=== PATIENT | male | born 1930 | race Caucasian/White ===

== ENCOUNTER 2016-12-02 12:00 | Inpatient (IN) | payer MEDICARE, OTHER ==
[~2016-12-02] VITALS: Ht 180.3 cm; Wt 79.5 kg
[~2016-12-02 12:00] MED LIST: /METO25TAB PO; /WARF4TA PO; ACET-654 PO; ASCO500T PO; ASPI81CH PO; BISA10SU30 PO; CARA1TAB2 PO; CHLO25TA3 PO; COLA50CA3 PO; FERR140T PO; LISI5TAB PO; MULTLIQ PO; NITR0.4D6 SL; OMEP40CA2 PO; SENO8.6T9 PO; SIMV40TA2 PO; VITA100066 PO
[2016-12-02 14:27] LABS: BASO % 0.2 % (0.0-1.0); EOS % 0.2 % (0.0-3.0); INR 1.12; LARGE UNSTAINED CELL # 0.3 K/mm3 (0.0-0.4); LARGE UNSTAINED CELL % 2.8 % (0.0-4.0); LYMPH % 10.1 % (24.0-44.0); MEAN CORPUSCULAR HEMOGLOBIN 29.5 pg (27.0-33.0); MEAN CORPUSCULAR HGB CONC 31.6 g/dl (32.0-36.5); MEAN CORPUSCULAR VOLUME 93.3 fl (80.0-96.0); MONO # 0.5 K/mm3 (0.0-0.8); NEUTROPHILS # 8.3 K/mm3 (1.8-7.7); NEUTROPHILS % 81.6 % (36.0-66.0); PLATELET COUNT, AUTOMATED 306 k/mm3 (150-450); RED CELL DISTRIBUTION WIDTH 13.3 % (11.5-14.5); WHITE BLOOD COUNT 10.1 K/mm3 (4.0-10.0)
[2016-12-02 14:38] LABS: ANION GAP 9 MEQ/L (8-16); BLOOD UREA NITROGEN 20 MG/DL (7-18); CALCIUM LEVEL 8.6 MG/DL (8.8-10.2); CARBON DIOXIDE LEVEL 27 MEQ/L (21-32); CHLORIDE LEVEL 105 MEQ/L (98-107); CREATININE FOR GFR 0.89 MG/DL (0.70-1.30); GLOMERULAR FILTRATION RATE > 60.0 (>35); GLUCOSE, FASTING 101 MG/DL (83-110); POTASSIUM SERUM 4.4 MEQ/L (3.5-5.1); SODIUM LEVEL 141 MEQ/L (136-145)
[2016-12-02] MEDS ORDERED: MEMA1TAB2 PO (15:01)
[2016-12-02] MEDS ORDERED: FERR325T PO (15:01)
[2016-12-02] MEDS ORDERED: VITMTA PO (15:01)
[2016-12-02] MEDS ORDERED: DONETAB6 PO (15:01)
[2016-12-02] MEDS ORDERED: ASPI1TAB PO (15:01)
[2016-12-02] MEDS ORDERED: VITA200038 PO (15:01)
[2016-12-02] MEDS ORDERED: STOO100C PO (15:01)
[2016-12-02] MEDS ORDERED: LISI10TA4 PO (15:01)
[2016-12-02] MEDS ORDERED: OMEP40CA2 PO (15:01)
[2016-12-02] MEDS ORDERED: NITR4TASL SL (15:01)
[2016-12-02] MEDS ORDERED: SIMV10TA2 PO (15:01)
[2016-12-02] MEDS ORDERED: VITA1TAB23 PO (15:01)
--- NOTE | 2016-12-02 15:03 | REP ---
CHEST X-RAY: Two views. HISTORY: Syncope. Comparison chest x-ray October 12, 2014. FINDINGS: The patient is status post aortic valve replacement via median sternotomy. Mild cardiomegaly is observed unchanged. Interstitial fibrosis is seen in both lung bases also unchanged. No acute infiltrate is seen. Right hemidiaphragm remains slightly elevated. IMPRESSION: Cardiomegaly. Status post aortic valve replacement. Mild bibasilar interstitial fibrosis. No acute abnormality seen. Signed by Rohan Hilton MD 12/02/2016 05:13 P
--- NOTE | 2016-12-02 15:04 | REP ---
PELVIS LEFT HIP: Three views. HISTORY: Hip pain after fall. FINDINGS: AP view of the pelvis shows an intact bony pelvic ring. No right hip pelvic or sacral fracture is seen. There are clips in the left inguinal soft tissues and there is vascular calcification on the right. AP view of the pelvis and AP and frog-leg views of the left hip demonstrate an intertrochanteric fracture of the left hip in very slight varus. No other abnormality. IMPRESSION: Intertrochanteric fracture left hip in slight varus. Signed by Rohan Hilton MD 12/02/2016 05:13 P
[2016-12-02] MEDS ORDERED: MORPHINE 2 MG/ML 1ML SYRINGE As Ordered ONE ×2 (15:32→16:59)
[2016-12-02] MEDS ORDERED: ONDANSETRON 4MG/2ML VIAL (J2405) As Ordered ONE ×2 (15:32→16:59)
--- NOTE | 2016-12-02 15:33 | REP ---
CT HEAD WITHOUT CONTRAST: HISTORY: Trauma. COMPARISON: 02/11/2014. Areas of decreased attentuation are present in the periventricular and subcortical white matter. This represents small vessel ischemic disease. The ventricular system and cortical sulci are dilated consistent with mild volume loss. There is no extracerebral collection. There is no fracture. The visualized sinuses are clear. IMPRESSION: 1. Small vessel ischemic disease. 2. Mild volume loss. Signed by Felix Tovar MD 12/02/2016 03:35 P
--- NOTE | 2016-12-02 16:35 | REP ---
Left femur series: Two views: History: Injury in a fall. Hip fracture. Findings: AP and lateral views of the left femur demonstrate diffuse osteopenia. There is vascular calcification. Scattered surgical clips are noted in the soft-tissues. No fracture or subluxation is seen in the mid or distal femur. Impression: No mid or distal femur fracture seen. Signed by Rohan Hilton MD 12/02/2016 05:15 P
--- NOTE | 2016-12-02 17:50 | ECGEPIP ---
Stationary ECG Study 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
--- NOTE | 2016-12-02 18:36 | CR ---
DATE OF CONSULTATION: 12/02/2016 REASON FOR CONSULTATION: Left femur intertrochanteric fracture. REQUESTING PHYSICIAN: Dr. Page Monique, admitting hospitalist. HISTORY: The patient is an 85-year-old male presenting to the emergency room (ER ) status post fall in his driveway. The patient reports disorientation and when he awoke, he was unable to get up due to left hip pain. The patient was transported to the emergency room via ambulance. Denies numbness or other injury. PAST MEDICAL HISTORY: Hypertension. Coronary artery disease. Tuberculosis. PAST SURGICAL HISTORY: Coronary artery bypass graft (CABG). Hernia repair. Artificial heart valve. SOCIAL HISTORY: The patient is a former smoker. MEDICATIONS: - lisinopril 10 mg daily - simvastatin 10 mg daily - omeprazole 40 mg daily - furosemide 40 mg daily - ferrous sulfate 324 mg daily - Nitrostat sublingual as needed - donepezil 10 mg daily - memantine 10 mg daily - daily multivitamin - vitamin C - vitamin D3 daily - aspirin 81 mg daily - stool softener 100 mg once daily PHYSICAL EXAMINATION: The patient is a pleasant 85-year-old male who appears comfortable in the emergency room. Heart: Regular rhythm with murmur noted. Lungs: Clear to auscultation bilaterally. Abdomen: Soft, nontender to palpation. Musculoskeletal: Inspection of the left hip reveals no gross abnormalities. The skin to his left leg is normal color, warm and dry. Hip motion is limited due to pain. The patient's calf is soft, nontender to palpation. The patient's distal pulses are palpable. His capillary refill is brisk and his sensation is intact. LABORATORY: Complete blood count: WBC 10.1, slightly elevated. RBC 2.77, slight decreased. Hemoglobin 8.2, decreased. Hematocrit 25.8, decreased. Platelets 306. PT 14.5, INR 1.12, APTT 26.9. Chemistry: Sodium 121, potassium 4.4, chloride 105, carbon dioxide 27, anion gap 9, BUN 20, creatinine 0.89, GFR greater than 60, fasting glucose 101, calcium 8.6, slightly decreased. CK-MB 4.2 , elevated. CK-MB 8.23, slightly elevated. Troponin less than 0.02. IMAGING: AP and lateral of the left hip revealed an intertrochanteric fracture of left hip in slight varus. Left femur: No mid or distal femur fracture seen. IMPRESSION: Left intertrochanteric femur fracture. PLAN: The patient will require clearance for surgery from medical. This case was discussed with Dr. Panchal, and he agrees to visit the patient later to discuss the procedure and obtain consent. Coordinated with OR and hospitalist. In the meantime, the patient will be admitted by the hospitalist. 30 minutes invested with this patient, more than 50% face to face time. MARIA ISABEL
[2016-12-02] MEDS ORDERED: ACETAMINOPHEN TAB 650MG DOSE (2X325MG) As Ordered ONE (20:26)
[2016-12-02] MEDS ORDERED: HEPARIN SOD (PORCINE) 5000 UNITS/ML VIAL As Ordered ONE (20:28)
[2016-12-02] MEDS: ACETAMINOPHEN TAB 650MG DOSE (2X325MG) PO PRN (20:30)
[2016-12-02] MEDS: HEPARIN SOD (PORCINE) 5000 UNITS/ML VIAL SC SCH (20:30)
[2016-12-02] MEDS ORDERED: NITROGLYCERIN 0.4 MG SUBL TABLET SL PRN (21:30)
[2016-12-02 22:30] VITALS: BP 131/60
--- NOTE | 2016-12-02 22:38 | HPE ---
DATE OF ADMISSION: 12/02/2016 PRIMARY CARE PROVIDER: Dr. Cortez REASON FOR ADMISSION: Dizziness. HISTORY OF PRESENT ILLNESS: Patient is an 85-year-old male, past medical history significant for his hypertension, tuberculosis, history of dementia, presented to the emergency room after he had a ground level fall. The patient stated he felt disoriented while he was going down his driveway to get the mail and fell. He denies any loss of consciousness or syncope. Denies any chest pain or shortness of breath. He was unable to stand up, started to complain of leg pain. The patient was brought into the emergency room. He was found to have a hip fracture. Currently the patient states his pain is 6 or 7 out of 10. He has past medical history significant for coronary artery disease and hypertension, history of dementia. Hospitalist was called for the admission. The patient denies any chest pain at this time. Denied any shortness of breath. Denied any nausea or vomiting. Denied any dizziness or headaches. Denied any change in vision. The patient normally ambulates independently, can go up a flight of stairs without getting short of breath or having any chest pain. Hospitalist was called for the admission. REVIEW OF SYSTEMS: 12-point review of systems was obtained, all of which was negative except for those mentioned above. PAST MEDICAL HISTORY: Significant for: Hypertension. Coronary artery disease. Tuberculosis. Dementia. PAST SURGICAL HISTORY: Significant for: Coronary artery bypass graft (CABG). Hernia repair. Artificial heart valve. SOCIAL HISTORY: No tobacco or alcohol use. Lives at home with his . ALLERGIES: LATEX. HOME MEDICATIONS: Include: - ascorbic acid 250 mg by mouth at noon - aspirin 81 mg by mouth daily - vitamin D3 2000 units by mouth daily - stool softener 200 mg by mouth at bedtime - donepezil 10 mg at bedtime - iron 325 mg by mouth at noon - lisinopril 10 mg at bedtime - Namenda 10 mg twice a day - nitro 0.4 mg sublingual as needed for chest pain - omeprazole 40 mg by mouth daily - simvastatin 10 mg by mouth at bedtime FAMILY HISTORY: Noncontributory. PHYSICAL FINDINGS: Blood pressure 166/73, pulse 68, respiratory rate 18, temperature 98.2, pulse oximetry 99% on room air. HEENT: Pupils equal, round, reactive. Neck: Supple. Cardiac: +3 out of 6 systolic murmur. Regular rhythm, regular rate. Lungs: Clear to auscultation (CTA) bilaterally. Abdomen: Soft, nontender. Extremities: Left leg tender to palpation. LABORATORY FINDINGS: WBC 10.1, hemoglobin 8.2, hematocrit 25.8, platelet count 306. Sodium 141, potassium 4.4, chloride 105, BUN 20, creatinine 0.89, troponin less than 0.02, INR 1.12, APTT 26.9, PT 14.5. Femur x-ray showed no mid or distal femur fracture. Hip and pelvis x-ray showed intertrochanteric fracture of the left hip. Chest x-ray showed cardiomegaly, status post aortic valve replacement. CT of the chest showed small vessel ischemic disease. No volume loss. ASSESSMENT AND PLAN: 1. Left intertrochanteric fracture. Dr. Panchal from orthopedics was consulted. The patient will likely need cardiac clearance given his history of coronary artery disease and heart valve prior to proceeding to the operating room (OR). Will defer to morning team. 2. History of hypertension. Blood pressure is stable at this time. 3. The patient has a history of anemia. It appears that the patient was hospitalized in February of 2014, and his hemoglobin ran in the 8's. If it was to drop any further, we would transfuse. 4. History of coronary artery disease. The patient does not complain of any heart disease at this time. 5. Deep vein thrombosis (DVT) prophylaxis. We will start the patient on heparin at this time.
[2016-12-02] MEDS: SIMVASTATIN 10 MG TAB PO SCH (22:55)
[2016-12-02] MEDS: DOCUSATE SODIUM 100 MG CAP PO SCH (22:55)
[2016-12-02] MEDS: LISINOPRIL 10 MG TAB PO SCH (22:56)
--- NOTE | 2016-12-02 23:00 | EDDOCDS ---
Nurse's Notes [facility] Name: Ciro Shook Age: 85 yrs Sex: Male : 1930 Arrival Date: 12/02/2016 Time: 12:00 Bed 18 Private MD: Diagnosis: Intertrochanteric fracture of femur Presentation: 12/02 12:14 Presenting complaint: EMS states: that the pt got disoriented in the drive way and ms18 fell. Pt was found by the mail lady and was setting in the driveway unable to get up. Pt c/o L hip pain at this time. Adult Sepsis Screening: The patient does not have new or worsening altered mentation. Patient's respiratory rate is less than 22. Systolic blood pressure is greater than 100. Patient has a qSOFA score of 0- Negative Sepsis Screen. Suicide/Homicide risk assessment- the patient denies having any suicidal and/or homicidal ideations and does not present with any other emotional, behavioral or mental health complaints. Status: Patient is not a financial service rep or dependent. Transition of care: patient was not received from another setting of care. 12:14 Acuity: KEYUR Level 3 ms18 12:14 Method Of Arrival: Ambulance ms18 Triage Assessment: 12:19 General: Appears in no apparent distress, comfortable, Behavior is appropriate for age, ms18 cooperative, pleasant. Pain: Location: left hip Pain currently is 9 out of 10 on a pain scale. Neurological: Level of Consciousness is awake, alert, obeys commands, Oriented to person, place, time. Respiratory: Airway is patent Respiratory effort is even, unlabored. Derm: Skin is pink, warm & dry. Musculoskeletal: Range of motion limited in left hip. Historical: - Allergies: Latex; - Home Meds: 1. simvastatin 10 mg Oral tab 1 tab once daily 2. lisinopril 10 mg Oral tab 1 tab once daily 3. furosemide 40 mg Oral tab 1 tab once daily 4. omeprazole 40 mg Oral cpDR 1 cap 2 times per day 5. Nitrostat 0.4 mg SL subl 1 tab every 5 minutes 6. ferrous sulfate 324 mg (65 mg iron) Oral TbEC daily 7. donepezil 10 mg oral tab 1 tab once daily 8. memantine 10 mg oral tab 1 tab 2 times per day 9. multivitamin Oral tab 1 tablet daily 10. Vitamin C 500 mg Oral cpER 250 mg daily 11. Vitamin D3 1,000 unit oral tab 2000 unit daily 12. aspirin 81 mg Oral TbEC 1 tab once daily 13. Stool Softener 100 mg oral cap 1 cap 2 times per day - PMHx: Hypertension; CAD; Tuberculosis; - PSHx: CABG; Hernia repair; artifical heart valve; - Social history: Smoking status: Patient states former smoker of tobacco. No barriers to communication noted, The patient speaks fluent Hungarian. - Family history: Not pertinent. - : The pt / caregiver states he / she is not on anticoagulants. Home medication list is obtained from family members. - Exposure Risk Screening:: None identified. Screenin:53 Screening information is obtained from the patient, family members. Fall risk: At risk ms18 due to age, prior history of falls. Assistance ADL's: requires no assistance with activities of daily living. Abuse/DV Screen: The patient / caregiver reports he/she is: not in a situation that causes fear, pain or injury. Nutritional screening: No deficits noted. home support is adequate. 20:15 Advance Directives: Unable to assess Advance Directive status due to pt condition. af2 Assessment: 13:51 General: Appears in no apparent distress, comfortable, Behavior is appropriate for age, ms18 cooperative, pleasant. Pain: Location: left hip. Neurological: Level of Consciousness is awake, alert, obeys commands, Oriented to person, place, time. Cardiovascular: Rhythm is regular. Respiratory: Airway is patent Respiratory effort is even, unlabored. Derm: Skin is pink, warm & dry. Musculoskeletal: Range of motion limited in left hip. 14:56 General: Appears in no apparent distress, comfortable, Behavior is appropriate for age, ms18 cooperative. Neurological: Level of Consciousness is awake, alert, obeys commands, Oriented to person, place, time. Respiratory: Airway is patent Respiratory effort is even, unlabored. Derm: Skin is pink, warm & dry. 16:51 General: Hospitalist at bedside at this time. Will continue to monitor pt. ms18 17:15 General: Appears in no apparent distress, comfortable, Behavior is appropriate for age, ms18 cooperative, pleasant. General: Pt starting to take off 02 finger probe, pt needs constant redirection from his son. Son states that the pt may have onset of dementia, but pt's doesn't like to accept that. . Pain: Location: left hip Pain currently is 8 out of 10 on a pain scale. Neurological: Level of Consciousness is awake, alert, obeys commands, Oriented to person, place, time. Respiratory: Airway is patent Respiratory effort is even, unlabored. Derm: Skin is pink, warm & dry. normal. 18:51 General: Appears in no apparent distress, comfortable, Behavior is appropriate for age, ms18 cooperative. Neurological: Level of Consciousness is awake, alert, obeys commands. Respiratory: Airway is patent Respiratory effort is even, unlabored. Derm: Skin is pink, warm & dry. normal. Vital Signs: 12:19 BP 166 / 73; Pulse 68; Resp 18; Pulse Ox 99% ; Weight 76.2 kg; Height 5 ft. 11 in. ms18 (180.34 cm); Pain 9/10; 12:32 Temp 98.2(TE); ms18 12:53 Pulse 62 MON; Pulse Ox 98% ; ms18 12:54 BP 186 / 78 (auto/); ms18 13:08 Pulse 62 MON; Pulse Ox 96% ; ms18 13:09 BP 180 / 79 (auto/); ms18 13:23 Pulse 62 MON; Pulse Ox 97% ; ms18 13:24 BP 175 / 77 (auto/); ms18 13:38 Pulse 58 MON; Pulse Ox 98% ; ms18 13:39 BP 175 / 74 (auto/); ms18 13:54 BP 188 / 89 (auto/); ms18 13:54 Pulse 64 MON; Pulse Ox 98% ; ms18 14:24 BP 163 / 72 (auto/); ms18 14:24 Pulse 74 MON; Pulse Ox 95% ; ms18 14:39 BP 163 / 73 (auto/); ms18 14:39 Pulse 72 MON; Pulse Ox 97% ; ms18 14:54 BP 170 / 75 (auto/); ms18 14:54 Pulse 68 MON; Pulse Ox 96% ; ms18 15:09 BP 189 / 86 (auto/); ms18 15:09 Pulse 80 MON; Pulse Ox 96% ; ms18 15:24 BP 183 / 80 (auto/); ms18 15:24 Pulse 80 MON; Pulse Ox 98% ; ms18 15:39 BP 181 / 86 (auto/); ms18 15:39 Pulse 86 MON; Pulse Ox 96% ; ms18 15:53 Pulse 76 MON; Pulse Ox 94% ; ms18 15:54 BP 188 / 79 (auto/); ms18 16:09 BP 167 / 74 (auto/); ms18 16:09 Pulse 82 MON; Pulse Ox 95% ; ms18 16:24 BP 190 / 74 (auto/); ms18 16:25 Pulse 76 MON; Pulse Ox 95% ; ms18 16:37 Pulse 78 MON; Pulse Ox 94% ; ms18 16:39 BP 176 / 75 (auto/); ms18 16:53 Pulse 88 MON; Pulse Ox 93% ; ms18 16:54 BP 192 / 77 (auto/); ms18 17:08 Pulse 86 MON; Pulse Ox 94% ; ms18 17:09 BP 182 / 78 (auto/); ms18 17:19 Pulse 84 MON; Pulse Ox 94% ; ms18 17:24 BP 139 / 63 (auto/); ms18 17:39 BP 142 / 64 (auto/); ms18 17:39 Pulse 86 MON; Pulse Ox 95% ; ms18 17:54 BP 137 / 63 (auto/); ms18 17:54 Pulse 86 MON; Pulse Ox 94% ; ms18 18:09 BP 184 / 77 (auto/); ms18 18:09 Pulse 88 MON; Pulse Ox 95% ; ms18 18:22 Pulse 100 MON; Pulse Ox 94% ; ms18 18:24 BP 162 / 70 (auto/); ms18 18:39 BP 165 / 72 (auto/); ms18 18:39 Pulse 92 MON; Pulse Ox 95% ; ms18 20:13 BP 153 / 69 (auto/); af2 20:14 Pulse 86 MON; Pulse Ox 92% ; af2 12:19 Body Mass Index 23.43 (76.20 kg, 180.34 cm) ms18 Vitals: 12:19 Glucose Measurement D-stick done by EMS. Log In Time N/A - ambulance arrival. ms18 ED Course: 12:01 Patient visited by Jojo Chandra Batch Mixer Operator. deg 12:01 Patient moved to Waiting deg 12:02 Patient moved to 14 deg 12:17 Triage Initiated ms18 12:32 Patient visited by Falguni Sewell RN. ms18 12:45 Elida Swartz DO is PHCP. jo4 12:45 Tyler Cisneros MD is Attending Physician. jo4 12:53 The patient / caregiver is instructed regarding the plan of care and ED course. ms18 Accompanied by Significant Other, Patient has correct armband on for positive identification. Placed in gown. Bed in low position. Call light in reach. Side rails up X2. physician gynecologist on. Pulse ox on. NIBP on. Property :Personal belongings accompany Pt. 12:53 Maintain field IV. Dressing intact. Good blood return noted. Site clean & dry. Gauge & ms18 site: 20g L AC. 12:59 Patient visited by Falguni Sewell RN. ms18 12:59 Falguni Sewell RN is Primary Nurse. ms18 13:31 Patient visited by Betzaida Daly PCA. ct3 13:41 Patient visited by Elida Swartz DO. jo4 13:41 Patient visited by Elida Swartz DO. jo4 13:51 Patient visited by Falguni Sewell RN. ms18 14:13 Partial Thromboplastin Time Sent. ms18 14:13 Prothrombin Time Profile\E\INR Sent. ms18 14:13 Type & Screen Sent. ms18 14:13 BMP Sent. ms18 14:14 CBC with Diff Sent. ms18 14:14 Troponin Sent. ms18 14:14 CIP Sent. ms18 14:20 Patient visited by Falguni Sewell RN. ms18 14:36 PENDING SALE TO [facility] Payment Agreement was scanned into [employer] and attached to record. lg 14:51 Patient visited by Sylvain Carmen PCA. jlf 14:51 EKG done. (by ED staff). Reviewed by Tyler Cisneros MD. jlf 14:52 Patient visited by Sylvain Carmen PCA. jlf 15:20 Chest, 2 View (pa\E\lat) Returned. EDMS 15:20 Hip,AP,LAT to include Pelvis Returned. EDMS 15:26 Patient visited by Falguni Sewell RN. ms18 15:43 Patient visited by Falguni Sewell RN. ms18 15:57 CT Head Without Contrast Returned. EDMS 16:51 Patient visited by Falguni Sewell RN. ms18 16:51 Patient visited by Sylvain Carmen PCA. jlf 17:01 Page Monique is Hospitalizing Provider. jo4 17:14 Femur Returned. EDMS 17:51 EKG-ADULT Returned. EDMS 17:54 Chest, 2 View (pa\E\lat) Returned. EDMS 17:54 Hip,AP,LAT to include Pelvis Returned. EDMS 18:03 Patient moved to Admit Hold js13 18:49 Patient visited by Falguni Sewell RN. ms18 18:56 Renate HollandRN is Primary Nurse. af2 20:04 Sophie Sewell RN is Primary Nurse. sls1 20:04 Patient moved to 18 sls1 20:15 No procedures done that require assistance. af2 Administered Medications: 15:43 Drug: morphine 2 mg [morphine 2 mg/mL intravenous cartridge (1 mL)] Route: IVP; Site: ms18 left antecubital; 17:14 Follow up: Response: No Adverse Reaction; Pain is decreased ms18 15:43 Drug: Ondansetron 4 mg Route: IVP; Site: left antecubital; ms18 17:15 Follow up: Response: No Adverse Reaction ms18 17:14 Drug: morphine 2 mg [morphine 2 mg/mL intravenous cartridge (1 mL)] Route: IVP; Site: ms18 left antecubital; 17:14 Drug: Ondansetron 4 mg [ondansetron HCl 2 mg/mL intravenous solution (2 mL)] Route: ms18 IVP; Site: left antecubital; Order Results: Lab Order: CIP; SPEC'M 12/02/16 12:49 Test: CPK CREATINE PHOSPHOKINASE; Value: 51; Range: 39-308; Units: U/L; Status: F Test: CK-MB VALUE MASS; Value: 4.2; Range: 0.0-3.6; Abnormal: Above high normal; Units: NG/ML; Status: F Test: MB/CK RELATIVE INDEX; Value: 8.23; Range: < OR =4; Abnormal: Above high normal; Status: F Test Note: ; DIAGNOSIS CRITERIA MMB ng/ml Relative Index (RI) NON-AMI < or = 5 N/A CLAIRE ZONE > 5 < or = 4 AMI > 5 > 4 Lab Order: Troponin; SPEC'M 12/02/16 12:49 Test: TROPONIN I; Value: < 0.02; Range: < 0.10; Units: NG/ML; Status: F Test Note: ; Troponin I Reference Interval for Siemens Lindsay LOCI: 99th Percentile= 0.00-0.045 ng/ml Risk Stratification: <= 0.10 ng/ml Decreased Risk for Adverse Clinical Events. 0.10-1.50 ng/ml Increased Risk for Adverse Clinical Events. Evaluation of additional criterion and/or repeat testing in 2-6 hours is suggested to rule out myocardial damage. >= 1.50 ng/ml Indicative of Myocardial Injury. Lab Order: CBC with Diff; SPEC'M 12/02/16 12:49 Test: WHITE BLOOD COUNT; Value: 10.1; Range: 4.0-10.0; Abnormal: Above high normal; Units: K/mm3; Status: F Test: RED BLOOD COUNT; Value: 2.77; Range: 4.30-6.10; Abnormal: Below low normal; Units: M/mm3; Status: F Test: HEMOGLOBIN; Value: 8.2; Range: 14.0-18.0; Abnormal: Below low normal; Units: g/dl; Status: F Test: HEMATOCRIT; Value: 25.8; Range: 42.0-52.0; Abnormal: Below low normal; Units: %; Status: F Test: MEAN CORPUSCULAR VOLUME; Value: 93.3; Range: 80.0-96.0; Units: fl; Status: F Test: MEAN CORPUSCULAR HEMOGLOBIN; Value: 29.5; Range: 27.0-33.0; Units: pg; Status: F Test: MEAN CORPUSCULAR HGB CONC; Value: 31.6; Range: 32.0-36.5; Abnormal: Below low normal; Units: g/dl; Status: F Test: RED CELL DISTRIBUTION WIDTH; Value: 13.3; Range: 11.5-14.5; Units: %; Status: F Test: PLATELET COUNT, AUTOMATED; Value: 306; Range: 150-450; Units: k/mm3; Status: F Test: NEUTROPHILS %; Value: 81.6; Range: 36.0-66.0; Abnormal: Above high normal; Units: %; Status: F Test: LYMPH %; Value: 10.1; Range: 24.0-44.0; Abnormal: Below low normal; Units: %; Status: F Test: MONO %; Value: 5.0; Range: 0.0-5.0; Units: %; Status: F Test: EOS %; Value: 0.2; Range: 0.0-3.0; Units: %; Status: F Test: BASO %; Value: 0.2; Range: 0.0-1.0; Units: %; Status: F Test: LARGE UNSTAINED CELL %; Value: 2.8; Range: 0.0-4.0; Units: %; Status: F Test: NEUTROPHILS #; Value: 8.3; Range: 1.8-7.7; Abnormal: Above high normal; Units: K/mm3; Status: F Test: LYMPH #; Value: 1.0; Range: 1.5-4.5; Abnormal: Below low normal; Units: K/mm3; Status: F Test: MONO #; Value: 0.5; Range: 0.0-0.8; Units: K/mm3; Status: F Test: EOS #; Value: 0.0; Range: 0.0-0.50; Units: K/mm3; Status: F Test: BASO #; Value: 0.0; Range: 0.0-0.2; Units: K/mm3; Status: F Test: LARGE UNSTAINED CELL #; Value: 0.3; Range: 0.0-0.4; Units: K/mm3; Status: F Lab Order: [facility]; SPEC'M 12/02/16 12:49 Test: GLUCOSE, FASTING; Value: 101; Range: 83-110; Units: MG/DL; Status: F Test: BLOOD UREA NITROGEN; Value: 20; Range: 7-18; Abnormal: Above high normal; Units: MG/DL; Status: F Test: CREATININE FOR GFR; Value: 0.89; Range: 0.70-1.30; Units: MG/DL; Status: F Test: GLOMERULAR FILTRATION RATE; Value: > 60.0; Range: >35; Status: F Test: SODIUM LEVEL; Value: 141; Range: 136-145; Units: MEQ/L; Status: F Test: POTASSIUM SERUM; Value: 4.4; Range: 3.5-5.1; Units: MEQ/L; Status: F Test: CHLORIDE LEVEL; Value: 105; Range: 98-107; Units: MEQ/L; Status: F Test: CARBON DIOXIDE LEVEL; Value: 27; Range: 21-32; Units: MEQ/L; Status: F Test: ANION GAP; Value: 9; Range: 8-16; Units: MEQ/L; Status: F Test: CALCIUM LEVEL; Value: 8.6; Range: 8.8-10.2; Abnormal: Below low normal; Units: MG/DL; Status: F Test Note: ; Units are mL/min/1.73 m2 Chronic Kidney Disease Staging per NKF: Stage I & II GFR >=60 Normal to Mildly Decreased Stage III GFR 30-59 Moderately Decreased Stage IV GFR 15-29 Severely Decreased Stage V GFR <15 Very Little GFR Left ESRD GFR <15 on COLD ROLLING SUPERVISOR Lab Order: Partial Thromboplastin Time; SPEC' 12/02/16 12:49 Test: PARTIAL THROMBOPLASTIN TIME; Value: 26.9; Range: 26.6-37.1; Units: SECONDS; Status: F Lab Order: Prothrombin Time Profile\E\INR; SPEC' 12/02/16 12:49 Test: PROTHROMBIN TIME; Value: 14.5; Range: 12.3-14.5; Units: SECONDS; Status: F Test: INR; Value: 1.12; Status: F Test Note: ; THERAPUTIC HUMAN INR VALUES INDICATIONS NORMAL RANGES PROPHYLAXIS/TREATMENT OF: VENOUS THROMBOSIS 2.0-3.0 PULMONARY EMBOLISM 2.0-3.0 PREVENTION OF SYSTEMIC EMBOLISM FROM: TISSUE HEART VALVES 2.0-3.0 ACUTE MYOCARDIAL INFARCTION 2.0-3.0 VALVULAR HEART DISEASE 2.0-3.0 ATRIAL FIBRILLATION 2.0-3.0 MECHANICAL VALVES(HIGH RISK) 2.5-3.5 RECURRENT MYOCARDIAL INFARCTION 2.5-3.5 Lab Order: Type & Screen; SPEC12/02/16 17:08 Test: BLOOD TYPE; Value: B NEG; Status: F Test: AB SCREEN (INDIRECT MARY)GEL; Value: NEGATIVE; Status: F Radiology Order: CT Head Without Contrast Test: CT Head Without Contrast REASON FOR EXAMINATION: Syncope; CT HEAD WITHOUT CONTRAST:; ; HISTORY: Trauma.; ; COMPARISON: 02/11/2014.; ; Areas of decreased attentuation are present in the periventricular and; subcortical white matter. This represents small vessel ischemic disease. The; ventricular system and cortical sulci are dilated consistent with mild volume; loss. There is no extracerebral collection. There is no fracture. The; visualized sinuses are clear.; ; IMPRESSION:; ; 1. Small vessel ischemic disease.; ; 2. Mild volume loss.; ; ; Signed by; Felix Tovar MD 12/02/2016 03:35 P; Radiology Order: Hip,AP,LAT to include Pelvis Test: Hip,AP,LAT to include Pelvis REASON FOR EXAMINATION: Hip pain after fall; PELVIS LEFT HIP: Three views.; ; HISTORY: Hip pain after fall.; ; FINDINGS: AP view of the pelvis shows an intact bony pelvic ring. No right hip; pelvic or sacral fracture is seen. There are clips in the left inguinal soft; tissues and there is vascular calcification on the right.; ; AP view of the pelvis and AP and frog-leg views of the left hip demonstrate an; intertrochanteric fracture of the left hip in very slight varus. No other; abnormality.; ; IMPRESSION: Intertrochanteric fracture left hip in slight varus.; ; ; Signed by; Rohan Hilton MD 12/02/2016 05:13 P; Radiology Order: Chest, 2 View (pa\E\lat) Test: Chest, 2 View (pa\E\lat) REASON FOR EXAMINATION: Syncope; CHEST X-RAY: Two views.; ; HISTORY: Syncope.; ; Comparison chest x-ray October 12, 2014.; ; FINDINGS: The patient is status post aortic valve replacement via median; sternotomy. Mild cardiomegaly is observed unchanged. Interstitial fibrosis is; seen in both lung bases also unchanged. No acute infiltrate is seen. Right; hemidiaphragm remains slightly elevated.; ; IMPRESSION: Cardiomegaly. Status post aortic valve replacement. Mild bibasilar; interstitial fibrosis. No acute abnormality seen.; ; ; Signed by; Rohan Hilton MD 12/02/2016 05:13 P; Radiology Order: Femur Test: Femur REASON FOR EXAMINATION: fall, hip fx; Left femur series: Two views:; ; History: Injury in a fall. Hip fracture.; ; Findings: AP and lateral views of the left femur demonstrate diffuse osteopenia.; There is vascular calcification. Scattered surgical clips are noted in the; soft-tissues. No fracture or subluxation is seen in the mid or distal femur.; ; Impression:; ; No mid or distal femur fracture seen.; ; ; Signed by; Rohan Hilton MD 12/02/2016 05:15 P; Outcome: 17:02 Decision to Hospitalize by Provider. jo4 20:15 Discharge Assessment: Patient awake, alert and oriented x 3. No cognitive and/or af2 functional deficits noted. Patient verbalized understanding of disposition instructions. patient administered narcotics - no. The following High Risk Discharge criteria are identified: None. Admitted to PCU accompanied by nurse, accompanied by tech, via stretcher, on monitor, with chart. Condition: stable. CT Study completed. 22:59 Patient left the ED. sls1 Signatures: Dispatcher [employer] EDMS Jojo Chandra, Batch Mixer Operator Unit deg Nasrin Stone, Teddy Reg lg Betzaida Daly, FLOOR STEWARD/STEWARDESS FLOOR STEWARD/STEWARDESS ct3 Hodan Argueta, RN RN sls1 Clementina Hernádnez,RN RN js13 Sylvain Carmen, FLOOR STEWARD/STEWARDESS FLOOR STEWARD/STEWARDESS jlf Falguni Sewell,SHIREEN RN ms18 Renate HollandRN RN af2 Elida Swartz DO DO jo4 MTDD
--- NOTE | 2016-12-02 23:00 | EDDOCDS ---
Physician Documentation [facility] Name: Ciro Shook Age: 85 yrs Sex: Male : 1930 Arrival Date: 12/02/2016 Time: 12:00 Bed 18 Private MD: Disposition: 12/02/16 17:02 Hospitalization ordered by Page Monique for Inpatient Admission. Preliminary diagnosis is Intertrochanteric fracture of femur. - Bed requested for PCU. - Status is Inpatient Admission. sls1 - Condition is Stable. - Problem is new. - Symptoms are unchanged. Historical: - Allergies: Latex; - Home Meds: 1. simvastatin 10 mg Oral tab 1 tab once daily 2. lisinopril 10 mg Oral tab 1 tab once daily 3. furosemide 40 mg Oral tab 1 tab once daily 4. omeprazole 40 mg Oral cpDR 1 cap 2 times per day 5. Nitrostat 0.4 mg SL subl 1 tab every 5 minutes 6. ferrous sulfate 324 mg (65 mg iron) Oral TbEC daily 7. donepezil 10 mg oral tab 1 tab once daily 8. memantine 10 mg oral tab 1 tab 2 times per day 9. multivitamin Oral tab 1 tablet daily 10. Vitamin C 500 mg Oral cpER 250 mg daily 11. Vitamin D3 1,000 unit oral tab 2000 unit daily 12. aspirin 81 mg Oral TbEC 1 tab once daily 13. Stool Softener 100 mg oral cap 1 cap 2 times per day - PMHx: Hypertension; CAD; Tuberculosis; - PSHx: CABG; Hernia repair; artifical heart valve; - Social history: Smoking status: Patient states former smoker of tobacco. No barriers to communication noted, The patient speaks fluent [place]. - Family history: Not pertinent. - : The pt / caregiver states he / she is not on anticoagulants. Home medication list is obtained from family members. - Exposure Risk Screening:: None identified. Vital Signs: 12/02 12:19 BP 166 / 73; Pulse 68; Resp 18; Pulse Ox 99% ; Weight 76.2 kg / 167.99 lbs; Height 5 ms18 ft. 11 in. (180.34 cm); Pain 9/10; 12:32 Temp 98.2(TE); ms18 12:53 Pulse 62 MON; Pulse Ox 98% ; ms18 12:54 BP 186 / 78 (auto/); ms18 13:08 Pulse 62 MON; Pulse Ox 96% ; ms18 13:09 BP 180 / 79 (auto/); ms18 13:23 Pulse 62 MON; Pulse Ox 97% ; ms18 13:24 BP 175 / 77 (auto/); ms18 13:38 Pulse 58 MON; Pulse Ox 98% ; ms18 13:39 BP 175 / 74 (auto/); ms18 13:54 BP 188 / 89 (auto/); ms18 13:54 Pulse 64 MON; Pulse Ox 98% ; ms18 14:24 BP 163 / 72 (auto/); ms18 14:24 Pulse 74 MON; Pulse Ox 95% ; ms18 14:39 BP 163 / 73 (auto/); ms18 14:39 Pulse 72 MON; Pulse Ox 97% ; ms18 14:54 BP 170 / 75 (auto/); ms18 14:54 Pulse 68 MON; Pulse Ox 96% ; ms18 15:09 BP 189 / 86 (auto/); ms18 15:09 Pulse 80 MON; Pulse Ox 96% ; ms18 15:24 BP 183 / 80 (auto/); ms18 15:24 Pulse 80 MON; Pulse Ox 98% ; ms18 15:39 BP 181 / 86 (auto/); ms18 15:39 Pulse 86 MON; Pulse Ox 96% ; ms18 15:53 Pulse 76 MON; Pulse Ox 94% ; ms18 15:54 BP 188 / 79 (auto/); ms18 16:09 BP 167 / 74 (auto/); ms18 16:09 Pulse 82 MON; Pulse Ox 95% ; ms18 16:24 BP 190 / 74 (auto/); ms18 16:25 Pulse 76 MON; Pulse Ox 95% ; ms18 16:37 Pulse 78 MON; Pulse Ox 94% ; ms18 16:39 BP 176 / 75 (auto/); ms18 16:53 Pulse 88 MON; Pulse Ox 93% ; ms18 16:54 BP 192 / 77 (auto/); ms18 17:08 Pulse 86 MON; Pulse Ox 94% ; ms18 17:09 BP 182 / 78 (auto/); ms18 17:19 Pulse 84 MON; Pulse Ox 94% ; ms18 17:24 BP 139 / 63 (auto/); ms18 17:39 BP 142 / 64 (auto/); ms18 17:39 Pulse 86 MON; Pulse Ox 95% ; ms18 17:54 BP 137 / 63 (auto/); ms18 17:54 Pulse 86 MON; Pulse Ox 94% ; ms18 18:09 BP 184 / 77 (auto/); ms18 18:09 Pulse 88 MON; Pulse Ox 95% ; ms18 18:22 Pulse 100 MON; Pulse Ox 94% ; ms18 18:24 BP 162 / 70 (auto/); ms18 18:39 BP 165 / 72 (auto/); ms18 18:39 Pulse 92 MON; Pulse Ox 95% ; ms18 20:13 BP 153 / 69 (auto/); af2 20:14 Pulse 86 MON; Pulse Ox 92% ; af2 12:19 Body Mass Index 23.43 (76.20 kg, 180.34 cm) ms18 MDM: 14:08 Piano Professor/Pulse Ox/q 15 min VS ordered. jo4 14:08 Accucheck ordered. jo4 14:08 IV Saline Lock ordered. jo4 14:08 Rhythm Strip to chart ordered. jo4 14:09 CT Head Without Contrast Ordered. EDMS 14:09 CIP Ordered. EDMS 14:09 Troponin Ordered. EDMS 14:09 CBC with Diff Ordered. EDMS 14:09 BMP Ordered. EDMS 14:09 Partial Thromboplastin Time Ordered. EDMS 14:09 Prothrombin Time Profile\E\INR Ordered. EDMS 14:09 Type & Screen Ordered. EDMS 14:10 ECG WITH READING ER PHYS+CARDIAG ordered. EDMS 14:12 Hip,AP,LAT to include Pelvis Ordered. EDMS 14:12 Chest, 2 View (pa\E\lat) Ordered. EDMS 14:13 Financial registration complete. lg 14:36 [facility] Payment Agreement was scanned into [employer] and attached to record. lg 15:17 Partial Thromboplastin Time Reviewed. jo4 15:19 CIP Reviewed. jo4 15:20 CBC with Diff Reviewed. jo4 15:20 BMP Reviewed. jo4 15:20 Troponin Reviewed. jo4 15:21 Prothrombin Time Profile\E\INR Reviewed. jo4 15:26 Femur Ordered. EDMS 15:26 morphine 2 mg IVP once ordered. ml 15:27 Ondansetron 4 mg IVP once ordered. ml 15:28 BED REQUEST+ADM ordered. EDMS 15:34 Chest, 2 View (pa\E\lat) Reviewed. jo4 15:34 Hip,AP,LAT to include Pelvis Reviewed. jo4 16:52 morphine 2 mg IVP once ordered. jo4 16:52 Ondansetron 4 mg IVP once ordered. jo4 18:10 Admission / Observation Status ordered. EDMS 18:10 NO ADDED SALT DIET ordered. EDMS 18:10 NPO DIET ordered. EDMS 18:46 Type & Screen Reviewed. jo4 21:28 CBC WITH DIFFERENTIAL Ordered. EDMS 21:28 COMPLETE COMPHRENSIVE METABOLI Ordered. EDMS 22:18 ECHOCARD,DOPPLER/COLOR FLOW ordered. EDMS Administered Medications: 15:43 Drug: morphine 2 mg [morphine 2 mg/mL intravenous cartridge (1 mL)] Route: IVP; Site: ms18 left antecubital; 17:14 Follow up: Response: No Adverse Reaction; Pain is decreased ms18 15:43 Drug: Ondansetron 4 mg Route: IVP; Site: left antecubital; ms18 17:15 Follow up: Response: No Adverse Reaction ms18 17:14 Drug: morphine 2 mg [morphine 2 mg/mL intravenous cartridge (1 mL)] Route: IVP; Site: ms18 left antecubital; 17:14 Drug: Ondansetron 4 mg [ondansetron HCl 2 mg/mL intravenous solution (2 mL)] Route: ms18 IVP; Site: left antecubital; Signatures: Dispatcher [employer] EDMS Tyler Cisneros MD MD Nasrin Stone, Reg Reg lg Hodan Argueta RN RN sls1 Falguni Sewell RN RN ms18 Elida Swartz DO DO jo4 Tenzin Solis RN RN The chart was reviewed and I authenticate all verbal orders and agree with the evaluation and treatment provided.Corrections: (The following items were deleted from the chart) 15:28 14:08 Orthostatic VS ordered. jo4 ms18 Attachments: 14:36 [facility] Payment Agreement lg [facility]
[2016-12-03 04:00] VITALS: BP 164/70
[2016-12-03] MEDS: HEPARIN SOD (PORCINE) 5000 UNITS/ML VIAL SC SCH ×3 (04:09→21:37)
[2016-12-03] MEDS: ACETAMINOPHEN TAB 650MG DOSE (2X325MG) PO PRN ×4 (04:31→23:18)
[2016-12-03] MEDS ORDERED: traMADol 50 MG TAB PO ONE (06:00)
[2016-12-03 06:10] LABS: BASO # 0.1 K/mm3 (0.0-0.2); BASO % 0.4 % (0.0-1.0); EOS % 0.1 % (0.0-3.0); LARGE UNSTAINED CELL # 0.3 K/mm3 (0.0-0.4); LARGE UNSTAINED CELL % 1.9 % (0.0-4.0); LYMPH # 1.9 K/mm3 (1.5-4.5); LYMPH % 11.4 % (24.0-44.0); MEAN CORPUSCULAR HEMOGLOBIN 28.8 pg (27.0-33.0); MEAN CORPUSCULAR HGB CONC 31.1 g/dl (32.0-36.5); MEAN CORPUSCULAR VOLUME 92.6 fl (80.0-96.0); MONO % 6.7 % (0.0-5.0); NEUTROPHILS # 11.4 K/mm3 (1.8-7.7); NEUTROPHILS % 79.4 % (36.0-66.0); PLATELET COUNT, AUTOMATED 286 k/mm3 (150-450); RED CELL DISTRIBUTION WIDTH 14.6 % (11.5-14.5); WHITE BLOOD COUNT 14.3 K/mm3 (4.0-10.0)
[2016-12-03 06:32] LABS: ALBUMIN 2.6 GM/DL (3.2-5.2); ALBUMIN/GLOBULIN RATIO 0.76 (1.00-1.93); ALKALINE PHOSPHATASE 55 U/L (45-117); ALT/SGPT 16 U/L (12-78); ANION GAP 8 MEQ/L (8-16); AST/SGOT 19 U/L (15-37); BILIRUBIN,TOTAL 0.4 MG/DL (0.2-1.0); BLOOD UREA NITROGEN 23 MG/DL (7-18); CALCIUM LEVEL 8.3 MG/DL (8.8-10.2); CARBON DIOXIDE LEVEL 27 MEQ/L (21-32); CHLORIDE LEVEL 104 MEQ/L (98-107); CREATININE FOR GFR 0.96 MG/DL (0.70-1.30); GLOMERULAR FILTRATION RATE > 60.0 (>35); GLUCOSE, FASTING 119 MG/DL (83-110); POTASSIUM SERUM 4.3 MEQ/L (3.5-5.1); SODIUM LEVEL 139 MEQ/L (136-145)
[2016-12-03] MEDS: FERROUS SULFATE 325MG TAB PO SCH (07:28)
[2016-12-03] MEDS: ASPIRIN 81 MG ENTERIC TAB PO SCH (07:28)
[2016-12-03] MEDS: VITAMIN D 1,000 INTERNATIONAL UNITS TABLET PO SCH (07:29)
[2016-12-03] MEDS: OMEPRAZOLE 20 MG CAP PO SCH (07:29)
[2016-12-03] MEDS: MULTIVITAMINS/MINERALS THERAP 1 TAB PO SCH (07:29)
[2016-12-03 08:00] VITALS: BP 123/56
--- NOTE | 2016-12-03 10:17 | IPN ---
DATE: 12/03/2016 85-year-old gentleman seen at bedside. Apparently, he had a mechanical fall last evening. He is a little vague on the episode, but he denies any loss of consciousness or head trauma. His is present at bedside and she states that she has noticed that he was a little unsteady on his feet yesterday when he went to check the mail. OBJECTIVE: Temperature is 97.2, pulse 67, respiratory rate is 20, blood pressure (BP) 123/56, SpO2 is 96% on room air. General: The patient appears to be in no acute distress. He is alert, oriented, pleasant talk to. HEENT: Unremarkable. Lungs: Clear. Heart: Regular rate and rhythm. Abdomen is soft. Extremities: No edema. No calf tenderness. Left leg is externally rotated. White count 14.3, hemoglobin 7.8, platelets are 286,000. Sodium is 139, potassium 4.3, chloride 104, bicarbonate 27, anion gap 8, BUN is 23, creatinine 0.96, glucose 119, AST 19, ALT 16, alkaline phosphatase 55. Troponin is less than 0.02, but I would like to repeat another one today. Albumin is 2.6. Telemetry shows no significant abnormality and 12-lead EKG on admission, sinus rhythm with occasional ST-T, no acute changes. ASSESSMENT AND PLAN: 1. Left hip fracture. Appreciate orthopedics input. However, the patient will need be medically optimized. I did request cardiac consult of Dr. Wolfe to see the patient since he does have an aortic valve replacement and history of coronary artery disease. We will go ahead and repeat his cardiac markers as well. 2. History of hypertension, stable. 3. History of anemia. His hemoglobin and hematocrit does appear to be slightly lower today. We did consent him for blood, and we will go ahead and transfuse 1 unit of packed red blood cells with the hopes that this will further optimize him. 4. History of coronary artery disease. As outlined above. He does not have any chest pain complaints. We will repeat troponin and request Dr. Wolfe to see him for cardiac clearance. 5. Deep venous thrombosis (DVT) prophylaxis. Currently on heparin. DISPOSITION: If it does look like the patient will not be cleared for surgery tomorrow, we may want to go ahead and feed him today.
[2016-12-03 12:00] VITALS: BP 115/53
[2016-12-03] MEDS: ASCORBIC ACID 250 MG TAB PO SCH (12:07)
[2016-12-03 15:45] VITALS: BP 143/70
[2016-12-03 20:00] VITALS: BP 131/60
--- NOTE | 2016-12-03 20:47 | CR.PDOC ---
[facility] Cardiology Consultation Date of Consultation 12/03/16 Cadiology Consultation REFERRING PHYSICIAN: Ezequiel Alvarez M.D. REASON FOR REFERRAL: Preoperative cardiovascular clearance, CAD, status post aortic valve replacement HISTORY OF PRESENT ILLNESS: 85-year-old man with dementia, systemic hypertension, hypercholesterolemia, and extensive past cardiac history who was hospitalized after sustaining a left hip intertrochanteric fracture following a fall. Cardiac History Coronary artery disease CABG 3 (10/1999) (Dr. Bill Mccarty) Prior degenerative, calcific aortic valve disease with aortic stenosis TAVR 01/26/2014 (26 mm EDWIN TAVR, via upper mini sternotomy approach, Dr. Tony Cortez & Dr. Tay Vasquez) Diastolic Heart Failure (chronic) Abnormal ECG (LVH with left axis, ST-T abnormalities) First-degree AV block Systemic Hypertension Hypercholesterolemia Osteopenia Echocardiogram Doppler 03/10/2015 Mild concentric LVH. Normal LV systolic function. LVEF 60-65%. Pseudo-normal LV filling pattern (grade 2 LV diastolic dysfunction) Moderate left atrial dilatation Well-seated and normally functioning aortic valve bioprosthesis. Mild AR. Moderate pulmonary hypertension Cardiac catheterization 12/09/2013 [facility], Dr. Tony Cortez Moderately severe aortic stenosis. Aortic valve area 1.17 m, mean aortic gradient 35 mmHg. Wedge pressure 5 mmHg. Cardiac output 6.23, pulmonary pressure 38/7/17 LV (GRANT): Normal wall motion. LVEF 55% (visual estimate). Left main: 95% stenosis mid portion. LAD: 8 and. LCx: Patent with mild plaque at origin of OM1. RCA: Occluded proximal segment. JAMES to LAD: Widely patent with excellent runoff. SVG to distal RCA: Widely patent with excellent runoff. SVG to OM: Widely patent with excellent runoff. Cardiovascular Symptoms No chest, neck, upper extremity, or epigastric pain, pressure, tightness, heaviness, squeezing, or burning with or without exertion. No exertional dyspnea, orthopnea, or paroxysmal nocturnal dyspnea. No leg or ankle edema. No presyncope or syncope. No palpitations. No embolic events. No claudication. PAST MEDICAL: Systemic hypertension Hypercholesterolemia Dementia Brain small vessel ischemic disease (CT head 12/02/2016) CAD Diastolic heart failure First-degree AV block Abnormal ECG Peptic ulcer disease Anemia, received 4 units packed RBCs 02/2014. Degenerative joint disease, knee arthralgia. SURGICAL HISTORY: CABG 3 (10/1999) Hernia repair early Cataract extractions both eyes 2005 Lens implant 10/2012 Cancer excision from head 2011 FAMILY HISTORY: Family history negative for premature CAD. Father: Valve replacement. Mother: Type 2 diabetes. Brother 1: Stroke. Brother 2: Cancer. SOCIAL HISTORY: . Father of 2.children. Retired. Prior smoking history 25 years 2 packs per day, quit 1972. Alcohol: One per week. REVIEW OF SYSTEMS: Left hip fracture 12/02/2016 Decreased hearing. Hearing aids both ears. Nocturia. No anxiety, depression, or panic attacks. ECG bleeding/bruising tendency. Prior anemia. All other 10 point review of systems questions negative. PHYSICAL EXAMINATION: VITAL SIGNS: Please see below. GENERAL APPEARANCE: - Normal body weight. Not in any respiratory or psychologic distress. No gross head, facial, or skeletal deformities. EYES: No conjunctival pallor, scleral icterus or xanthelasma. ENT/Mouth: - Edentulous - Upper dentures. - Decreased hearing. NECK: Jugular Venous Pulsations: 3 cm Trachea midline. No palpable thyroid. EXTREMITIES: No clubbing, nailbed cyanosis, or splinter hemorrhages. SKIN: No skin lesions. No skin pallor or icterus. NEUROLOGIC/PSYCHOLOGIC: Oriented to person, place, and time. Mood and affect normal. Speech normal. MUSCULOSKELETAL: Curvature of the spine normal. Gross motor strength and tone normal. No muscle atrophy, fasciculations, or tremors. - Gait not appropriate to test at this time due to left hip fracture. THORAX: Breathing appears unlabored with normal expansion. No dullness to percussion. Normal breath sounds. No crackles, wheezes, or prolonged expiration. HEART: Well-healed midline sternal scar. Very small right upper chest anterior scar. [place] beat mildly enlarged and displaced to the left fifth interspace at the left midclavicular line. No left parasternal lifts, heaves, or thrills. S1 normal. S2 normal. No S3 or S4. No systolic clicks, opening snap, pericardial knock, or pericardial friction rubs Grade 2 systolic ejection murmur maximal right second interspace. No radiation. ARTERIAL PULSES: Carotids normal in volume and contour and without bruits. No palpable abdominal aorta. Femoral pulses 2+/2 Pedal pulses 2+/2 LOWER EXTREMITY EDEMA: - No edema. ABDOMEN: Abdomen soft nontender with normal bowel sounds. No abdominal bruits. No hepatomegaly, splenomegaly, or abdominal masses. - Liver span (right midclavicular line): 12 cm - Stool for occult blood not indicated. ALLERGIES: Please see below. HOME MEDICATIONS: Please see below. CURRENT MEDICATIONS: Please see below. Electrocardiogram: ECG 12/02/2016 at 2:51 PM. Sinus rhythm, 69 BPM, PA-C 1, LVH with LVH repolarization abnormalities, leftward axis. Moderate QRS widening. LABORATORY DATA: Please see below. IMAGING: I have independently visualized the patient's PA/lateral chest x-ray acquired . Status post AVR (TAVR bioprosthesis). Midline sternal wires. CABG surgical clips. Mild cardiomegaly. Interstitial fibrosis. Thoracic aorta calcifications. Slightly elevated right hemidiaphragm. ASSESSMENT/PLAN: 1. CAD ([place] vessel) without angina. Status post CABG . Cardiac catheterization 12/09/2013 showed patency of all of the coronary bypass grafts. Patient denies any chest pain or angina. Continue aspirin, lisinopril, Nitrostat, simvastatin. 2. CABG 3 (10/1999) As per problem #1. 3. Preoperative cardiovascular clearance. Hip replacement surgery is generally considered an intermediate risk procedure from the cardiac viewpoint defined as 1%-5% risk of nonfatal acute myocardial infarction or cardiac mortality. [place] [employer]/[place] [employer] clinical predictors are as follows: Major: None. Intermediate: Compensated heart failure. Minor: Advanced age, abnormal ECG. Therefore, overall this patient's risk of an adverse cardiac outcome with hip surgery is intermediate to find as 1%-5% risk of acute myocardial infarction, acute decompensated heart failure, or cardiac mortality. He is currently anemic. I recommend that he received packed RBCs to keep hemoglobin to value of >10.0. Once this patient's hemoglobin has been brought up to value of at least 10, then I would consider him to be optimized from the cardiac viewpoint and ronda him cardiac clearance to proceed to the operative room for hip replacement surgery. 4. Status post TAVR. Prior severe aortic stenosis. Echocardiogram Doppler 2014 showed a normally functioning TAVR with mild aortic regurgitation. Stable. Recommend a follow-up echocardiogram Doppler every 3 years. 5. Systemic Hypertension. Blood pressure values in hospital are highly variable but overall show controlled hypertension. Continue lisinopril at the current dosage. 6. Diastolic heart failure (chronic). Patient denies any exertional dyspnea. He is compensated on examination. Chest x -ray shows lung cross to be clear and absence of any pulmonary vascular redistribution. At home he is maintained on furosemide 40 mg daily when necessary for edema. 7. Hypercholesterolemia. Continue simvastatin at the current dosage. Long-term pharmacologic management remains with this patient's PCP. Thank you kindly for asking me to participate in the care of your patient. Vital Signs/I&O Vital Signs Date Time Temp Pulse Resp B/P Pulse Ox O2 Delivery O2 Flow Rate FiO2 12/03/16 16:00 Room Air 12/03/16 15:45 97.1 66 18 143/70 97 I&O- Last 24 Hours up to 6 AM 12/03/16 05:59 Output Total 200 ml Balance -200 ml Height (in): 71 Weight (kg): 78.9 BMI (kg): 24.3 Laboratory Data Labs 24H Laboratory Tests 2 12/03/16 05:54: Blood Urea Nitrogen 23H, Creatinine 0.96, Sodium Level 139, Potassium Level 4.3 , Chloride Level 104, Carbon Dioxide Level 27, Calcium Level 8.3L, Aspartate Amino Transf (AST/SGOT) 19, Alanine Aminotransferase (ALT/SGPT) 16, Alkaline Phosphatase 55, Total Bilirubin 0.4, Total Protein 6.0L, Albumin 2.6L, Albumin/ Globulin Ratio 0.76L, Anion Gap 8, White Blood Count 14.3H, Red Blood Count 2.71L, Hemoglobin 7.8L, Hematocrit 25.1L, Mean Corpuscular Volume 92.6, Mean Corpuscular Hemoglobin 28.8, Mean Corpuscular Hemoglobin Concent 31.1L, Red Cell Distribution Width 14.6H, Platelet Count 286, Neutrophils (%) (Auto) 79.4H , Lymphocytes (%) (Auto) 11.4L, Monocytes (%) (Auto) 6.7H, Eosinophils (%) (Auto ) 0.1, Basophils (%) (Auto) 0.4, Neutrophils # (Auto) 11.4H, Lymphocytes # (Auto ) 1.9, Monocytes # (Auto) 1.0H, Eosinophils # (Auto) 0.0, Basophils # (Auto) 0.1 , Glomerular Filtration Rate > 60.0, Large Unclassified Cells # 0.3, Large Unclassified Cells % 1.9 12/03/16 09:27: Creatine Kinase MB 7.8H, Creatine Kinase MB Relative Index 4.53H, Total Creatine Kinase 172#, Troponin I 0.02 CBC/BMP Laboratory Tests 12/03/16 05:54 Calcium Level 8.3 L, Aspartate Amino Transf (AST/SGOT) 19, Alanine Aminotransferase (ALT/SGPT) 16, Alkaline Phosphatase 55, Total Bilirubin 0.4, Total Protein 6.0 L, Albumin 2.6 L, Red Blood Count 2.71 L, Mean Corpuscular Volume 92.6, Mean Corpuscular Hemoglobin 28.8, Mean Corpuscular Hemoglobin Concent 31.1 L, Red Cell Distribution Width 14.6 H, Neutrophils (%) (Auto) 79.4 H, Lymphocytes (%) (Auto) 11.4 L, Monocytes (%) (Auto) 6.7 H, Eosinophils (%) ( Auto) 0.1, Basophils (%) (Auto) 0.4, Neutrophils # (Auto) 11.4 H, Lymphocytes # (Auto) 1.9, Monocytes # (Auto) 1.0 H, Eosinophils # (Auto) 0.0, Basophils # ( Auto) 0.1 Home Medications Scheduled Ascorbic Acid (Vitamin C) 250 Mg Tab 250 MG PO DAILY (Reported) TAKES @ NOON Aspirin (Aspirin 81) 81 Mg Tab 81 MG PO DAILY (Reported) Cholecalciferol (Vitamin D-3) 2,000 Unit Tab 2,000 UNIT PO DAILY (Reported) Docusate Sodium (Stool Softener) 100 Mg Cap 200 MG PO QHS (Reported) Donepezil Hcl (Donepezil HCl) 10 Mg Tab 10 MG PO QHS (Reported) Ferrous Sulfate (Ferrous Sulfate) 325 Mg Tab 325 MG PO DAILY (Reported) TAKES @ NOON Lisinopril (Lisinopril) 10 Mg Tab 10 MG PO QHS (Reported) Memantine Hydrochloride (Memantine HCl) 10 Mg Tab 10 MG PO BID (Reported) Multivitamins *[facility] STOCKED* (Thera M Plus *[facility] STOCKED*) 1 Tab Tab 1 TAB PO DAILY (Reported) TAKES @ NOON Omeprazole (Omeprazole) 40 Mg Cap 40 MG PO DAILY (Reported) Simvastatin (Simvastatin) 10 Mg Tab 10 MG PO QHS (Reported) Scheduled PRN Nitroglycerin (Nitrostat) 0.4 Mg Subl 0.4 MG SL Q5MP PRN PRN CHEST PAIN ( Reported) Current Medications Current Medications Acetaminophen (Tylenol) 650 mg Q6HP PRN PO PAIN / FEVER Last administered on 18:14; Start 12/02/16 at 20:30; Stop 01/01/17 at 20:29 Ascorbic Acid (Vitamin C) 250 mg DAILY@12 PO Last administered on 12/03/16 12: 07; Start 12/03/16 at 12:00; Stop 01/02/17 at 11:59 Aspirin (Ecotrin) 81 mg DAILY PO ; Start 12/03/16 at 09:00; Stop 01/02/17 at 08: 59 Docusate Sodium (Colace) 200 mg QHS PO Last administered on 12/02/16 22:55; Start 12/02/16 at 21:00; Stop 01/01/17 at 20:59 Ferrous Sulfate (Ferrous Sulfate) 325 mg DAILY PO ; Start 12/03/16 at 09:00; Stop 01/02/17 at 08:59 Heparin Sodium (Porcine) (Heparin) 5,000 units Q8H SC Last administered on 12/03 12:07; Start 12/02/16 at 20:00; Stop 12/07/16 at 19:59 Home Med (Med Rec Complete!) ASDIRECTED XX ; Start 12/02/16 at 15:15; Stop at 15:15; Status DC Lisinopril (Prinivil) 10 mg QHS PO Last administered on 12/02/16 22:56; Start 12/02/16 at 21:00; Stop 01/01/17 at 20:59 Multivitamins (Theragram-M) 1 tab DAILY PO ; Start 12/03/16 at 09:00; Stop 01/02 at 08:59 Nitroglycerin (Nitrostat (1/ 150)) 0.4 mg Q5MP PRN SL CHEST PAIN; Start at 21:30; Stop 01/01/17 at 21:29 Omeprazole (PriLOSEC) 40 mg DAILY PO ; Start 12/03/16 at 09:00; Stop 01/02/17 at 08:59 Simvastatin (Zocor) 10 mg QHS PO Last administered on 12/02/16t 22:55; Start at 21:00; Stop 01/01/17 at 20:59 Vitamin D (Vitamin D) 2,000 units DAILY PO ; Start 12/03/16 at 09:00; Stop 01/02 at 08:59 Allergies Allergies: Coded Allergies: TAPE (Verified Allergy, Mild, 02/11/14) Latex (Unverified Allergy, Unknown, RASH, 12/02/16) Dangelo Morton Dec 03, 2016 20:24
[2016-12-03] MEDS: SIMVASTATIN 10 MG TAB PO SCH (21:36)
[2016-12-03] MEDS: LISINOPRIL 10 MG TAB PO SCH (21:36)
[2016-12-03] MEDS: DOCUSATE SODIUM 100 MG CAP PO SCH (21:36)
[2016-12-04] VITALS (12 sets, daily range): BP systolic 126–189; BP diastolic 55–89
[2016-12-04] MEDS ORDERED: NORTRIPTYLINE 10 MG CAP PO ONE (04:00)
[2016-12-04] MEDS: HEPARIN SOD (PORCINE) 5000 UNITS/ML VIAL SC SCH (04:06)
[2016-12-04 06:23] LABS: BASO % 0.1 % (0.0-1.0); EOS % 0.1 % (0.0-3.0); LARGE UNSTAINED CELL # 0.3 K/mm3 (0.0-0.4); LARGE UNSTAINED CELL % 2.6 % (0.0-4.0); LYMPH # 1.5 K/mm3 (1.5-4.5); LYMPH % 11.8 % (24.0-44.0); MEAN CORPUSCULAR HGB CONC 33.4 g/dl (32.0-36.5); MONO # 0.9 K/mm3 (0.0-0.8); MONO % 6.9 % (0.0-5.0); NEUTROPHILS % 78.5 % (36.0-66.0); PLATELET COUNT, AUTOMATED 278 k/mm3 (150-450); RED CELL DISTRIBUTION WIDTH 14.1 % (11.5-14.5); WHITE BLOOD COUNT 12.7 K/mm3 (4.0-10.0)
[2016-12-04 06:36] LABS: ALBUMIN 2.6 GM/DL (3.2-5.2); ALBUMIN/GLOBULIN RATIO 0.68 (1.00-1.93); ALKALINE PHOSPHATASE 66 U/L (45-117); ALT/SGPT 16 U/L (12-78); ANION GAP 7 MEQ/L (8-16); AST/SGOT 20 U/L (15-37); BILIRUBIN,TOTAL 0.5 MG/DL (0.2-1.0); BLOOD UREA NITROGEN 24 MG/DL (7-18); CALCIUM LEVEL 8.5 MG/DL (8.8-10.2); CARBON DIOXIDE LEVEL 30 MEQ/L (21-32); CHLORIDE LEVEL 101 MEQ/L (98-107); GLOMERULAR FILTRATION RATE > 60.0 (>35); GLUCOSE, FASTING 101 MG/DL (83-110); SODIUM LEVEL 138 MEQ/L (136-145); TOTAL PROTEIN 6.4 GM/DL (6.4-8.2)
[2016-12-04] MEDS: VITAMIN D 1,000 INTERNATIONAL UNITS TABLET PO SCH (09:38)
[2016-12-04] MEDS: MULTIVITAMINS/MINERALS THERAP 1 TAB PO SCH (09:38)
[2016-12-04] MEDS: ASPIRIN 81 MG ENTERIC TAB PO SCH (09:38)
[2016-12-04] MEDS: OMEPRAZOLE 20 MG CAP PO SCH (09:38)
[2016-12-04] MEDS: FERROUS SULFATE 325MG TAB PO SCH (09:38)
[2016-12-04] MEDS ORDERED: oxyCODONE 5MG TAB PO PRN (10:15)
[2016-12-04] MEDS ORDERED: PERCOCET 5MG/325MG TAB PO PRN (10:15)
[2016-12-04] MEDS: MORPHINE 2 MG/ML 1ML SYRINGE IV PRN ×2 (10:26→18:25)
[2016-12-04] MEDS: ASCORBIC ACID 250 MG TAB PO SCH (12:25)
[2016-12-04] MEDS ORDERED: ceFAZolin 1GM INJ (J0690) As Ordered ONE ×2 (13:33→14:26)
[2016-12-04] MEDS ORDERED: KETAMINE HCL 200 MG/20 ML VIAL As Ordered ONE (15:39)
[2016-12-04] MEDS ORDERED: fentaNYL 100 MCG/2 ML INJECTION (J3010) As Ordered ONE (15:39)
[2016-12-04] MEDS ORDERED: MIDAZOLAM INJ 2 MG/2 ML VIAL (J2250) As Ordered ONE (15:39)
[2016-12-04] MEDS ORDERED: PHENYLephrine HCL 500 MCG/5 ML (100MCG/ML) SYRINGE (J2370) As Ordered ONE (15:43)
[2016-12-04] MEDS ORDERED: ePHEDrine SULFATE 25 MG/5 ML(5MG/ML) SYRINGE As Ordered ONE (15:43)
[2016-12-04] MEDS ORDERED: ceFAZolin 1GM INJ (J0690) IR ONE (15:45)
[2016-12-04] MEDS ORDERED: ONDANSETRON 4MG/2ML VIAL (J2405) IV PRN (16:30)
[2016-12-04] MEDS ORDERED: LR 1,000 ML IV SCH (16:30)
[2016-12-04] MEDS ORDERED: fentaNYL 100 MCG/2 ML INJECTION (J3010) IV PRN (16:30)
--- NOTE | 2016-12-04 16:51 | REP ---
Left femur: five views, intraoperative: History: Fracture. 43 seconds of fluoroscopy time is reported. Findings: Five views of the left proximal femur document intramedullary wisam and femoral neck screw fixation of the proximal femur fracture. Signed by Rohan Hilton MD 12/04/2016 06:38 P
--- NOTE | 2016-12-04 17:34 | IPN ---
DATE: 12/04/2016 Patient seen and examined. No acute events overnight. Denies any fevers, chills, chest pain, pressure, or discomfort. Denies any vision change, hearing change. VITAL SIGNS: Temperature 97.6, pulse 77, respirations 16, blood pressure 172/77, pulse oximetry 98% on room air. LABORATORY DATA: WBC 12.7, hemoglobin and hematocrit 9.1/27.4, platelets 278. Chemistry: Sodium 138, potassium 4, chloride 101, bicarbonate 30, BUN 24, creatinine 0.9. Cardiac enzymes negative times two. PHYSICAL EXAMINATION: GENERAL: Patient comfortable in no acute distress, alert, oriented, pleasant. HEENT: Normocephalic, atraumatic. PULMONARY: Bilaterally clear to auscultation. CARDIAC: Regular rate and rhythm. Normal S1, S2. End-systolic murmur detected. ABDOMEN: Soft and nontender. EXTREMITIES: No edema, bilateral lower extremities. Left leg externally rotated, shortened. ASSESSMENT AND PLAN: This is an 86-year-old male patient with underlying medical history of hypertension, coronary artery disease, history of tuberculosis, dementia, baseline ambulatory. Also with coronary artery disease, history of coronary artery bypass graft (CABG) and artificial aortic valve replacement, admitted status post fall with no loss of consciousness with left hip fracture. 1. Left hip fracture. Appreciate orthopedic consultation. Patient will be going to the operating room (OR). Cardiology, Dr. Morton, has been consulted for medical optimization. According to Dr. Morton, patient is intermediate risk for intermediate-risk procedure. Will recommend keeping hemoglobin above 10 given cardiac history. Transfuse 1 unit packed red blood cells (PRBC) today. Cardiac marker appreciated. Telemetry monitoring. Pain regimen as per orthopedic team. Deep vein thrombosis (DVT) prophylaxis as per orthopedic team. Patient is placed on Coumadin. Physical therapy as per orthopedic team as well. Monitor hemoglobin and hematocrit. Transfuse as needed. 2. History of hypertension. Monitor blood pressure. Continue lisinopril after surgery. 3. Coronary artery disease. Appreciate cardiology consultation. Continue aspirin, angiotensin-converting enzyme (CHERELLE) inhibitors, statin, monitor blood pressure, adjust as needed. 4. History of anemia. Monitor hemoglobin and hematocrit. Transfusion. Given 1 unit PRBC for a total of 2 units PRBC. Recommend to keep hemoglobin above 10 as per cardiology. 5. Depression. Continue home medications. 6. Gastroesophageal reflux disease (GERD). Continue proton pump inhibitor (PPI). 7. DVT prophylaxis. Patient on heparin subcutaneous. Will be placed on Coumadin after surgery by orthopedic service. DISPOSITION: Pending surgery and physical therapy.
[2016-12-04] MEDS ORDERED: WARFARIN SOD 5 MG TAB PO SCH (21:00)
--- NOTE | 2016-12-04 21:48 | ECHO ---
DATE OF PROCEDURE: 12/04/2016 REFERRING PHYSICIAN: Page Monique MD INDICATION: Syncope. HEIGHT: 180 cm WEIGHT: 76 kg MEASUREMENTS: Left atrium: 4.6 cm Ventricular septum: 1.33 - 1.99 cm Posterior wall: 1.31 cm Left ventricle diastole: 3.7 cm LVOT: 1.5 cm Proximal ascending aorta: 3.6 cm Inferior vena cava: 2.0 cm DOPPLER MEASUREMENTS: Very mild aortic regurgitation. No aortic stenosis. Peak aortic gradient: 24 mmHg Mean aortic valve gradient: 12 mmHg Peak aortic valve velocity: 244 cm/s LVOT velocity: 97.8 cm/s LVOT VTI: 20.6 cm Mitral E velocity: 65.8 cm/s Mitral A velocity: 80.9 cm/s Mitral deceleration time: 201 ms Mild - moderate tricuspid regurgitation. Estimated right ventricular systolic pressure 35 - 40 mmHg assuming a right atrial pressure of 5 - 10 mmHg. Mild pulmonic regurgitation. Pulmonary artery systolic pressure 32 mmHg by pulmonary artery acceleration time method. MITRAL ANNULAR TISSUE DOPPLER: E prime septal: 5.4 cm/s E prime lateral: 8.8 cm/s DESCRIPTION: Rhythm was sinus with occasional premature atrial contractions (PACs). Right bundle branch block. This is a 2D, M-mode, color flow Doppler and pulse wave Doppler examination that included mitral annular tissue Doppler. No pericardial effusion. This is a moderately technically difficult echocardiogram. CONCLUSIONS: 1. Mild concentric left ventricle hypertrophy with superimposed moderate focal hypertrophy of the basal anterior ventricular septum. No dynamic LVOT obstruction. Normal LV wall motion and wall thickening. Normal LV systolic function. Left ventricular ejection fraction (LVEF) 60% - 65% by visual estimate. Grade 1 LV diastolic dysfunction. 2. Status post aortic valve replacement with bioprosthesis (TAVR). Normal aortic valve bioprosthesis without stenosis. Very mild aortic regurgitation within the normal functioning range which appears to be central. 3. Mild-moderate left atrial dilatation. 4. Suggestive of mild elevation of estimated right ventricle systolic pressure and pulmonary artery systolic pressure. Mild - moderate tricuspid regurgitation. 5. Mild mitral annular calcification. No mitral regurgitation.
[2016-12-05] VITALS: BP 164/72
--- NOTE | 2016-12-05 | EDDOCDS ---
Physician Documentation [facility] Name: Ciro Shook Age: 85 yrs Sex: Male : 1930 Arrival Date: 12/02/2016 Time: 12:00 Bed 18 Private MD: Disposition: 12/02/16 17:02 Hospitalization ordered by Page Monique for Inpatient Admission. Preliminary diagnosis is Intertrochanteric fracture of femur. - Bed requested for PCU. - Status is Inpatient Admission. sls1 - Condition is Stable. - Problem is new. - Symptoms are unchanged. Historical: - Allergies: Latex; - Home Meds: 1. simvastatin 10 mg Oral tab 1 tab once daily 2. lisinopril 10 mg Oral tab 1 tab once daily 3. furosemide 40 mg Oral tab 1 tab once daily 4. omeprazole 40 mg Oral cpDR 1 cap 2 times per day 5. Nitrostat 0.4 mg SL subl 1 tab every 5 minutes 6. ferrous sulfate 324 mg (65 mg iron) Oral TbEC daily 7. donepezil 10 mg oral tab 1 tab once daily 8. memantine 10 mg oral tab 1 tab 2 times per day 9. multivitamin Oral tab 1 tablet daily 10. Vitamin C 500 mg Oral cpER 250 mg daily 11. Vitamin D3 1,000 unit oral tab 2000 unit daily 12. aspirin 81 mg Oral TbEC 1 tab once daily 13. Stool Softener 100 mg oral cap 1 cap 2 times per day - PMHx: Hypertension; CAD; Tuberculosis; - PSHx: CABG; Hernia repair; artifical heart valve; - Social history: Smoking status: Patient states former smoker of tobacco. No barriers to communication noted, The patient speaks fluent Filipino. - Family history: Not pertinent. - : The pt / caregiver states he / she is not on anticoagulants. Home medication list is obtained from family members. - Exposure Risk Screening:: None identified. Vital Signs: 12/02 12:19 BP 166 / 73; Pulse 68; Resp 18; Pulse Ox 99% ; Weight 76.2 kg / 167.99 lbs; Height 5 ms18 ft. 11 in. (180.34 cm); Pain 9/10; 12:32 Temp 98.2(TE); ms18 12:53 Pulse 62 MON; Pulse Ox 98% ; ms18 12:54 BP 186 / 78 (auto/); ms18 13:08 Pulse 62 MON; Pulse Ox 96% ; ms18 13:09 BP 180 / 79 (auto/); ms18 13:23 Pulse 62 MON; Pulse Ox 97% ; ms18 13:24 BP 175 / 77 (auto/); ms18 13:38 Pulse 58 MON; Pulse Ox 98% ; ms18 13:39 BP 175 / 74 (auto/); ms18 13:54 BP 188 / 89 (auto/); ms18 13:54 Pulse 64 MON; Pulse Ox 98% ; ms18 14:24 BP 163 / 72 (auto/); ms18 14:24 Pulse 74 MON; Pulse Ox 95% ; ms18 14:39 BP 163 / 73 (auto/); ms18 14:39 Pulse 72 MON; Pulse Ox 97% ; ms18 14:54 BP 170 / 75 (auto/); ms18 14:54 Pulse 68 MON; Pulse Ox 96% ; ms18 15:09 BP 189 / 86 (auto/); ms18 15:09 Pulse 80 MON; Pulse Ox 96% ; ms18 15:24 BP 183 / 80 (auto/); ms18 15:24 Pulse 80 MON; Pulse Ox 98% ; ms18 15:39 BP 181 / 86 (auto/); ms18 15:39 Pulse 86 MON; Pulse Ox 96% ; ms18 15:53 Pulse 76 MON; Pulse Ox 94% ; ms18 15:54 BP 188 / 79 (auto/); ms18 16:09 BP 167 / 74 (auto/); ms18 16:09 Pulse 82 MON; Pulse Ox 95% ; ms18 16:24 BP 190 / 74 (auto/); ms18 16:25 Pulse 76 MON; Pulse Ox 95% ; ms18 16:37 Pulse 78 MON; Pulse Ox 94% ; ms18 16:39 BP 176 / 75 (auto/); ms18 16:53 Pulse 88 MON; Pulse Ox 93% ; ms18 16:54 BP 192 / 77 (auto/); ms18 17:08 Pulse 86 MON; Pulse Ox 94% ; ms18 17:09 BP 182 / 78 (auto/); ms18 17:19 Pulse 84 MON; Pulse Ox 94% ; ms18 17:24 BP 139 / 63 (auto/); ms18 17:39 BP 142 / 64 (auto/); ms18 17:39 Pulse 86 MON; Pulse Ox 95% ; ms18 17:54 BP 137 / 63 (auto/); ms18 17:54 Pulse 86 MON; Pulse Ox 94% ; ms18 18:09 BP 184 / 77 (auto/); ms18 18:09 Pulse 88 MON; Pulse Ox 95% ; ms18 18:22 Pulse 100 MON; Pulse Ox 94% ; ms18 18:24 BP 162 / 70 (auto/); ms18 18:39 BP 165 / 72 (auto/); ms18 18:39 Pulse 92 MON; Pulse Ox 95% ; ms18 20:13 BP 153 / 69 (auto/); af2 20:14 Pulse 86 MON; Pulse Ox 92% ; af2 12:19 Body Mass Index 23.43 (76.20 kg, 180.34 cm) ms18 MDM: 14:08 Compliance Professional/Pulse Ox/q 15 min VS ordered. jo4 14:08 Accucheck ordered. jo4 14:08 IV Saline Lock ordered. jo4 14:08 Rhythm Strip to chart ordered. jo4 14:09 CT Head Without Contrast Ordered. EDMS 14:09 CIP Ordered. EDMS 14:09 Troponin Ordered. EDMS 14:09 CBC with Diff Ordered. EDMS 14:09 BMP Ordered. EDMS 14:09 Partial Thromboplastin Time Ordered. EDMS 14:09 Prothrombin Time Profile\E\INR Ordered. EDMS 14:09 Type & Screen Ordered. EDMS 14:10 ECG WITH READING ER PHYS+CARDIAG ordered. EDMS 14:12 Hip,AP,LAT to include Pelvis Ordered. EDMS 14:12 Chest, 2 View (pa\E\lat) Ordered. EDMS 14:13 Financial registration complete. lg 14:36 [facility] [place] Payment Agreement was scanned into [employer] and attached to record. lg 15:17 Partial Thromboplastin Time Reviewed. jo4 15:19 CIP Reviewed. jo4 15:20 CBC with Diff Reviewed. jo4 15:20 BMP Reviewed. jo4 15:20 Troponin Reviewed. jo4 15:21 Prothrombin Time Profile\E\INR Reviewed. jo4 15:26 Femur Ordered. EDMS 15:26 morphine 2 mg IVP once ordered. ml 15:27 Ondansetron 4 mg IVP once ordered. ml 15:28 BED REQUEST+ADM ordered. EDMS 15:34 Chest, 2 View (pa\E\lat) Reviewed. jo4 15:34 Hip,AP,LAT to include Pelvis Reviewed. jo4 16:52 morphine 2 mg IVP once ordered. jo4 16:52 Ondansetron 4 mg IVP once ordered. jo4 18:10 Admission / Observation Status ordered. EDMS 18:10 NO ADDED SALT DIET ordered. EDMS 18:10 NPO DIET ordered. EDMS 18:46 Type & Screen Reviewed. jo4 21:28 CBC WITH DIFFERENTIAL Ordered. EDMS 21:28 COMPLETE COMPHRENSIVE METABOLI Ordered. EDMS 22:18 ECHOCARD,DOPPLER/COLOR FLOW ordered. EDMS 12/03 12:16 T-Sheet-- Draft Copy was scanned into [employer] and attached to record. gb 12:17 PCR was scanned into [employer] and attached to record. gb Administered Medications: 12/02 15:43 Drug: morphine 2 mg [morphine 2 mg/mL intravenous cartridge (1 mL)] Route: IVP; Site: ms18 left antecubital; 17:14 Follow up: Response: No Adverse Reaction; Pain is decreased ms18 15:43 Drug: Ondansetron 4 mg Route: IVP; Site: left antecubital; ms18 17:15 Follow up: Response: No Adverse Reaction ms18 17:14 Drug: morphine 2 mg [morphine 2 mg/mL intravenous cartridge (1 mL)] Route: IVP; Site: ms18 left antecubital; 17:14 Drug: Ondansetron 4 mg [ondansetron HCl 2 mg/mL intravenous solution (2 mL)] Route: ms18 IVP; Site: left antecubital; Signatures: Dispatcher [employer] EDAR Tyler Cisneros MD MD ml Khadra Lino, Reg Reg gb Nasrin Stone, Reg Reg lg Hodan Argueta RN RN sls1 Falguni Sewell RN RN ms18 Elida Swartz DO DO jo4 Tenzin Solis, RN RN sa The chart was reviewed and I authenticate all verbal orders and agree with the evaluation and treatment provided.Corrections: (The following items were deleted from the chart) 15:28 14:08 Orthostatic VS ordered. jo4 ms18 Attachments: 14:36 [facility] [place] Payment Agreement lg 12/03 12:16 T-Sheet-- Draft Copy gb Chart Complete MTDD
--- NOTE | 2016-12-05 | EDDOCDS ---
Nurse's Notes [facility] Name: Ciro Shook Age: 85 yrs Sex: Male : 1930 Arrival Date: 12/02/2016 Time: 12:00 Bed 18 Private MD: Diagnosis: Intertrochanteric fracture of femur Presentation: 12/02 12:14 Presenting complaint: EMS states: that the pt got disoriented in the drive way and ms18 fell. Pt was found by the mail lady and was setting in the driveway unable to get up. Pt c/o L hip pain at this time. Adult Sepsis Screening: The patient does not have new or worsening altered mentation. Patient's respiratory rate is less than 22. Systolic blood pressure is greater than 100. Patient has a qSOFA score of 0- Negative Sepsis Screen. Suicide/Homicide risk assessment- the patient denies having any suicidal and/or homicidal ideations and does not present with any other emotional, behavioral or mental health complaints. Status: Patient is not a data services developer or dependent. Transition of care: patient was not received from another setting of care. 12:14 Acuity: KEYUR Level 3 ms18 12:14 Method Of Arrival: Ambulance ms18 Triage Assessment: 12:19 General: Appears in no apparent distress, comfortable, Behavior is appropriate for age, ms18 cooperative, pleasant. Pain: Location: left hip Pain currently is 9 out of 10 on a pain scale. Neurological: Level of Consciousness is awake, alert, obeys commands, Oriented to person, place, time. Respiratory: Airway is patent Respiratory effort is even, unlabored. Derm: Skin is pink, warm & dry. Musculoskeletal: Range of motion limited in left hip. Historical: - Allergies: Latex; - Home Meds: 1. simvastatin 10 mg Oral tab 1 tab once daily 2. lisinopril 10 mg Oral tab 1 tab once daily 3. furosemide 40 mg Oral tab 1 tab once daily 4. omeprazole 40 mg Oral cpDR 1 cap 2 times per day 5. Nitrostat 0.4 mg SL subl 1 tab every 5 minutes 6. ferrous sulfate 324 mg (65 mg iron) Oral TbEC daily 7. donepezil 10 mg oral tab 1 tab once daily 8. memantine 10 mg oral tab 1 tab 2 times per day 9. multivitamin Oral tab 1 tablet daily 10. Vitamin C 500 mg Oral cpER 250 mg daily 11. Vitamin D3 1,000 unit oral tab 2000 unit daily 12. aspirin 81 mg Oral TbEC 1 tab once daily 13. Stool Softener 100 mg oral cap 1 cap 2 times per day - PMHx: Hypertension; CAD; Tuberculosis; - PSHx: CABG; Hernia repair; artifical heart valve; - Social history: Smoking status: Patient states former smoker of tobacco. No barriers to communication noted, The patient speaks fluent Upper Sorbian. - Family history: Not pertinent. - : The pt / caregiver states he / she is not on anticoagulants. Home medication list is obtained from family members. - Exposure Risk Screening:: None identified. Screenin:53 Screening information is obtained from the patient, family members. Fall risk: At risk ms18 due to age, prior history of falls. Assistance ADL's: requires no assistance with activities of daily living. Abuse/DV Screen: The patient / caregiver reports he/she is: not in a situation that causes fear, pain or injury. Nutritional screening: No deficits noted. home support is adequate. 20:15 Advance Directives: Unable to assess Advance Directive status due to pt condition. af2 Assessment: 13:51 General: Appears in no apparent distress, comfortable, Behavior is appropriate for age, ms18 cooperative, pleasant. Pain: Location: left hip. Neurological: Level of Consciousness is awake, alert, obeys commands, Oriented to person, place, time. Cardiovascular: Rhythm is regular. Respiratory: Airway is patent Respiratory effort is even, unlabored. Derm: Skin is pink, warm & dry. Musculoskeletal: Range of motion limited in left hip. 14:56 General: Appears in no apparent distress, comfortable, Behavior is appropriate for age, ms18 cooperative. Neurological: Level of Consciousness is awake, alert, obeys commands, Oriented to person, place, time. Respiratory: Airway is patent Respiratory effort is even, unlabored. Derm: Skin is pink, warm & dry. 16:51 General: Hospitalist at bedside at this time. Will continue to monitor pt. ms18 17:15 General: Appears in no apparent distress, comfortable, Behavior is appropriate for age, ms18 cooperative, pleasant. General: Pt starting to take off 02 finger probe, pt needs constant redirection from his son. Son states that the pt may have onset of dementia, but pt's doesn't like to accept that. . Pain: Location: left hip Pain currently is 8 out of 10 on a pain scale. Neurological: Level of Consciousness is awake, alert, obeys commands, Oriented to person, place, time. Respiratory: Airway is patent Respiratory effort is even, unlabored. Derm: Skin is pink, warm & dry. normal. 18:51 General: Appears in no apparent distress, comfortable, Behavior is appropriate for age, ms18 cooperative. Neurological: Level of Consciousness is awake, alert, obeys commands. Respiratory: Airway is patent Respiratory effort is even, unlabored. Derm: Skin is pink, warm & dry. normal. Vital Signs: 12:19 BP 166 / 73; Pulse 68; Resp 18; Pulse Ox 99% ; Weight 76.2 kg; Height 5 ft. 11 in. ms18 (180.34 cm); Pain 9/10; 12:32 Temp 98.2(TE); ms18 12:53 Pulse 62 MON; Pulse Ox 98% ; ms18 12:54 BP 186 / 78 (auto/); ms18 13:08 Pulse 62 MON; Pulse Ox 96% ; ms18 13:09 BP 180 / 79 (auto/); ms18 13:23 Pulse 62 MON; Pulse Ox 97% ; ms18 13:24 BP 175 / 77 (auto/); ms18 13:38 Pulse 58 MON; Pulse Ox 98% ; ms18 13:39 BP 175 / 74 (auto/); ms18 13:54 BP 188 / 89 (auto/); ms18 13:54 Pulse 64 MON; Pulse Ox 98% ; ms18 14:24 BP 163 / 72 (auto/); ms18 14:24 Pulse 74 MON; Pulse Ox 95% ; ms18 14:39 BP 163 / 73 (auto/); ms18 14:39 Pulse 72 MON; Pulse Ox 97% ; ms18 14:54 BP 170 / 75 (auto/); ms18 14:54 Pulse 68 MON; Pulse Ox 96% ; ms18 15:09 BP 189 / 86 (auto/); ms18 15:09 Pulse 80 MON; Pulse Ox 96% ; ms18 15:24 BP 183 / 80 (auto/); ms18 15:24 Pulse 80 MON; Pulse Ox 98% ; ms18 15:39 BP 181 / 86 (auto/); ms18 15:39 Pulse 86 MON; Pulse Ox 96% ; ms18 15:53 Pulse 76 MON; Pulse Ox 94% ; ms18 15:54 BP 188 / 79 (auto/); ms18 16:09 BP 167 / 74 (auto/); ms18 16:09 Pulse 82 MON; Pulse Ox 95% ; ms18 16:24 BP 190 / 74 (auto/); ms18 16:25 Pulse 76 MON; Pulse Ox 95% ; ms18 16:37 Pulse 78 MON; Pulse Ox 94% ; ms18 16:39 BP 176 / 75 (auto/); ms18 16:53 Pulse 88 MON; Pulse Ox 93% ; ms18 16:54 BP 192 / 77 (auto/); ms18 17:08 Pulse 86 MON; Pulse Ox 94% ; ms18 17:09 BP 182 / 78 (auto/); ms18 17:19 Pulse 84 MON; Pulse Ox 94% ; ms18 17:24 BP 139 / 63 (auto/); ms18 17:39 BP 142 / 64 (auto/); ms18 17:39 Pulse 86 MON; Pulse Ox 95% ; ms18 17:54 BP 137 / 63 (auto/); ms18 17:54 Pulse 86 MON; Pulse Ox 94% ; ms18 18:09 BP 184 / 77 (auto/); ms18 18:09 Pulse 88 MON; Pulse Ox 95% ; ms18 18:22 Pulse 100 MON; Pulse Ox 94% ; ms18 18:24 BP 162 / 70 (auto/); ms18 18:39 BP 165 / 72 (auto/); ms18 18:39 Pulse 92 MON; Pulse Ox 95% ; ms18 20:13 BP 153 / 69 (auto/); af2 20:14 Pulse 86 MON; Pulse Ox 92% ; af2 12:19 Body Mass Index 23.43 (76.20 kg, 180.34 cm) ms18 Vitals: 12:19 Glucose Measurement D-stick done by EMS. Log In Time N/A - ambulance arrival. ms18 ED Course: 12:01 Patient visited by Jojo Chandra Legal Project Manager. deg 12:01 Patient moved to Waiting deg 12:02 Patient moved to 14 deg 12:17 Triage Initiated ms18 12:32 Patient visited by Falguni Sewell RN. ms18 12:45 Elida Swartz DO is PHCP. jo4 12:45 Tyler Cisneros MD is Attending Physician. jo4 12:53 The patient / caregiver is instructed regarding the plan of care and ED course. ms18 Accompanied by Significant Other, Patient has correct armband on for positive identification. Placed in gown. Bed in low position. Call light in reach. Side rails up X2. card processing clerk on. Pulse ox on. NIBP on. Property :Personal belongings accompany Pt. 12:53 Maintain field IV. Dressing intact. Good blood return noted. Site clean & dry. Gauge & ms18 site: 20g L AC. 12:59 Patient visited by Falguni Sewell RN. ms18 12:59 Falguni Sewell RN is Primary Nurse. ms18 13:31 Patient visited by Betzaida Daly PCA. ct3 13:41 Patient visited by Elida Swartz DO. jo4 13:41 Patient visited by Elida Swartz DO. jo4 13:51 Patient visited by Falguni Sewell RN. ms18 14:13 Partial Thromboplastin Time Sent. ms18 14:13 Prothrombin Time Profile\E\INR Sent. ms18 14:13 Type & Screen Sent. ms18 14:13 BMP Sent. ms18 14:14 CBC with Diff Sent. ms18 14:14 Troponin Sent. ms18 14:14 CIP Sent. ms18 14:20 Patient visited by Falguni Sewell RN. ms18 14:36 [facility] Payment Agreement was scanned into [employer] and attached to record. lg 14:51 Patient visited by Sylvain Carmen PCA. jlf 14:51 EKG done. (by ED staff). Reviewed by Tyler Cisneros MD. jlf 14:52 Patient visited by Sylvain Carmen PCA. jlf 15:20 Chest, 2 View (pa\E\lat) Returned. EDMS 15:20 Hip,AP,LAT to include Pelvis Returned. EDMS 15:26 Patient visited by Falguni Sewlel RN. ms18 15:43 Patient visited by Falguni Sewell RN. ms18 15:57 CT Head Without Contrast Returned. EDMS 16:51 Patient visited by Falguni Sewell RN. ms18 16:51 Patient visited by Sylvain Carmen PCA. jlf 17:01 Page Monique is Hospitalizing Provider. jo4 17:14 Femur Returned. EDMS 17:51 EKG-ADULT Returned. EDMS 17:54 Chest, 2 View (pa\E\lat) Returned. EDMS 17:54 Hip,AP,LAT to include Pelvis Returned. EDMS 18:03 Patient moved to Admit Hold js13 18:49 Patient visited by Falguni Sewell RN. ms18 18:56 Renate Holland,RN is Primary Nurse. af2 20:04 Sophie Sewell RN is Primary Nurse. sls1 20:04 Patient moved to 18 sls1 20:15 No procedures done that require assistance. af2 12/03 12:16 T-Sheet-- Draft Copy was scanned into [employer] and attached to record. gb 12:17 PCR was scanned into [employer] and attached to record. gb Administered Medications: 12/02 15:43 Drug: morphine 2 mg [morphine 2 mg/mL intravenous cartridge (1 mL)] Route: IVP; Site: ms18 left antecubital; 17:14 Follow up: Response: No Adverse Reaction; Pain is decreased ms18 15:43 Drug: Ondansetron 4 mg Route: IVP; Site: left antecubital; ms18 17:15 Follow up: Response: No Adverse Reaction ms18 17:14 Drug: morphine 2 mg [morphine 2 mg/mL intravenous cartridge (1 mL)] Route: IVP; Site: ms18 left antecubital; 17:14 Drug: Ondansetron 4 mg [ondansetron HCl 2 mg/mL intravenous solution (2 mL)] Route: ms18 IVP; Site: left antecubital; Order Results: Lab Order: CIP; SPEC'M 12/02/16 12:49 Test: CPK CREATINE PHOSPHOKINASE; Value: 51; Range: 39-308; Units: U/L; Status: F Test: CK-MB VALUE MASS; Value: 4.2; Range: 0.0-3.6; Abnormal: Above high normal; Units: NG/ML; Status: F Test: MB/CK RELATIVE INDEX; Value: 8.23; Range: < OR =4; Abnormal: Above high normal; Status: F Test Note: ; DIAGNOSIS CRITERIA MMB ng/ml Relative Index (RI) NON-AMI < or = 5 N/A CLAIRE ZONE > 5 < or = 4 AMI > 5 > 4 Lab Order: Troponin; SPEC'M 12/02/16 12:49 Test: TROPONIN I; Value: < 0.02; Range: < 0.10; Units: NG/ML; Status: F Test Note: ; Troponin I Reference Interval for [employer] [place] LOCI: 99th Percentile= 0.00-0.045 ng/ml Risk Stratification: <= 0.10 ng/ml Decreased Risk for Adverse Clinical Events. 0.10-1.50 ng/ml Increased Risk for Adverse Clinical Events. Evaluation of additional criterion and/or repeat testing in 2-6 hours is suggested to rule out myocardial damage. >= 1.50 ng/ml Indicative of Myocardial Injury. Lab Order: CBC with Diff; SPEC'M 12/02/16 12:49 Test: WHITE BLOOD COUNT; Value: 10.1; Range: 4.0-10.0; Abnormal: Above high normal; Units: K/mm3; Status: F Test: RED BLOOD COUNT; Value: 2.77; Range: 4.30-6.10; Abnormal: Below low normal; Units: M/mm3; Status: F Test: HEMOGLOBIN; Value: 8.2; Range: 14.0-18.0; Abnormal: Below low normal; Units: g/dl; Status: F Test: HEMATOCRIT; Value: 25.8; Range: 42.0-52.0; Abnormal: Below low normal; Units: %; Status: F Test: MEAN CORPUSCULAR VOLUME; Value: 93.3; Range: 80.0-96.0; Units: fl; Status: F Test: MEAN CORPUSCULAR HEMOGLOBIN; Value: 29.5; Range: 27.0-33.0; Units: pg; Status: F Test: MEAN CORPUSCULAR HGB CONC; Value: 31.6; Range: 32.0-36.5; Abnormal: Below low normal; Units: g/dl; Status: F Test: RED CELL DISTRIBUTION WIDTH; Value: 13.3; Range: 11.5-14.5; Units: %; Status: F Test: PLATELET COUNT, AUTOMATED; Value: 306; Range: 150-450; Units: k/mm3; Status: F Test: NEUTROPHILS %; Value: 81.6; Range: 36.0-66.0; Abnormal: Above high normal; Units: %; Status: F Test: LYMPH %; Value: 10.1; Range: 24.0-44.0; Abnormal: Below low normal; Units: %; Status: F Test: MONO %; Value: 5.0; Range: 0.0-5.0; Units: %; Status: F Test: EOS %; Value: 0.2; Range: 0.0-3.0; Units: %; Status: F Test: BASO %; Value: 0.2; Range: 0.0-1.0; Units: %; Status: F Test: LARGE UNSTAINED CELL %; Value: 2.8; Range: 0.0-4.0; Units: %; Status: F Test: NEUTROPHILS #; Value: 8.3; Range: 1.8-7.7; Abnormal: Above high normal; Units: K/mm3; Status: F Test: LYMPH #; Value: 1.0; Range: 1.5-4.5; Abnormal: Below low normal; Units: K/mm3; Status: F Test: MONO #; Value: 0.5; Range: 0.0-0.8; Units: K/mm3; Status: F Test: EOS #; Value: 0.0; Range: 0.0-0.50; Units: K/mm3; Status: F Test: BASO #; Value: 0.0; Range: 0.0-0.2; Units: K/mm3; Status: F Test: LARGE UNSTAINED CELL #; Value: 0.3; Range: 0.0-0.4; Units: K/mm3; Status: F Lab Order: [facility]; SPEC'M 12/02/16 12:49 Test: GLUCOSE, FASTING; Value: 101; Range: 83-110; Units: MG/DL; Status: F Test: BLOOD UREA NITROGEN; Value: 20; Range: 7-18; Abnormal: Above high normal; Units: MG/DL; Status: F Test: CREATININE FOR GFR; Value: 0.89; Range: 0.70-1.30; Units: MG/DL; Status: F Test: GLOMERULAR FILTRATION RATE; Value: > 60.0; Range: >35; Status: F Test: SODIUM LEVEL; Value: 141; Range: 136-145; Units: MEQ/L; Status: F Test: POTASSIUM SERUM; Value: 4.4; Range: 3.5-5.1; Units: MEQ/L; Status: F Test: CHLORIDE LEVEL; Value: 105; Range: 98-107; Units: MEQ/L; Status: F Test: CARBON DIOXIDE LEVEL; Value: 27; Range: 21-32; Units: MEQ/L; Status: F Test: ANION GAP; Value: 9; Range: 8-16; Units: MEQ/L; Status: F Test: CALCIUM LEVEL; Value: 8.6; Range: 8.8-10.2; Abnormal: Below low normal; Units: MG/DL; Status: F Test Note: ; Units are mL/min/1.73 m2 Chronic Kidney Disease Staging per NKF: Stage I & II GFR >=60 Normal to Mildly Decreased Stage III GFR 30-59 Moderately Decreased Stage IV GFR 15-29 Severely Decreased Stage V GFR <15 Very Little GFR Left ESRD GFR <15 on PRINCIPAL STATISTICAL SCIENTIST Lab Order: Partial Thromboplastin Time; SPEC'12/02/16 12:49 Test: PARTIAL THROMBOPLASTIN TIME; Value: 26.9; Range: 26.6-37.1; Units: SECONDS; Status: F Lab Order: Prothrombin Time Profile\E\INR; SPEC12/02/16 12:49 Test: PROTHROMBIN TIME; Value: 14.5; Range: 12.3-14.5; Units: SECONDS; Status: F Test: INR; Value: 1.12; Status: F Test Note: ; THERAPUTIC HUMAN INR VALUES INDICATIONS NORMAL RANGES PROPHYLAXIS/TREATMENT OF: VENOUS THROMBOSIS 2.0-3.0 PULMONARY EMBOLISM 2.0-3.0 PREVENTION OF SYSTEMIC EMBOLISM FROM: TISSUE HEART VALVES 2.0-3.0 ACUTE MYOCARDIAL INFARCTION 2.0-3.0 VALVULAR HEART DISEASE 2.0-3.0 ATRIAL FIBRILLATION 2.0-3.0 MECHANICAL VALVES(HIGH RISK) 2.5-3.5 RECURRENT MYOCARDIAL INFARCTION 2.5-3.5 Lab Order: Type & Screen; SPEC12/02/16 17:08 Test: BLOOD TYPE; Value: B NEG; Status: F Test: AB SCREEN (INDIRECT MARY)GEL; Value: NEGATIVE; Status: F Radiology Order: CT Head Without Contrast Test: CT Head Without Contrast REASON FOR EXAMINATION: Syncope; CT HEAD WITHOUT CONTRAST:; ; HISTORY: Trauma.; ; COMPARISON: 02/11/2014.; ; Areas of decreased attentuation are present in the periventricular and; subcortical white matter. This represents small vessel ischemic disease. The; ventricular system and cortical sulci are dilated consistent with mild volume; loss. There is no extracerebral collection. There is no fracture. The; visualized sinuses are clear.; ; IMPRESSION:; ; 1. Small vessel ischemic disease.; ; 2. Mild volume loss.; ; ; Signed by; Felix Tovar MD 12/02/2016 03:35 P; Radiology Order: Hip,AP,LAT to include Pelvis Test: Hip,AP,LAT to include Pelvis REASON FOR EXAMINATION: Hip pain after fall; PELVIS LEFT HIP: Three views.; ; HISTORY: Hip pain after fall.; ; FINDINGS: AP view of the pelvis shows an intact bony pelvic ring. No right hip; pelvic or sacral fracture is seen. There are clips in the left inguinal soft; tissues and there is vascular calcification on the right.; ; AP view of the pelvis and AP and frog-leg views of the left hip demonstrate an; intertrochanteric fracture of the left hip in very slight varus. No other; abnormality.; ; IMPRESSION: Intertrochanteric fracture left hip in slight varus.; ; ; Signed by; Rohan Hilton MD 12/02/2016 05:13 P; Radiology Order: Chest, 2 View (pa\E\lat) Test: Chest, 2 View (pa\E\lat) REASON FOR EXAMINATION: Syncope; CHEST X-RAY: Two views.; ; HISTORY: Syncope.; ; Comparison chest x-ray October 12, 2014.; ; FINDINGS: The patient is status post aortic valve replacement via median; sternotomy. Mild cardiomegaly is observed unchanged. Interstitial fibrosis is; seen in both lung bases also unchanged. No acute infiltrate is seen. Right; hemidiaphragm remains slightly elevated.; ; IMPRESSION: Cardiomegaly. Status post aortic valve replacement. Mild bibasilar; interstitial fibrosis. No acute abnormality seen.; ; ; Signed by; Rohan Hilton MD 12/02/2016 05:13 P; Radiology Order: Femur Test: Femur REASON FOR EXAMINATION: fall, hip fx; Left femur series: Two views:; ; History: Injury in a fall. Hip fracture.; ; Findings: AP and lateral views of the left femur demonstrate diffuse osteopenia.; There is vascular calcification. Scattered surgical clips are noted in the; soft-tissues. No fracture or subluxation is seen in the mid or distal femur.; ; Impression:; ; No mid or distal femur fracture seen.; ; ; Signed by; Rohan Hilton MD 12/02/2016 05:15 P; Outcome: 17:02 Decision to Hospitalize by Provider. jo4 20:15 Discharge Assessment: Patient awake, alert and oriented x 3. No cognitive and/or af2 functional deficits noted. Patient verbalized understanding of disposition instructions. patient administered narcotics - no. The following High Risk Discharge criteria are identified: None. Admitted to PCU accompanied by nurse, accompanied by tech, via stretcher, on monitor, with chart. Condition: stable. CT Study completed. 22:59 Patient left the ED. sls1 Signatures: Dispatcher [employer] EDMS Jojo Chandra, Legal Project Manager Unit deg Barnhardt, Khadra, Reg Reg gb Ganter, LoriLee, Reg Reg lg Daly, Betzaida, BAKERY AND DELI SALES MANAGER BAKERY AND DELI SALES MANAGER ct3 Hodan Argueta, RN RN sls1 Clementina Hernández,RN RN js13 Sylvain Carmen, BAKERY AND DELI SALES MANAGER BAKERY AND DELI SALES MANAGER jlf Falguni Sewell,RN RN ms18 Renate Holland,RN RN af2 Elida Swartz DO DO jo4 Chart Complete MTDD
--- NOTE | 2016-12-05 | EDDOCDS ---
Physician Documentation [facility] Name: Ciro Shook Age: 85 yrs Sex: Male : 1930 Arrival Date: 12/02/2016 Time: 12:00 Bed 18 Private MD: Disposition: 12/02/16 17:02 Hospitalization ordered by Page Monique for Inpatient Admission. Preliminary diagnosis is Intertrochanteric fracture of femur. - Bed requested for PCU. - Status is Inpatient Admission. sls1 - Condition is Stable. - Problem is new. - Symptoms are unchanged. Historical: - Allergies: Latex; - Home Meds: 1. simvastatin 10 mg Oral tab 1 tab once daily 2. lisinopril 10 mg Oral tab 1 tab once daily 3. furosemide 40 mg Oral tab 1 tab once daily 4. omeprazole 40 mg Oral cpDR 1 cap 2 times per day 5. Nitrostat 0.4 mg SL subl 1 tab every 5 minutes 6. ferrous sulfate 324 mg (65 mg iron) Oral TbEC daily 7. donepezil 10 mg oral tab 1 tab once daily 8. memantine 10 mg oral tab 1 tab 2 times per day 9. multivitamin Oral tab 1 tablet daily 10. Vitamin C 500 mg Oral cpER 250 mg daily 11. Vitamin D3 1,000 unit oral tab 2000 unit daily 12. aspirin 81 mg Oral TbEC 1 tab once daily 13. Stool Softener 100 mg oral cap 1 cap 2 times per day - PMHx: Hypertension; CAD; Tuberculosis; - PSHx: CABG; Hernia repair; artifical heart valve; - Social history: Smoking status: Patient states former smoker of tobacco. No barriers to communication noted, The patient speaks fluent [place]. - Family history: Not pertinent. - : The pt / caregiver states he / she is not on anticoagulants. Home medication list is obtained from family members. - Exposure Risk Screening:: None identified. Vital Signs: 12/02 12:19 BP 166 / 73; Pulse 68; Resp 18; Pulse Ox 99% ; Weight 76.2 kg / 167.99 lbs; Height 5 ms18 ft. 11 in. (180.34 cm); Pain 9/10; 12:32 Temp 98.2(TE); ms18 12:53 Pulse 62 MON; Pulse Ox 98% ; ms18 12:54 BP 186 / 78 (auto/); ms18 13:08 Pulse 62 MON; Pulse Ox 96% ; ms18 13:09 BP 180 / 79 (auto/); ms18 13:23 Pulse 62 MON; Pulse Ox 97% ; ms18 13:24 BP 175 / 77 (auto/); ms18 13:38 Pulse 58 MON; Pulse Ox 98% ; ms18 13:39 BP 175 / 74 (auto/); ms18 13:54 BP 188 / 89 (auto/); ms18 13:54 Pulse 64 MON; Pulse Ox 98% ; ms18 14:24 BP 163 / 72 (auto/); ms18 14:24 Pulse 74 MON; Pulse Ox 95% ; ms18 14:39 BP 163 / 73 (auto/); ms18 14:39 Pulse 72 MON; Pulse Ox 97% ; ms18 14:54 BP 170 / 75 (auto/); ms18 14:54 Pulse 68 MON; Pulse Ox 96% ; ms18 15:09 BP 189 / 86 (auto/); ms18 15:09 Pulse 80 MON; Pulse Ox 96% ; ms18 15:24 BP 183 / 80 (auto/); ms18 15:24 Pulse 80 MON; Pulse Ox 98% ; ms18 15:39 BP 181 / 86 (auto/); ms18 15:39 Pulse 86 MON; Pulse Ox 96% ; ms18 15:53 Pulse 76 MON; Pulse Ox 94% ; ms18 15:54 BP 188 / 79 (auto/); ms18 16:09 BP 167 / 74 (auto/); ms18 16:09 Pulse 82 MON; Pulse Ox 95% ; ms18 16:24 BP 190 / 74 (auto/); ms18 16:25 Pulse 76 MON; Pulse Ox 95% ; ms18 16:37 Pulse 78 MON; Pulse Ox 94% ; ms18 16:39 BP 176 / 75 (auto/); ms18 16:53 Pulse 88 MON; Pulse Ox 93% ; ms18 16:54 BP 192 / 77 (auto/); ms18 17:08 Pulse 86 MON; Pulse Ox 94% ; ms18 17:09 BP 182 / 78 (auto/); ms18 17:19 Pulse 84 MON; Pulse Ox 94% ; ms18 17:24 BP 139 / 63 (auto/); ms18 17:39 BP 142 / 64 (auto/); ms18 17:39 Pulse 86 MON; Pulse Ox 95% ; ms18 17:54 BP 137 / 63 (auto/); ms18 17:54 Pulse 86 MON; Pulse Ox 94% ; ms18 18:09 BP 184 / 77 (auto/); ms18 18:09 Pulse 88 MON; Pulse Ox 95% ; ms18 18:22 Pulse 100 MON; Pulse Ox 94% ; ms18 18:24 BP 162 / 70 (auto/); ms18 18:39 BP 165 / 72 (auto/); ms18 18:39 Pulse 92 MON; Pulse Ox 95% ; ms18 20:13 BP 153 / 69 (auto/); af2 20:14 Pulse 86 MON; Pulse Ox 92% ; af2 12:19 Body Mass Index 23.43 (76.20 kg, 180.34 cm) ms18 MDM: 14:08 Customer Insight Analyst/Pulse Ox/q 15 min VS ordered. jo4 14:08 Accucheck ordered. jo4 14:08 IV Saline Lock ordered. jo4 14:08 Rhythm Strip to chart ordered. jo4 14:09 CT Head Without Contrast Ordered. EDMS 14:09 CIP Ordered. EDMS 14:09 Troponin Ordered. EDMS 14:09 CBC with Diff Ordered. EDMS 14:09 BMP Ordered. EDMS 14:09 Partial Thromboplastin Time Ordered. EDMS 14:09 Prothrombin Time Profile\E\INR Ordered. EDMS 14:09 Type & Screen Ordered. EDMS 14:10 ECG WITH READING ER PHYS+CARDIAG ordered. EDMS 14:12 Hip,AP,LAT to include Pelvis Ordered. EDMS 14:12 Chest, 2 View (pa\E\lat) Ordered. EDMS 14:13 Financial registration complete. lg 14:36 [facility] Payment Agreement was scanned into Ansible and attached to record. lg 15:17 Partial Thromboplastin Time Reviewed. jo4 15:19 CIP Reviewed. jo4 15:20 CBC with Diff Reviewed. jo4 15:20 BMP Reviewed. jo4 15:20 Troponin Reviewed. jo4 15:21 Prothrombin Time Profile\E\INR Reviewed. jo4 15:26 Femur Ordered. EDMS 15:26 morphine 2 mg IVP once ordered. ml 15:27 Ondansetron 4 mg IVP once ordered. ml 15:28 BED REQUEST+ADM ordered. EDMS 15:34 Chest, 2 View (pa\E\lat) Reviewed. jo4 15:34 Hip,AP,LAT to include Pelvis Reviewed. jo4 16:52 morphine 2 mg IVP once ordered. jo4 16:52 Ondansetron 4 mg IVP once ordered. jo4 18:10 Admission / Observation Status ordered. EDMS 18:10 NO ADDED SALT DIET ordered. EDMS 18:10 NPO DIET ordered. EDMS 18:46 Type & Screen Reviewed. jo4 21:28 CBC WITH DIFFERENTIAL Ordered. EDMS 21:28 COMPLETE COMPHRENSIVE METABOLI Ordered. EDMS 22:18 ECHOCARD,DOPPLER/COLOR FLOW ordered. EDMS 12/03 12:16 T-Sheet-- Draft Copy was scanned into Ansible and attached to record. gb 12:17 PCR was scanned into Ansible and attached to record. gb Administered Medications: 12/02 15:43 Drug: morphine 2 mg [morphine 2 mg/mL intravenous cartridge (1 mL)] Route: IVP; Site: ms18 left antecubital; 17:14 Follow up: Response: No Adverse Reaction; Pain is decreased ms18 15:43 Drug: Ondansetron 4 mg Route: IVP; Site: left antecubital; ms18 17:15 Follow up: Response: No Adverse Reaction ms18 17:14 Drug: morphine 2 mg [morphine 2 mg/mL intravenous cartridge (1 mL)] Route: IVP; Site: ms18 left antecubital; 17:14 Drug: Ondansetron 4 mg [ondansetron HCl 2 mg/mL intravenous solution (2 mL)] Route: ms18 IVP; Site: left antecubital; Signatures: Dispatcher [employer] EDMO Tyler Cisneros MD MD ml Khadra Lino, Reg Reg gb Nasrin Stone, Reg Reg lg Hodan Argueta RN RN sls1 Falguni Sewell RN RN ms18 Elida Swartz DO DO jo4 Tenzin Solis, RN RN sa The chart was reviewed and I authenticate all verbal orders and agree with the evaluation and treatment provided.Corrections: (The following items were deleted from the chart) 15:28 14:08 Orthostatic VS ordered. jo4 ms18 Attachments: 14:36 [facility] Payment Agreement lg 12/03 12:16 T-Sheet-- Draft Copy gb Chart Complete MTDD
[2016-12-05 01:41] VITALS: BP 164/72
[2016-12-05] MEDS: LISINOPRIL 10 MG TAB PO SCH (01:41)
[2016-12-05] MEDS: SIMVASTATIN 10 MG TAB PO SCH (01:41)
[2016-12-05] MEDS: DOCUSATE SODIUM 100 MG CAP PO SCH (01:41)
[2016-12-05 04:00] VITALS: BP 153/76
[2016-12-05 05:51] LABS: BASO # 0.1 K/mm3 (0.0-0.2); BASO % 0.5 % (0.0-1.0); EOS % 0.1 % (0.0-3.0); LARGE UNSTAINED CELL # 0.4 K/mm3 (0.0-0.4); LARGE UNSTAINED CELL % 2.7 % (0.0-4.0); LYMPH # 2.1 K/mm3 (1.5-4.5); LYMPH % 13.1 % (24.0-44.0); MEAN CORPUSCULAR HEMOGLOBIN 29.8 pg (27.0-33.0); MEAN CORPUSCULAR VOLUME 93.1 fl (80.0-96.0); MONO # 0.9 K/mm3 (0.0-0.8); MONO % 6.4 % (0.0-5.0); NEUTROPHILS # 10.3 K/mm3 (1.8-7.7); NEUTROPHILS % 77.3 % (36.0-66.0); PLATELET COUNT, AUTOMATED 276 k/mm3 (150-450); RED CELL DISTRIBUTION WIDTH 14.6 % (11.5-14.5); WHITE BLOOD COUNT 13.3 K/mm3 (4.0-10.0)
[2016-12-05 05:53] LABS: INR 1.32
[2016-12-05 06:01] LABS: ALBUMIN 2.5 GM/DL (3.2-5.2); ALBUMIN/GLOBULIN RATIO 0.63 (1.00-1.93); ALKALINE PHOSPHATASE 56 U/L (45-117); ALT/SGPT 18 U/L (12-78); ANION GAP 10 MEQ/L (8-16); AST/SGOT 21 U/L (15-37); BILIRUBIN,TOTAL 0.6 MG/DL (0.2-1.0); BLOOD UREA NITROGEN 30 MG/DL (7-18); CALCIUM LEVEL 8.4 MG/DL (8.8-10.2); CARBON DIOXIDE LEVEL 27 MEQ/L (21-32); CHLORIDE LEVEL 102 MEQ/L (98-107); CREATININE FOR GFR 1.04 MG/DL (0.70-1.30); GLOMERULAR FILTRATION RATE > 60.0 (>35); GLUCOSE, FASTING 122 MG/DL (83-110); POTASSIUM SERUM 4.2 MEQ/L (3.5-5.1); SODIUM LEVEL 139 MEQ/L (136-145); TOTAL PROTEIN 6.5 GM/DL (6.4-8.2)
[2016-12-05 08:00] VITALS: BP 134/71
[2016-12-05] MEDS ORDERED: PERC5TAB6 PO (08:12)
[2016-12-05] MEDS ORDERED: COUM2.5T11 PO (08:12)
--- NOTE | 2016-12-05 08:40 | RO ---
DATE OF PROCEDURE: 12/04/2016 PREOPERATIVE DIAGNOSIS: Left intertrochanteric hip fracture. POSTOPERATIVE DIAGNOSIS: Left intertrochanteric hip fracture. PROCEDURE: Left intertrochanteric hip fracture reduction, fixation with intramedullary implant. It was a trochanteric femoral nail by [employer] with a size 115 mm twisty blade and a short intramedullary nail with a single distal interlock. SURGEON: Dr. Michael Gimenez EVENING ANCHOR: ANESTHESIA: Spinal. COMPLICATIONS: None. ESTIMATED BLOOD LOSS: 50 mL. DESCRIPTION OF PROCEDURE: Antibiotics were given intravenously, preoperatively, then a successful spinal anesthetic was induced. He was placed on the fracture table and then a closed reduction maneuver was performed under fluoroscopic imaging to be sure we had good reduction. Once I was satisfied with that and after appropriate time-out, his left hip area was prepped and draped in the usual sterile fashion. Then, under fluoroscopic guidance, a small 1 inch incision was made proximal to the greater trochanter laterally. Bovie cautery used to coagulate crossing vessels down to the tensor fascia. It was then split. Palpated the tip of the trochanter and an awl was placed at about the junction between the anterior one-third, posterior two-thirds. Under fluoroscopic imaging, I advanced the awl into the trochanter and then the ball-tip guidepin down the femoral canal confirmed by radiographic imaging. I then used the proximal reamer to go to the level of lesser trochanter, then we inserted the nail. Then, we made sure we were appropriately aligned at the right depth so that the twisty blade would be directed up the femoral neck. Once I was satisfied with the position of the nail, I made a small incision through the drill guide with a long scalpel blade, then advanced the drill sleeve up against the lateral cortex, confirmed it was in good position on the x-ray, and then advanced the threaded guidepin up the center of the femoral neck trying to get close to the center of the femoral head. Once I was satisfied in the AP and lateral planes that we were reasonably centered and at good depth, I measured and chose a 115 mm implant. The drill was set at 115 mm and then drilled, and then I inserted the twisty blade up into the femoral neck into the head and confirmed good position under fluoroscopic image. Then, we locked it proximally using the screwdriver and then backed off a quarter turn. I then turned attention to the distal interlock. A small stab incision was made through the drill guide and then advanced the drill sleeve up against the lateral femoral cortex and then drilled and then measured off the drill using the fluoroscopic image for assistance. Then, used a 40 mm interlock screw and passed it without difficulty. We then confirmed good position of the implant on the AP and lateral planes and confirmed that the implant was in good position and the fracture was well reduced. I then concluded the procedure by copiously irrigating out the proximal wound, closing the tensor fascia with interrupted #1 PDS sutures. Subdermal tissues closed with interrupted #2-0 PDS suture. Skin was closed with dayday, and the distal wounds were irrigated and closed with a single subdermal #2-0 PDS suture, then dayday in the skin. Dry sterile bulky dressing was then applied. Then, he was transferred off the fracture table to the recovery room in stable condition. There were no intraoperative complications.
[2016-12-05] MEDS ORDERED: SENOKOT S TAB PO SCH (09:00)
[2016-12-05] MEDS ORDERED: MIRALAX *UNIT DOSE* 17GM PACKET PO SCH (09:00)
[2016-12-05] MEDS ORDERED: MOM 30ML SUSPENSION UDC PO SCH (09:00)
--- NOTE | 2016-12-05 09:07 | REP ---
Left hip series: Two views. History: Postop. Findings: AP and cross-table lateral views of the left hip are compared with December 02, 2016 prior study. These show a comminuted intertrochanteric fracture. Today's views demonstrate a screw wisam fixation device in place across the fracture in good position. Lateral skin dayday are noted. There are surgical clips in the medial thigh soft tissues again noted as well. Signed by Rohan Hilton MD 12/05/2016 09:24 A
[2016-12-05] MEDS: VITAMIN D 1,000 INTERNATIONAL UNITS TABLET PO SCH (09:24)
[2016-12-05] MEDS: ASPIRIN 81 MG ENTERIC TAB PO SCH (09:24)
[2016-12-05] MEDS: FERROUS SULFATE 325MG TAB PO SCH (09:24)
[2016-12-05] MEDS: MULTIVITAMINS/MINERALS THERAP 1 TAB PO SCH (09:25)
[2016-12-05] MEDS: OMEPRAZOLE 20 MG CAP PO SCH (09:25)
[2016-12-05] MEDS ORDERED: SENN1TAB2 PO (10:14)
[2016-12-05 12:00] VITALS: BP 150/65
[2016-12-05] MEDS: ASCORBIC ACID 250 MG TAB PO SCH (13:29)
[2016-12-05] MEDS ORDERED: WARFARIN SOD 5 MG TAB PO ONE (17:00)
--- NOTE | 2016-12-05 20:04 | DSES ---
DATE OF ADMISSION: 12/02/2016 DATE OF DISCHARGE: 12/05/2016 PRIMARY CARE PROVIDER: Dr. Cortez ORTHOPEDIC SURGEON: Dr. Fox Gimenez HOT STAMP OPERATOR: Dr. Morton PHYSICAL MEDICINE AND REHABILITATION PROVIDER: Dr. Cantrell FINAL DIAGNOSES: 1. Left hip fracture status post fall. 2. Hypertension. 3. Coronary artery disease. 4. History of anemia. 5. Depression. 6. Gastroesophageal reflux disease. 7. History of aortic valve replacement. 8. Acute blood loss anemia secondary to fracture. HISTORY OF PRESENT ILLNESS: This is an 85-year-old male patient with underlying medical history of hypertension, tuberculosis, history of dementia, coronary artery disease with coronary artery bypass graft (CABG) and artificial aortic valve replacement, presented to the emergency room after the patient fell at ground level. 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 Patient stated that he felt disoriented. Was going down the driveway to get the mail and fell. He denies any loss of consciousness or syncope. Denies any chest pain, pressure, or discomfort. Denies any shortness of breath. Was unable to stand up afterward. Started complaining of leg pain, and the patient was brought to the operating room and found to have a hip fracture. Currently the patient states that it was 6/10 pain. Significant medical history of coronary artery disease, hypertension, dementia. Hospitalist was called for admission. Patient denies any shortness of breath. Denies any nausea, vomiting, lightheadedness, headache. Denies any vision change. Ambulates independently at baseline. Can go up a flight of stair without getting any shortness of breath or having chest pain. HOSPITAL COURSE: Patient was admitted to the hospital. Cardiology, Dr. Morton, was called for preoperative optimization. As per Dr. Morton, patient is intermediate risk for intermediate-risk procedure. Cardiac clearance was granted by Dr. Morton given that the patient's hemoglobin be above 10. Subsequently, patient was transfused a total of 2 units packed red blood cells (PRBC). Subsequently, patient proceeded to the operating room (OR). Tolerated procedure without any complications. Patient regimen was provided. Deep vein thrombosis (DVT) prophylaxis as per orthopedic team. Patient was on Coumadin. Blood pressure medication as provided to the patient as well. Patient tolerated the procedure with no complication. Bowel regimen was given. Physical therapy (PT)/occupational therapy (OT) was ordered as well as physical medicine and rehabilitation ([facility]) evaluation. Patient is currently tolerating oral comfortable. Likely to be transferred to [facility] for acute rehabilitation later today. VITAL SIGNS: Temperature 97.2, pulse 77, respirations 20, blood pressure 150/65, pulse oximetry 93% on 2 liters nasal cannula. LABORATORY DATA: WBC 13.3, hemoglobin and hematocrit 10/31.6, platelets 276. Chemistry: Sodium 139, potassium 4.2, chloride 102, bicarbonate 27, BUN 30, creatinine 1.04. INR 1.3. DISCHARGE MEDICATION: - Percocet 5/325 mg by mouth one to two tablets every 4 hours as needed as per orthopedic team - senna 8.6/50 mg combination one tablet by mouth twice a day - Coumadin 2.5 mg two tablets by mouth as directed daily. Followup INR - patient's home medication of vitamin C 250 mg by mouth daily - aspirin 81 mg by mouth daily - vitamin D 2000 units by mouth daily - Colace 200 mg by mouth at bedtime - donepezil 10 mg by mouth at bedtime - ferrous sulfate 325 mg by mouth daily - lisinopril 10 mg by mouth at bedtime - Amantadine 10 mg by mouth twice a day - multivitamin one tablet by mouth daily - nitroglycerine 0.4 mg sublingual as needed - omeprazole 40 mg by mouth daily - Zocor 10 mg by mouth at bedtime were continued DISCHARGE INSTRUCTIONS: Patient is to followup with provider at [facility] for further care. Followup with orthopedics after discharge and followup with primary care provider 7 days after discharge as well. Return to the hospital if symptoms worsen.
== END 2016-12-05 16:05 | DRG 481 ==
LOC: M ED 12:00 → M ED INP 18:04 → M PCU 22:32
PROVIDERS: ADMIT Internal Medicine; ATTEND Internal Medicine
PROC: 30233N1 Transfusion of Nonautologous Red Blood Cells into Peripheral Vein, Percutaneous Approach (ICD-10-PCS; 2016-12-03)
PROC: 0QS706Z Reposition Left Upper Femur with Intramedullary Internal Fixation Device, Open Approach (ICD-10-PCS; principal; 2016-12-04 09:32)
DX: S72.142A Displaced intertrochanteric fracture of left femur, initial encounter for closed fracture (principal); I50.32 Chronic diastolic (congestive) heart failure; D62 Acute posthemorrhagic anemia; F32.9 Major depressive disorder, single episode, unspecified; K21.9 Gastro-esophageal reflux disease without esophagitis; I10 Essential (primary) hypertension; I25.10 Atherosclerotic heart disease of native coronary artery without angina pectoris; F03.90 Unspecified dementia, unspecified severity, without behavioral disturbance, psychotic disturbance, mood disturbance, and anxiety; Z95.1 Presence of aortocoronary bypass graft; Z79.82 Long term (current) use of aspirin; Z79.01 Long term (current) use of anticoagulants; Z79.899 Other long term (current) drug therapy; Z91.040 Latex allergy status; Z87.891 Personal history of nicotine dependence; Z82.49 Family history of ischemic heart disease and other diseases of the circulatory system; Z80.9 Family history of malignant neoplasm, unspecified; Z83.3 Family history of diabetes mellitus; W01.0XXA Fall on same level from slipping, tripping and stumbling without subsequent striking against object, initial encounter; Y92.014 Private driveway to single-family (private) house as the place of occurrence of the external cause; Y99.9 Unspecified external cause status; Y93.89 Activity, other specified

== ENCOUNTER 2016-12-05 11:14 | Inpatient (IN) | payer MEDICARE, OTHER ==
[~2016-12-05] VITALS: Ht 180.3 cm; Wt 76.2 kg
[~2016-12-05 11:14] MED LIST changes: +ASPI1TAB PO; +COUM2.5T11 PO; +DONETAB6 PO; +FERR325T PO; +LISI10TA4 PO; +MEMA1TAB2 PO; +NITR4TASL SL; +PERC5TAB6 PO; +SENN1TAB2 PO; +SIMV10TA2 PO; +STOO100C PO; +VITA1TAB23 PO; +VITA200038 PO; +VITMTA PO
[2016-12-05] MEDS ORDERED: ACETAMINOPHEN TAB 650MG DOSE (2X325MG) PO PRN (12:45)
[2016-12-05] MEDS ORDERED: NITROGLYCERIN 0.4 MG SUBL TABLET SL PRN (12:45)
[2016-12-05] MEDS ORDERED: PERCOCET 5MG/325MG TAB PO PRN (12:45)
[2016-12-05 16:30] VITALS: BP 154/72
[2016-12-05] MEDS ORDERED: WARFARIN SOD 5 MG TAB PO ONE (17:00)
--- NOTE | 2016-12-05 17:13 | HPEPDOC ---
[employer] Note ADMISSION H&P + SANTIAGO DATE OF ADMISSION: 12/05/16 DATE OF SERVICE: 12/05/16 IDENTIFICATION STATEMENT: 85-year-old gentleman with left intertrochanteric fracture status post ORIF admitted for comprehensive integrated inpatient rehabilitation. Thereve been no significant changes in the patients condition since the preadmission screening. HISTORY OF PRESENT ILLNESS: Patient is an 85-year-old woman with multiple medical comorbidities including coronary artery disease who sustained an unwitnessed fall to the ground level outside his home on 12/02/2016. 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 He was unable to get up. He was brought to [facility] by EMS where he was found to have a left intertrochanteric fracture. He underwent ORIF. Postoperatively the patient was noted to have increased confusion which is seen secondary to his anesthesia pain meds. On evaluation today, the patient does not have any particular complaints. His Perez catheter was removed this morning, he has not yet voided. He has not yet had a bowel movement. He denies any significant pain. He does report weakness in both lower legs. 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 Hernia repair. Artificial heart valve (bovin valve). ALLERGIES: Latex, tape MEDICATIONS: Coumadin 5 mg 1 tab by mouth 1 MiraLAX 1 packet by mouth daily Milk of magnesia 30 mL by mouth daily Senokot-S 1 tab by mouth twice a day [place] Roxicodone 5 mg by mouth every 6 hours when necessary Morphine sulfate 2 mg IV every 4 hours when necessary Percocet 1 tab by mouth every 4 hours when necessary Vitamin C 250 mg by mouth daily Aspirin 81 mg by mouth daily Vitamin D 2000 units by mouth daily Ferrous sulfate 325 mg by mouth daily Multivitamin 1 tab by mouth daily Prilosec 40 mg by mouth daily Nitrostat 0.4 mg every 5 minutes when necessary Colace 200 mg by mouth daily at bedtime Lisinopril 10 mg by mouth daily at bedtime Zocor 10 mg by mouth daily at bedtime Tylenol 650 mg by mouth every 6 hours SOCIAL HISTORY: Patient lives with his in a one-story house. There are 2 steps to enter. He has a history of smoking 1-2 packs per day for about 20 years , quit 30 years ago. He has a history of social alcohol use. No illicit drug use , past or present. Review of Systems: General: no chills, +fatigue, no weight changes. Eyes: glasses distance and reading, Ears, Nose & Throat: no sore throat, missing teeth upper and lower, +upper dentures, positive decreased hearing. No nasal discharge. Cardiovascular: no chest pain, claudication, edema. Pul: no cough, SOB. GI: no abdominal pain, GERD, N/V. Genitourinary: No urination since d/c ing Perez. Musculoskeletal: no back/neck/joint pain. Neurological: Patients reports approximately 4 falls in the last year, +confusion increased since surgery, baseline mild STM issues; no numbness, paresthesias, no tremors, BO. Hematological: No bleeding disorders. Skin: no rashes. Psychiatric: no depression, anxiety, behavioral issues. VITAL SIGNS: Temperature 97.2F, pulse 77, respiratory rate 20, blood pressure 150/65, 93% saturation on 2 L via nasal cannula. PHYSICAL EXAMINATION: GENERAL: Well nourished, well developed, sitting up in bed, no acute distress. HEENT: Normocephalic, atraumatic. No facial droop. PERRL, EOMI CARDIOVASCULAR: S1, S2, regular rate. Significant right lower limb edema or calf tenderness. Diffuse swelling of the left lower limb, no calf tenderness. LUNGS: Decreased breath sounds throughout, no wheezing rhonchi or rales appreciated. ABDOMEN: Soft, nontender, nondistended. Positive normoactive bowel sounds throughout. MUSCULOSKELETAL: 3/5 right shoulder abduction and forward flexion, 5/5 right elbow flexion, 4/5 right candy vendor strength. 5/5 left upper limb in all major muscle groups. 2/5 right hip flexors, 4/5 right knee extension, 5/5 right knee flexion , dorsiflexion plantar flexion. 1/5 left hip flexors, 2/5 left knee extension, 3 /5 left knee flexion, 4/5 left dorsiflexion plantar flexion (note: Exam limited secondary to patients mild confusion). Sensation: Intact to soft touch bilateral upper and lower limbs. Deep tendon reflexes: Unable to elicit patellar biceps bilaterally. NEUROLOGICAL: Alert and oriented to person. Able to follow commands, but requires repeated cueing to complete tasks. As difficulty recounting of events and details. SKIN: Left lateral hip surgical site covered in dressing.. LABORATORY DATA: 12/05/2016: WBC count 13.3, hemoglobin 10.1, hematocrit 31.6, platelets 276. Sodium 139, potassium 4.2, chloride 102, carbon dioxide 27, BUN 30, creatinine 1.04, GFR greater than 60, calcium 8.4, glucose 122 IMAGING: Femur x-ray 12/02/16: no mid or distal femur fracture. Hip and pelvis x-ray 12/02/16: intertrochanteric fracture of the left hip. Chest x-ray 12/02/16 cardiomegaly, status post aortic valve replacement. CT of the head 12/02/16: small vessel ischemic disease. No volume loss. FUNCTIONAL STATUS, premorbid: Independent with ambulation and most ADLs. Per the patients he did require some set up for dressing, but was able to bathe and dress himself. He has not driven recently secondary to his memory ASSESSMENT AND PLAN: 1. Left intertrochanteric fracture status post ORIF: Patient is partial weightbearing on the left lower limb. Will undergo thorough physical and occupational therapy evaluations followed by daily intensive therapy. Given cardiac history, well maintain hemoglobin greater than 8. Rehabilitation nursing for bladder, bowel, medication management and wound care. 2. DVT prophylaxis: Coumadin dose by ETHAN Enriquez of the orthopedic service. Will also provide SCD and DANIE hose. 3. Pain: Given patients current confusion will minimize opioid analgesics. Will provide patient with acetaminophen scheduled basis with Percocet for severe pain. Will also provide patient with intermittent ice. 4. Bladder: Patient is Perez catheter has just been discontinued. Will obtain bladder scans to evaluate for any retention. Treatment as indicated. 5. Bowel: Will provide patient with a bowel regimen to include Colace and senna on a scheduled basis along with milk of magnesia and MiraLAX on an as-needed basis. 6. Confusion: Presumably secondary to anesthesia/pain medication. It stated above will minimize opioid analgesics and hopefully of patients mental status will return to baseline. I have restarted patients on prior to admission medication of donepezil & Namenda. 7. Diet/nutrition: Will obtain a prealbumin with morning labs. Regular diet with nutritional supplements as indicated. POST ADMISSION PHYSICIAN EVALUATION: On evaluation of the patient today there' ve been no significant medical issues or functional changes as compared to those noted in the preadmission screening document. This patient's inpatient rehabilitation remains necessary in light of the above conditions. The patient' s medical condition requires specialized care with physicians specially trained in physical medicine rehabilitation. The patient is capable motivated to participate in a minimum of 3 hours of therapy daily, 5 days minimum per week, and requires intensive inpatient rehabilitation to improve their functional status so that they can be safely to discharge back to their home. PROGNOSIS: Good pending improvement in mental status ESTIMATED LENGTH OF STAY: 10 days. / Vital Signs see above Home Medications Scheduled (Senna Plus 8.6-50 mg) 1 Tab Tab 1 TAB PO BID Ascorbic Acid (Vitamin C) 250 Mg Tab 250 MG PO DAILY (Reported) TAKES @ NOON Aspirin (Aspirin 81) 81 Mg Tab 81 MG PO DAILY (Reported) Cholecalciferol (Vitamin D-3) 2,000 Unit Tab 2,000 UNIT PO DAILY (Reported) Docusate Sodium (Stool Softener) 100 Mg Cap 200 MG PO QHS (Reported) Donepezil Hcl (Donepezil HCl) 10 Mg Tab 10 MG PO QHS (Reported) Ferrous Sulfate (Ferrous Sulfate) 325 Mg Tab 325 MG PO DAILY (Reported) TAKES @ NOON Lisinopril (Lisinopril) 10 Mg Tab 10 MG PO QHS (Reported) Memantine Hydrochloride (Memantine HCl) 10 Mg Tab 10 MG PO BID (Reported) Multivitamins *SMC STOCKED* (Thera M Plus *SMC STOCKED*) 1 Tab Tab 1 TAB PO DAILY (Reported) TAKES @ NOON Omeprazole (Omeprazole) 40 Mg Cap 40 MG PO DAILY (Reported) Simvastatin (Simvastatin) 10 Mg Tab 10 MG PO QHS (Reported) Warfarin Sod (Coumadin) 2.5 Mg Tab 2 TAB PO ASDIRECTED MDD = 6 tabs Scheduled PRN Nitroglycerin (Nitrostat) 0.4 Mg Subl 0.4 MG SL Q5MP PRN PRN CHEST PAIN ( Reported) Oxycodone/Acetaminophen (Percocet 5-325 mg) 1 Tab Tab 1-2 TAB PO Q4H PRN PRN PAIN MDD = 8 Allergies Coded Allergies: TAPE (Verified Allergy, Mild, 02/11/14) Latex (Unverified Allergy, Unknown, RASH, 12/02/16) DAVIDA PARK MD Dec 05, 2016 17:13
[2016-12-05 20:00] VITALS: BP 155/67
[2016-12-05] MEDS: DONEPEZIL 5 MG TAB PO SCH (22:13)
[2016-12-05] MEDS: SIMVASTATIN 10 MG TAB PO SCH (22:13)
[2016-12-05] MEDS: SENNA 8.6 MG TAB (SENOKOT) PO SCH (22:13)
[2016-12-05] MEDS: ACETAMINOPHEN 500 MG TAB PO SCH (22:14)
[2016-12-05] MEDS: LISINOPRIL 10 MG TAB PO SCH (22:14)
[2016-12-05] MEDS: DOCUSATE SODIUM 100 MG CAP PO SCH (22:14)
[2016-12-05] MEDS: MEMANTINE 5MG TABLET (NAMENDA) PO SCH (22:16)
[2016-12-06 06:00] VITALS: BP 149/65
[2016-12-06] MEDS: ACETAMINOPHEN 500 MG TAB PO SCH ×3 (07:02→20:56)
[2016-12-06 07:14] LABS: MEAN CORPUSCULAR HEMOGLOBIN 29.4 pg (27.0-33.0); MEAN CORPUSCULAR HGB CONC 31.9 g/dl (32.0-36.5); MEAN CORPUSCULAR VOLUME 92.1 fl (80.0-96.0); RED CELL DISTRIBUTION WIDTH 14.6 % (11.5-14.5); WHITE BLOOD COUNT 14.3 K/mm3 (4.0-10.0)
[2016-12-06 07:31] LABS: ANION GAP 7 MEQ/L (8-16); BLOOD UREA NITROGEN 41 MG/DL (7-18); CALCIUM LEVEL 8.5 MG/DL (8.8-10.2); CARBON DIOXIDE LEVEL 32 MEQ/L (21-32); CHLORIDE LEVEL 102 MEQ/L (98-107); GLOMERULAR FILTRATION RATE > 60.0 (>35); GLUCOSE, FASTING 107 MG/DL (83-110); POTASSIUM SERUM 3.9 MEQ/L (3.5-5.1); SODIUM LEVEL 141 MEQ/L (136-145)
[2016-12-06 07:39] LABS: INR 1.6
[2016-12-06] MEDS: FERROUS SULFATE 325MG TAB PO SCH (08:33)
[2016-12-06] MEDS: OMEPRAZOLE 20 MG CAP PO SCH (08:33)
[2016-12-06] MEDS: DOCUSATE SODIUM 100 MG CAP PO SCH ×2 (08:33→20:56)
[2016-12-06] MEDS: ASPIRIN 81 MG ENTERIC TAB PO SCH (08:33)
[2016-12-06] MEDS: MULTIVITAMINS/MINERALS THERAP 1 TAB PO SCH (08:33)
[2016-12-06] MEDS: MEMANTINE 5MG TABLET (NAMENDA) PO SCH ×2 (08:33→20:56)
[2016-12-06] MEDS: VITAMIN D 1,000 INTERNATIONAL UNITS TABLET PO SCH (08:34)
[2016-12-06] MEDS: ASCORBIC ACID 250 MG TAB PO SCH (10:02)
[2016-12-06 14:00] VITALS: BP 137/65
--- NOTE | 2016-12-06 16:54 | IPNPDOC ---
Director Machine Progress Note PROGRESS NOTE DATE OF ADMISSION: 12/05/16 DATE OF SERVICE: 12/06/16 IDENTIFICATION STATEMENT: 85-year-old gentleman with left intertrochanteric fracture status post ORIF admitted for comprehensive integrated inpatient rehabilitation. 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 Hernia repair. Artificial heart valve (bovin valve). ALLERGIES: Latex, tape MEDICATIONS: Coumadin 5 mg 1 tab by mouth 1 Prilosec 40 mg by mouth daily Nitrostat 0.4 mg every 5 minutes when necessary Lisinopril 10 mg by mouth daily at bedtime Zocor 10 mg by mouth daily at bedtime Namenda 10mg PO bid Aricept 10mg qhs APAP 1000mg q8h prn Percocet 1 tab by mouth every 6 hours when necessary severe pain Vitamin C 250 mg by mouth daily Aspirin 81 mg by mouth daily Vitamin D 2000 units by mouth daily Ferrous sulfate 325 mg by mouth daily Multivitamin 1 tab by mouth daily Senna 1 tab po qhs Colace 100mg PO bid MiraLAX 1 packet by mouth daily Milk of magnesia 30 mL by mouth daily SUBJECTIVE: Patient w/o complaints. Slept well. Feels better than yesterday. Denies any CP, SOB, N/V, dysuria. Hasnt had BM yet. VITAL SIGNS: Temperature 98.1F, pulse 80, respiratory rate 20, blood pressure 137/65, 95% saturation RA. PHYSICAL EXAMINATION: GENERAL: Well nourished, well developed, sitting up in chair, no acute distress. HEENT: Normocephalic, atraumatic. No facial droop. PERRL, EOMI CARDIOVASCULAR: S1, S2, regular rate. Significant right lower limb edema or calf tenderness. Diffuse swelling of the left lower limb, no calf tenderness. LUNGS: Decreased breath sounds throughout, no wheezing rhonchi or rales appreciated. ABDOMEN: Soft, nontender, nondistended. Normoactive bowel sounds throughout. MUSCULOSKELETAL: 3/5 right shoulder abduction and forward flexion, 5/5 right elbow flexion, 4/5 right sample builder strength. 5/5 left upper limb in all major muscle groups. 2/5 right hip flexors, 4/5 right knee extension, 5/5 right knee flexion , dorsiflexion plantar flexion. 1/5 left hip flexors, 2/5 left knee extension, 3 /5 left knee flexion, 4/5 left dorsiflexion plantar flexion (note: Exam limited secondary to patients mild confusion NEUROLOGICAL: Alert and oriented to person, place and year. Able to follow commands. Answers questions appropriately SKIN: Left lateral hip surgical site covered in dressing. LABORATORY DATA: 12/06/16: reviewed, see below 12/05/2016: WBC count 13.3, hemoglobin 10.1, hematocrit 31.6, platelets 276. Sodium 139, potassium 4.2, chloride 102, carbon dioxide 27, BUN 30, creatinine 1.04, GFR greater than 60, calcium 8.4, glucose 122 IMAGING: Femur x-ray 12/02/16: no mid or distal femur fracture. Hip and pelvis x-ray 12/02/16: intertrochanteric fracture of the left hip. Chest x-ray 12/02/16 cardiomegaly, status post aortic valve replacement. CT of the head 12/02/16: small vessel ischemic disease. No volume loss. FUNCTIONAL STATUS, premorbid: Independent with ambulation and most ADLs. Per the patients he did require some set up for dressing, but was able to bathe and dress himself. He has not driven recently secondary to his memory ASSESSMENT AND PLAN: 1. Left intertrochanteric fracture status post ORIF: PWB left lower limb. Continue daily physical and occupational therapy. Rehabilitation nursing for bladder, bowel, medication management and wound care. 2. DVT prophylaxis: Coumadin dose by ETHAN Enriquez of the orthopedic service. Continue SCD and DANIE hose. 3. Pain: Patient hasnt required any Percocet. Continue APAP scheduled along with intermittent ice. 4. Bladder: Urinating w/o difficulty. 5. Bowel: Continue Colace and senna on a scheduled basis along with milk of magnesia and MiraLAX on an as-needed basis. 6. Confusion: Mental status significantly better than it was yesterday. Minimize opioid analgesics. Continue donepezil & Namenda. 7. Leukocytosis: afebrile and asymptomatic. May be 2nd surgery. Repeat in am. 8. Prerenal azotemia: encourage oral hydration. AM labs. 9. Diet/severe malnutrition: Prealbumin low so started on Ensure. Regular diet. / Vital Signs Vital Sign - Last 24 Hours 12/05/16 12/05/16 12/05/16 12/06/16 20:00 20:00 22:14 06:00 Temp 98.2 96.7 Pulse 72 67 Resp 18 18 B/P 155/67 171/75 149/65 Pulse Ox 98 99 O2 Delivery Nasal Cannula Nasal Cannula Nasal Cannula O2 Flow Rate 2.0 2.0 2.0 12/06/16 12/06/16 12/06/16 12/06/16 08:00 08:45 08:53 14:00 Temp 98.1 Pulse 80 Resp 20 B/P 137/65 Pulse Ox 99 96 95 O2 Delivery Nasal Cannula Nasal Cannula Room Air Room Air O2 Flow Rate 2.0 2.0 Laboratory Data CBC/BMP Laboratory Tests 12/06/16 06:43 Calcium Level 8.5 L, Red Blood Count 3.45 L, Mean Corpuscular Volume 92.1, Mean Corpuscular Hemoglobin 29.4, Mean Corpuscular Hemoglobin Concent 31.9 L, Red Cell Distribution Width 14.6 H Labs 24H Laboratory Tests 2 12/06/16 06:43: Anion Gap 7L, Blood Urea Nitrogen 41H, Creatinine 1.00, Sodium Level 141, Potassium Level 3.9, Chloride Level 102, Carbon Dioxide Level 32, Calcium Level 8.5L, Glomerular Filtration Rate > 60.0, Prealbumin 6.9L, Prothromb Time International Ratio 1.60, Prothrombin Time 19.1H Allergies Allergies: Coded Allergies: TAPE (Verified Allergy, Mild, 02/11/14) Latex (Unverified Allergy, Unknown, RASH, 12/02/16) Current Medications Current Medications Current Medications Medications (Trade) Dose Ordered Sig/Victor Hugo Route PRN Reason Start Time Stop Time Status Last Admin Dose Admin Acetaminophen (Tylenol) 650 mg Q4HP PRN PO MILD PAIN (PS 1-4) 12/05/16 12:45 12/05/16 15:35 DC Acetaminophen (Tylenol) 1,000 mg Q8H PO 12/05/16 22:00 01/04/17 21:59 12/06/16 13:11 Ascorbic Acid (Vitamin C) 250 mg DAILY PO 12/06/16 09:00 01/05/17 08:59 12/06/16 10:02 Aspirin (Ecotrin) 81 mg DAILY PO 12/06/16 09:00 01/05/17 08:59 12/06/16 08:33 Docusate Sodium (Colace) 100 mg BID PO 12/05/16 21:00 01/04/17 20:59 12/06/16 08:33 Donepezil HCl (AriCEPT) 10 mg QHS PO 12/05/16 21:00 01/04/17 20:59 12/05/16 22:13 Ferrous Sulfate (Ferrous Sulfate) 325 mg DAILY PO 12/06/16 09:00 01/05/17 08:59 12/06/16 08:33 Lisinopril (Prinivil) 10 mg QHS PO 12/05/16 21:00 01/04/17 20:59 12/05/16 22:14 Magnesium Hydroxide (Milk Of Magnesia) 30 ml DAILYPRN PRN PO CONSTIPATION 12/05/16 12:45 01/04/17 12:44 Memantine (Namenda) 10 mg BID PO 12/05/16 21:00 01/04/17 20:59 12/06/16 08:33 Multivitamins (Theragram-M) 1 tab DAILY PO 12/06/16 09:00 01/05/17 08:59 12/06/16 08:33 Nitroglycerin (Nitrostat (1/ 150)) 0.4 mg Q5MP PRN SL CHEST PAIN 12/05/16 12:45 01/04/17 12:44 Omeprazole (PriLOSEC) 40 mg DAILY PO 12/06/16 09:00 01/05/17 08:59 12/06/16 08:33 Oxycodone/ Acetaminophen (Percocet 5mg/ 325mg Tablet) 1 tab Q4HP PRN PO MODERATE/SEVERE PAIN (PS 5-10) 12/05/16 12:45 12/05/16 15:36 DC Oxycodone/ Acetaminophen (Percocet 5mg/ 325mg Tablet) 1 tab Q6HP PRN PO SEVERE PAIN (PS 8-10) 12/06/16 12:45 12/13/16 12:44 Polyethylene Glycol (Miralax) 1 pkt DAILY PRN PO CONSTIPATION 12/05/16 12:45 01/04/17 12:44 Senna (Senokot) 1 tab QHS PO 12/05/16 21:00 01/04/17 20:59 12/05/16 22:13 Simvastatin (Zocor) 10 mg QHS PO 12/05/16 21:00 01/04/17 20:59 12/05/16 22:13 Vitamin D (Vitamin D) 2,000 units DAILY PO 12/06/16 09:00 01/05/17 08:59 12/06/16 08:34 DAVIDA PARK MD Dec 06, 2016 16:54
[2016-12-06] MEDS ORDERED: WARFARIN SOD 3 MG TAB PO ONE (17:00)
[2016-12-06 20:10] VITALS: BP 154/67
[2016-12-06] MEDS: SENNA 8.6 MG TAB (SENOKOT) PO SCH (20:55)
[2016-12-06] MEDS: SIMVASTATIN 10 MG TAB PO SCH (20:55)
[2016-12-06] MEDS: LISINOPRIL 10 MG TAB PO SCH (20:56)
[2016-12-06] MEDS: DONEPEZIL 5 MG TAB PO SCH (20:57)
[2016-12-07] MEDS: ACETAMINOPHEN 500 MG TAB PO SCH ×3 (05:09→20:56)
[2016-12-07 06:00] VITALS: BP 132/66
[2016-12-07 06:07] LABS: BASO % 0.1 % (0.0-1.0); EOS % 0.3 % (0.0-3.0); LARGE UNSTAINED CELL # 0.3 K/mm3 (0.0-0.4); LARGE UNSTAINED CELL % 2.2 % (0.0-4.0); LYMPH # 1.7 K/mm3 (1.5-4.5); LYMPH % 11.1 % (24.0-44.0); MEAN CORPUSCULAR HEMOGLOBIN 29.8 pg (27.0-33.0); MEAN CORPUSCULAR HGB CONC 31.9 g/dl (32.0-36.5); MEAN CORPUSCULAR VOLUME 93.6 fl (80.0-96.0); MONO # 0.8 K/mm3 (0.0-0.8); MONO % 5.1 % (0.0-5.0); NEUTROPHILS # 12.4 K/mm3 (1.8-7.7); NEUTROPHILS % 81.3 % (36.0-66.0); PLATELET COUNT, AUTOMATED 302 k/mm3 (150-450); RED CELL DISTRIBUTION WIDTH 13.8 % (11.5-14.5); WHITE BLOOD COUNT 15.2 K/mm3 (4.0-10.0)
[2016-12-07 06:18] LABS: INR 3.47
[2016-12-07 06:19] LABS: ANION GAP 9 MEQ/L (8-16); BLOOD UREA NITROGEN 49 MG/DL (7-18); CALCIUM LEVEL 8.8 MG/DL (8.8-10.2); CARBON DIOXIDE LEVEL 28 MEQ/L (21-32); CHLORIDE LEVEL 104 MEQ/L (98-107); GLOMERULAR FILTRATION RATE > 60.0 (>35); GLUCOSE, FASTING 139 MG/DL (83-110); SODIUM LEVEL 141 MEQ/L (136-145)
[2016-12-07] MEDS: VITAMIN D 1,000 INTERNATIONAL UNITS TABLET PO SCH (10:24)
[2016-12-07] MEDS: FERROUS SULFATE 325MG TAB PO SCH (10:25)
[2016-12-07] MEDS: DOCUSATE SODIUM 100 MG CAP PO SCH ×2 (10:25→20:55)
[2016-12-07] MEDS: ASCORBIC ACID 250 MG TAB PO SCH (10:26)
[2016-12-07] MEDS: MULTIVITAMINS/MINERALS THERAP 1 TAB PO SCH (10:26)
[2016-12-07] MEDS: ASPIRIN 81 MG ENTERIC TAB PO SCH (10:26)
[2016-12-07] MEDS: OMEPRAZOLE 20 MG CAP PO SCH (10:27)
[2016-12-07] MEDS: MEMANTINE 5MG TABLET (NAMENDA) PO SCH ×2 (10:27→20:58)
[2016-12-07] MEDS: PERCOCET 5MG/325MG TAB PO PRN (10:31)
[2016-12-07 14:00] VITALS: BP 150/68
[2016-12-07 20:00] VITALS: BP 125/59
[2016-12-07] MEDS: SENNA 8.6 MG TAB (SENOKOT) PO SCH (20:55)
[2016-12-07] MEDS: SIMVASTATIN 10 MG TAB PO SCH (20:57)
[2016-12-07] MEDS: DONEPEZIL 5 MG TAB PO SCH (20:57)
[2016-12-07] MEDS: LISINOPRIL 10 MG TAB PO SCH (20:58)
[2016-12-08] MEDS: ACETAMINOPHEN 500 MG TAB PO SCH ×3 (05:52→21:48)
[2016-12-08 06:00] VITALS: BP 148/73
[2016-12-08 06:40] LABS: INR 4.06
[2016-12-08] MEDS ORDERED: PHYTONADIONE 1.25 MG 1/4 TAB PO ONE (08:00)
[2016-12-08] MEDS: ASCORBIC ACID 250 MG TAB PO SCH (09:16)
[2016-12-08] MEDS: MULTIVITAMINS/MINERALS THERAP 1 TAB PO SCH (09:16)
[2016-12-08] MEDS: OMEPRAZOLE 20 MG CAP PO SCH (09:16)
[2016-12-08] MEDS: FERROUS SULFATE 325MG TAB PO SCH (09:17)
[2016-12-08] MEDS: DOCUSATE SODIUM 100 MG CAP PO SCH ×2 (09:17→21:48)
[2016-12-08] MEDS: MEMANTINE 5MG TABLET (NAMENDA) PO SCH ×2 (09:17→21:48)
[2016-12-08] MEDS: ASPIRIN 81 MG ENTERIC TAB PO SCH (09:17)
[2016-12-08] MEDS: VITAMIN D 1,000 INTERNATIONAL UNITS TABLET PO SCH (09:17)
[2016-12-08 14:00] VITALS: BP_SYST 138; BP_SYST 145; BP_DIAS 62; BP_DIAS 68
[2016-12-08] MEDS: MOM 30ML SUSPENSION UDC PO PRN (14:47)
[2016-12-08 20:00] VITALS: BP 151/72
[2016-12-08] MEDS: DONEPEZIL 5 MG TAB PO SCH (21:48)
[2016-12-08] MEDS: SIMVASTATIN 10 MG TAB PO SCH (21:48)
[2016-12-08] MEDS: SENNA 8.6 MG TAB (SENOKOT) PO SCH (21:49)
[2016-12-08] MEDS: LISINOPRIL 10 MG TAB PO SCH (21:49)
[2016-12-09 06:00] VITALS: BP 162/66
[2016-12-09] MEDS: ACETAMINOPHEN 500 MG TAB PO SCH ×3 (06:07→21:50)
[2016-12-09 06:39] LABS: BASO % 0.3 % (0.0-1.0); EOS % 0.4 % (0.0-3.0); LARGE UNSTAINED CELL # 0.5 K/mm3 (0.0-0.4); LARGE UNSTAINED CELL % 3.6 % (0.0-4.0); LYMPH # 1.5 K/mm3 (1.5-4.5); LYMPH % 12.3 % (24.0-44.0); MEAN CORPUSCULAR HEMOGLOBIN 29.9 pg (27.0-33.0); MEAN CORPUSCULAR HGB CONC 30.7 g/dl (32.0-36.5); MEAN CORPUSCULAR VOLUME 97.3 fl (80.0-96.0); MONO # 0.6 K/mm3 (0.0-0.8); MONO % 5.2 % (0.0-5.0); NEUTROPHILS # 9.7 K/mm3 (1.8-7.7); NEUTROPHILS % 78.2 % (36.0-66.0); PLATELET COUNT, AUTOMATED 351 k/mm3 (150-450); RED CELL DISTRIBUTION WIDTH 13.6 % (11.5-14.5); WHITE BLOOD COUNT 12.4 K/mm3 (4.0-10.0)
[2016-12-09 06:59] LABS: INR 3.17
[2016-12-09 07:03] LABS: ANION GAP 8 MEQ/L (8-16); BLOOD UREA NITROGEN 45 MG/DL (7-18); CALCIUM LEVEL 8.5 MG/DL (8.8-10.2); CARBON DIOXIDE LEVEL 27 MEQ/L (21-32); CHLORIDE LEVEL 107 MEQ/L (98-107); CREATININE FOR GFR 0.74 MG/DL (0.70-1.30); GLOMERULAR FILTRATION RATE > 60.0 (>35); GLUCOSE, FASTING 104 MG/DL (83-110); POTASSIUM SERUM 3.9 MEQ/L (3.5-5.1); SODIUM LEVEL 142 MEQ/L (136-145)
[2016-12-09] MEDS: ASCORBIC ACID 250 MG TAB PO SCH (08:24)
[2016-12-09] MEDS: OMEPRAZOLE 20 MG CAP PO SCH (08:24)
[2016-12-09] MEDS: LACTOBACILLUS ACIDOPHILUS CAP (BACID) PO SCH ×2 (08:24→20:12)
[2016-12-09] MEDS: MULTIVITAMINS/MINERALS THERAP 1 TAB PO SCH (08:24)
[2016-12-09] MEDS: VITAMIN D 1,000 INTERNATIONAL UNITS TABLET PO SCH (08:24)
[2016-12-09] MEDS: MEMANTINE 5MG TABLET (NAMENDA) PO SCH ×2 (08:24→20:12)
[2016-12-09] MEDS: FERROUS SULFATE 325MG TAB PO SCH (08:24)
[2016-12-09] MEDS: ASPIRIN 81 MG ENTERIC TAB PO SCH (08:24)
[2016-12-09] MEDS: DOCUSATE SODIUM 100 MG CAP PO SCH ×2 (08:24→20:12)
[2016-12-09] MEDS: LevoFLOXacin 250 MG TABLET PO SCH (09:16)
--- NOTE | 2016-12-09 13:48 | REP ---
CT BRAIN WITHOUT CONTRAST: 12/09/2016 COMPARISON: 12/02/2016, 02/11/2014. CLINICAL HISTORY: Altered mental status. Evaluate for intracranial bleed. FINDINGS: The noncontrast images of the brain again show ventricles midline, symmetric and dilated. There are dilated proportionate to the moderately severe atrophy unchanged. Basal ganglia show lacunar infarct anterior limb internal capsule on the left and posterior limb internal capsule unchanged. No intracranial hemorrhage, mass, mass effect or edema. Fairly extensive low attenuation white matter changes representing chronic small vessel ischemic disease of aging. No vascular territory infarct, hemorrhage, mass or mass effect. Calcifications in the falx noted. Brainstem unremarkable. Cerebellum with some atrophy but no mass. There are calcifications along the tentorium. Basal cisterns intact. No fracture of the skull base or calvarium and mastoids symmetric and intact. The visualized sinuses clear. There are heavy vascular calcifications carotid siphons. IMPRESSION: 1. 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 2. Brainstem intact and cerebellum with some mild atrophy without bleed or other acute finding. 3. No fracture skull base or calvarium. The sinuses and mastoids intact. Heavy vascular calcifications in the carotid siphons. Signed by Darrian Juares MD 12/09/2016 02:30 P
[2016-12-09] MEDS: NS 1,000 ML IV SCH (15:00)
--- NOTE | 2016-12-09 15:10 | IPNPDOC ---
Chorus Master Progress Note PROGRESS NOTE DATE OF ADMISSION: 12/05/16 DATE OF SERVICE: 12/09/16 IDENTIFICATION STATEMENT: 85-year-old gentleman with left intertrochanteric fracture status post ORIF admitted for comprehensive integrated inpatient rehabilitation. 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 Hernia repair. Artificial heart valve (bovin valve). ALLERGIES: Latex, tape MEDICATIONS: Levaquin 250mg daily Coumadin daily Prilosec 40 mg by mouth daily Nitrostat 0.4 mg every 5 minutes when necessary Lisinopril 10 mg by mouth daily at bedtime Zocor 10 mg by mouth daily at bedtime Namenda 10mg PO bid Aricept 10mg qhs APAP 1000mg q8h prn Vitamin C 250 mg by mouth daily Aspirin 81 mg by mouth daily Vitamin D 2000 units by mouth daily Ferrous sulfate 325 mg by mouth daily Multivitamin 1 tab by mouth daily Senna 1 tab po qhs Colace 100mg PO bid MiraLAX 1 packet by mouth daily prn Milk of magnesia 30 mL by mouth daily prn SUBJECTIVE: Patient confused. Didnt sleep well. Has difficulty following commands. Denies any CP, SOB, N/V, dysuria. Hasnt had BM yet. VITAL SIGNS: Temperature 98.6F, pulse 78, respiratory rate 18, blood pressure 162/66, 96% saturation RA. PHYSICAL EXAMINATION: GENERAL: Well nourished, well developed, sitting up in chair, no acute distress , but appears to be hallucinating. HEENT: Normocephalic, atraumatic. No facial droop. PERRL, EOMI CARDIOVASCULAR: S1, S2, irregular rate. No significant right lower limb edema or calf tenderness. Diffuse swelling of the left lower limb, no calf tenderness. LUNGS: Decreased breath sounds throughout, no wheezing, rhonchi or rales appreciated. ABDOMEN: Soft, nontender, nondistended. Normoactive bowel sounds throughout. MUSCULOSKELETAL: MMT (limitied 2nd patient having difficulty following commands) : 3/5 right shoulder abduction and forward flexion, 5/5 right elbow flexion, 4/ 5 right hide splitter strength. 5/5 left upper limb in all major muscle groups. 2/5 right hip flexors, 4/5 right knee extension, 5/5 right knee flexion, dorsiflexion plantar flexion. 1/5 left hip flexors, 2/5 left knee extension, 3/ 5 left knee flexion, 4/5 left dorsiflexion plantar flexion NEUROLOGICAL: Decreased responsiveness, states he recognizes me (youre the girl who gives me a hard time). Difficulty following commands requiring repeated cueing. Appears to be hallucinating. SKIN: Left lateral hip surgical site covered in dressing. LABORATORY DATA: 12/09/16: reviewed, see below 12/05/2016: WBC count 13.3, hemoglobin 10.1, hematocrit 31.6, platelets 276. Sodium 139, potassium 4.2, chloride 102, carbon dioxide 27, BUN 30, creatinine 1.04, GFR greater than 60, calcium 8.4, glucose 122 IMAGING: Femur x-ray 12/02/16: no mid or distal femur fracture. Hip and pelvis x-ray 12/02/16: intertrochanteric fracture of the left hip. Chest x-ray 12/02/16 cardiomegaly, status post aortic valve replacement. CT of the head 12/02/16: small vessel ischemic disease. No volume loss. FUNCTIONAL STATUS, premorbid: Independent with ambulation and most ADLs. Per the patients he did require some set up for dressing, but was able to bathe and dress himself. He has not driven recently secondary to his memory ASSESSMENT AND PLAN: 1. Left intertrochanteric fracture status post ORIF: PWB left lower limb. Continue daily physical and occupational therapy as tolerated for now. Rehabilitation nursing for bladder, bowel, medication management and wound care. 2. AMS: CT head done and negative. Possibly secondary to urinary tract infection plus or minus dehydration. Patient has been started on Levaquin and IV fluids. MRI may be helpful, although given the patients current mental status unlikely he would lay still long enough for images to be useful at this time. 3. UTI: Patient started on Levaquin. 4. Prerenal azotemia: Not drinking despite encouragement. Ordered IVF 5. Htn: Recent cardiology consult has been reviewed. Will obtain repeat readings on and if patient is pressure still elevated, will obtain a cardiology consult for recommendations. 6. DVT prophylaxis: Coumadin dose by ETHAN Enriquez of the orthopedic service. Continue SCD and DANIE cordon. 7. Pain: Patient received 2 doses Percocet over the weekend which has been discontinued secondary to concerns for a contributing to AMS. Continue APAP scheduled along with intermittent ice. 8. Bowel: Continue Colace and senna on a scheduled basis along with milk of magnesia and MiraLAX on an as-needed basis. 9. Alzheimers: Continue donepezil & Namenda. 10. Diet/severe malnutrition: Prealbumin low. Continue Ensure. Regular diet. / Vital Signs Vital Sign - Last 24 Hours 12/08/16 12/08/16 12/09/16 20:00 21:49 06:00 Temp 98.1 98.6 Pulse 89 78 Resp 18 18 B/P 151/72 151/72 162/66 Pulse Ox 97 96 O2 Delivery Room Air Room Air Laboratory Data CBC/BMP Laboratory Tests 12/09/16 06:10 Calcium Level 8.5 L, Red Blood Count 3.45 L, Mean Corpuscular Volume 97.3 H, Mean Corpuscular Hemoglobin 29.9, Mean Corpuscular Hemoglobin Concent 30.7 L, Red Cell Distribution Width 13.6, Neutrophils (%) (Auto) 78.2 H, Lymphocytes (% ) (Auto) 12.3 L, Monocytes (%) (Auto) 5.2 H, Eosinophils (%) (Auto) 0.4, Basophils (%) (Auto) 0.3, Neutrophils # (Auto) 9.7 H, Lymphocytes # (Auto) 1.5, Monocytes # (Auto) 0.6, Eosinophils # (Auto) 0.0, Basophils # (Auto) 0.0 Labs 24H Laboratory Tests 2 12/09/16 06:10: Anion Gap 8, White Blood Count 12.4H, Red Blood Count 3.45L, Hemoglobin 10.3L, Hematocrit 33.5L, Mean Corpuscular Volume 97.3H, Mean Corpuscular Hemoglobin 29.9, Mean Corpuscular Hemoglobin Concent 30.7L, Red Cell Distribution Width 13.6, Platelet Count 351, Neutrophils (%) (Auto) 78.2H, Lymphocytes (%) (Auto) 12.3L, Monocytes (%) (Auto) 5.2H, Eosinophils (%) (Auto) 0.4, Basophils (%) ( Auto) 0.3, Neutrophils # (Auto) 9.7H, Lymphocytes # (Auto) 1.5, Monocytes # ( Auto) 0.6, Eosinophils # (Auto) 0.0, Basophils # (Auto) 0.0, Blood Urea Nitrogen 45H, Creatinine 0.74, Sodium Level 142, Potassium Level 3.9, Chloride Level 107, Carbon Dioxide Level 27, Calcium Level 8.5L, Glomerular Filtration Rate > 60.0, Large Unclassified Cells # 0.5H, Large Unclassified Cells % 3.6, Prothromb Time International Ratio 3.17, Prothrombin Time 32.5H Microbiology Microbiology 12/09/16 Blood Culture, Received Pending 12/09/16 Blood Culture, Received Pending 12/07/16 Urine Culture - Final, Complete Enterococcus Faecalis Allergies Allergies: Coded Allergies: TAPE (Verified Allergy, Mild, 02/11/14) Latex (Unverified Allergy, Unknown, RASH, 12/02/16) Current Medications Current Medications Current Medications Medications (Trade) Dose Ordered Sig/Victor Hugo Route PRN Reason Start Time Stop Time Status Last Admin Dose Admin Acetaminophen (Tylenol) 650 mg Q4HP PRN PO MILD PAIN (PS 1-4) 12/05/16 12:45 12/05/16 15:35 DC Acetaminophen (Tylenol) 1,000 mg Q8H PO 12/05/16 22:00 01/04/17 21:59 12/09/16 06:07 Ascorbic Acid (Vitamin C) 250 mg DAILY PO 12/06/16 09:00 01/05/17 08:59 12/09/16 08:24 Aspirin (Ecotrin) 81 mg DAILY PO 12/06/16 09:00 01/05/17 08:59 12/09/16 08:24 Docusate Sodium (Colace) 100 mg BID PO 12/05/16 21:00 01/04/17 20:59 12/09/16 08:24 Donepezil HCl (AriCEPT) 10 mg QHS PO 12/05/16 21:00 01/04/17 20:59 12/08/16 21:48 Ferrous Sulfate (Ferrous Sulfate) 325 mg DAILY PO 12/06/16 09:00 01/05/17 08:59 12/09/16 08:24 Lactobacillus Acidophilus 1 ea 1 ea BID PO 12/09/16 09:00 01/08/17 08:59 12/09/16 08:24 Levofloxacin (Levaquin) 250 mg DAILY@06 PO 12/09/16 06:00 12/16/16 05:59 12/09/16 09:16 Lisinopril (Prinivil) 10 mg QHS PO 12/05/16 21:00 01/04/17 20:59 12/08/16 21:49 Magnesium Hydroxide (Milk Of Magnesia) 30 ml DAILYPRN PRN PO CONSTIPATION 12/05/16 12:45 01/04/17 12:44 12/08/16 14:47 Memantine (Namenda) 10 mg BID PO 12/05/16 21:00 01/04/17 20:59 12/09/16 08:24 Multivitamins (Theragram-M) 1 tab DAILY PO 12/06/16 09:00 01/05/17 08:59 12/09/16 08:24 Nitroglycerin (Nitrostat (1/ 150)) 0.4 mg Q5MP PRN SL CHEST PAIN 12/05/16 12:45 01/04/17 12:44 Omeprazole (PriLOSEC) 40 mg DAILY PO 12/06/16 09:00 01/05/17 08:59 12/09/16 08:24 Oxycodone/ Acetaminophen (Percocet 5mg/ 325mg Tablet) 1 tab Q4HP PRN PO MODERATE/SEVERE PAIN (PS 5-10) 12/05/16 12:45 12/05/16 15:36 DC Oxycodone/ Acetaminophen (Percocet 5mg/ 325mg Tablet) 1 tab Q6HP PRN PO SEVERE PAIN (PS 8-10) 12/06/16 12:45 12/08/16 13:40 DC 12/07/16 10:31 Polyethylene Glycol (Miralax) 1 pkt DAILY PRN PO CONSTIPATION 12/05/16 12:45 01/04/17 12:44 Senna (Senokot) 1 tab QHS PO 12/05/16 21:00 01/04/17 20:59 12/08/16 21:49 Simvastatin (Zocor) 10 mg QHS PO 12/05/16 21:00 01/04/17 20:59 12/08/16 21:48 Sodium Chloride (Nacl 0.9%) 1,000 ml @ 75 mls/hr [id number] IV 12/09/16 12:00 01/08/17 11:59 Vitamin D (Vitamin D) 2,000 units DAILY PO 12/06/16 09:00 01/05/17 08:59 12/09/16 08:24 DAVIDA PARK MD Dec 09, 2016 15:10
[2016-12-09 20:00] VITALS: BP 148/70
[2016-12-09] MEDS: SENNA 8.6 MG TAB (SENOKOT) PO SCH (20:11)
[2016-12-09] MEDS: DONEPEZIL 5 MG TAB PO SCH (20:11)
[2016-12-09] MEDS: SIMVASTATIN 10 MG TAB PO SCH (20:12)
[2016-12-09] MEDS: LISINOPRIL 10 MG TAB PO SCH (20:12)
[2016-12-10] MEDS: NS 1,000 ML IV SCH (01:25)
[2016-12-10] MEDS: LevoFLOXacin 250 MG TABLET PO SCH (05:47)
[2016-12-10] MEDS: ACETAMINOPHEN 500 MG TAB PO SCH ×3 (05:48→21:53)
[2016-12-10 06:00] VITALS: BP 164/73
[2016-12-10 06:53] LABS: INR 3.65
[2016-12-10 07:25] LABS: ANION GAP 8 MEQ/L (8-16); BLOOD UREA NITROGEN 39 MG/DL (7-18); CALCIUM LEVEL 8.3 MG/DL (8.8-10.2); CARBON DIOXIDE LEVEL 28 MEQ/L (21-32); CHLORIDE LEVEL 110 MEQ/L (98-107); CREATININE FOR GFR 0.64 MG/DL (0.70-1.30); GLOMERULAR FILTRATION RATE > 60.0 (>35); GLUCOSE, FASTING 105 MG/DL (83-110); SODIUM LEVEL 146 MEQ/L (136-145)
[2016-12-10 07:37] LABS: BASO # 0.1 K/mm3 (0.0-0.2); BASO % 0.5 % (0.0-1.0); EOS # 0.1 K/mm3 (0.0-0.50); LARGE UNSTAINED CELL # 0.5 K/mm3 (0.0-0.4); LARGE UNSTAINED CELL % 4.2 % (0.0-4.0); LYMPH # 2.3 K/mm3 (1.5-4.5); LYMPH % 16.9 % (24.0-44.0); MEAN CORPUSCULAR HEMOGLOBIN 29.4 pg (27.0-33.0); MEAN CORPUSCULAR HGB CONC 31.2 g/dl (32.0-36.5); MEAN CORPUSCULAR VOLUME 94.4 fl (80.0-96.0); MONO # 0.6 K/mm3 (0.0-0.8); MONO % 5.5 % (0.0-5.0); NEUTROPHILS % 71.8 % (36.0-66.0); PLATELET COUNT, AUTOMATED 390 k/mm3 (150-450); RED CELL DISTRIBUTION WIDTH 14.5 % (11.5-14.5); WHITE BLOOD COUNT 11.1 K/mm3 (4.0-10.0)
[2016-12-10] MEDS ORDERED: MAGNESIUM CITRATE 300 ML BTL PO ONE (09:30)
[2016-12-10] MEDS: ASCORBIC ACID 250 MG TAB PO SCH (09:33)
[2016-12-10] MEDS: FERROUS SULFATE 325MG TAB PO SCH (09:34)
[2016-12-10] MEDS: VITAMIN D 1,000 INTERNATIONAL UNITS TABLET PO SCH (09:34)
[2016-12-10] MEDS: DOCUSATE SODIUM 100 MG CAP PO SCH ×2 (09:34→21:53)
[2016-12-10] MEDS: LACTOBACILLUS ACIDOPHILUS CAP (BACID) PO SCH ×2 (09:34→21:52)
[2016-12-10] MEDS: OMEPRAZOLE 20 MG CAP PO SCH (09:34)
[2016-12-10] MEDS: MULTIVITAMINS/MINERALS THERAP 1 TAB PO SCH (09:34)
[2016-12-10] MEDS: MEMANTINE 5MG TABLET (NAMENDA) PO SCH ×2 (09:34→21:52)
[2016-12-10] MEDS: ASPIRIN 81 MG ENTERIC TAB PO SCH (09:34)
[2016-12-10] MEDS: BISACODYL 10 MG SUPP PR ONE ×2 (10:00→18:19)
[2016-12-10 10:05] LABS: FERRITIN 226 NG/ML (26-388); PERCENT SATURATION 19.9 % (19.7-37.4); TOTAL IRON BINDING CAPACITY 196 UG/DL (250-450)
[2016-12-10] MEDS: NS 0.45% 1,000 ML IV SCH (11:10)
--- NOTE | 2016-12-10 13:22 | IPNPDOC ---
Director Of State Progress Note PROGRESS NOTE DATE OF ADMISSION: 12/05/16 DATE OF SERVICE: 12/10/16 IDENTIFICATION STATEMENT: 85-year-old gentleman with left intertrochanteric fracture status post ORIF admitted for comprehensive integrated inpatient rehabilitation. 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 Hernia repair. Artificial heart valve (bovin valve). ALLERGIES: Latex, tape MEDICATIONS: IVF at 75cc/h Levaquin 250mg daily Coumadin daily Prilosec 40 mg by mouth daily Nitrostat 0.4 mg every 5 minutes when necessary Lisinopril 10 mg by mouth daily at bedtime Zocor 10 mg by mouth daily at bedtime Namenda 10mg PO bid Aricept 10mg qhs APAP 1000mg q8h prn Vitamin C 250 mg by mouth daily Aspirin 81 mg by mouth daily Vitamin D 2000 units by mouth daily Ferrous sulfate 325 mg by mouth daily Multivitamin 1 tab by mouth daily Senna 1 tab po qhs Colace 100mg PO bid MiraLAX 1 packet by mouth daily prn Milk of magnesia 30 mL by mouth daily prn SUBJECTIVE: Patient states feels lousy because Im here and not home. Denies any CP, SOB, N/V, dysuria. Hasnt had BM yet. VITAL SIGNS: Temperature 96.9F, pulse 64, respiratory rate 18, blood pressure 164/73, 92% saturation RA. PHYSICAL EXAMINATION: GENERAL: Well nourished, well developed, sitting up in bed, no acute distress HEENT: Normocephalic, atraumatic. No facial droop. PERRL, EOMI CARDIOVASCULAR: S1, S2, irregular rate. No significant right lower limb edema or calf tenderness. Diffuse swelling of the left lower limb, no calf tenderness. LUNGS: Decreased breath sounds throughout, no wheezing, rhonchi or rales appreciated. ABDOMEN: Soft, nontender, nondistended. Normoactive bowel sounds throughout. MUSCULOSKELETAL: MMT: 3/5 right shoulder abduction and forward flexion, 5/5 right elbow flexion, 4/5 right poultry eviscerator strength. 5/5 left upper limb in all major muscle groups. 3/5 right hip flexors, 4/5 right knee extension, 5/5 right knee flexion, dorsiflexion plantar flexion. 1/5 left hip flexors, 2/5 left knee extension, 3/5 left knee flexion, 4/5 left dorsiflexion plantar flexion NEUROLOGICAL: Improved MS. A&O to person n place. Follows commands. Answers questions appropriately. SKIN: Left lateral hip surgical site covered in dressing. LABORATORY DATA: 12/10/16: reviewed, see below 12/05/2016: WBC count 13.3, hemoglobin 10.1, hematocrit 31.6, platelets 276. Sodium 139, potassium 4.2, chloride 102, carbon dioxide 27, BUN 30, creatinine 1.04, GFR greater than 60, calcium 8.4, glucose 122 IMAGING: Femur x-ray 12/02/16: no mid or distal femur fracture. Hip and pelvis x-ray 12/02/16: intertrochanteric fracture of the left hip. Chest x-ray 12/02/16 cardiomegaly, status post aortic valve replacement. CT of the head 12/02/16: small vessel ischemic disease. No volume loss. FUNCTIONAL STATUS, premorbid: Independent with ambulation and most ADLs. Per the patients he did require some set up for dressing, but was able to bathe and dress himself. He has not driven recently secondary to his memory ASSESSMENT AND PLAN: 1. Left intertrochanteric fracture status post ORIF: PWB left lower limb. Continue daily physical and occupational therapy. Rehabilitation nursing for bladder, bowel, medication management and wound care. 2. AMS: Resolving w abx n IVF [Possibly secondary to urinary tract infection plus or minus dehydration]. Cont Levaquin and IV fluids. 3. UTI: Patient started on Levaquin. 4. Prerenal azotemia: IVF 5. Htn: Recent cardiology consult has been reviewed. Repeat readings pending, if pressure still elevated, may obtain a cardiology consult for recommendations. 6. DVT prophylaxis: Coumadin dose by ETHAN Enriquez of the orthopedic service. Continue SCD and DANIE hose. 7. Pain: Con tyl victor hugo. [Hx: Patient received 2 doses Percocet over the weekend which was discontinued secondary to concerns for a contributing to AMS]. Continue intermittent ice. 8. Bowel: Continue Colace and senna on a scheduled basis along with milk of magnesia and MiraLAX on an as-needed basis. 9. Alzheimers: Continue donepezil & Namenda. 10. Diet/severe malnutrition: Prealbumin low. Continue Ensure. Regular diet. / Vital Signs Vital Sign - Last 24 Hours 12/09/16 12/09/16 12/10/16 20:00 20:12 06:00 Temp 96.9 96.9 Pulse 69 64 Resp 18 18 B/P 148/70 148/70 164/73 Pulse Ox 95 92 O2 Delivery Room Air Room Air Laboratory Data CBC/BMP Laboratory Tests 12/10/16 06:08 Calcium Level 8.3 L 12/10/16 07:15 Red Blood Count 3.21 L, Mean Corpuscular Volume 94.4, Mean Corpuscular Hemoglobin 29.4, Mean Corpuscular Hemoglobin Concent 31.2 L, Red Cell Distribution Width 14.5, Neutrophils (%) (Auto) 71.8 H, Lymphocytes (%) (Auto) 16.9 L, Monocytes (%) (Auto) 5.5 H, Eosinophils (%) (Auto) 1.0, Basophils (%) ( Auto) 0.5, Neutrophils # (Auto) 8.0 H, Lymphocytes # (Auto) 2.3, Monocytes # ( Auto) 0.6, Eosinophils # (Auto) 0.1, Basophils # (Auto) 0.1 Labs 24H Laboratory Tests 2 12/10/16 06:08: Anion Gap 8, Blood Urea Nitrogen 39H, Creatinine 0.64L, Sodium Level 146H, Potassium Level 4.0, Chloride Level 110H, Carbon Dioxide Level 28, Calcium Level 8.3L, Ferritin 226, Glomerular Filtration Rate > 60.0, Iron Level 39L, Total Iron Binding Capacity 196L, Transferrin % Saturation 19.9 12/10/16 06:13: Prothromb Time International Ratio 3.65, Prothrombin Time 36.3H 12/10/16 07:15: White Blood Count 11.1H, Red Blood Count 3.21L, Hemoglobin 9.4L, Hematocrit 30.3L, Mean Corpuscular Volume 94.4, Mean Corpuscular Hemoglobin 29.4, Mean Corpuscular Hemoglobin Concent 31.2L, Red Cell Distribution Width 14.5, Platelet Count 390, Neutrophils (%) (Auto) 71.8H, Lymphocytes (%) (Auto) 16.9L, Monocytes (%) (Auto) 5.5H, Eosinophils (%) (Auto) 1.0, Basophils (%) (Auto) 0.5 , Neutrophils # (Auto) 8.0H, Lymphocytes # (Auto) 2.3, Monocytes # (Auto) 0.6, Eosinophils # (Auto) 0.1, Basophils # (Auto) 0.1, Large Unclassified Cells # 0.5H, Large Unclassified Cells % 4.2H Microbiology Microbiology 12/09/16 Blood Culture - Preliminary, Resulted No growth after 24 hours . All specim... 12/09/16 Blood Culture - Preliminary, Resulted No growth after 24 hours . All specim... 12/07/16 Urine Culture - Final, Complete Enterococcus Faecalis Allergies Allergies: Coded Allergies: TAPE (Verified Allergy, Mild, 02/11/14) Latex (Unverified Allergy, Unknown, RASH, 12/02/16) Current Medications Current Medications Current Medications Medications (Trade) Dose Ordered Sig/Victor Hugo Route PRN Reason Start Time Stop Time Status Last Admin Dose Admin Acetaminophen (Tylenol) 650 mg Q4HP PRN PO MILD PAIN (PS 1-4) 12/05/16 12:45 12/05/16 15:35 DC Acetaminophen (Tylenol) 1,000 mg Q8H PO 12/05/16 22:00 01/04/17 21:59 12/10/16 05:48 Ascorbic Acid (Vitamin C) 250 mg DAILY PO 12/06/16 09:00 01/05/17 08:59 12/10/16 09:33 Aspirin (Ecotrin) 81 mg DAILY PO 12/06/16 09:00 01/05/17 08:59 12/10/16 09:34 Docusate Sodium (Colace) 100 mg BID PO 12/05/16 21:00 01/04/17 20:59 12/10/16 09:34 Donepezil HCl (AriCEPT) 10 mg QHS PO 12/05/16 21:00 01/04/17 20:59 12/09/16 20:11 Ferrous Sulfate (Ferrous Sulfate) 325 mg DAILY PO 12/06/16 09:00 01/05/17 08:59 12/10/16 09:34 Lactobacillus Acidophilus 1 ea 1 ea BID PO 12/09/16 09:00 01/08/17 08:59 12/10/16 09:34 Levofloxacin (Levaquin) 250 mg DAILY@06 PO 12/09/16 06:00 12/16/16 05:59 12/10/16 05:47 Lisinopril (Prinivil) 10 mg QHS PO 12/05/16 21:00 01/04/17 20:59 12/09/16 20:12 Magnesium Hydroxide (Milk Of Magnesia) 30 ml DAILYPRN PRN PO CONSTIPATION 12/05/16 12:45 01/04/17 12:44 12/08/16 14:47 Memantine (Namenda) 10 mg BID PO 12/05/16 21:00 01/04/17 20:59 12/10/16 09:34 Multivitamins (Theragram-M) 1 tab DAILY PO 12/06/16 09:00 01/05/17 08:59 12/10/16 09:34 Nitroglycerin (Nitrostat (1/ 150)) 0.4 mg Q5MP PRN SL CHEST PAIN 12/05/16 12:45 01/04/17 12:44 Omeprazole (PriLOSEC) 40 mg DAILY PO 12/06/16 09:00 01/05/17 08:59 12/10/16 09:34 Oxycodone/ Acetaminophen (Percocet 5mg/ 325mg Tablet) 1 tab Q4HP PRN PO MODERATE/SEVERE PAIN (PS 5-10) 12/05/16 12:45 12/05/16 15:36 DC Oxycodone/ Acetaminophen (Percocet 5mg/ 325mg Tablet) 1 tab Q6HP PRN PO SEVERE PAIN (PS 8-10) 12/06/16 12:45 12/08/16 13:40 DC 12/07/16 10:31 Polyethylene Glycol (Miralax) 1 pkt DAILY PRN PO CONSTIPATION 12/05/16 12:45 01/04/17 12:44 Senna (Senokot) 1 tab QHS PO 12/05/16 21:00 01/04/17 20:59 12/09/16 20:11 Simvastatin (Zocor) 10 mg QHS PO 12/05/16 21:00 01/04/17 20:59 12/09/16 20:12 Sodium Chloride 1,000 ml @ 75 mls/hr [id number] IV 12/09/16 12:00 12/10/16 08:49 DC 12/10/16 01:25 Sodium Chloride (Nacl 0.45%) 1,000 ml @ 50 mls/hr Q20H IV 12/10/16 09:00 01/09/17 08:59 12/10/16 11:10 Vitamin D (Vitamin D) 2,000 units DAILY PO 12/06/16 09:00 01/05/17 08:59 12/10/16 09:34 DAVIDA PARK MD Dec 10, 2016 13:22
[2016-12-10 14:00] VITALS: BP 140/60
[2016-12-10 20:30] VITALS: BP 144/73
[2016-12-10] MEDS: SENNA 8.6 MG TAB (SENOKOT) PO SCH (21:51)
[2016-12-10] MEDS: SIMVASTATIN 10 MG TAB PO SCH (21:51)
[2016-12-10] MEDS: DONEPEZIL 5 MG TAB PO SCH (21:52)
[2016-12-10] MEDS: LISINOPRIL 10 MG TAB PO SCH (21:52)
[2016-12-11] MEDS: LevoFLOXacin 250 MG TABLET PO SCH (05:45)
[2016-12-11] MEDS: ACETAMINOPHEN 500 MG TAB PO SCH ×3 (05:45→21:30)
[2016-12-11] MEDS: NS 0.45% 1,000 ML IV SCH (05:46)
[2016-12-11 06:00] VITALS: BP 153/66
[2016-12-11 06:59] LABS: BASO % 0.2 % (0.0-1.0); EOS # 0.1 K/mm3 (0.0-0.50); EOS % 0.7 % (0.0-3.0); LARGE UNSTAINED CELL # 0.4 K/mm3 (0.0-0.4); LARGE UNSTAINED CELL % 4.2 % (0.0-4.0); LYMPH % 20.5 % (24.0-44.0); MEAN CORPUSCULAR HEMOGLOBIN 29.1 pg (27.0-33.0); MEAN CORPUSCULAR VOLUME 93.8 fl (80.0-96.0); MONO # 0.5 K/mm3 (0.0-0.8); MONO % 5.1 % (0.0-5.0); NEUTROPHILS # 6.7 K/mm3 (1.8-7.7); NEUTROPHILS % 69.3 % (36.0-66.0); PLATELET COUNT, AUTOMATED 454 k/mm3 (150-450); RED CELL DISTRIBUTION WIDTH 13.6 % (11.5-14.5); WHITE BLOOD COUNT 9.6 K/mm3 (4.0-10.0)
[2016-12-11 07:02] LABS: INR 4.37
[2016-12-11 07:28] LABS: ANION GAP 6 MEQ/L (8-16); BLOOD UREA NITROGEN 31 MG/DL (7-18); CALCIUM LEVEL 8.1 MG/DL (8.8-10.2); CARBON DIOXIDE LEVEL 29 MEQ/L (21-32); CHLORIDE LEVEL 110 MEQ/L (98-107); CREATININE FOR GFR 0.72 MG/DL (0.70-1.30); GLOMERULAR FILTRATION RATE > 60.0 (>35); GLUCOSE, FASTING 109 MG/DL (83-110); POTASSIUM SERUM 4.3 MEQ/L (3.5-5.1); SODIUM LEVEL 145 MEQ/L (136-145)
[2016-12-11] MEDS: FERROUS SULFATE 325MG TAB PO SCH (08:43)
[2016-12-11] MEDS: LACTOBACILLUS ACIDOPHILUS CAP (BACID) PO SCH ×2 (08:43→21:30)
[2016-12-11] MEDS: ASCORBIC ACID 250 MG TAB PO SCH (08:43)
[2016-12-11] MEDS: MEMANTINE 5MG TABLET (NAMENDA) PO SCH ×2 (08:43→21:30)
[2016-12-11] MEDS: MULTIVITAMINS/MINERALS THERAP 1 TAB PO SCH (08:43)
[2016-12-11] MEDS: ASPIRIN 81 MG ENTERIC TAB PO SCH (08:43)
[2016-12-11] MEDS: OMEPRAZOLE 20 MG CAP PO SCH (08:43)
[2016-12-11] MEDS: DOCUSATE SODIUM 100 MG CAP PO SCH (08:43)
[2016-12-11] MEDS: VITAMIN D 1,000 INTERNATIONAL UNITS TABLET PO SCH (08:44)
--- NOTE | 2016-12-11 12:54 | IPNPDOC ---
[employer] Progress Note PROGRESS NOTE DATE OF ADMISSION: 12/05/16 DATE OF SERVICE: 12/11/16 IDENTIFICATION STATEMENT: 85-year-old gentleman with left intertrochanteric fracture status post ORIF admitted for comprehensive integrated inpatient rehabilitation. 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 Hernia repair. Artificial heart valve (bovin valve). ALLERGIES: Latex, tape MEDICATIONS: IV 0.45% at 50cc/h Levaquin 250mg daily Coumadin daily Prilosec 40 mg by mouth daily Nitrostat 0.4 mg every 5 minutes when necessary Lisinopril 10 mg by mouth daily at bedtime Zocor 10 mg by mouth daily at bedtime Namenda 10mg PO bid Aricept 10mg qhs APAP 1000mg q8h prn Vitamin C 250 mg by mouth daily Aspirin 81 mg by mouth daily Vitamin D 2000 units by mouth daily Ferrous sulfate 325 mg by mouth daily Multivitamin 1 tab by mouth daily Senna 1 tab po qhs Colace 100mg PO bid MiraLAX 1 packet by mouth daily prn Milk of magnesia 30 mL by mouth daily prn SUBJECTIVE: Patient states tired, didnt sleep last night because finally started moving bowels. Denies any CP, SOB, N/V, dysuria. VITAL SIGNS: Temperature 96.8F, pulse 70, respiratory rate 20, blood pressure 153/66, 97% saturation RA. PHYSICAL EXAMINATION: GENERAL: Well nourished, well developed, sitting up in bed, no acute distress HEENT: Normocephalic, atraumatic. No facial droop. PERRL, EOMI CARDIOVASCULAR: S1, S2, irregular rate. No significant right lower limb edema or calf tenderness. Diffuse swelling of the left lower limb, no calf tenderness. LUNGS: Decreased breath sounds throughout, no wheezing, rhonchi or rales appreciated. ABDOMEN: Soft, nontender, nondistended. Normoactive bowel sounds throughout. MUSCULOSKELETAL: MMT: 3/5 right shoulder abduction and forward flexion, 5/5 right elbow flexion, 4/5 right study hall supervisor strength. 5/5 left upper limb in all major muscle groups. 3/5 right hip flexors, 4/5 right knee extension, 5/5 right knee flexion, dorsiflexion plantar flexion. 1/5 left hip flexors, 2/5 left knee extension, 3/5 left knee flexion, 4/5 left dorsiflexion plantar flexion NEUROLOGICAL: Sleepy but asrousable. No apparent hallucinations. Takes prompting to follow commands. SKIN: Left lateral hip surgical site covered in dressing. LABORATORY DATA: 12/11/16: reviewed, see below 12/05/2016: WBC count 13.3, hemoglobin 10.1, hematocrit 31.6, platelets 276. Sodium 139, potassium 4.2, chloride 102, carbon dioxide 27, BUN 30, creatinine 1.04, GFR greater than 60, calcium 8.4, glucose 122 IMAGING: Femur x-ray 12/02/16: no mid or distal femur fracture. Hip and pelvis x-ray 12/02/16: intertrochanteric fracture of the left hip. Chest x-ray 12/02/16 cardiomegaly, status post aortic valve replacement. CT of the head 12/02/16: small vessel ischemic disease. No volume loss. FUNCTIONAL STATUS, premorbid: Independent with ambulation and most ADLs. Per the patients he did require some set up for dressing, but was able to bathe and dress himself. He has not driven recently secondary to his memory ASSESSMENT AND PLAN: 1. Left intertrochanteric fracture status post ORIF: PWB left lower limb. Per report didn OT this am but refused PT. Had a lengthy conversation with the patient and his , discussed alternate level of care if unable to do this program. The is fairly adamant that he should here. Will discuss the situation with the team today team rounds. Continue daily physical and occupational therapy for now. Rehabilitation nursing for bladder, bowel, medication management and wound care. 2. AMS: Seems to be at baseline now except for fatigue which likely related to lack sleep. [Decline possibly secondary to urinary tract infection plus or minus dehydration]. Cont Levaquin and IV fluids. 3. UTI: Continue Levaquin (d#3). 4. Prerenal azotemia: Continue 0.45% NS at 50cc/h. Anticipate d/damaris in am 5. Htn: Continue Lisinopril. Adjustment if needed 6. DVT prophylaxis: Coumadin dose by ETHAN Enriquez of the orthopedic service. Continue SCD and DANIE cordon. 7. Pain: Con tyl victor hugo. [Hx: Patient received 2 doses Percocet over the weekend which was discontinued secondary to concerns for a contributing to AMS]. Continue intermittent ice. 8. Bowel: Constipation has resolved. Change bowel meds to prn. 9. Alzheimers: Continue donepezil & Namenda. 10. Diet/severe malnutrition: Prealbumin low. Continue Ensure. Regular diet. / Vital Signs Vital Sign - Last 24 Hours 12/10/16 12/10/16 12/10/16 12/11/16 14:00 20:30 21:52 01:22 Temp 97.2 97.6 Pulse 66 70 Resp 20 18 22 B/P 140/60 144/73 144/73 Pulse Ox 98 96 O2 Delivery Room Air Room Air 12/11/16 06:00 Temp 96.8 Pulse 70 Resp 20 B/P 153/66 Pulse Ox 97 O2 Delivery Room Air Laboratory Data CBC/BMP Laboratory Tests 12/11/16 06:38 Calcium Level 8.1 L, Red Blood Count 3.20 L, Mean Corpuscular Volume 93.8, Mean Corpuscular Hemoglobin 29.1, Mean Corpuscular Hemoglobin Concent 31.0 L, Red Cell Distribution Width 13.6, Neutrophils (%) (Auto) 69.3 H, Lymphocytes (%) ( Auto) 20.5 L, Monocytes (%) (Auto) 5.1 H, Eosinophils (%) (Auto) 0.7, Basophils (%) (Auto) 0.2, Neutrophils # (Auto) 6.7, Lymphocytes # (Auto) 2.0, Monocytes # (Auto) 0.5, Eosinophils # (Auto) 0.1, Basophils # (Auto) 0.0 Labs 24H Laboratory Tests 2 12/11/16 06:38: Anion Gap 6L, White Blood Count 9.6, Red Blood Count 3.20L, Hemoglobin 9.3L, Hematocrit 30.0L, Mean Corpuscular Volume 93.8, Mean Corpuscular Hemoglobin 29.1 , Mean Corpuscular Hemoglobin Concent 31.0L, Red Cell Distribution Width 13.6, Platelet Count 454H, Neutrophils (%) (Auto) 69.3H, Lymphocytes (%) (Auto) 20.5L , Monocytes (%) (Auto) 5.1H, Eosinophils (%) (Auto) 0.7, Basophils (%) (Auto) 0.2, Neutrophils # (Auto) 6.7, Lymphocytes # (Auto) 2.0, Monocytes # (Auto) 0.5 , Eosinophils # (Auto) 0.1, Basophils # (Auto) 0.0, Blood Urea Nitrogen 31H, Creatinine 0.72, Sodium Level 145, Potassium Level 4.3, Chloride Level 110H, Carbon Dioxide Level 29, Calcium Level 8.1L, Glomerular Filtration Rate > 60.0, Large Unclassified Cells # 0.4, Large Unclassified Cells % 4.2H, Prothromb Time International Ratio 4.37, Prothrombin Time 41.7H 12/11/16 11:27: Bedside Glucose (Misc Panel) 147H FSBS Laboratory Tests Test 12/11/16 11:27 Range/Units Bedside Glucose (Misc Panel) 147 83-110 MG/DL Microbiology Microbiology 12/09/16 Blood Culture - Preliminary, Resulted No Growth after 48 hours. All Specime... 12/09/16 Blood Culture - Preliminary, Resulted No Growth after 48 hours. All Specime... 12/07/16 Urine Culture - Final, Complete Enterococcus Faecalis Allergies Allergies: Coded Allergies: TAPE (Verified Allergy, Mild, 02/11/14) Latex (Unverified Allergy, Unknown, RASH, 12/02/16) Current Medications Current Medications Current Medications Medications (Trade) Dose Ordered Sig/Victor Hugo Route PRN Reason Start Time Stop Time Status Last Admin Dose Admin Acetaminophen (Tylenol) 650 mg Q4HP PRN PO MILD PAIN (PS 1-4) 12/05/16 12:45 12/05/16 15:35 DC Acetaminophen (Tylenol) 1,000 mg Q8H PO 12/05/16 22:00 01/04/17 21:59 12/11/16 05:45 Ascorbic Acid (Vitamin C) 250 mg DAILY PO 12/06/16 09:00 01/05/17 08:59 12/11/16 08:43 Aspirin (Ecotrin) 81 mg DAILY PO 12/06/16 09:00 01/05/17 08:59 12/11/16 08:43 Docusate Sodium (Colace) 100 mg BID PO 12/05/16 21:00 01/04/17 20:59 12/11/16 08:43 Donepezil HCl (AriCEPT) 10 mg QHS PO 12/05/16 21:00 01/04/17 20:59 12/10/16 21:52 Ferrous Sulfate (Ferrous Sulfate) 325 mg DAILY PO 12/06/16 09:00 01/05/17 08:59 12/11/16 08:43 Lactobacillus Acidophilus 1 ea 1 ea BID PO 12/09/16 09:00 01/08/17 08:59 12/11/16 08:43 Levofloxacin (Levaquin) 250 mg DAILY@06 PO 12/09/16 06:00 12/16/16 05:59 12/11/16 05:45 Lisinopril (Prinivil) 10 mg QHS PO 12/05/16 21:00 01/04/17 20:59 12/10/16 21:52 Magnesium Hydroxide (Milk Of Magnesia) 30 ml DAILYPRN PRN PO CONSTIPATION 12/05/16 12:45 01/04/17 12:44 12/08/16 14:47 Memantine (Namenda) 10 mg BID PO 12/05/16 21:00 01/04/17 20:59 12/11/16 08:43 Multivitamins (Theragram-M) 1 tab DAILY PO 12/06/16 09:00 01/05/17 08:59 12/11/16 08:43 Nitroglycerin (Nitrostat (1/ 150)) 0.4 mg Q5MP PRN SL CHEST PAIN 12/05/16 12:45 01/04/17 12:44 Omeprazole (PriLOSEC) 40 mg DAILY PO 12/06/16 09:00 01/05/17 08:59 12/11/16 08:43 Oxycodone/ Acetaminophen (Percocet 5mg/ 325mg Tablet) 1 tab Q4HP PRN PO MODERATE/SEVERE PAIN (PS 5-10) 12/05/16 12:45 12/05/16 15:36 DC Oxycodone/ Acetaminophen (Percocet 5mg/ 325mg Tablet) 1 tab Q6HP PRN PO SEVERE PAIN (PS 8-10) 12/06/16 12:45 12/08/16 13:40 DC 12/07/16 10:31 Polyethylene Glycol (Miralax) 1 pkt DAILY PRN PO CONSTIPATION 12/05/16 12:45 01/04/17 12:44 Senna (Senokot) 1 tab QHS PO 12/05/16 21:00 01/04/17 20:59 12/10/16 21:51 Simvastatin (Zocor) 10 mg QHS PO 12/05/16 21:00 01/04/17 20:59 12/10/16 21:51 Sodium Chloride 1,000 ml @ 75 mls/hr [id number] IV 12/09/16 12:00 12/10/16 08:49 DC 12/10/16 01:25 Sodium Chloride (Nacl 0.45%) 1,000 ml @ 50 mls/hr Q20H IV 12/10/16 09:00 01/09/17 08:59 12/11/16 05:46 Vitamin D (Vitamin D) 2,000 units DAILY PO 12/06/16 09:00 01/05/17 08:59 12/11/16 08:44 DAVIDA PARK MD Dec 11, 2016 12:54
[2016-12-11 13:49] VITALS: BP 135/62
[2016-12-11 20:00] VITALS: BP 144/64
[2016-12-11] MEDS: LISINOPRIL 10 MG TAB PO SCH (21:30)
[2016-12-11] MEDS: DONEPEZIL 5 MG TAB PO SCH (21:31)
[2016-12-11] MEDS: SIMVASTATIN 10 MG TAB PO SCH (21:31)
[2016-12-12] MEDS: NS 0.45% 1,000 ML IV SCH (02:00)
[2016-12-12 05:20] VITALS: BP 108/69
[2016-12-12] MEDS: ACETAMINOPHEN 500 MG TAB PO SCH ×3 (06:32→21:06)
[2016-12-12] MEDS: LevoFLOXacin 250 MG TABLET PO SCH (06:32)
[2016-12-12 06:50] LABS: BASO % 0.3 % (0.0-1.0); EOS # 0.1 K/mm3 (0.0-0.50); EOS % 1.2 % (0.0-3.0); LARGE UNSTAINED CELL # 0.3 K/mm3 (0.0-0.4); LARGE UNSTAINED CELL % 3.7 % (0.0-4.0); LYMPH % 22.8 % (24.0-44.0); MEAN CORPUSCULAR HEMOGLOBIN 29.3 pg (27.0-33.0); MEAN CORPUSCULAR HGB CONC 31.1 g/dl (32.0-36.5); MEAN CORPUSCULAR VOLUME 94.4 fl (80.0-96.0); MONO # 0.5 K/mm3 (0.0-0.8); PLATELET COUNT, AUTOMATED 444 k/mm3 (150-450); RED CELL DISTRIBUTION WIDTH 13.6 % (11.5-14.5); WHITE BLOOD COUNT 8.9 K/mm3 (4.0-10.0)
[2016-12-12 06:55] LABS: INR 4.8
[2016-12-12 07:03] LABS: ANION GAP 7 MEQ/L (8-16); BLOOD UREA NITROGEN 31 MG/DL (7-18); CALCIUM LEVEL 8.1 MG/DL (8.8-10.2); CARBON DIOXIDE LEVEL 28 MEQ/L (21-32); CHLORIDE LEVEL 108 MEQ/L (98-107); CREATININE FOR GFR 0.79 MG/DL (0.70-1.30); GLOMERULAR FILTRATION RATE > 60.0 (>35); GLUCOSE, FASTING 90 MG/DL (83-110); POTASSIUM SERUM 4.2 MEQ/L (3.5-5.1); SODIUM LEVEL 143 MEQ/L (136-145)
[2016-12-12] MEDS: VITAMIN D 1,000 INTERNATIONAL UNITS TABLET PO SCH (08:50)
[2016-12-12] MEDS: LACTOBACILLUS ACIDOPHILUS CAP (BACID) PO SCH ×2 (08:51→21:06)
[2016-12-12] MEDS: MULTIVITAMINS/MINERALS THERAP 1 TAB PO SCH (08:52)
[2016-12-12] MEDS: MEMANTINE 5MG TABLET (NAMENDA) PO SCH ×2 (08:52→21:06)
[2016-12-12] MEDS: ASCORBIC ACID 500 MG TAB PO SCH ×2 (08:53→21:05)
[2016-12-12] MEDS: ASPIRIN 81 MG ENTERIC TAB PO SCH (08:53)
[2016-12-12] MEDS: OMEPRAZOLE 20 MG CAP PO SCH (08:53)
[2016-12-12] MEDS: FERROUS SULFATE 325MG TAB PO SCH ×2 (08:54→21:05)
--- NOTE | 2016-12-12 10:07 | IPNPDOC ---
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 Hernia repair. Artificial heart valve (bovin valve). ALLERGIES: Latex, tape MEDICATIONS: IV 0.45% at 50cc/h Levaquin 250mg daily Coumadin daily Prilosec 40 mg by mouth daily Nitrostat 0.4 mg every 5 minutes when necessary Lisinopril 10 mg by mouth daily at bedtime Zocor 10 mg by mouth daily at bedtime Namenda 10mg PO bid Aricept 10mg qhs APAP 1000mg q8h prn Vitamin C 250 mg by mouth daily Aspirin 81 mg by mouth daily Vitamin D 2000 units by mouth daily Ferrous sulfate 325 mg by mouth daily Multivitamin 1 tab by mouth daily Senna 1 tab po qhs Colace 100mg PO bid MiraLAX 1 packet by mouth daily prn Milk of magnesia 30 mL by mouth daily prn SUBJECTIVE: Patient w/o specific complaints. Slept well. States he supposes he s feeling better. Denies any CP, SOB, C/D, N/V, dysuria. VITAL SIGNS: Temperature 96.8F, pulse 64, respiratory rate 18, blood pressure 108/69, 96% saturation RA. PHYSICAL EXAMINATION: GENERAL: Well nourished, well developed, sitting up in chair, no acute distress , much more alert than yesterday HEENT: Normocephalic, atraumatic. No facial droop. PERRL, EOMI CARDIOVASCULAR: S1, S2, irregular rate. No significant right lower limb edema or calf tenderness. Diffuse swelling of the left lower limb, no calf tenderness. LUNGS: Decreased breath sounds throughout, no wheezing, rhonchi or rales appreciated. ABDOMEN: Soft, nontender, nondistended. Normoactive bowel sounds throughout. MUSCULOSKELETAL: MMT: 3/5 right shoulder abduction and forward flexion, 5/5 right elbow flexion, 4/5 right guest relations agent strength. 5/5 left upper limb in all major muscle groups. 4/5 right hip flexors, 4/5 right knee extension, 5/5 right knee flexion, dorsiflexion plantar flexion. 1/5 left hip flexors, 3/5 left knee extension, 4/5 left knee flexion, 4/5 left dorsiflexion plantar flexion NEUROLOGICAL: Sleepy but asrousable. No apparent hallucinations. Takes prompting to follow commands. SKIN: Left lateral hip surgical site covered in dressing. LABORATORY DATA: 12/12/16: reviewed, see below 12/05/2016: WBC count 13.3, hemoglobin 10.1, hematocrit 31.6, platelets 276. Sodium 139, potassium 4.2, chloride 102, carbon dioxide 27, BUN 30, creatinine 1.04, GFR greater than 60, calcium 8.4, glucose 122 IMAGING: Femur x-ray 12/02/16: no mid or distal femur fracture. Hip and pelvis x-ray 12/02/16: intertrochanteric fracture of the left hip. Chest x-ray 12/02/16 cardiomegaly, status post aortic valve replacement. CT of the head 12/02/16: small vessel ischemic disease. No volume loss. FUNCTIONAL STATUS, premorbid: Independent with ambulation and most ADLs. Per the patients he did require some set up for dressing, but was able to bathe and dress himself. He has not driven recently secondary to his memory ASSESSMENT AND PLAN: 1. Left intertrochanteric fracture status post ORIF: PWB left lower limb. Patient improved clinically today, has worked with OT this am. Given clinical/ cognitive improvement, decision made in team rounds yesterday to reassess disposition on Friday tentative goal for d/c home set 12/24/16 (extra time given due to medical setbacks which seem to have resolved). Continue daily physical and occupational therapy for now. Rehabilitation nursing for bladder, bowel, medication management and wound care. 2. AMS: resolved today. [Decline possibly secondary to urinary tract infection + /- uremia]. Cont Levaquin and IV fluids. 3. UTI: Continue Levaquin (d#4). 4. Prerenal azotemia: Continue 0.45% NS at 50cc/h. Anticipate d/damaris in am 5. Htn: Improved control. Continue Lisinopril. Adjustment if needed 6. DVT prophylaxis: Coumadin dose by ETHAN Enriquez of the orthopedic service. Continue SCD and DANIE cordon. 7. Pain: Con tyl victor hugo. [Hx: Patient received 2 doses Percocet last weekend which was discontinued secondary to concerns for a contributing to AMS]. Continue intermittent ice. 8. Bowel: Constipation has resolved. Loose sttols resolved. Change bowel meds to prn 12/11/16. 9. Alzheimers: Continue donepezil & Namenda. 10. Diet/severe malnutrition: Prealbumin low. Continue Ensure. Regular diet. / Vital Signs Vital Sign - Last 24 Hours 12/11/16 12/11/16 12/11/16 12/12/16 13:49 20:00 21:30 05:20 Temp 97.9 97.1 96.8 Pulse 70 70 64 Resp 16 19 18 B/P 135/62 144/64 144/64 108/69 Pulse Ox 98 97 96 O2 Delivery Room Air Room Air Room Air Laboratory Data CBC/BMP Laboratory Tests 12/12/16 06:17 Calcium Level 8.1 L, Red Blood Count 2.96 L, Mean Corpuscular Volume 94.4, Mean Corpuscular Hemoglobin 29.3, Mean Corpuscular Hemoglobin Concent 31.1 L, Red Cell Distribution Width 13.6, Neutrophils (%) (Auto) 67.0 H, Lymphocytes (%) ( Auto) 22.8 L, Monocytes (%) (Auto) 5.0, Eosinophils (%) (Auto) 1.2, Basophils (% ) (Auto) 0.3, Neutrophils # (Auto) 6.0, Lymphocytes # (Auto) 2.0, Monocytes # ( Auto) 0.5, Eosinophils # (Auto) 0.1, Basophils # (Auto) 0.0 Labs 24H Laboratory Tests 2 12/11/16 11:27: Bedside Glucose (Misc Panel) 147H 12/11/16 16:06: Bedside Glucose (Misc Panel) 115H 12/12/16 06:17: Anion Gap 7L, White Blood Count 8.9, Red Blood Count 2.96L, Hemoglobin 8.7L, Hematocrit 27.9L, Mean Corpuscular Volume 94.4, Mean Corpuscular Hemoglobin 29.3 , Mean Corpuscular Hemoglobin Concent 31.1L, Red Cell Distribution Width 13.6, Platelet Count 444, Neutrophils (%) (Auto) 67.0H, Lymphocytes (%) (Auto) 22.8L, Monocytes (%) (Auto) 5.0, Eosinophils (%) (Auto) 1.2, Basophils (%) (Auto) 0.3, Neutrophils # (Auto) 6.0, Lymphocytes # (Auto) 2.0, Monocytes # (Auto) 0.5, Eosinophils # (Auto) 0.1, Basophils # (Auto) 0.0, Blood Urea Nitrogen 31H, Creatinine 0.79, Sodium Level 143, Potassium Level 4.2, Chloride Level 108H, Carbon Dioxide Level 28, Calcium Level 8.1L, Glomerular Filtration Rate > 60.0, Large Unclassified Cells # 0.3, Large Unclassified Cells % 3.7, Prothromb Time International Ratio 4.80, Prothrombin Time 44.9H FSBS Laboratory Tests Test 12/11/16 11:27 12/11/16 16:06 Range/Units Bedside Glucose (Misc Panel) 147 115 83-110 MG/DL Microbiology Microbiology 12/09/16 Blood Culture - Preliminary, Resulted No Growth after 48 hours. All Specime... 12/09/16 Blood Culture - Preliminary, Resulted No Growth after 48 hours. All Specime... 12/07/16 Urine Culture - Final, Complete Enterococcus Faecalis Allergies Allergies: Coded Allergies: TAPE (Verified Allergy, Mild, 02/11/14) Latex (Unverified Allergy, Unknown, RASH, 12/02/16) Current Medications Current Medications Current Medications Medications (Trade) Dose Ordered Sig/Victor Hugo Route PRN Reason Start Time Stop Time Status Last Admin Dose Admin Acetaminophen (Tylenol) 650 mg Q4HP PRN PO MILD PAIN (PS 1-4) 12/05/16 12:45 12/05/16 15:35 DC Acetaminophen (Tylenol) 1,000 mg Q8H PO 12/05/16 22:00 01/04/17 21:59 12/12/16 06:32 Ascorbic Acid (Vitamin C) 250 mg DAILY PO 12/06/16 09:00 12/12/16 08:25 DC 12/11/16 08:43 Ascorbic Acid (Vitamin C) 500 mg BID PO 12/12/16 09:00 01/11/17 08:59 12/12/16 08:53 Aspirin (Ecotrin) 81 mg DAILY PO 12/06/16 09:00 01/05/17 08:59 12/12/16 08:53 Docusate Sodium (Colace) 100 mg BID PO 12/05/16 21:00 12/11/16 12:56 DC 12/11/16 08:43 Docusate Sodium (Colace) 100 mg BIDP PRN PO CONSTIPATION 12/12/16 09:00 01/11/17 08:59 Donepezil HCl (AriCEPT) 10 mg QHS PO 12/05/16 21:00 01/04/17 20:59 12/11/16 21:31 Ferrous Sulfate (Ferrous Sulfate) 325 mg BID PO 12/12/16 09:00 01/11/17 08:59 12/12/16 08:54 Ferrous Sulfate (Ferrous Sulfate) 325 mg DAILY PO 12/06/16 09:00 12/12/16 08:25 DC 12/11/16 08:43 Lactobacillus Acidophilus 1 ea 1 ea BID PO 12/09/16 09:00 01/08/17 08:59 12/12/16 08:51 Levofloxacin (Levaquin) 250 mg DAILY@06 PO 12/09/16 06:00 12/16/16 05:59 12/12/16 06:32 Lisinopril (Prinivil) 10 mg QHS PO 12/05/16 21:00 01/04/17 20:59 12/11/16 21:30 Magnesium Hydroxide (Milk Of Magnesia) 30 ml DAILYPRN PRN PO CONSTIPATION 12/05/16 12:45 01/04/17 12:44 12/08/16 14:47 Memantine (Namenda) 10 mg BID PO 12/05/16 21:00 01/04/17 20:59 12/12/16 08:52 Multivitamins (Theragram-M) 1 tab DAILY PO 12/06/16 09:00 01/05/17 08:59 12/12/16 08:52 Nitroglycerin (Nitrostat (1/ 150)) 0.4 mg Q5MP PRN SL CHEST PAIN 12/05/16 12:45 01/04/17 12:44 Omeprazole (PriLOSEC) 40 mg DAILY PO 12/06/16 09:00 01/05/17 08:59 12/12/16 08:53 Oxycodone/ Acetaminophen (Percocet 5mg/ 325mg Tablet) 1 tab Q4HP PRN PO MODERATE/SEVERE PAIN (PS 5-10) 12/05/16 12:45 12/05/16 15:36 DC Oxycodone/ Acetaminophen (Percocet 5mg/ 325mg Tablet) 1 tab Q6HP PRN PO SEVERE PAIN (PS 8-10) 12/06/16 12:45 12/08/16 13:40 DC 12/07/16 10:31 Polyethylene Glycol (Miralax) 1 pkt DAILY PRN PO CONSTIPATION 12/05/16 12:45 01/04/17 12:44 Senna (Senokot) 1 tab QHS PO 12/05/16 21:00 12/11/16 12:56 DC 12/10/16 21:51 Senna (Senokot) 1 tab QHSP PRN PO CONSTIPATION 12/11/16 21:00 01/10/17 20:59 Simvastatin (Zocor) 10 mg QHS PO 12/05/16 21:00 01/04/17 20:59 12/11/16 21:31 Sodium Chloride 1,000 ml @ 75 mls/hr [id number] IV 12/09/16 12:00 12/10/16 08:49 DC 12/10/16 01:25 Sodium Chloride (Nacl 0.45%) 1,000 ml @ 50 mls/hr Q20H IV 12/10/16 09:00 12/12/16 08:52 DC 12/12/16 02:00 Vitamin D (Vitamin D) 2,000 units DAILY PO 12/06/16 09:00 01/05/17 08:59 12/12/16 08:50 DAVIDA PARK MD Dec 12, 2016 10:07
[2016-12-12] MEDS ORDERED: PHYTONADIONE 1.25 MG 1/4 TAB PO ONE (13:00)
[2016-12-12 14:00] VITALS: BP 115/63
[2016-12-12 20:00] VITALS: BP 140/68
[2016-12-12] MEDS: MOM 30ML SUSPENSION UDC PO PRN (21:05)
[2016-12-12] MEDS: LISINOPRIL 10 MG TAB PO SCH (21:06)
[2016-12-12] MEDS: SIMVASTATIN 10 MG TAB PO SCH (21:07)
[2016-12-12] MEDS: DONEPEZIL 5 MG TAB PO SCH (21:07)
[2016-12-13] MEDS: LevoFLOXacin 250 MG TABLET PO SCH (05:33)
[2016-12-13] MEDS: ACETAMINOPHEN 500 MG TAB PO SCH ×3 (05:34→21:21)
[2016-12-13 06:00] VITALS: BP 135/62
[2016-12-13 07:05] LABS: BASO % 0.2 % (0.0-1.0); EOS # 0.1 K/mm3 (0.0-0.50); EOS % 0.8 % (0.0-3.0); LARGE UNSTAINED CELL # 0.3 K/mm3 (0.0-0.4); LARGE UNSTAINED CELL % 2.4 % (0.0-4.0); LYMPH # 2.2 K/mm3 (1.5-4.5); MEAN CORPUSCULAR HEMOGLOBIN 29.3 pg (27.0-33.0); MEAN CORPUSCULAR HGB CONC 31.1 g/dl (32.0-36.5); MEAN CORPUSCULAR VOLUME 94.2 fl (80.0-96.0); MONO # 0.5 K/mm3 (0.0-0.8); MONO % 4.8 % (0.0-5.0); NEUTROPHILS # 8.3 K/mm3 (1.8-7.7); NEUTROPHILS % 72.8 % (36.0-66.0); PLATELET COUNT, AUTOMATED 554 k/mm3 (150-450); RED CELL DISTRIBUTION WIDTH 13.5 % (11.5-14.5); WHITE BLOOD COUNT 11.4 K/mm3 (4.0-10.0)
[2016-12-13 07:10] LABS: INR 2.62
[2016-12-13 07:33] LABS: ANION GAP 8 MEQ/L (8-16); BLOOD UREA NITROGEN 29 MG/DL (7-18); CALCIUM LEVEL 8.7 MG/DL (8.8-10.2); CARBON DIOXIDE LEVEL 29 MEQ/L (21-32); CHLORIDE LEVEL 105 MEQ/L (98-107); CREATININE FOR GFR 0.92 MG/DL (0.70-1.30); GLOMERULAR FILTRATION RATE > 60.0 (>35); GLUCOSE, FASTING 121 MG/DL (83-110); SODIUM LEVEL 142 MEQ/L (136-145)
[2016-12-13] MEDS: ASPIRIN 81 MG ENTERIC TAB PO SCH (08:36)
[2016-12-13] MEDS: LACTOBACILLUS ACIDOPHILUS CAP (BACID) PO SCH ×2 (08:36→21:20)
[2016-12-13] MEDS: MULTIVITAMINS/MINERALS THERAP 1 TAB PO SCH (08:36)
[2016-12-13] MEDS: MEMANTINE 5MG TABLET (NAMENDA) PO SCH ×2 (08:36→21:20)
[2016-12-13] MEDS: ASCORBIC ACID 500 MG TAB PO SCH ×2 (08:36→21:19)
[2016-12-13] MEDS: VITAMIN D 1,000 INTERNATIONAL UNITS TABLET PO SCH (08:36)
[2016-12-13] MEDS: FERROUS SULFATE 325MG TAB PO SCH ×2 (08:37→21:19)
[2016-12-13] MEDS: OMEPRAZOLE 20 MG CAP PO SCH (08:37)
[2016-12-13 14:20] VITALS: BP 176/77
--- NOTE | 2016-12-13 15:36 | IPNPDOC ---
Assessment/Plan Date Seen The patient was seen on 12/13/16. Problems Problems: (1) Hip fracture, intertrochanteric Status: Acute Problem Text: * as per Rehab. * Coumadin as per Orthopedics * PT/OT * Bowel care * pain control (2) UTI (urinary tract infection) Status: Acute Problem Text: * po Levaquin day #5 * Urine culture 12/07 Enterococcus faecalis * CBC/BMP in AM (3) HTN (hypertension) Status: Acute Problem Text: * Lisinopril (4) Dementia Status: Chronic Problem Text: * aricept/namenda (5) HLD (hyperlipidemia) Status: Chronic Problem Text: * statin Plan / VTE VTE Prophylaxis Ordered?: Yes (Coumadin as per Orthopedics) Subjective Review of Systems CC/HPI The patient is a 86-year-old male admitted with a reason for visit of Left Hip Fx/Total Hip. Events since last encounter pt with no complaints. ENT: Denies: Dysphagia, Ear Pain, Head Aches Pulmonary: Denies: Cough, Dyspnea Cardiovascular: Denies: Chest Pain, Lt Headedness, Orthopnea, Palpitations, Paroxysmal Noc. Dyspnea Gastrointestinal: Denies: Abdominal Pain, Diarrhea, Nausea, Vomiting Objective Physical Examination General Exam: Positive: Alert Eye Exam: Positive: PERRLA Chest Exam: Positive: Clear to auscultation, Normal air movement Heart Exam: Positive: Normal S1, Normal S2, Rate Normal, Regular Rhythm, Negative: Murmurs, Rubs Skin Exam: Positive: Nl turgor and temperature Vital Signs/I&O Vital Signs Date Time Temp Pulse Resp B/P Pulse Ox O2 Delivery O2 Flow Rate FiO2 12/13/16 14:20 97.2 72 18 176/77 98 Room Air I&O- Last 24 Hours up to 6 AM 12/13/16 06:00 Intake Total 1747 ml Output Total 677 ml Balance 1070 ml Laboratory Data Labs 24H Laboratory Tests 2 12/13/16 06:20: Anion Gap 8, White Blood Count 11.4H, Red Blood Count 3.28L, Hemoglobin 9.6L, Hematocrit 30.9L, Mean Corpuscular Volume 94.2, Mean Corpuscular Hemoglobin 29.3 , Mean Corpuscular Hemoglobin Concent 31.1L, Red Cell Distribution Width 13.5, Platelet Count 554H, Neutrophils (%) (Auto) 72.8H, Lymphocytes (%) (Auto) 19.0L , Monocytes (%) (Auto) 4.8, Eosinophils (%) (Auto) 0.8, Basophils (%) (Auto) 0.2 , Neutrophils # (Auto) 8.3H, Lymphocytes # (Auto) 2.2, Monocytes # (Auto) 0.5, Eosinophils # (Auto) 0.1, Basophils # (Auto) 0.0, Blood Urea Nitrogen 29H, Creatinine 0.92, Sodium Level 142, Potassium Level 4.0, Chloride Level 105, Carbon Dioxide Level 29, Calcium Level 8.7L, Glomerular Filtration Rate > 60.0, Large Unclassified Cells # 0.3, Large Unclassified Cells % 2.4, Prothromb Time International Ratio 2.62, Prothrombin Time 28.1H CBC/BMP Laboratory Tests 12/13/16 06:20 Calcium Level 8.7 L, Red Blood Count 3.28 L, Mean Corpuscular Volume 94.2, Mean Corpuscular Hemoglobin 29.3, Mean Corpuscular Hemoglobin Concent 31.1 L, Red Cell Distribution Width 13.5, Neutrophils (%) (Auto) 72.8 H, Lymphocytes (%) ( Auto) 19.0 L, Monocytes (%) (Auto) 4.8, Eosinophils (%) (Auto) 0.8, Basophils (% ) (Auto) 0.2, Neutrophils # (Auto) 8.3 H, Lymphocytes # (Auto) 2.2, Monocytes # (Auto) 0.5, Eosinophils # (Auto) 0.1, Basophils # (Auto) 0.0 Microbiology Microbiology 12/09/16 Blood Culture - Preliminary, Resulted No Growth after 72 hours. All specime... 12/09/16 Blood Culture - Preliminary, Resulted No Growth after 72 hours. All specime... 12/13/16 Stool Occult Blood (YOANDY), Ordered Pending 12/07/16 Urine Culture - Final, Complete Enterococcus Faecalis Jerri Ash Dec 13, 2016 15:36
[2016-12-13 20:30] VITALS: BP 187/77
[2016-12-13 21:00] VITALS: BP 142/78
[2016-12-13] MEDS: SIMVASTATIN 10 MG TAB PO SCH (21:19)
[2016-12-13] MEDS: LISINOPRIL 10 MG TAB PO SCH (21:20)
[2016-12-13] MEDS: DONEPEZIL 5 MG TAB PO SCH (21:20)
[2016-12-13] MEDS: SENNA 8.6 MG TAB (SENOKOT) PO PRN (21:24)
[2016-12-13] MEDS: DOCUSATE SODIUM 100 MG CAP PO PRN (21:24)
[2016-12-14 06:00] VITALS: BP 158/78
[2016-12-14] MEDS: ACETAMINOPHEN 500 MG TAB PO SCH ×3 (06:26→21:07)
[2016-12-14] MEDS: LevoFLOXacin 250 MG TABLET PO SCH (06:26)
[2016-12-14 06:55] LABS: BASO % 0.2 % (0.0-1.0); EOS # 0.1 K/mm3 (0.0-0.50); EOS % 1.2 % (0.0-3.0); LARGE UNSTAINED CELL # 0.3 K/mm3 (0.0-0.4); LARGE UNSTAINED CELL % 2.5 % (0.0-4.0); LYMPH # 2.2 K/mm3 (1.5-4.5); LYMPH % 18.6 % (24.0-44.0); MEAN CORPUSCULAR HEMOGLOBIN 29.7 pg (27.0-33.0); MEAN CORPUSCULAR HGB CONC 31.5 g/dl (32.0-36.5); MEAN CORPUSCULAR VOLUME 94.3 fl (80.0-96.0); MONO # 0.5 K/mm3 (0.0-0.8); NEUTROPHILS # 8.6 K/mm3 (1.8-7.7); NEUTROPHILS % 73.5 % (36.0-66.0); PLATELET COUNT, AUTOMATED 493 k/mm3 (150-450); RED CELL DISTRIBUTION WIDTH 13.6 % (11.5-14.5); WHITE BLOOD COUNT 11.7 K/mm3 (4.0-10.0)
[2016-12-14 07:04] LABS: INR 2.34
[2016-12-14 07:15] LABS: ANION GAP 5 MEQ/L (8-16); BLOOD UREA NITROGEN 29 MG/DL (7-18); CALCIUM LEVEL 8.1 MG/DL (8.8-10.2); CARBON DIOXIDE LEVEL 29 MEQ/L (21-32); CHLORIDE LEVEL 109 MEQ/L (98-107); CREATININE FOR GFR 0.75 MG/DL (0.70-1.30); GLOMERULAR FILTRATION RATE > 60.0 (>35); GLUCOSE, FASTING 97 MG/DL (83-110); POTASSIUM SERUM 4.1 MEQ/L (3.5-5.1); SODIUM LEVEL 143 MEQ/L (136-145)
[2016-12-14] MEDS: FERROUS SULFATE 325MG TAB PO SCH ×2 (09:25→21:07)
[2016-12-14] MEDS: VITAMIN D 1,000 INTERNATIONAL UNITS TABLET PO SCH (09:25)
[2016-12-14] MEDS: OMEPRAZOLE 20 MG CAP PO SCH (09:25)
[2016-12-14] MEDS: MULTIVITAMINS/MINERALS THERAP 1 TAB PO SCH (09:25)
[2016-12-14] MEDS: ASCORBIC ACID 500 MG TAB PO SCH ×2 (09:25→21:07)
[2016-12-14] MEDS: ASPIRIN 81 MG ENTERIC TAB PO SCH (09:25)
[2016-12-14] MEDS: MEMANTINE 5MG TABLET (NAMENDA) PO SCH ×2 (09:25→21:07)
[2016-12-14] MEDS: LACTOBACILLUS ACIDOPHILUS CAP (BACID) PO SCH ×2 (09:25→21:07)
[2016-12-14 14:00] VITALS: BP 169/67
[2016-12-14 20:00] VITALS: BP 138/76
[2016-12-14] MEDS: DOCUSATE SODIUM 100 MG CAP PO PRN (21:07)
[2016-12-14] MEDS: LISINOPRIL 10 MG TAB PO SCH (21:07)
[2016-12-14] MEDS: DONEPEZIL 5 MG TAB PO SCH (21:07)
[2016-12-14] MEDS: SIMVASTATIN 10 MG TAB PO SCH (21:07)
[2016-12-14] MEDS: SENNA 8.6 MG TAB (SENOKOT) PO PRN (21:07)
[2016-12-15 06:00] VITALS: BP 152/68
[2016-12-15] MEDS: ACETAMINOPHEN 500 MG TAB PO SCH ×5 (06:32→23:25)
[2016-12-15 06:51] LABS: BASO % 0.2 % (0.0-1.0); EOS # 0.1 K/mm3 (0.0-0.50); EOS % 1.4 % (0.0-3.0); LARGE UNSTAINED CELL # 0.3 K/mm3 (0.0-0.4); LARGE UNSTAINED CELL % 2.7 % (0.0-4.0); LYMPH # 2.3 K/mm3 (1.5-4.5); LYMPH % 21.6 % (24.0-44.0); MEAN CORPUSCULAR HEMOGLOBIN 29.3 pg (27.0-33.0); MEAN CORPUSCULAR HGB CONC 31.1 g/dl (32.0-36.5); MEAN CORPUSCULAR VOLUME 94.1 fl (80.0-96.0); MONO # 0.5 K/mm3 (0.0-0.8); MONO % 5.3 % (0.0-5.0); NEUTROPHILS # 6.7 K/mm3 (1.8-7.7); NEUTROPHILS % 68.7 % (36.0-66.0); PLATELET COUNT, AUTOMATED 520 k/mm3 (150-450); RED CELL DISTRIBUTION WIDTH 14.1 % (11.5-14.5); WHITE BLOOD COUNT 9.7 K/mm3 (4.0-10.0)
[2016-12-15 06:56] LABS: INR 2.34
[2016-12-15 07:07] LABS: ANION GAP 7 MEQ/L (8-16); BLOOD UREA NITROGEN 28 MG/DL (7-18); CALCIUM LEVEL 8.5 MG/DL (8.8-10.2); CARBON DIOXIDE LEVEL 29 MEQ/L (21-32); CHLORIDE LEVEL 109 MEQ/L (98-107); CREATININE FOR GFR 0.76 MG/DL (0.70-1.30); GLOMERULAR FILTRATION RATE > 60.0 (>35); GLUCOSE, FASTING 91 MG/DL (83-110); POTASSIUM SERUM 4.2 MEQ/L (3.5-5.1); SODIUM LEVEL 145 MEQ/L (136-145)
[2016-12-15] MEDS: VITAMIN D 1,000 INTERNATIONAL UNITS TABLET PO SCH (08:40)
[2016-12-15] MEDS: MULTIVITAMINS/MINERALS THERAP 1 TAB PO SCH (08:40)
[2016-12-15] MEDS: ASCORBIC ACID 500 MG TAB PO SCH ×2 (08:40→21:03)
[2016-12-15] MEDS: OMEPRAZOLE 20 MG CAP PO SCH (08:40)
[2016-12-15] MEDS: LACTOBACILLUS ACIDOPHILUS CAP (BACID) PO SCH ×2 (08:40→21:04)
[2016-12-15] MEDS: MEMANTINE 5MG TABLET (NAMENDA) PO SCH ×2 (08:40→21:04)
[2016-12-15] MEDS: FERROUS SULFATE 325MG TAB PO SCH ×2 (08:40→21:03)
[2016-12-15] MEDS: ASPIRIN 81 MG ENTERIC TAB PO SCH (08:40)
[2016-12-15 14:17] VITALS: BP 128/82
[2016-12-15 20:00] VITALS: BP 144/63
[2016-12-15] MEDS: LISINOPRIL 10 MG TAB PO SCH (21:03)
[2016-12-15] MEDS: DONEPEZIL 5 MG TAB PO SCH (21:03)
[2016-12-15] MEDS: SIMVASTATIN 10 MG TAB PO SCH (21:04)
[2016-12-16] MEDS: ACETAMINOPHEN 500 MG TAB PO SCH ×3 (05:52→21:00)
[2016-12-16 06:02] VITALS: BP 108/68
[2016-12-16 06:51] LABS: BASO % 0.2 % (0.0-1.0); EOS # 0.1 K/mm3 (0.0-0.50); EOS % 1.3 % (0.0-3.0); LARGE UNSTAINED CELL # 0.2 K/mm3 (0.0-0.4); LARGE UNSTAINED CELL % 2.2 % (0.0-4.0); LYMPH # 2.3 K/mm3 (1.5-4.5); LYMPH % 19.3 % (24.0-44.0); MEAN CORPUSCULAR HEMOGLOBIN 29.4 pg (27.0-33.0); MEAN CORPUSCULAR HGB CONC 31.4 g/dl (32.0-36.5); MEAN CORPUSCULAR VOLUME 93.6 fl (80.0-96.0); MONO # 0.5 K/mm3 (0.0-0.8); MONO % 4.5 % (0.0-5.0); NEUTROPHILS # 7.7 K/mm3 (1.8-7.7); NEUTROPHILS % 72.6 % (36.0-66.0); PLATELET COUNT, AUTOMATED 521 k/mm3 (150-450); RED CELL DISTRIBUTION WIDTH 14.4 % (11.5-14.5); WHITE BLOOD COUNT 10.6 K/mm3 (4.0-10.0)
[2016-12-16 06:58] LABS: INR 2.39
[2016-12-16 07:18] LABS: ANION GAP 7 MEQ/L (8-16); BLOOD UREA NITROGEN 27 MG/DL (7-18); CALCIUM LEVEL 8.1 MG/DL (8.8-10.2); CARBON DIOXIDE LEVEL 28 MEQ/L (21-32); CHLORIDE LEVEL 110 MEQ/L (98-107); CREATININE FOR GFR 0.73 MG/DL (0.70-1.30); GLOMERULAR FILTRATION RATE > 60.0 (>35); GLUCOSE, FASTING 100 MG/DL (83-110); SODIUM LEVEL 145 MEQ/L (136-145)
[2016-12-16] MEDS: DOCUSATE SODIUM 100 MG CAP PO PRN (08:47)
[2016-12-16] MEDS: MULTIVITAMINS/MINERALS THERAP 1 TAB PO SCH (08:47)
[2016-12-16] MEDS: MEMANTINE 5MG TABLET (NAMENDA) PO SCH ×2 (08:47→20:57)
[2016-12-16] MEDS: ASPIRIN 81 MG ENTERIC TAB PO SCH (08:47)
[2016-12-16] MEDS: FERROUS SULFATE 325MG TAB PO SCH ×2 (08:47→20:58)
[2016-12-16] MEDS: VITAMIN D 1,000 INTERNATIONAL UNITS TABLET PO SCH (08:47)
[2016-12-16] MEDS: LACTOBACILLUS ACIDOPHILUS CAP (BACID) PO SCH ×2 (08:47→20:57)
[2016-12-16] MEDS: OMEPRAZOLE 20 MG CAP PO SCH (08:47)
[2016-12-16] MEDS: ASCORBIC ACID 500 MG TAB PO SCH ×2 (08:47→20:58)
--- NOTE | 2016-12-16 12:14 | IPNPDOC ---
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 Hernia repair. Artificial heart valve (bovin valve). ALLERGIES: Latex, tape MEDICATIONS: Prilosec 40 mg by mouth daily Nitrostat 0.4 mg every 5 minutes when necessary Lisinopril 10 mg by mouth daily at bedtime Zocor 10 mg by mouth daily at bedtime Namenda 10mg PO bid Aricept 10mg qhs APAP 1000mg q8h prn Vitamin C 250 mg by mouth daily Aspirin 81 mg by mouth daily Vitamin D 2000 units by mouth daily Ferrous sulfate 325 mg by mouth daily Multivitamin 1 tab by mouth daily Senna 1 tab po qhs Colace 100mg PO bid MiraLAX 1 packet by mouth daily prn Milk of magnesia 30 mL by mouth daily prn SUBJECTIVE: Patient w/o specific complaints. No issues overnight. States remembers that shouldnt put full weight on left LL but cant implement it. Denies any CP, SOB, C/D, N/V, dysuria. VITAL SIGNS: Temperature 97.5F, pulse 64, respiratory rate 18, blood pressure 108/69, 96% saturation RA. PHYSICAL EXAMINATION: GENERAL: Well nourished, well developed, sitting up in chair, no acute distress HEENT: Normocephalic, atraumatic. No facial droop. PERRL, EOMI CARDIOVASCULAR: S1, S2, irregular rate. No significant right lower limb edema or calf tenderness. Diffuse swelling of the left lower limb, no calf tenderness. LUNGS: Decreased breath sounds throughout, no wheezing, rhonchi or rales appreciated. ABDOMEN: Soft, nontender, nondistended. Normoactive bowel sounds throughout. MUSCULOSKELETAL: MMT: 3/5 right shoulder abduction and forward flexion, 5/5 right elbow flexion, 4/5 right broadcast maintenance engineer strength. 5/5 left upper limb in all major muscle groups. 4/5 right hip flexors, 4/5 right knee extension, 5/5 right knee flexion, dorsiflexion plantar flexion. 3/5 left hip flexors, 4-/5 left knee extension, 4/5 left knee flexion, 4/5 left dorsiflexion plantar flexion NEUROLOGICAL: A&O x 3. No hallucinations. Able to follow commands. SKIN: Left lateral hip surgical site covered in dressing. LABORATORY DATA: 12/16/16: reviewed, see below 12/05/2016: WBC count 13.3, hemoglobin 10.1, hematocrit 31.6, platelets 276. Sodium 139, potassium 4.2, chloride 102, carbon dioxide 27, BUN 30, creatinine 1.04, GFR greater than 60, calcium 8.4, glucose 122 IMAGING: Femur x-ray 12/02/16: no mid or distal femur fracture. Hip and pelvis x-ray 12/02/16: intertrochanteric fracture of the left hip. Chest x-ray 12/02/16 cardiomegaly, status post aortic valve replacement. CT of the head 12/02/16: small vessel ischemic disease. No volume loss. FUNCTIONAL STATUS, premorbid: Independent with ambulation and most ADLs. Per the patients he did require some set up for dressing, but was able to bathe and dress himself. He has not driven recently secondary to his memory ASSESSMENT AND PLAN: 1. Left intertrochanteric fracture status post ORIF: Patient has improved clinically/cognitively. Given difficulty with maintaining PWB, contacted orthopedics and ok for WBAT left LL. Continue daily physical and occupational therapy. Rehabilitation nursing for bladder, bowel, medication management and wound care. 2. AMS: Appears to be at baseline now. [Decline possibly secondary to urinary tract infection +/- uremia. S/p Levaquin and IV fluids]. 3. UTI: S/p Levaquin. 4. Prerenal azotemia: S/p IVF 5. Htn: Improved control. Continue Lisinopril. Adjustment if needed 6. DVT prophylaxis: Coumadin dose by ETHAN Enriquez of the orthopedic service. Last dose Coumadin 12/06/16. Supratherapeutic INR likely 2nd Levaquin which has been d/cd. Pt currently w therapeutic INR. Continue SCD and DANIE kerriee. 7. Pain: Con tyl victor hugo. [Hx: Percocet was discontinued secondary to concerns for a contributing to AMS]. Continue intermittent ice. 8. Bowel: Constipation resolved. Loose stools resolved. Bowel meds changed to prn 12/11/16. 9. Alzheimers: Continue donepezil & Namenda. 10. Diet/severe malnutrition: Prealbumin low. Continue Ensure. Regular diet. / Vital Signs Vital Sign - Last 24 Hours 12/15/16 12/15/16 12/15/16 12/15/16 14:17 19:20 20:00 21:03 Temp 97.7 97.8 Pulse 67 68 Resp 18 18 B/P 128/82 144/63 144/63 Pulse Ox 97 98 O2 Delivery Room Air Room Air Room Air 12/16/16 12/16/16 06:02 07:50 Temp 97.5 Pulse 64 Resp 18 B/P 108/68 Pulse Ox 96 O2 Delivery Room Air Room Air Laboratory Data CBC/BMP Laboratory Tests 12/16/16 06:27 Calcium Level 8.1 L, Red Blood Count 2.80 L, Mean Corpuscular Volume 93.6, Mean Corpuscular Hemoglobin 29.4, Mean Corpuscular Hemoglobin Concent 31.4 L, Red Cell Distribution Width 14.4, Neutrophils (%) (Auto) 72.6 H, Lymphocytes (%) ( Auto) 19.3 L, Monocytes (%) (Auto) 4.5, Eosinophils (%) (Auto) 1.3, Basophils (% ) (Auto) 0.2, Neutrophils # (Auto) 7.7, Lymphocytes # (Auto) 2.3, Monocytes # ( Auto) 0.5, Eosinophils # (Auto) 0.1, Basophils # (Auto) 0.0 Labs 24H Laboratory Tests 2 12/16/16 06:27: Anion Gap 7L, White Blood Count 10.6H, Red Blood Count 2.80L, Hemoglobin 8.2L, Hematocrit 26.2L, Mean Corpuscular Volume 93.6, Mean Corpuscular Hemoglobin 29.4 , Mean Corpuscular Hemoglobin Concent 31.4L, Red Cell Distribution Width 14.4, Platelet Count 521H, Neutrophils (%) (Auto) 72.6H, Lymphocytes (%) (Auto) 19.3L , Monocytes (%) (Auto) 4.5, Eosinophils (%) (Auto) 1.3, Basophils (%) (Auto) 0.2 , Neutrophils # (Auto) 7.7, Lymphocytes # (Auto) 2.3, Monocytes # (Auto) 0.5, Eosinophils # (Auto) 0.1, Basophils # (Auto) 0.0, Blood Urea Nitrogen 27H, Creatinine 0.73, Sodium Level 145, Potassium Level 4.0, Chloride Level 110H, Carbon Dioxide Level 28, Calcium Level 8.1L, Glomerular Filtration Rate > 60.0, Large Unclassified Cells # 0.2, Large Unclassified Cells % 2.2, Prothromb Time International Ratio 2.39, Prothrombin Time 26.1H Microbiology Microbiology 12/09/16 Blood Culture - Final, Complete NO GROWTH AFTER 5 DAYS 12/09/16 Blood Culture - Final, Complete NO GROWTH AFTER 5 DAYS 12/13/16 Stool Occult Blood (YOANDY), Ordered Pending 12/07/16 Urine Culture - Final, Complete Enterococcus Faecalis Allergies Allergies: Coded Allergies: TAPE (Verified Allergy, Mild, 02/11/14) Latex (Unverified Allergy, Unknown, RASH, 12/02/16) Current Medications Current Medications Current Medications Medications (Trade) Dose Ordered Sig/Victor Hugo Route PRN Reason Start Time Stop Time Status Last Admin Dose Admin Acetaminophen (Tylenol) 650 mg Q4HP PRN PO MILD PAIN (PS 1-4) 12/05/16 12:45 12/05/16 15:35 DC Acetaminophen (Tylenol) 1,000 mg Q8H PO 12/05/16 22:00 01/04/17 21:59 12/16/16 05:52 Ascorbic Acid (Vitamin C) 250 mg DAILY PO 12/06/16 09:00 12/12/16 08:25 DC 12/11/16 08:43 Ascorbic Acid (Vitamin C) 500 mg BID PO 12/12/16 09:00 01/11/17 08:59 12/16/16 08:47 Aspirin (Ecotrin) 81 mg DAILY PO 12/06/16 09:00 01/05/17 08:59 12/16/16 08:47 Docusate Sodium (Colace) 100 mg BID PO 12/05/16 21:00 12/11/16 12:56 DC 12/11/16 08:43 Docusate Sodium (Colace) 100 mg BIDP PRN PO CONSTIPATION 12/12/16 09:00 01/11/17 08:59 12/16/16 08:47 Donepezil HCl (AriCEPT) 10 mg QHS PO 12/05/16 21:00 01/04/17 20:59 12/15/16 21:03 Ferrous Sulfate (Ferrous Sulfate) 325 mg BID PO 12/12/16 09:00 01/11/17 08:59 12/16/16 08:47 Ferrous Sulfate (Ferrous Sulfate) 325 mg DAILY PO 12/06/16 09:00 12/12/16 08:25 DC 12/11/16 08:43 Lactobacillus Acidophilus 1 ea 1 ea BID PO 12/09/16 09:00 01/08/17 08:59 12/16/16 08:47 Levofloxacin (Levaquin) 250 mg DAILY@06 PO 12/09/16 06:00 12/14/16 10:08 DC 12/14/16 06:26 Lisinopril (Prinivil) 10 mg QHS PO 12/05/16 21:00 01/04/17 20:59 12/15/16 21:03 Magnesium Hydroxide (Milk Of Magnesia) 30 ml DAILYPRN PRN PO CONSTIPATION 12/05/16 12:45 01/04/17 12:44 12/12/16 21:05 Memantine (Namenda) 10 mg BID PO 12/05/16 21:00 01/04/17 20:59 12/16/16 08:47 Multivitamins (Theragram-M) 1 tab DAILY PO 12/06/16 09:00 01/05/17 08:59 12/16/16 08:47 Nitroglycerin (Nitrostat (1/ 150)) 0.4 mg Q5MP PRN SL CHEST PAIN 12/05/16 12:45 01/04/17 12:44 Omeprazole (PriLOSEC) 40 mg DAILY PO 12/06/16 09:00 01/05/17 08:59 12/16/16 08:47 Oxycodone/ Acetaminophen (Percocet 5mg/ 325mg Tablet) 1 tab Q4HP PRN PO MODERATE/SEVERE PAIN (PS 5-10) 12/05/16 12:45 12/05/16 15:36 DC Oxycodone/ Acetaminophen (Percocet 5mg/ 325mg Tablet) 1 tab Q6HP PRN PO SEVERE PAIN (PS 8-10) 12/06/16 12:45 12/08/16 13:40 DC 12/07/16 10:31 Polyethylene Glycol (Miralax) 1 pkt DAILY PRN PO CONSTIPATION 12/05/16 12:45 01/04/17 12:44 Senna (Senokot) 1 tab QHS PO 12/05/16 21:00 12/11/16 12:56 DC 12/10/16 21:51 Senna (Senokot) 1 tab QHSP PRN PO CONSTIPATION 12/11/16 21:00 01/10/17 20:59 12/14/16 21:07 Simvastatin (Zocor) 10 mg QHS PO 12/05/16 21:00 01/04/17 20:59 12/15/16 21:04 Sodium Chloride 1,000 ml @ 75 mls/hr [id number] IV 12/09/16 12:00 12/10/16 08:49 DC 12/10/16 01:25 Sodium Chloride (Nacl 0.45%) 1,000 ml @ 50 mls/hr Q20H IV 12/10/16 09:00 12/12/16 08:52 DC 12/12/16 02:00 Vitamin D (Vitamin D) 2,000 units DAILY PO 12/06/16 09:00 01/05/17 08:59 12/16/16 08:47 DAVIDA PARK MD Dec 16, 2016 12:14
[2016-12-16 14:00] VITALS: BP 121/56
[2016-12-16] MEDS: SUCRALFATE 1 GM TAB PO SCH ×2 (18:35→20:58)
[2016-12-16 20:00] VITALS: BP 150/72
[2016-12-16] MEDS: LISINOPRIL 10 MG TAB PO SCH (20:58)
[2016-12-16] MEDS: DONEPEZIL 5 MG TAB PO SCH (20:58)
[2016-12-16] MEDS: SIMVASTATIN 10 MG TAB PO SCH (20:58)
[2016-12-16] MEDS: PANTOPRAZOLE 40MG TAB (PROTONIX) PO SCH (20:58)
[2016-12-17 06:00] VITALS: BP 166/70
[2016-12-17] MEDS: SUCRALFATE 1 GM TAB PO SCH ×4 (06:32→20:43)
[2016-12-17] MEDS: ACETAMINOPHEN 500 MG TAB PO SCH ×3 (06:32→20:46)
[2016-12-17 06:41] LABS: BASO % 0.3 % (0.0-1.0); EOS # 0.1 K/mm3 (0.0-0.50); EOS % 1.3 % (0.0-3.0); LARGE UNSTAINED CELL # 0.2 K/mm3 (0.0-0.4); LARGE UNSTAINED CELL % 2.3 % (0.0-4.0); LYMPH # 2.3 K/mm3 (1.5-4.5); LYMPH % 19.8 % (24.0-44.0); MEAN CORPUSCULAR HEMOGLOBIN 29.9 pg (27.0-33.0); MEAN CORPUSCULAR HGB CONC 31.7 g/dl (32.0-36.5); MEAN CORPUSCULAR VOLUME 94.1 fl (80.0-96.0); MONO # 0.4 K/mm3 (0.0-0.8); MONO % 4.3 % (0.0-5.0); NEUTROPHILS # 7.5 K/mm3 (1.8-7.7); PLATELET COUNT, AUTOMATED 514 k/mm3 (150-450); RED CELL DISTRIBUTION WIDTH 14.6 % (11.5-14.5); WHITE BLOOD COUNT 10.4 K/mm3 (4.0-10.0)
[2016-12-17 06:46] LABS: INR 2.28
[2016-12-17 06:56] LABS: ANION GAP 7 MEQ/L (8-16); BLOOD UREA NITROGEN 27 MG/DL (7-18); CALCIUM LEVEL 8.2 MG/DL (8.8-10.2); CARBON DIOXIDE LEVEL 29 MEQ/L (21-32); CHLORIDE LEVEL 109 MEQ/L (98-107); CREATININE FOR GFR 0.72 MG/DL (0.70-1.30); GLOMERULAR FILTRATION RATE > 60.0 (>35); GLUCOSE, FASTING 90 MG/DL (83-110); SODIUM LEVEL 145 MEQ/L (136-145)
[2016-12-17] MEDS: MULTIVITAMINS/MINERALS THERAP 1 TAB PO SCH (08:27)
[2016-12-17] MEDS: VITAMIN D 1,000 INTERNATIONAL UNITS TABLET PO SCH (08:27)
[2016-12-17] MEDS: PANTOPRAZOLE 40MG TAB (PROTONIX) PO SCH ×2 (08:27→20:43)
[2016-12-17] MEDS: FERROUS SULFATE 325MG TAB PO SCH ×2 (08:27→20:43)
[2016-12-17] MEDS: LACTOBACILLUS ACIDOPHILUS CAP (BACID) PO SCH ×2 (08:27→20:43)
[2016-12-17] MEDS: ASPIRIN 81 MG ENTERIC TAB PO SCH (08:27)
[2016-12-17] MEDS: ASCORBIC ACID 500 MG TAB PO SCH ×2 (08:27→20:43)
[2016-12-17] MEDS: MEMANTINE 5MG TABLET (NAMENDA) PO SCH ×2 (08:28→20:43)
--- NOTE | 2016-12-17 09:24 | IPNPDOC ---
Senior Technical Architect Progress Note PROGRESS NOTE DATE OF ADMISSION: 12/05/16 DATE OF SERVICE: 12/17/16 IDENTIFICATION STATEMENT: 85-year-old gentleman with left intertrochanteric fracture status post ORIF admitted for comprehensive integrated inpatient rehabilitation. 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 Hernia repair. Artificial heart valve (bovin valve). ALLERGIES: Latex, tape MEDICATIONS: Protonix 40 mg PO bid Carafate 1gm ACHS Nitrostat 0.4 mg every 5 minutes when necessary Lisinopril 10 mg by mouth daily at bedtime Zocor 10 mg by mouth daily at bedtime Namenda 10mg PO bid Aricept 10mg qhs APAP 1000mg q8h prn Vitamin C 250 mg by mouth daily Aspirin 81 mg by mouth daily Vitamin D 2000 units by mouth daily Ferrous sulfate 325 mg by mouth daily Multivitamin 1 tab by mouth daily Senna 1 tab po qhs Colace 100mg PO bid MiraLAX 1 packet by mouth daily prn Milk of magnesia 30 mL by mouth daily prn SUBJECTIVE: No specific complaints. No issues overnight. Wants to go home, doesnt want to go to SNF. Had 2 BMs yesterday, passing gas now, no abdominal pain. states he has h/o hemorrhoids. Denies any CP, SOB, C/D, N/V, dysuria. VITAL SIGNS: Temperature 97.1F, pulse 56, respiratory rate 16, blood pressure 166/70, 98% saturation RA. PHYSICAL EXAMINATION: GENERAL: Well nourished, well developed, sitting up in chair, no acute distress HEENT: Normocephalic, atraumatic. No facial droop. PERRL, EOMI CARDIOVASCULAR: S1, S2, irregular rate. No significant right lower limb edema or calf tenderness. Diffuse swelling of the left lower limb (decreased since admission), no calf tenderness. LUNGS: Decreased breath sounds throughout, no wheezing, rhonchi or rales. ABDOMEN: Soft, nontender, nondistended. Normoactive bowel sounds throughout. MUSCULOSKELETAL: MMT: 3/5 right shoulder abduction and forward flexion, 5/5 right elbow flexion, 4/5 right turkey farmer strength. 5/5 left upper limb in all major muscle groups. 4/5 right hip flexors, 4/5 right knee extension, 5/5 right knee flexion, dorsiflexion plantar flexion. 3/5 left hip flexors, 4-/5 left knee extension, 4/5 left knee flexion, 4/5 left dorsiflexion plantar flexion NEUROLOGICAL: A&O x 3. Able to follow commands. Answers questions appropriately SKIN: Left lateral hip surgical site covered in dressing. LABORATORY DATA: 12/17/16: reviewed, see below 12/16/16: stool guaiac + 12/05/2016: WBC count 13.3, hemoglobin 10.1, hematocrit 31.6, platelets 276. Sodium 139, potassium 4.2, chloride 102, carbon dioxide 27, BUN 30, creatinine 1.04, GFR greater than 60, calcium 8.4, glucose 122 IMAGING: CT head: 12/09/16: non acute Femur x-ray 12/02/16: no mid or distal femur fracture. Hip and pelvis x-ray 12/02/16: intertrochanteric fracture of the left hip. Chest x-ray 12/02/16 cardiomegaly, status post aortic valve replacement. CT of the head 12/02/16: small vessel ischemic disease. No volume loss. FUNCTIONAL STATUS, premorbid: Independent with ambulation and most ADLs. Per the patients he did require some set up for dressing, but was able to bathe and dress himself. He has not driven recently secondary to his memory ASSESSMENT AND PLAN: 1. Left intertrochanteric fracture status post ORIF: Patient appears to be at baseline cognitively. Now WBAT left LL. He verbalizes motivation to do therapy so he can go home rather than to SNF. Continue physical and occupational therapy. Reassess disposition after todays sessions. Had lengthy conversation with the son last evening. Also have been apprising of plan on daily/twice daily basis. They verbalize understating and are in agreement. Rehabilitation nursing for bladder, bowel, medication management and wound care. 2. AMS: Resolved, At baseline now. [Hx: Possibly secondary to urinary tract infection +/- azotemia. S/p Levaquin and IV fluids]. 3. UTI: S/p Levaquin. 4. Prerenal azotemia: S/p IVF 5. Htn: Improved control. Continue Lisinopril. Adjustment if needed 6. DVT prophylaxis: Coumadin dose by ETHAN Enriquez of the orthopedic service. Last dose Coumadin 12/06/16. [Hx: Supratherapeutic INR likely 2nd Levaquin which has been d/cd]. Pt currently w therapeutic INR. Continue SCD and DANIE hose. 7. Pain: Con tyl victor hugo. [Hx: Percocet was discontinued secondary to concerns for a contributing to AMS]. Continue intermittent ice. 8. Bowel: Constipation resolved. Loose stools resolved. Bowel meds changed to prn 12/11/16. 9. Alzheimers: Continue donepezil & Namenda. 10. Diet/severe malnutrition: Prealbumin low. Continue Ensure. Regular diet. 11. Anemia: Stool guaiac +. May be 2nd hemorrhoids; however, per RN, stool melanoic. If UGIB, would explain mildly persistent BUN. Started Carafate and increased PPI empirically. Continue iron. Discussed with . Hgb ~ stable today. Will need OP f/u. / Vital Signs Vital Sign - Last 24 Hours 12/16/16 12/16/16 12/16/16 12/16/16 14:00 20:00 20:00 20:58 Temp 96.3 97.3 Pulse 74 65 Resp 18 19 B/P 121/56 150/72 150/72 Pulse Ox 97 95 O2 Delivery Room Air Room Air Room Air 12/17/16 06:00 Temp 97.1 Pulse 56 Resp 16 B/P 166/70 Pulse Ox 98 O2 Delivery Room Air Laboratory Data CBC/BMP Laboratory Tests 12/17/16 06:24 Calcium Level 8.2 L, Red Blood Count 2.80 L, Mean Corpuscular Volume 94.1, Mean Corpuscular Hemoglobin 29.9, Mean Corpuscular Hemoglobin Concent 31.7 L, Red Cell Distribution Width 14.6 H, Neutrophils (%) (Auto) 72.0 H, Lymphocytes (%) ( Auto) 19.8 L, Monocytes (%) (Auto) 4.3, Eosinophils (%) (Auto) 1.3, Basophils (% ) (Auto) 0.3, Neutrophils # (Auto) 7.5, Lymphocytes # (Auto) 2.3, Monocytes # ( Auto) 0.4, Eosinophils # (Auto) 0.1, Basophils # (Auto) 0.0 Labs 24H Laboratory Tests 2 12/17/16 06:24: Anion Gap 7L, White Blood Count 10.4H, Red Blood Count 2.80L, Hemoglobin 8.4L, Hematocrit 26.4L, Mean Corpuscular Volume 94.1, Mean Corpuscular Hemoglobin 29.9 , Mean Corpuscular Hemoglobin Concent 31.7L, Red Cell Distribution Width 14.6H, Platelet Count 514H, Neutrophils (%) (Auto) 72.0H, Lymphocytes (%) (Auto) 19.8L , Monocytes (%) (Auto) 4.3, Eosinophils (%) (Auto) 1.3, Basophils (%) (Auto) 0.3 , Neutrophils # (Auto) 7.5, Lymphocytes # (Auto) 2.3, Monocytes # (Auto) 0.4, Eosinophils # (Auto) 0.1, Basophils # (Auto) 0.0, Blood Urea Nitrogen 27H, Creatinine 0.72, Sodium Level 145, Potassium Level 4.0, Chloride Level 109H, Carbon Dioxide Level 29, Calcium Level 8.2L, Glomerular Filtration Rate > 60.0, Large Unclassified Cells # 0.2, Large Unclassified Cells % 2.3, Prothromb Time International Ratio 2.28, Prothrombin Time 25.2H Microbiology Microbiology 12/09/16 Blood Culture - Final, Complete NO GROWTH AFTER 5 DAYS 12/09/16 Blood Culture - Final, Complete NO GROWTH AFTER 5 DAYS 12/16/16 Stool Occult Blood (YOANDY) - Final, Complete 12/07/16 Urine Culture - Final, Complete Enterococcus Faecalis Allergies Allergies: Coded Allergies: TAPE (Verified Allergy, Mild, 02/11/14) Latex (Unverified Allergy, Unknown, RASH, 12/02/16) Current Medications Current Medications Current Medications Medications (Trade) Dose Ordered Sig/Victor [place] Route PRN Reason Start Time Stop Time Status Last Admin Dose Admin Acetaminophen (Tylenol) 650 mg Q4HP PRN PO MILD PAIN (PS 1-4) 12/05/16 12:45 12/05/16 15:35 DC Acetaminophen (Tylenol) 1,000 mg Q8H PO 12/05/16 22:00 01/04/17 21:59 12/17/16 06:32 Ascorbic Acid (Vitamin C) 250 mg DAILY PO 12/06/16 09:00 12/12/16 08:25 DC 12/11/16 08:43 Ascorbic Acid (Vitamin C) 500 mg BID PO 12/12/16 09:00 01/11/17 08:59 12/17/16 08:27 Aspirin (Ecotrin) 81 mg DAILY PO 12/06/16 09:00 01/05/17 08:59 12/17/16 08:27 Docusate Sodium (Colace) 100 mg BID PO 12/05/16 21:00 12/11/16 12:56 DC 12/11/16 08:43 Docusate Sodium (Colace) 100 mg BIDP PRN PO CONSTIPATION 12/12/16 09:00 01/11/17 08:59 12/16/16 08:47 Donepezil HCl (AriCEPT) 10 mg QHS PO 12/05/16 21:00 01/04/17 20:59 12/16/16 20:58 Ferrous Sulfate (Ferrous Sulfate) 325 mg BID PO 12/12/16 09:00 01/11/17 08:59 12/17/16 08:27 Ferrous Sulfate (Ferrous Sulfate) 325 mg DAILY PO 12/06/16 09:00 12/12/16 08:25 DC 12/11/16 08:43 Lactobacillus Acidophilus 1 ea 1 ea BID PO 12/09/16 09:00 01/08/17 08:59 12/17/16 08:27 Levofloxacin (Levaquin) 250 mg DAILY@06 PO 12/09/16 06:00 12/14/16 10:08 DC 12/14/16 06:26 Lisinopril (Prinivil) 10 mg QHS PO 12/05/16 21:00 01/04/17 20:59 12/16/16 20:58 Magnesium Hydroxide (Milk Of Magnesia) 30 ml DAILYPRN PRN PO CONSTIPATION 12/05/16 12:45 01/04/17 12:44 12/12/16 21:05 Memantine (Namenda) 10 mg BID PO 12/05/16 21:00 01/04/17 20:59 12/17/16 08:28 Multivitamins (Theragram-M) 1 tab DAILY PO 12/06/16 09:00 01/05/17 08:59 12/17/16 08:27 Nitroglycerin (Nitrostat (1/ 150)) 0.4 mg Q5MP PRN SL CHEST PAIN 12/05/16 12:45 2/25/17 12:44 Omeprazole (PriLOSEC) 40 mg DAILY PO 12/06/16 09:00 12/16/16 17:28 DC 12/16/16 08:47 Oxycodone/ Acetaminophen (Percocet 5mg/ 325mg Tablet) 1 tab Q4HP PRN PO MODERATE/SEVERE PAIN (PS 5-10) 12/05/16 12:45 12/05/16 15:36 DC Oxycodone/ Acetaminophen (Percocet 5mg/ 325mg Tablet) 1 tab Q6HP PRN PO SEVERE PAIN (PS 8-10) 12/06/16 12:45 12/08/16 13:40 DC 12/07/16 10:31 Pantoprazole Sodium (Protonix) 40 mg BID PO 12/16/16 21:00 01/15/17 20:59 12/17/16 08:27 Polyethylene Glycol (Miralax) 1 pkt DAILY PRN PO CONSTIPATION 12/05/16 12:45 01/04/17 12:44 Senna (Senokot) 1 tab QHS PO 12/05/16 21:00 12/11/16 12:56 DC 12/10/16 21:51 Senna (Senokot) 1 tab QHSP PRN PO CONSTIPATION 12/11/16 21:00 01/10/17 20:59 12/14/16 21:07 Simvastatin (Zocor) 10 mg QHS PO 12/05/16 21:00 01/04/17 20:59 12/16/16 20:58 Sodium Chloride 1,000 ml @ 75 mls/hr [id number] IV 12/09/16 12:00 12/10/16 08:49 DC 12/10/16 01:25 Sodium Chloride (Nacl 0.45%) 1,000 ml @ 50 mls/hr Q20H IV 12/10/16 09:00 12/12/16 08:52 DC 12/12/16 02:00 Sucralfate (Carafate) 1 gm ACHS PO 12/16/16 17:30 01/15/17 17:29 12/17/16 06:32 Vitamin D (Vitamin D) 2,000 units DAILY PO 12/06/16 09:00 01/05/17 08:59 12/17/16 08:27 DAVIDA PARK MD Dec 17, 2016 09:24
[2016-12-17 09:33] VITALS: BP 116/57
[2016-12-17 09:37] LABS: DIFF SLIDE NUMBER 11; RETIC HEMOGLOBIN CONTENT CHr 35.3 PG (24-36); RETICULOCYTE ABSOLUTE ADVIA212 43 x10(9)/L (17-77)
[2016-12-17 14:00] VITALS: BP 145/67
[2016-12-17 20:00] VITALS: BP 156/67
[2016-12-17] MEDS: SIMVASTATIN 10 MG TAB PO SCH (20:44)
[2016-12-17] MEDS: DONEPEZIL 5 MG TAB PO SCH (20:45)
[2016-12-17] MEDS: LISINOPRIL 10 MG TAB PO SCH (20:47)
[2016-12-18 06:00] VITALS: BP 168/58
[2016-12-18] MEDS: ACETAMINOPHEN 500 MG TAB PO SCH ×3 (06:02→21:53)
[2016-12-18] MEDS: SUCRALFATE 1 GM TAB PO SCH ×4 (06:37→20:37)
[2016-12-18 07:06] LABS: MEAN CORPUSCULAR HEMOGLOBIN 29.2 pg (27.0-33.0); MEAN CORPUSCULAR VOLUME 94.1 fl (80.0-96.0); RED CELL DISTRIBUTION WIDTH 14.4 % (11.5-14.5); WHITE BLOOD COUNT 11.8 K/mm3 (4.0-10.0)
[2016-12-18 07:14] LABS: INR 2.2
[2016-12-18 07:32] LABS: ANION GAP 7 MEQ/L (8-16); BLOOD UREA NITROGEN 26 MG/DL (7-18); CARBON DIOXIDE LEVEL 28 MEQ/L (21-32); CHLORIDE LEVEL 110 MEQ/L (98-107); CREATININE FOR GFR 0.67 MG/DL (0.70-1.30); GLOMERULAR FILTRATION RATE > 60.0 (>35); GLUCOSE, FASTING 94 MG/DL (83-110); POTASSIUM SERUM 4.1 MEQ/L (3.5-5.1); SODIUM LEVEL 145 MEQ/L (136-145)
[2016-12-18] MEDS: ASPIRIN 81 MG ENTERIC TAB PO SCH (09:09)
[2016-12-18] MEDS: PANTOPRAZOLE 40MG TAB (PROTONIX) PO SCH ×2 (09:09→20:37)
[2016-12-18] MEDS: FERROUS SULFATE 325MG TAB PO SCH ×2 (09:09→20:37)
[2016-12-18] MEDS: ASCORBIC ACID 500 MG TAB PO SCH ×2 (09:09→20:37)
[2016-12-18] MEDS: MULTIVITAMINS/MINERALS THERAP 1 TAB PO SCH (09:09)
[2016-12-18] MEDS: LACTOBACILLUS ACIDOPHILUS CAP (BACID) PO SCH ×2 (09:09→20:37)
[2016-12-18] MEDS: VITAMIN D 1,000 INTERNATIONAL UNITS TABLET PO SCH (09:09)
[2016-12-18] MEDS: MEMANTINE 5MG TABLET (NAMENDA) PO SCH ×2 (09:09→20:38)
[2016-12-18] MEDS: MIRALAX *UNIT DOSE* 17GM PACKET PO PRN (09:09)
--- NOTE | 2016-12-18 12:22 | IPNPDOC ---
Clinical Psychologist Licensed Progress Note PROGRESS NOTE DATE OF ADMISSION: 12/05/16 DATE OF SERVICE: 12/18/16 IDENTIFICATION STATEMENT: 85-year-old gentleman with left intertrochanteric fracture status post ORIF admitted for comprehensive integrated inpatient rehabilitation. 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 Hernia repair. Artificial heart valve (bovin valve). ALLERGIES: Latex, tape MEDICATIONS: Protonix 40 mg PO bid Carafate 1gm ACHS Nitrostat 0.4 mg every 5 minutes when necessary Lisinopril 10 mg by mouth daily at bedtime Zocor 10 mg by mouth daily at bedtime Namenda 10mg PO bid Aricept 10mg qhs APAP 1000mg q8h prn Vitamin C 250 mg by mouth daily Aspirin 81 mg by mouth daily Vitamin D 2000 units by mouth daily Ferrous sulfate 325 mg by mouth daily Multivitamin 1 tab by mouth daily Senna 1 tab po qhs prn Colace 100mg PO bid prn MiraLAX 1 packet by mouth daily prn Milk of magnesia 30 mL by mouth daily prn SUBJECTIVE: No complaints but states he does fell tire. Has been doing a lot with therapist. No issues overnight. Had small BM but hard. No abdominal pain. Denies any CP, SOB, C/D, N/V, dysuria. VITAL SIGNS: Temperature 97.0F, pulse 69, respiratory rate 18, blood pressure 168/58, 97% saturation RA. PHYSICAL EXAMINATION: GENERAL: Well nourished, well developed, sitting up in chair, no acute distress HEENT: Normocephalic, atraumatic. No facial droop. PERRL, EOMI CARDIOVASCULAR: S1, S2, irregular rate. No significant right lower limb edema or calf tenderness. Diffuse swelling of the left lower limb (decreased since admission), no calf tenderness. LUNGS: Decreased breath sounds throughout, no wheezing, rhonchi or rales. ABDOMEN: Soft, nontender, nondistended. Normoactive bowel sounds throughout. MUSCULOSKELETAL: MMT: 3/5 right shoulder abduction and forward flexion, 5/5 right elbow flexion, 4/5 right licensed aircraft maintenance engineer strength. 5/5 left upper limb in all major muscle groups. 4/5 right hip flexors, 4/5 right knee extension, 5/5 right knee flexion, dorsiflexion plantar flexion. 3/5 left hip flexors, 4-/5 left knee extension, 4/5 left knee flexion, 4/5 left dorsiflexion plantar flexion NEUROLOGICAL: A&O x 3. Able to follow commands. Answers questions appropriately. SKIN: Left lateral hip surgical site healing well. LABORATORY DATA: 12/18/16: reviewed, see below 12/16/16: stool guaiac + 12/05/2016: WBC count 13.3, hemoglobin 10.1, hematocrit 31.6, platelets 276. Sodium 139, potassium 4.2, chloride 102, carbon dioxide 27, BUN 30, creatinine 1.04, GFR greater than 60, calcium 8.4, glucose 122 IMAGING: CT head: 12/09/16: non acute Femur x-ray 12/02/16: no mid or distal femur fracture. Hip and pelvis x-ray 12/02/16: intertrochanteric fracture of the left hip. Chest x-ray 12/02/16 cardiomegaly, status post aortic valve replacement. CT of the head 12/02/16: small vessel ischemic disease. No volume loss. FUNCTIONAL STATUS, premorbid: Independent with ambulation and most ADLs. Per the patients he did require some set up for dressing, but was able to bathe and dress himself. He has not driven recently secondary to his memory ASSESSMENT AND PLAN: 1. Left intertrochanteric fracture status post ORIF: Patient appears to be at baseline cognitively. Now WBAT left LL and making gains with therapy walked 16 x 2 in parallel bars yesterday afternoon, ~20 w RW this morning. Continue physical and occupational therapyTentative d/c date home set for 12/24/16, will reassess tomorrow at team rounds. Rehabilitation nursing for bladder, bowel, medication management and wound care. 2. AMS: Resolved, At baseline now. [Hx: Possibly secondary to urinary tract infection +/- azotemia. S/p Levaquin and IV fluids]. 3. UTI: S/p Levaquin. 4. Prerenal azotemia: S/p IVF 5. Htn: Overall adequate control. Awaiting repeat reading today. Continue Lisinopril. Adjustment if needed 6. DVT prophylaxis: Coumadin per ETHAN Enriquez of the orthopedic service. Last dose Coumadin 12/06/16. [Hx: Supratherapeutic INR likely 2nd Levaquin which has been d/cd]. Pts INR remains therapeutic w/o recent dose Coumadin. Continue SCD and DANIE hose. 7. Pain: Con tyl negrito. [Hx: Percocet was discontinued secondary to concerns for a contributing to AMS]. Continue intermittent ice. 8. Bowel: Will change Colace back to scheduled due to hard stool. [Hx; Bowel meds changed to prn 12/11/16 2nd loos stools]. 9. Alzheimers: Continue donepezil & Namenda. 10. Diet/severe malnutrition: Prealbumin low. Continue Ensure. Regular diet. 11. Anemia: Stool guaiac +. As previously documented may be 2nd hemorrhoids; but per report, stool melanoic. Continue Carafate ACHS and PPI bid. Continue iron. Recheck Hgb in am. Will need OP f/u. 12. Leukocytosis: recurrent. Will recheck in am and if still elevated will obtain repeat UA/UCx. / Vital Signs Vital Sign - Last 24 Hours 12/17/16 12/17/16 12/17/16 12/17/16 14:00 20:00 20:00 20:47 Temp 96.9 97.7 Pulse 55 57 Resp 18 18 B/P 145/67 156/67 156/67 Pulse Ox 98 96 O2 Delivery Room Air Room Air Room Air 12/18/16 12/18/16 06:00 08:30 Temp 97.0 Pulse 69 Resp 18 B/P 168/58 Pulse Ox 97 O2 Delivery Room Air Room Air Laboratory Data CBC/BMP Laboratory Tests 12/18/16 06:35 Calcium Level 8.0 L, Red Blood Count 2.80 L, Mean Corpuscular Volume 94.1, Mean Corpuscular Hemoglobin 29.2, Mean Corpuscular Hemoglobin Concent 31.0 L, Red Cell Distribution Width 14.4 Labs 24H Laboratory Tests 2 12/18/16 06:35: Anion Gap 7L, Blood Urea Nitrogen 26H, Creatinine 0.67L, Sodium Level 145, Potassium Level 4.1, Chloride Level 110H, Carbon Dioxide Level 28, Calcium Level 8.0L, Glomerular Filtration Rate > 60.0, Prealbumin 18.2L, Prothromb Time International Ratio 2.20, Prothrombin Time 24.5H Microbiology Microbiology 12/09/16 Blood Culture - Final, Complete NO GROWTH AFTER 5 DAYS 12/09/16 Blood Culture - Final, Complete NO GROWTH AFTER 5 DAYS 12/16/16 Stool Occult Blood (YOANDY) - Final, Complete Allergies Allergies: Coded Allergies: TAPE (Verified Allergy, Mild, 02/11/14) Latex (Unverified Allergy, Unknown, RASH, 12/02/16) Current Medications Current Medications Current Medications Acetaminophen (Tylenol) 650 mg Q4HP PRN PO MILD PAIN (PS 1-4); Start 12/05/16 at 12:45; Stop 12/05/16 at 15:35; Status DC Acetaminophen (Tylenol) 1,000 mg Q8H PO Last administered on 12/18/16 06:02; Start 12/05/16 at 22:00; Stop 01/04/17 at 21:59 Ascorbic Acid (Vitamin C) 250 mg DAILY PO Last administered on 12/11/16 08:43; Start 12/06/16 at 09:00; Stop 12/12/16 at 08:25; Status DC Ascorbic Acid (Vitamin C) 500 mg BID PO Last administered on 12/18/16 09:09; Start 12/12/16 at 09:00; Stop 01/11/17 at 08:59 Aspirin (Ecotrin) 81 mg DAILY PO Last administered on 12/18/16 09:09; Start at 09:00; Stop 01/05/17 at 08:59 Docusate Sodium (Colace) 100 mg BID PO Last administered on 12/11/16 08:43; Start 12/05/16 at 21:00; Stop 12/11/16 at 12:56; Status DC Docusate Sodium (Colace) 100 mg BIDP PRN PO CONSTIPATION Last administered on 08:47; Start 12/12/16 at 09:00; Stop 01/11/17 at 08:59 Donepezil HCl (AriCEPT) 10 mg QHS PO Last administered on 12/17/16 20:45; Start 12/05/16 at 21:00; Stop 01/04/17 at 20:59 Ferrous Sulfate (Ferrous Sulfate) 325 mg BID PO Last administered on 12/18/16 09:09; Start 12/12/16 at 09:00; Stop 01/11/17 at 08:59 Ferrous Sulfate (Ferrous Sulfate) 325 mg DAILY PO Last administered on 08:43; Start 12/06/16 at 09:00; Stop 12/12/16 at 08:25; Status DC Lactobacillus Acidophilus 1 ea 1 ea BID PO Last administered on 12/18/16 09:09 ; Start 12/09/16 at 09:00; Stop 01/08/17 at 08:59 Levofloxacin (Levaquin) 250 mg DAILY@06 PO Last administered on 12/14/16 06:26 ; Start 12/09/16 at 06:00; Stop 12/14/16 at 10:08; Status DC Lisinopril (Prinivil) 10 mg QHS PO Last administered on 12/17/16 20:47; Start 12/05/16 at 21:00; Stop 01/04/17 at 20:59 Magnesium Hydroxide (Milk Of Magnesia) 30 ml DAILYPRN PRN PO CONSTIPATION Last administered on 12/12/16 21:05; Start 12/05/16 at 12:45; Stop 01/04/17 at 12:44 Memantine (Namenda) 10 mg BID PO Last administered on 12/18/16 09:09; Start at 21:00; Stop 01/04/17 at 20:59 Multivitamins (Theragram-M) 1 tab DAILY PO Last administered on 12/18/16 09:09 ; Start 12/06/16 at 09:00; Stop 01/05/17 at 08:59 Nitroglycerin (Nitrostat (1/ 150)) 0.4 mg Q5MP PRN SL CHEST PAIN; Start at 12:45; Stop 01/04/17 at 12:44 Omeprazole (PriLOSEC) 40 mg DAILY PO Last administered on 12/16/16 08:47; Start 12/06/16 at 09:00; Stop 12/16/16 at 17:28; Status DC Oxycodone/ Acetaminophen (Percocet 5mg/ 325mg Tablet) 1 tab Q4HP PRN PO MODERATE/SEVERE PAIN (PS 5-10); Start 12/05/16 at 12:45; Stop 12/05/16 at 15:36 ; Status DC Oxycodone/ Acetaminophen (Percocet 5mg/ 325mg Tablet) 1 tab Q6HP PRN PO SEVERE PAIN (PS 8-10) Last administered on 12/07/16 10:31; Start 12/06/16 at 12:45; Stop 12/08/16 at 13:40; Status DC Pantoprazole Sodium (Protonix) 40 mg BID PO Last administered on 12/18/16 09:09 ; Start 12/16/16 at 21:00; Stop 01/15/17 at 20:59 Polyethylene Glycol (Miralax) 1 pkt DAILY PRN PO CONSTIPATION Last administered on 12/18/16 09:09; Start 12/05/16 at 12:45; Stop 01/04/17 at 12:44 Senna (Senokot) 1 tab QHS PO Last administered on 12/10/16 21:51; Start at 21:00; Stop 12/11/16 at 12:56; Status DC Senna (Senokot) 1 tab QHSP PRN PO CONSTIPATION Last administered on 12/14/16 21 :07; Start 12/11/16 at 21:00; Stop 01/10/17 at 20:59 Simvastatin (Zocor) 10 mg QHS PO Last administered on 12/17/16 20:44; Start at 21:00; Stop 01/04/17 at 20:59 Sodium Chloride 1,000 ml @ 75 mls/hr [id number] IV Last administered on 01:25; Start 12/09/16 at 12:00; Stop 12/10/16 at 08:49; Status DC Sodium Chloride (Nacl 0.45%) 1,000 ml @ 50 mls/hr Q20H IV Last administered on 12/12/16 02:00; Start 12/10/16 at 09:00; Stop 12/12/16 at 08:52; Status DC Sucralfate (Carafate) 1 gm ACHS PO Last administered on 12/18/16 11:52; Start 12/16/16 at 17:30; Stop 01/15/17 at 17:29 Vitamin D (Vitamin D) 2,000 units DAILY PO Last administered on 12/18/16 09:09 ; Start 12/06/16 at 09:00; Stop 01/05/17 at 08:59 DAVIDA PARK MD Dec 18, 2016 12:22
[2016-12-18 14:00] VITALS: BP 148/72
[2016-12-18] MEDS ORDERED: BISACODYL 10 MG SUPP PR ONE (14:00)
[2016-12-18 20:00] VITALS: BP 148/71
[2016-12-18] MEDS: SENNA 8.6 MG TAB (SENOKOT) PO PRN (20:37)
[2016-12-18] MEDS: LISINOPRIL 10 MG TAB PO SCH (20:37)
[2016-12-18] MEDS: SIMVASTATIN 10 MG TAB PO SCH (20:37)
[2016-12-18] MEDS: DONEPEZIL 5 MG TAB PO SCH (20:37)
[2016-12-18] MEDS: DOCUSATE SODIUM 100 MG CAP PO SCH (20:37)
[2016-12-19 06:00] VITALS: BP 148/79
[2016-12-19] MEDS: ACETAMINOPHEN 500 MG TAB PO SCH ×3 (06:42→21:24)
[2016-12-19] MEDS: SUCRALFATE 1 GM TAB PO SCH ×4 (06:50→21:24)
[2016-12-19 06:52] LABS: BASO % 0.2 % (0.0-1.0); EOS # 0.2 K/mm3 (0.0-0.50); EOS % 1.4 % (0.0-3.0); LARGE UNSTAINED CELL # 0.3 K/mm3 (0.0-0.4); LARGE UNSTAINED CELL % 2.5 % (0.0-4.0); LYMPH # 2.3 K/mm3 (1.5-4.5); LYMPH % 20.1 % (24.0-44.0); MEAN CORPUSCULAR HEMOGLOBIN 29.6 pg (27.0-33.0); MEAN CORPUSCULAR HGB CONC 31.1 g/dl (32.0-36.5); MEAN CORPUSCULAR VOLUME 95.3 fl (80.0-96.0); MONO # 0.5 K/mm3 (0.0-0.8); MONO % 4.4 % (0.0-5.0); NEUTROPHILS # 7.3 K/mm3 (1.8-7.7); NEUTROPHILS % 71.3 % (36.0-66.0); PLATELET COUNT, AUTOMATED 488 k/mm3 (150-450); RED CELL DISTRIBUTION WIDTH 14.7 % (11.5-14.5); WHITE BLOOD COUNT 10.2 K/mm3 (4.0-10.0)
[2016-12-19 06:58] LABS: INR 1.99
[2016-12-19 07:11] LABS: ANION GAP 8 MEQ/L (8-16); BLOOD UREA NITROGEN 25 MG/DL (7-18); CALCIUM LEVEL 8.5 MG/DL (8.8-10.2); CARBON DIOXIDE LEVEL 29 MEQ/L (21-32); CHLORIDE LEVEL 110 MEQ/L (98-107); CREATININE FOR GFR 0.63 MG/DL (0.70-1.30); GLOMERULAR FILTRATION RATE > 60.0 (>35); GLUCOSE, FASTING 90 MG/DL (83-110); POTASSIUM SERUM 4.3 MEQ/L (3.5-5.1); SODIUM LEVEL 147 MEQ/L (136-145)
[2016-12-19] MEDS: VITAMIN D 1,000 INTERNATIONAL UNITS TABLET PO SCH (09:05)
[2016-12-19] MEDS: PANTOPRAZOLE 40MG TAB (PROTONIX) PO SCH ×2 (09:05→21:24)
[2016-12-19] MEDS: ASPIRIN 81 MG ENTERIC TAB PO SCH (09:05)
[2016-12-19] MEDS: DOCUSATE SODIUM 100 MG CAP PO SCH ×2 (09:05→21:24)
[2016-12-19] MEDS: LACTOBACILLUS ACIDOPHILUS CAP (BACID) PO SCH ×2 (09:06→21:23)
[2016-12-19] MEDS: FERROUS SULFATE 325MG TAB PO SCH ×2 (09:06→21:24)
[2016-12-19] MEDS: MULTIVITAMINS/MINERALS THERAP 1 TAB PO SCH (09:06)
[2016-12-19] MEDS: ASCORBIC ACID 500 MG TAB PO SCH ×2 (09:06→21:23)
[2016-12-19] MEDS: MEMANTINE 5MG TABLET (NAMENDA) PO SCH ×2 (09:06→21:24)
--- NOTE | 2016-12-19 11:06 | IPNPDOC ---
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 Hernia repair. Artificial heart valve (bovin valve). ALLERGIES: Latex, tape MEDICATIONS: Protonix 40 mg PO bid Carafate 1gm ACHS Nitrostat 0.4 mg every 5 minutes when necessary Lisinopril 10 mg by mouth daily at bedtime Zocor 10 mg by mouth daily at bedtime Namenda 10mg PO bid Aricept 10mg qhs APAP 1000mg q8h prn Vitamin C 250 mg by mouth daily Aspirin 81 mg by mouth daily Vitamin D 2000 units by mouth daily Ferrous sulfate 325 mg by mouth daily Multivitamin 1 tab by mouth daily Senna 1 tab po qhs Colace 100mg PO bid MiraLAX 1 packet by mouth daily prn Milk of magnesia 30 mL by mouth daily prn SUBJECTIVE: States he feels a lot better. Asking when he can go home. No issues overnight. Had good BM yesterday early evening. Denies any CP, SOB, C/D, N/V, dysuria. VITAL SIGNS: Temperature 97.4F, pulse 63, respiratory rate 18, blood pressure 148/79, 98% saturation RA. PHYSICAL EXAMINATION: GENERAL: Well nourished, well developed, sitting up in bed, no acute distress HEENT: Normocephalic, atraumatic. PERRL, EOMI CARDIOVASCULAR: S1, S2, irregular rate. No significant lower limb edema or calf tenderness, b/l. LUNGS: Decreased breath sounds throughout, no wheezing, rhonchi or rales. ABDOMEN: Soft, nontender, nondistended. Normoactive bowel sounds throughout. MUSCULOSKELETAL: MMT: 3/5 right shoulder abduction and forward flexion, 5/5 right elbow flexion, 4/5 right intravenous therapy nurse strength. 5/5 left upper limb in all major muscle groups. 4+/5 right hip flexors, 5/5 right knee extension, 5/5 right knee flexion, dorsiflexion plantar flexion. 3/5 left hip flexors, 4-/5 left knee extension, 4/5 left knee flexion, 5/5 left dorsiflexion plantar flexion NEUROLOGICAL: A&O x 3. Able to follow commands. Answers questions appropriately. SKIN: Left lateral hip surgical site healing well. LABORATORY DATA: 12/19/16: reviewed, see below 12/16/16: stool guaiac + 12/05/2016: WBC count 13.3, hemoglobin 10.1, hematocrit 31.6, platelets 276. Sodium 139, potassium 4.2, chloride 102, carbon dioxide 27, BUN 30, creatinine 1.04, GFR greater than 60, calcium 8.4, glucose 122 IMAGING: CT head: 12/09/16: non acute Femur x-ray 12/02/16: no mid or distal femur fracture. Hip and pelvis x-ray 12/02/16: intertrochanteric fracture of the left hip. Chest x-ray 12/02/16 cardiomegaly, status post aortic valve replacement. CT of the head 12/02/16: small vessel ischemic disease. No volume loss. FUNCTIONAL STATUS, premorbid: Independent with ambulation and most ADLs. Per the patients he did require some set up for dressing, but was able to bathe and dress himself. He has not driven recently secondary to his memory ASSESSMENT AND PLAN: 1. Left intertrochanteric fracture status post ORIF: Patient appears to be at baseline cognitively. Making gains with therapy. Continue physical and occupational therapy. Tentative d/c date home set for 12/24/16, will reassess today at team rounds. Rehabilitation nursing for bladder, bowel, medication management and wound care. 2. AMS: Resolved, At baseline now. [Hx: Possibly secondary to urinary tract infection +/- azotemia. S/p Levaquin and IV fluids]. 3. UTI: S/p Levaquin. 4. Prerenal azotemia: S/p IVF 5. Htn: Mildly elevated. Continue Lisinopril. Reassess this afternoon. Adjustment if needed 6. DVT prophylaxis: Coumadin per ETHAN Enriquez of the orthopedic service. [ Hx: Supratherapeutic INR likely 2nd Levaquin which has been d/cd]. Continue SCD and DANIE hose. 7. Pain: Con tyl negrito. [Hx: Percocet was discontinued secondary to concerns for a contributing to AMS]. Continue intermittent ice. 8. Bowel: Change Colace back to scheduled due to hard stool. [Hx: Bowel meds changed to prn 12/11/16 2nd loos stools]. 9. Alzheimers: Continue donepezil & Namenda. 10. Diet/severe malnutrition: Prealbumin low but trending up. Continue Ensure supplements. Regular diet. 11. Anemia: Hgb ~stable. Continue Carafate ACHS and PPI bid. Continue iron. Will need OP f/u. 12. Leukocytosis: Decreasing. Patient afebrile and asymptomatic. / Vital Signs Vital Sign - Last 24 Hours 12/18/16 12/18/16 12/18/16 12/18/16 14:00 20:00 20:00 20:37 Temp 97.7 97.3 Pulse 83 67 Resp 18 18 B/P 148/72 148/71 148/71 Pulse Ox 91 98 O2 Delivery Room Air Room Air Room Air 12/19/16 12/19/16 06:00 08:00 Temp 97.4 Pulse 63 Resp 18 B/P 148/79 Pulse Ox 98 O2 Delivery Room Air Room Air Laboratory Data CBC/BMP Laboratory Tests 12/19/16 06:23 Red Blood Count 2.81 L, Mean Corpuscular Volume 95.3, Mean Corpuscular Hemoglobin 29.6, Mean Corpuscular Hemoglobin Concent 31.1 L, Red Cell Distribution Width 14.7 H, Neutrophils (%) (Auto) 71.3 H, Lymphocytes (%) (Auto ) 20.1 L, Monocytes (%) (Auto) 4.4, Eosinophils (%) (Auto) 1.4, Basophils (%) ( Auto) 0.2, Neutrophils # (Auto) 7.3, Lymphocytes # (Auto) 2.3, Monocytes # (Auto ) 0.5, Eosinophils # (Auto) 0.2, Basophils # (Auto) 0.0 12/19/16 06:24 Calcium Level 8.5 L Labs 24H Laboratory Tests 2 12/19/16 06:23: White Blood Count 10.2H, Red Blood Count 2.81L, Hemoglobin 8.3L, Hematocrit 26.8L, Mean Corpuscular Volume 95.3, Mean Corpuscular Hemoglobin 29.6, Mean Corpuscular Hemoglobin Concent 31.1L, Red Cell Distribution Width 14.7H, Platelet Count 488H, Neutrophils (%) (Auto) 71.3H, Lymphocytes (%) (Auto) 20.1L , Monocytes (%) (Auto) 4.4, Eosinophils (%) (Auto) 1.4, Basophils (%) (Auto) 0.2 , Neutrophils # (Auto) 7.3, Lymphocytes # (Auto) 2.3, Monocytes # (Auto) 0.5, Eosinophils # (Auto) 0.2, Basophils # (Auto) 0.0, Large Unclassified Cells # 0.3 , Large Unclassified Cells % 2.5 12/19/16 06:24: Anion Gap 8, Blood Urea Nitrogen 25H, Creatinine 0.63L, Sodium Level 147H, Potassium Level 4.3, Chloride Level 110H, Carbon Dioxide Level 29, Calcium Level 8.5L, Glomerular Filtration Rate > 60.0, Prothromb Time International Ratio 1.99, Prothrombin Time 22.7H Microbiology Microbiology 12/09/16 Blood Culture - Final, Complete NO GROWTH AFTER 5 DAYS 12/09/16 Blood Culture - Final, Complete NO GROWTH AFTER 5 DAYS 12/16/16 Stool Occult Blood (YOANDY) - Final, Complete Allergies Allergies: Coded Allergies: TAPE (Verified Allergy, Mild, 02/11/14) Latex (Unverified Allergy, Unknown, RASH, 12/02/16) Current Medications Current Medications Current Medications Acetaminophen (Tylenol) 650 mg Q4HP PRN PO MILD PAIN (PS 1-4); Start 12/05/16 at 12:45; Stop 12/05/16 at 15:35; Status DC Acetaminophen (Tylenol) 1,000 mg Q8H PO Last administered on 12/19/16 06:42; Start 12/05/16 at 22:00; Stop 01/04/17 at 21:59 Ascorbic Acid (Vitamin C) 250 mg DAILY PO Last administered on 12/11/16 08:43; Start 12/06/16 at 09:00; Stop 12/12/16 at 08:25; Status DC Ascorbic Acid (Vitamin C) 500 mg BID PO Last administered on 12/19/16 09:06; Start 12/12/16 at 09:00; Stop 01/11/17 at 08:59 Aspirin (Ecotrin) 81 mg DAILY PO Last administered on 12/19/16 09:05; Start at 09:00; Stop 01/05/17 at 08:59 Docusate Sodium (Colace) 100 mg BID PO Last administered on 12/11/16 08:43; Start 12/05/16 at 21:00; Stop 12/11/16 at 12:56; Status DC Docusate Sodium (Colace) 100 mg BID PO Last administered on 12/19/16 09:05; Start 12/18/16 at 21:00; Stop 01/17/17 at 20:59 Docusate Sodium (Colace) 100 mg BIDP PRN PO CONSTIPATION Last administered on 08:47; Start 12/12/16 at 09:00; Stop 12/18/16 at 12:32; Status DC Donepezil HCl (AriCEPT) 10 mg QHS PO Last administered on 12/18/16 20:37; Start 12/05/16 at 21:00; Stop 01/04/17 at 20:59 Ferrous Sulfate (Ferrous Sulfate) 325 mg BID PO Last administered on 12/19/16 09:06; Start 12/12/16 at 09:00; Stop 01/11/17 at 08:59 Ferrous Sulfate (Ferrous Sulfate) 325 mg DAILY PO Last administered on 08:43; Start 12/06/16 at 09:00; Stop 12/12/16 at 08:25; Status DC Lactobacillus Acidophilus 1 ea 1 ea BID PO Last administered on 12/19/16 09:06 ; Start 12/09/16 at 09:00; Stop 01/08/17 at 08:59 Levofloxacin (Levaquin) 250 mg DAILY@06 PO Last administered on 12/14/16 06:26 ; Start 12/09/16 at 06:00; Stop 12/14/16 at 10:08; Status DC Lisinopril (Prinivil) 10 mg QHS PO Last administered on 12/18/16 20:37; Start 12/05/16 at 21:00; Stop 01/04/17 at 20:59 Magnesium Hydroxide (Milk Of Magnesia) 30 ml DAILYPRN PRN PO CONSTIPATION Last administered on 12/12/16 21:05; Start 12/05/16 at 12:45; Stop 01/04/17 at 12:44 Memantine (Namenda) 10 mg BID PO Last administered on 12/19/16 09:06; Start at 21:00; Stop 01/04/17 at 20:59 Multivitamins (Theragram-M) 1 tab DAILY PO Last administered on 12/19/16 09:06 ; Start 12/06/16 at 09:00; Stop 01/05/17 at 08:59 Nitroglycerin (Nitrostat (1/ 150)) 0.4 mg Q5MP PRN SL CHEST PAIN; Start at 12:45; Stop 01/04/17 at 12:44 Omeprazole (PriLOSEC) 40 mg DAILY PO Last administered on 12/16/16 08:47; Start 12/06/16 at 09:00; Stop 12/16/16 at 17:28; Status DC Oxycodone/ Acetaminophen (Percocet 5mg/ 325mg Tablet) 1 tab Q4HP PRN PO MODERATE/SEVERE PAIN (PS 5-10); Start 12/05/16 at 12:45; Stop 12/05/16 at 15:36 ; Status DC Oxycodone/ Acetaminophen (Percocet 5mg/ 325mg Tablet) 1 tab Q6HP PRN PO SEVERE PAIN (PS 8-10) Last administered on 12/07/16 10:31; Start 12/06/16 at 12:45; Stop 12/08/16 at 13:40; Status DC Pantoprazole Sodium (Protonix) 40 mg BID PO Last administered on 12/19/16 09:05 ; Start 12/16/16 at 21:00; Stop 01/15/17 at 20:59 Polyethylene Glycol (Miralax) 1 pkt DAILY PRN PO CONSTIPATION Last administered on 12/18/16 09:09; Start 12/05/16 at 12:45; Stop 01/04/17 at 12:44 Senna (Senokot) 1 tab QHS PO Last administered on 12/10/16 21:51; Start at 21:00; Stop 12/11/16 at 12:56; Status DC Senna (Senokot) 1 tab QHSP PRN PO CONSTIPATION Last administered on 12/18/16 20 :37; Start 12/11/16 at 21:00; Stop 01/10/17 at 20:59 Simvastatin (Zocor) 10 mg QHS PO Last administered on 12/18/16 20:37; Start at 21:00; Stop 01/04/17 at 20:59 Sodium Chloride 1,000 ml @ 75 mls/hr [id number] IV Last administered on 01:25; Start 12/09/16 at 12:00; Stop 12/10/16 at 08:49; Status DC Sodium Chloride (Nacl 0.45%) 1,000 ml @ 50 mls/hr Q20H IV Last administered on 12/12/16 02:00; Start 12/10/16 at 09:00; Stop 12/12/16 at 08:52; Status DC Sucralfate (Carafate) 1 gm ACHS PO Last administered on 12/19/16 06:50; Start 12/16/16 at 17:30; Stop 01/15/17 at 17:29 Vitamin D (Vitamin D) 2,000 units DAILY PO Last administered on 12/19/16 09:05 ; Start 12/06/16 at 09:00; Stop 01/05/17 at 08:59 DAVIDA PARK MD Dec 19, 2016 11:06
[2016-12-19] MEDS ORDERED: WARFARIN 1.25 MG PER 1/2 TABLET PO ONE (17:00)
[2016-12-19 20:00] VITALS: BP 141/63
[2016-12-19] MEDS: DONEPEZIL 5 MG TAB PO SCH (21:23)
[2016-12-19] MEDS: LISINOPRIL 10 MG TAB PO SCH (21:24)
[2016-12-19] MEDS: SIMVASTATIN 10 MG TAB PO SCH (21:24)
[2016-12-20 06:00] VITALS: BP 142/66
[2016-12-20] MEDS: SUCRALFATE 1 GM TAB PO SCH ×4 (06:44→21:10)
[2016-12-20] MEDS: ACETAMINOPHEN 500 MG TAB PO SCH ×3 (06:44→21:11)
[2016-12-20 07:44] LABS: INR 1.97
[2016-12-20] MEDS: PANTOPRAZOLE 40MG TAB (PROTONIX) PO SCH ×2 (08:18→21:11)
[2016-12-20] MEDS: ASPIRIN 81 MG ENTERIC TAB PO SCH (08:18)
[2016-12-20] MEDS: LACTOBACILLUS ACIDOPHILUS CAP (BACID) PO SCH ×2 (08:18→21:11)
[2016-12-20] MEDS: FERROUS SULFATE 325MG TAB PO SCH ×2 (08:19→21:09)
[2016-12-20] MEDS: VITAMIN D 1,000 INTERNATIONAL UNITS TABLET PO SCH (08:19)
[2016-12-20] MEDS: MEMANTINE 5MG TABLET (NAMENDA) PO SCH ×2 (08:19→21:11)
[2016-12-20] MEDS: DOCUSATE SODIUM 100 MG CAP PO SCH ×2 (08:19→21:11)
[2016-12-20] MEDS: MULTIVITAMINS/MINERALS THERAP 1 TAB PO SCH (08:19)
[2016-12-20] MEDS: ASCORBIC ACID 500 MG TAB PO SCH ×2 (08:19→21:11)
--- NOTE | 2016-12-20 11:28 | IPNPDOC ---
Devops Engineer Progress Note PROGRESS NOTE DATE OF ADMISSION: 12/05/16 DATE OF SERVICE: 12/20/16 IDENTIFICATION STATEMENT: 85-year-old gentleman with left intertrochanteric fracture status post ORIF admitted for comprehensive integrated inpatient rehabilitation. 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 Hernia repair. Artificial heart valve (bovin valve). ALLERGIES: Latex, tape MEDICATIONS: Protonix 40 mg PO bid Carafate 1gm ACHS Nitrostat 0.4 mg every 5 minutes when necessary Lisinopril 10 mg by mouth daily at bedtime Zocor 10 mg by mouth daily at bedtime Namenda 10mg PO bid Aricept 10mg qhs APAP 1000mg q8h prn Vitamin C 250 mg by mouth daily Aspirin 81 mg by mouth daily Vitamin D 2000 units by mouth daily Ferrous sulfate 325 mg by mouth daily Multivitamin 1 tab by mouth daily Senna 1 tab po qhs Colace 100mg PO bid MiraLAX 1 packet by mouth daily prn Milk of magnesia 30 mL by mouth daily prn SUBJECTIVE: Pt states he feels well. No issues overnight. Denies any balance issues. Started wearing hearing aides. Denies any CP, SOB, C/D, N/V, dysuria. VITAL SIGNS: Temperature 97.7F, pulse 65, respiratory rate 18, blood pressure 142/66, 95% saturation RA. PHYSICAL EXAMINATION: GENERAL: Well nourished, well developed, sitting up in bed, no acute distress HEENT: Normocephalic, atraumatic. PERRL, EOMI CARDIOVASCULAR: S1, S2, irregular rate. No significant lower limb edema or calf tenderness, b/l. LUNGS: Decreased breath sounds throughout, no wheezing, rhonchi or rales. ABDOMEN: Soft, nontender, nondistended. Normoactive bowel sounds throughout. MUSCULOSKELETAL: MMT: 4/5 right shoulder abduction and forward flexion, 5/5 right elbow flexion, 4/5 right scientific programmer strength. 5/5 left upper limb in all major muscle groups. 5/5 right hip flexors, 5/5 right knee extension, 5/5 right knee flexion, dorsiflexion plantar flexion. 3/5 left hip flexors, 4-/5 left knee extension, 4/5 left knee flexion, 5/5 left dorsiflexion plantar flexion NEUROLOGICAL: A&O x 3. Able to follow commands. Answers questions appropriately. Finger to nose wnl SKIN: Left lateral hip surgical site healing well. LABORATORY DATA: 12/20/16: reviewed, see below 12/16/16: stool guaiac + 12/05/2016: WBC count 13.3, hemoglobin 10.1, hematocrit 31.6, platelets 276. Sodium 139, potassium 4.2, chloride 102, carbon dioxide 27, BUN 30, creatinine 1.04, GFR greater than 60, calcium 8.4, glucose 122 IMAGING: CT head: 12/09/16: non acute Femur x-ray 12/02/16: no mid or distal femur fracture. Hip and pelvis x-ray 12/02/16: intertrochanteric fracture of the left hip. Chest x-ray 12/02/16 cardiomegaly, status post aortic valve replacement. CT of the head 12/02/16: small vessel ischemic disease. No volume loss. FUNCTIONAL STATUS, premorbid: Independent with ambulation and most ADLs. Per the patients he did require some set up for dressing, but was able to bathe and dress himself. He has not driven recently secondary to his memory ASSESSMENT AND PLAN: 1. Left intertrochanteric fracture status post ORIF: Patient now at baseline cognitively. Making good gains with therapy. Continue physical and occupational therapy. Anticiapted d/c date home set for 12/24/16. I have spoke with the who said she is confident she can provided needed level of assistance and that she can also get some help if needed. Rehabilitation nursing for bladder, bowel, medication management and wound care. 2. AMS/metabolic encephalopathy: Resolved, At baseline. [Hx: Possibly secondary to urinary tract infection +/- azotemia. S/p Levaquin and IV fluids]. 3. UTI: S/p Levaquin. 4. Prerenal azotemia: S/p IVF 5. Htn: Continue Lisinopril. Was on Lasix 40mg at home prn per Cardiology note. Pending tomorrows labs, may consider restarting small dose Lasix. 6. DVT prophylaxis: Coumadin per ETHAN Enriquez of the orthopedic service. [ Hx: Supratherapeutic INR likely 2nd Levaquin which has been d/cd]. Continue SCD and DANIE hose. 7. Pain: Con tyl negrito. [Hx: Percocet was discontinued secondary to concerns for a contributing to AMS]. Continue intermittent ice. 8. Bowel: Continue Colace scheduled. Senna, Miralax and MOM prn. [Hx: Bowel meds changed to prn 12/11/16 2nd loos stools]. 9. Alzheimers: Continue donepezil & Namenda. 10. Diet/severe malnutrition: Prealbumin low but trending up. Continue Ensure supplements. Regular diet. 11. Anemia: Hgb ~stable. Continue Carafate ACHS and PPI bid. Continue iron. Will need OP f/u. AM labs. 12. Leukocytosis: Decreasing. Patient afebrile and asymptomatic. AM labs / Vital Signs Vital Sign - Last 24 Hours 12/19/16 12/19/16 12/19/16 12/20/16 20:00 20:00 21:24 06:00 Temp 98.0 97.7 Pulse 56 65 Resp 18 18 B/P 141/63 138/56 142/66 Pulse Ox 98 95 O2 Delivery Room Air Room Air Room Air 12/20/16 08:00 O2 Delivery Room Air Laboratory Data Labs 24H Laboratory Tests 2 12/20/16 06:22: Prothromb Time International Ratio 1.97, Prothrombin Time 22.5H Microbiology Microbiology 12/16/16 Stool Occult Blood (YOANDY) - Final, Complete Allergies Allergies: Coded Allergies: TAPE (Verified Allergy, Mild, 02/11/14) Latex (Unverified Allergy, Unknown, RASH, 12/02/16) Current Medications Current Medications Current Medications Acetaminophen (Tylenol) 650 mg Q4HP PRN PO MILD PAIN (PS 1-4); Start 12/05/16 at 12:45; Stop 12/05/16 at 15:35; Status DC Acetaminophen (Tylenol) 1,000 mg Q8H PO Last administered on 12/20/16 06:44; Start 12/05/16 at 22:00; Stop 01/04/17 at 21:59 Ascorbic Acid (Vitamin C) 250 mg DAILY PO Last administered on 12/11/16 08:43; Start 12/06/16 at 09:00; Stop 12/12/16 at 08:25; Status DC Ascorbic Acid (Vitamin C) 500 mg BID PO Last administered on 12/20/16 08:19; Start 12/12/16 at 09:00; Stop 01/11/17 at 08:59 Aspirin (Ecotrin) 81 mg DAILY PO Last administered on 12/20/16 08:18; Start at 09:00; Stop 01/05/17 at 08:59 Docusate Sodium (Colace) 100 mg BID PO Last administered on 12/11/16 08:43; Start 12/05/16 at 21:00; Stop 12/11/16 at 12:56; Status DC Docusate Sodium (Colace) 100 mg BID PO Last administered on 12/20/16 08:19; Start 12/18/16 at 21:00; Stop 01/17/17 at 20:59 Docusate Sodium (Colace) 100 mg BIDP PRN PO CONSTIPATION Last administered on 08:47; Start 12/12/16 at 09:00; Stop 12/18/16 at 12:32; Status DC Donepezil HCl (AriCEPT) 10 mg QHS PO Last administered on 12/19/16 21:23; Start 12/05/16 at 21:00; Stop 01/04/17 at 20:59 Ferrous Sulfate (Ferrous Sulfate) 325 mg BID PO Last administered on 12/20/16 08:19; Start 12/12/16 at 09:00; Stop 01/11/17 at 08:59 Ferrous Sulfate (Ferrous Sulfate) 325 mg DAILY PO Last administered on 08:43; Start 12/06/16 at 09:00; Stop 12/12/16 at 08:25; Status DC Lactobacillus Acidophilus 1 ea 1 ea BID PO Last administered on 12/20/16 08:18 ; Start 12/09/16 at 09:00; Stop 01/08/17 at 08:59 Levofloxacin (Levaquin) 250 mg DAILY@06 PO Last administered on 12/14/16 06:26 ; Start 12/09/16 at 06:00; Stop 12/14/16 at 10:08; Status DC Lisinopril (Prinivil) 10 mg QHS PO Last administered on 12/19/16 21:24; Start 12/05/16 at 21:00; Stop 01/04/17 at 20:59 Magnesium Hydroxide (Milk Of Magnesia) 30 ml DAILYPRN PRN PO CONSTIPATION Last administered on 12/12/16 21:05; Start 12/05/16 at 12:45; Stop 01/04/17 at 12:44 Memantine (Namenda) 10 mg BID PO Last administered on 12/20/16 08:19; Start at 21:00; Stop 01/04/17 at 20:59 Multivitamins (Theragram-M) 1 tab DAILY PO Last administered on 12/20/16 08:19 ; Start 12/06/16 at 09:00; Stop 01/05/17 at 08:59 Nitroglycerin (Nitrostat (1/ 150)) 0.4 mg Q5MP PRN SL CHEST PAIN; Start at 12:45; Stop 01/04/17 at 12:44 Omeprazole (PriLOSEC) 40 mg DAILY PO Last administered on 12/16/16 08:47; Start 12/06/16 at 09:00; Stop 12/16/16 at 17:28; Status DC Oxycodone/ Acetaminophen (Percocet 5mg/ 325mg Tablet) 1 tab Q4HP PRN PO MODERATE/SEVERE PAIN (PS 5-10); Start 12/05/16 at 12:45; Stop 12/05/16 at 15:36 ; Status DC Oxycodone/ Acetaminophen (Percocet 5mg/ 325mg Tablet) 1 tab Q6HP PRN PO SEVERE PAIN (PS 8-10) Last administered on 12/07/16 10:31; Start 12/06/16 at 12:45; Stop 12/08/16 at 13:40; Status DC Pantoprazole Sodium (Protonix) 40 mg BID PO Last administered on 12/20/16 08: 18; Start 12/16/16 at 21:00; Stop 01/15/17 at 20:59 Polyethylene Glycol (Miralax) 1 pkt DAILY PRN PO CONSTIPATION Last administered on 12/18/16 09:09; Start 12/05/16 at 12:45; Stop 01/04/17 at 12:44 Senna (Senokot) 1 tab QHS PO Last administered on 12/10/16 21:51; Start at 21:00; Stop 12/11/16 at 12:56; Status DC Senna (Senokot) 1 tab QHSP PRN PO CONSTIPATION Last administered on 12/18/16 20 :37; Start 12/11/16 at 21:00; Stop 01/10/17 at 20:59 Simvastatin (Zocor) 10 mg QHS PO Last administered on 12/19/16 21:24; Start at 21:00; Stop 01/04/17 at 20:59 Sodium Chloride 1,000 ml @ 75 mls/hr [id number] IV Last administered on 01:25; Start 12/09/16 at 12:00; Stop 12/10/16 at 08:49; Status DC Sodium Chloride (Nacl 0.45%) 1,000 ml @ 50 mls/hr Q20H IV Last administered on 12/12/16 02:00; Start 12/10/16 at 09:00; Stop 12/12/16 at 08:52; Status DC Sucralfate (Carafate) 1 gm ACHS PO Last administered on 12/20/16 06:44; Start 12/16/16 at 17:30; Stop 01/15/17 at 17:29 Vitamin D (Vitamin D) 2,000 units DAILY PO Last administered on 12/20/16 08:19 ; Start 12/06/16 at 09:00; Stop 01/05/17 at 08:59 DAVIDA PARK MD Dec 20, 2016 11:28
[2016-12-20 14:00] VITALS: BP 139/60
[2016-12-20] MEDS ORDERED: WARFARIN SOD 2.5 MG TAB PO ONE (17:00)
[2016-12-20 20:00] VITALS: BP 159/72
[2016-12-20] MEDS: DONEPEZIL 5 MG TAB PO SCH (21:10)
[2016-12-20] MEDS: LISINOPRIL 10 MG TAB PO SCH (21:10)
[2016-12-20] MEDS: SIMVASTATIN 10 MG TAB PO SCH (21:11)
[2016-12-21 06:00] VITALS: BP 135/58
[2016-12-21] MEDS: SUCRALFATE 1 GM TAB PO SCH ×4 (06:36→21:09)
[2016-12-21] MEDS: ACETAMINOPHEN 500 MG TAB PO SCH ×3 (06:36→21:09)
[2016-12-21 06:46] LABS: BASO % 0.5 % (0.0-1.0); EOS # 0.1 K/mm3 (0.0-0.50); EOS % 1.2 % (0.0-3.0); LARGE UNSTAINED CELL # 0.3 K/mm3 (0.0-0.4); LARGE UNSTAINED CELL % 3.4 % (0.0-4.0); LYMPH % 23.8 % (24.0-44.0); MEAN CORPUSCULAR HGB CONC 30.2 g/dl (32.0-36.5); MEAN CORPUSCULAR VOLUME 96.3 fl (80.0-96.0); MONO # 0.5 K/mm3 (0.0-0.8); NEUTROPHILS # 5.5 K/mm3 (1.8-7.7); NEUTROPHILS % 65.2 % (36.0-66.0); PLATELET COUNT, AUTOMATED 396 k/mm3 (150-450); RED CELL DISTRIBUTION WIDTH 14.8 % (11.5-14.5); WHITE BLOOD COUNT 8.5 K/mm3 (4.0-10.0)
[2016-12-21 06:49] LABS: INR 2.04
[2016-12-21 07:19] LABS: ANION GAP 7 MEQ/L (8-16); BLOOD UREA NITROGEN 27 MG/DL (7-18); CALCIUM LEVEL 8.3 MG/DL (8.8-10.2); CARBON DIOXIDE LEVEL 25 MEQ/L (21-32); CHLORIDE LEVEL 112 MEQ/L (98-107); CREATININE FOR GFR 0.69 MG/DL (0.70-1.30); GLOMERULAR FILTRATION RATE > 60.0 (>35); GLUCOSE, FASTING 96 MG/DL (83-110); POTASSIUM SERUM 4.8 MEQ/L (3.5-5.1); SODIUM LEVEL 144 MEQ/L (136-145)
[2016-12-21] MEDS: PANTOPRAZOLE 40MG TAB (PROTONIX) PO SCH ×2 (08:45→21:09)
[2016-12-21] MEDS: VITAMIN D 1,000 INTERNATIONAL UNITS TABLET PO SCH (08:45)
[2016-12-21] MEDS: ASCORBIC ACID 500 MG TAB PO SCH ×2 (08:45→21:09)
[2016-12-21] MEDS: MEMANTINE 5MG TABLET (NAMENDA) PO SCH ×2 (08:45→21:08)
[2016-12-21] MEDS: MULTIVITAMINS/MINERALS THERAP 1 TAB PO SCH (08:45)
[2016-12-21] MEDS: LACTOBACILLUS ACIDOPHILUS CAP (BACID) PO SCH ×2 (08:45→21:10)
[2016-12-21] MEDS: ASPIRIN 81 MG ENTERIC TAB PO SCH (08:45)
[2016-12-21] MEDS: DOCUSATE SODIUM 100 MG CAP PO SCH ×2 (08:45→21:08)
[2016-12-21] MEDS: FERROUS SULFATE 325MG TAB PO SCH ×2 (08:45→21:09)
[2016-12-21 14:00] VITALS: BP 114/57
[2016-12-21] MEDS ORDERED: WARFARIN SOD 1 MG TAB PO ONE (17:00)
[2016-12-21 20:00] VITALS: BP 155/71
[2016-12-21] MEDS: SIMVASTATIN 10 MG TAB PO SCH (21:08)
[2016-12-21] MEDS: DONEPEZIL 5 MG TAB PO SCH (21:09)
[2016-12-21] MEDS: LISINOPRIL 10 MG TAB PO SCH (21:10)
[2016-12-21] MEDS: MOM 30ML SUSPENSION UDC PO PRN (21:10)
[2016-12-22 06:00] VITALS: BP 152/77
[2016-12-22] MEDS: ACETAMINOPHEN 500 MG TAB PO SCH ×3 (06:00→20:16)
[2016-12-22] MEDS: SUCRALFATE 1 GM TAB PO SCH ×4 (07:22→20:15)
[2016-12-22 07:40] LABS: MEAN CORPUSCULAR HEMOGLOBIN 29.6 pg (27.0-33.0); MEAN CORPUSCULAR HGB CONC 31.7 g/dl (32.0-36.5); MEAN CORPUSCULAR VOLUME 93.2 fl (80.0-96.0); RED CELL DISTRIBUTION WIDTH 15.7 % (11.5-14.5); WHITE BLOOD COUNT 7.8 K/mm3 (4.0-10.0)
[2016-12-22 07:44] LABS: INR 2.48
[2016-12-22 07:53] LABS: ANION GAP 4 MEQ/L (8-16); BLOOD UREA NITROGEN 24 MG/DL (7-18); CALCIUM LEVEL 8.6 MG/DL (8.8-10.2); CARBON DIOXIDE LEVEL 32 MEQ/L (21-32); CHLORIDE LEVEL 111 MEQ/L (98-107); GLOMERULAR FILTRATION RATE > 60.0 (>35); GLUCOSE, FASTING 97 MG/DL (83-110); POTASSIUM SERUM 4.1 MEQ/L (3.5-5.1); SODIUM LEVEL 147 MEQ/L (136-145)
[2016-12-22] MEDS: MEMANTINE 5MG TABLET (NAMENDA) PO SCH ×2 (08:30→20:14)
[2016-12-22] MEDS: MULTIVITAMINS/MINERALS THERAP 1 TAB PO SCH (08:30)
[2016-12-22] MEDS: DOCUSATE SODIUM 100 MG CAP PO SCH ×2 (08:30→20:15)
[2016-12-22] MEDS: ASPIRIN 81 MG ENTERIC TAB PO SCH (08:30)
[2016-12-22] MEDS: ASCORBIC ACID 500 MG TAB PO SCH ×2 (08:30→20:15)
[2016-12-22] MEDS: LACTOBACILLUS ACIDOPHILUS CAP (BACID) PO SCH ×2 (08:30→20:14)
[2016-12-22] MEDS: FERROUS SULFATE 325MG TAB PO SCH ×2 (08:30→20:15)
[2016-12-22] MEDS: VITAMIN D 1,000 INTERNATIONAL UNITS TABLET PO SCH (08:31)
[2016-12-22] MEDS: PANTOPRAZOLE 40MG TAB (PROTONIX) PO SCH ×2 (08:31→20:15)
[2016-12-22] MEDS: MIRALAX *UNIT DOSE* 17GM PACKET PO PRN (08:33)
[2016-12-22 14:00] VITALS: BP 152/70
[2016-12-22] MEDS ORDERED: WARFARIN SOD 1 MG TAB PO ONE (17:00)
[2016-12-22 20:00] VITALS: BP 138/63
[2016-12-22] MEDS: SIMVASTATIN 10 MG TAB PO SCH (20:14)
[2016-12-22] MEDS: LISINOPRIL 10 MG TAB PO SCH (20:15)
[2016-12-22] MEDS: DONEPEZIL 5 MG TAB PO SCH (20:15)
[2016-12-23 06:00] VITALS: BP 168/64
[2016-12-23] MEDS: SUCRALFATE 1 GM TAB PO SCH ×4 (06:41→21:02)
[2016-12-23] MEDS: ACETAMINOPHEN 500 MG TAB PO SCH ×3 (06:41→21:03)
[2016-12-23] MEDS: DOCUSATE SODIUM 100 MG CAP PO SCH ×2 (08:19→21:02)
[2016-12-23] MEDS: FERROUS SULFATE 325MG TAB PO SCH ×2 (08:19→21:03)
[2016-12-23] MEDS: ASPIRIN 81 MG ENTERIC TAB PO SCH (08:19)
[2016-12-23] MEDS: MEMANTINE 5MG TABLET (NAMENDA) PO SCH ×2 (08:19→21:02)
[2016-12-23] MEDS: MULTIVITAMINS/MINERALS THERAP 1 TAB PO SCH (08:19)
[2016-12-23] MEDS: PANTOPRAZOLE 40MG TAB (PROTONIX) PO SCH ×2 (08:19→21:03)
[2016-12-23] MEDS: ASCORBIC ACID 500 MG TAB PO SCH ×2 (08:19→21:02)
[2016-12-23] MEDS: VITAMIN D 1,000 INTERNATIONAL UNITS TABLET PO SCH (08:19)
[2016-12-23] MEDS: LACTOBACILLUS ACIDOPHILUS CAP (BACID) PO SCH ×2 (08:19→21:01)
[2016-12-23] MEDS: MIRALAX *UNIT DOSE* 17GM PACKET PO PRN (08:22)
--- NOTE | 2016-12-23 12:58 | IPNPDOC ---
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 Hernia repair. Artificial heart valve (bovin valve). ALLERGIES: Latex, tape MEDICATIONS: Protonix 40 mg PO bid Carafate 1gm ACHS Nitrostat 0.4 mg every 5 minutes when necessary Lisinopril 10 mg by mouth daily at bedtime Zocor 10 mg by mouth daily at bedtime Namenda 10mg PO bid Aricept 10mg qhs APAP 1000mg q8h prn Vitamin C 250 mg by mouth daily Aspirin 81 mg by mouth daily Vitamin D 2000 units by mouth daily Ferrous sulfate 325 mg by mouth daily Multivitamin 1 tab by mouth daily Senna 1 tab po qhs Colace 100mg PO bid MiraLAX 1 packet by mouth daily prn Milk of magnesia 30 mL by mouth daily prn SUBJECTIVE: Pt states he feels ok, no issues. Denies any any CP, SOB, C/D, N/V, dysuria, lightheadedness. Slept well last night VITAL SIGNS: Temperature 97.7F, pulse 59, respiratory rate 18, blood pressure 168/64, 97% saturation RA. PHYSICAL EXAMINATION: GENERAL: Well nourished, well developed, sitting up in chair, no acute distress HEENT: Normocephalic, atraumatic. PERRL, EOMI CARDIOVASCULAR: S1, S2, irregular rate. No significant lower limb edema or calf tenderness, b/l. LUNGS: Decreased breath sounds throughout, no wheezing, rhonchi or rales. ABDOMEN: Soft, nontender, nondistended. Normoactive bowel sounds throughout. MUSCULOSKELETAL: MMT: 4/5 right shoulder abduction and forward flexion, 5/5 right elbow flexion, 4/5 right occupational health and safety adviser strength. 5/5 left upper limb in all major muscle groups. 5/5 right hip flexors, 5/5 right knee extension, 5/5 right knee flexion, dorsiflexion plantar flexion. 3/5 left hip flexors, 4-/5 left knee extension, 4/5 left knee flexion, 5/5 left dorsiflexion plantar flexion NEUROLOGICAL: A&O x 3. Able to follow commands. Answers questions appropriately. Finger to nose wnl SKIN: Left lateral hip surgical site healing well. LABORATORY DATA: 12/22/16: reviewed, see below 12/16/16: stool guaiac + 12/05/2016: WBC count 13.3, hemoglobin 10.1, hematocrit 31.6, platelets 276. Sodium 139, potassium 4.2, chloride 102, carbon dioxide 27, BUN 30, creatinine 1.04, GFR greater than 60, calcium 8.4, glucose 122 IMAGING: CT head: 12/09/16: non acute Femur x-ray 12/02/16: no mid or distal femur fracture. Hip and pelvis x-ray 12/02/16: intertrochanteric fracture of the left hip. Chest x-ray 12/02/16 cardiomegaly, status post aortic valve replacement. CT of the head 12/02/16: small vessel ischemic disease. No volume loss. FUNCTIONAL STATUS, premorbid: Independent with ambulation and most ADLs. Per the patients he did require some set up for dressing, but was able to bathe and dress himself. He has not driven recently secondary to his memory ASSESSMENT AND PLAN: 1. Left intertrochanteric fracture status post ORIF: Patient now at baseline cognitively. Making good gains with therapy. Had to be transfused over weekend (1U PRBCs w appropriate rise). Continue physical and occupational therapy. Anticiapted d/c date home set for 12/24/16. Recheck H&H in am, hopefully will be stable. Rehabilitation nursing for bladder, bowel, medication management and wound care. 2. AMS/metabolic encephalopathy: Resolved, At baseline. [Hx: Possibly secondary to urinary tract infection +/- azotemia. S/p Levaquin and IV fluids]. 3. UTI: S/p Levaquin. 4. Prerenal azotemia: S/p IVF 5. Htn: Continue Lisinopril. Was on Lasix 40mg at home prn per Cardiology note. AT this time will not restart. 6. DVT prophylaxis: Coumadin per ETHAN Enriquez of the orthopedic service. [ Hx: Supratherapeutic INR likely 2nd Levaquin which has been d/cd]. Continue SCD and DANIE hose. 7. Pain: Con tyl negrito. [Hx: Percocet was discontinued secondary to concerns for a contributing to AMS]. Continue intermittent ice. 8. Bowel: Continue Colace scheduled. Senna, Miralax and MOM prn. [Hx: Bowel meds changed to prn 12/11/16 2nd loos stools]. 9. Alzheimers: Continue donepezil & Namenda. 10. Diet/severe malnutrition: Prealbumin low but trending up. Continue Ensure supplements. Regular diet. 11. Anemia: S/p 1U PRBCs with appropriate rise. Continue Carafate ACHS and PPI bid. Continue iron. AM labs. Will need OP f/u. AM labs. 12. Leukocytosis: Resolved / Vital Signs Vital Sign - Last 24 Hours 12/22/16 12/22/16 12/22/16 12/22/16 14:00 20:00 20:00 20:15 Temp 96.9 97.6 Pulse 52 62 Resp 18 18 B/P 152/70 138/63 138/63 Pulse Ox 97 96 O2 Delivery Room Air Room Air Room Air 12/23/16 12/23/16 06:00 08:00 Temp 97.7 Pulse 59 Resp 18 B/P 168/64 Pulse Ox 97 O2 Delivery Room Air Microbiology Microbiology 12/16/16 Stool Occult Blood (YOANDY) - Final, Complete Allergies Allergies: Coded Allergies: TAPE (Verified Allergy, Mild, 02/11/14) Latex (Unverified Allergy, Unknown, RASH, 12/02/16) Current Medications Current Medications Current Medications Acetaminophen (Tylenol) 650 mg Q4HP PRN PO MILD PAIN (PS 1-4); Start 12/05/16 at 12:45; Stop 12/05/16 at 15:35; Status DC Acetaminophen (Tylenol) 1,000 mg Q8H PO Last administered on 12/23/16 06:41; Start 12/05/16 at 22:00; Stop 01/04/17 at 21:59 Ascorbic Acid (Vitamin C) 250 mg DAILY PO Last administered on 12/11/16 08:43; Start 12/06/16 at 09:00; Stop 12/12/16 at 08:25; Status DC Ascorbic Acid (Vitamin C) 500 mg BID PO Last administered on 12/23/16 08:19; Start 12/12/16 at 09:00; Stop 01/11/17 at 08:59 Aspirin (Ecotrin) 81 mg DAILY PO Last administered on 12/23/16 08:19; Start at 09:00; Stop 01/05/17 at 08:59 Docusate Sodium (Colace) 100 mg BID PO Last administered on 12/11/16 08:43; Start 12/05/16 at 21:00; Stop 12/11/16 at 12:56; Status DC Docusate Sodium (Colace) 100 mg BID PO Last administered on 12/23/16 08:19; Start 12/18/16 at 21:00; Stop 01/17/17 at 20:59 Docusate Sodium (Colace) 100 mg BIDP PRN PO CONSTIPATION Last administered on 08:47; Start 12/12/16 at 09:00; Stop 12/18/16 at 12:32; Status DC Donepezil HCl (AriCEPT) 10 mg QHS PO Last administered on 12/22/16 20:15; Start 12/05/16 at 21:00; Stop 01/04/17 at 20:59 Ferrous Sulfate (Ferrous Sulfate) 325 mg BID PO Last administered on 12/23/16 08:19; Start 12/12/16 at 09:00; Stop 01/11/17 at 08:59 Ferrous Sulfate (Ferrous Sulfate) 325 mg DAILY PO Last administered on 08:43; Start 12/06/16 at 09:00; Stop 12/12/16 at 08:25; Status DC Lactobacillus Acidophilus 1 ea 1 ea BID PO Last administered on 12/23/16 08:19 ; Start 12/09/16 at 09:00; Stop 01/08/17 at 08:59 Levofloxacin (Levaquin) 250 mg DAILY@06 PO Last administered on 12/14/16 06:26 ; Start 12/09/16 at 06:00; Stop 12/14/16 at 10:08; Status DC Lisinopril (Prinivil) 10 mg QHS PO Last administered on 12/22/16 20:15; Start 12/05/16 at 21:00; Stop 01/04/17 at 20:59 Magnesium Hydroxide (Milk Of Magnesia) 30 ml DAILYPRN PRN PO CONSTIPATION Last administered on 12/21/16 21:10; Start 12/05/16 at 12:45; Stop 01/04/17 at 12:44 Memantine (Namenda) 10 mg BID PO Last administered on 12/23/16 08:19; Start at 21:00; Stop 01/04/17 at 20:59 Multivitamins (Theragram-M) 1 tab DAILY PO Last administered on 12/23/16 08:19 ; Start 12/06/16 at 09:00; Stop 01/05/17 at 08:59 Nitroglycerin (Nitrostat (1/ 150)) 0.4 mg Q5MP PRN SL CHEST PAIN; Start at 12:45; Stop 01/04/17 at 12:44 Omeprazole (PriLOSEC) 40 mg DAILY PO Last administered on 12/16/16 08:47; Start 12/06/16 at 09:00; Stop 12/16/16 at 17:28; Status DC Oxycodone/ Acetaminophen (Percocet 5mg/ 325mg Tablet) 1 tab Q4HP PRN PO MODERATE/SEVERE PAIN (PS 5-10); Start 12/05/16 at 12:45; Stop 12/05/16 at 15:36 ; Status DC Oxycodone/ Acetaminophen (Percocet 5mg/ 325mg Tablet) 1 tab Q6HP PRN PO SEVERE PAIN (PS 8-10) Last administered on 12/07/16 10:31; Start 12/06/16 at 12:45; Stop 12/08/16 at 13:40; Status DC Pantoprazole Sodium (Protonix) 40 mg BID PO Last administered on 12/23/16 08: 19; Start 12/16/16 at 21:00; Stop 01/15/17 at 20:59 Polyethylene Glycol (Miralax) 1 pkt DAILY PRN PO CONSTIPATION Last administered on 12/23/16 08:22; Start 12/05/16 at 12:45; Stop 01/04/17 at 12:44 Senna (Senokot) 1 tab QHS PO Last administered on 12/10/16 21:51; Start at 21:00; Stop 12/11/16 at 12:56; Status DC Senna (Senokot) 1 tab QHSP PRN PO CONSTIPATION Last administered on 12/18/16 20 :37; Start 12/11/16 at 21:00; Stop 01/10/17 at 20:59 Simvastatin (Zocor) 10 mg QHS PO Last administered on 12/22/16 20:14; Start at 21:00; Stop 01/04/17 at 20:59 Sodium Chloride 1,000 ml @ 75 mls/hr [id number] IV Last administered on 01:25; Start 12/09/16 at 12:00; Stop 12/10/16 at 08:49; Status DC Sodium Chloride (Nacl 0.45%) 1,000 ml @ 50 mls/hr Q20H IV Last administered on 12/12/16 02:00; Start 12/10/16 at 09:00; Stop 12/12/16 at 08:52; Status DC Sucralfate (Carafate) 1 gm ACHS PO Last administered on 12/23/16 11:57; Start 12/16/16 at 17:30; Stop 01/15/17 at 17:29 Vitamin D (Vitamin D) 2,000 units DAILY PO Last administered on 12/23/16 08:19 ; Start 12/06/16 at 09:00; Stop 01/05/17 at 08:59 DAVIDA PARK MD Dec 23, 2016 12:58
[2016-12-23 14:00] VITALS: BP 149/65
[2016-12-23 20:00] VITALS: BP 152/70
[2016-12-23 21:02] VITALS: BP 152/70
[2016-12-23] MEDS: SIMVASTATIN 10 MG TAB PO SCH (21:02)
[2016-12-23] MEDS: LISINOPRIL 10 MG TAB PO SCH (21:02)
[2016-12-23] MEDS: DONEPEZIL 5 MG TAB PO SCH (21:03)
[2016-12-24] MEDS: ACETAMINOPHEN 500 MG TAB PO SCH ×2 (06:03→13:00)
[2016-12-24 06:08] VITALS: BP 150/70
[2016-12-24 07:20] LABS: BASO % 0.3 % (0.0-1.0); EOS # 0.1 K/mm3 (0.0-0.50); EOS % 1.3 % (0.0-3.0); LARGE UNSTAINED CELL # 0.3 K/mm3 (0.0-0.4); LARGE UNSTAINED CELL % 4.9 % (0.0-4.0); LYMPH # 1.7 K/mm3 (1.5-4.5); MEAN CORPUSCULAR HEMOGLOBIN 29.3 pg (27.0-33.0); MEAN CORPUSCULAR HGB CONC 31.1 g/dl (32.0-36.5); MEAN CORPUSCULAR VOLUME 94.3 fl (80.0-96.0); MONO # 0.5 K/mm3 (0.0-0.8); MONO % 6.4 % (0.0-5.0); NEUTROPHILS # 4.4 K/mm3 (1.8-7.7); NEUTROPHILS % 63.1 % (36.0-66.0); PLATELET COUNT, AUTOMATED 308 k/mm3 (150-450); RED CELL DISTRIBUTION WIDTH 15.3 % (11.5-14.5)
[2016-12-24 07:25] LABS: INR 2.28
[2016-12-24 07:43] LABS: ANION GAP 7 MEQ/L (8-16); BLOOD UREA NITROGEN 29 MG/DL (7-18); CALCIUM LEVEL 8.3 MG/DL (8.8-10.2); CARBON DIOXIDE LEVEL 28 MEQ/L (21-32); CHLORIDE LEVEL 110 MEQ/L (98-107); CREATININE FOR GFR 0.67 MG/DL (0.70-1.30); GLOMERULAR FILTRATION RATE > 60.0 (>35); GLUCOSE, FASTING 101 MG/DL (83-110); POTASSIUM SERUM 3.7 MEQ/L (3.5-5.1); SODIUM LEVEL 145 MEQ/L (136-145)
[2016-12-24] MEDS: VITAMIN D 1,000 INTERNATIONAL UNITS TABLET PO SCH (08:14)
[2016-12-24] MEDS: DOCUSATE SODIUM 100 MG CAP PO SCH (08:14)
[2016-12-24] MEDS: LACTOBACILLUS ACIDOPHILUS CAP (BACID) PO SCH (08:14)
[2016-12-24] MEDS: ASPIRIN 81 MG ENTERIC TAB PO SCH (08:15)
[2016-12-24] MEDS: PANTOPRAZOLE 40MG TAB (PROTONIX) PO SCH (08:15)
[2016-12-24] MEDS: MEMANTINE 5MG TABLET (NAMENDA) PO SCH (08:15)
[2016-12-24] MEDS: ASCORBIC ACID 500 MG TAB PO SCH (08:15)
[2016-12-24] MEDS: MULTIVITAMINS/MINERALS THERAP 1 TAB PO SCH (08:15)
[2016-12-24] MEDS: SUCRALFATE 1 GM TAB PO SCH ×2 (08:15→11:34)
[2016-12-24] MEDS: FERROUS SULFATE 325MG TAB PO SCH (08:15)
[2016-12-24 11:45] VITALS: BP 162/74
[2016-12-24 12:00] VITALS: BP 159/71
--- NOTE | 2016-12-24 12:09 | DS.PDOC ---
Director Of Social Work Discharge Note DISCHARGE SUMMARY DATE OF ADMISSION: 12/05/16 DATE OF DISCHARGE: 12/24/16 DISCHARGE DIAGNOSES 1. Left intertrochanteric fracture status post ORIF 2. AMS/metabolic encephalopathy, resolved 3. UTI 4. Prerenal azotemia 5. Htn 6. Constipation 7. Alzheimers 8. Severe malnutrition 9. Anemia (acute blood loss + iron deficiency) IDENTIFICATION STATEMENT: 85-year-old gentleman with left intertrochanteric fracture status post ORIF admitted for comprehensive integrated inpatient rehabilitation. 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 Hernia repair. Artificial heart valve (bovin valve). HOSPITAL COURSE Patient was admitted to the acute rehabilitation unit and underwent daily physical and occupational therapy. Several days after admission, his WBC count was noted to be increased. He was also noted to have significant azotemia. Urine culture was sent. While awaiting the culture results, patient was noted to have acute decline in his mental status which included hallucinations. Blood cultures were sent . CT head was also done which was non acute. He was empirically started on antibiotics for UTI. IV access was eventually gained and he was started on IV fluids. His mental status improved significantly thereafter and he was noted to have improved performance in therapy. However, he reported persistent difficulty in maintaining a partial weight bearing on the left lower limb. This was confirmed with the therapists. Orthopedics was contacted 12/16/16 and approval was received to advance his status to weight bearing as tolerated left lower limb. Thereafter, patient began to make significant functional gains. During this time patient was noted to have gradual decline in his hemoglobin. Iron studies were done and patient was noted to be iron deficient. Review of the patients chart reviewed that this apparently been present for several years (last visible endoscopy was in 2013 for iron deficiency anemia). He was started on iron supplementation. Stool sample was sent and he was noted to be guaiac positive. Given the patient was on anticoagulation, he was treated empirically with Carafate and a PPI. On 12/21 the patient required transfusion of 2 units of packed red blood cells. He had an appropriate rise in his hemoglobin the following day; however, on the day of discharge, patients hemoglobin was again noted to be declining. Discussion occurred with the patient and his regarding his anemia. He was eager to go home and had met his functional goals and the had undergone family training. Decision was made to transfuse the patient prior to discharge and have the patient follow-up with his physicians (PCP & retail grocer ) within a week following his discharge. Additionally Coumadin was discussed she discontinued per orthopedics. On the afternoon of 12/24/2016 the patient was deemed stable for discharge home with home health services and his family. Summary of issues addressed while on the rehabilitation unit include the followin. Metabolic encephalopathy: Possibly secondary to urinary tract infection +/- azotemia. Resolved s/p Levaquin and IV fluids. 2. UTI: S/p Levaquin. 3. Prerenal azotemia: S/p IVF 4. Htn: Continue Lisinopril. (Was on Lasix 40mg prn at home. Did not restart ). 5. DVT prophylaxis: Coumadin per ETHAN Enriquez of the orthopedic service. [ Hx: INR labile, d/cd prior to discharge]. Maintained SCD and DANIE hose. 6. Pain: Adequately controlled with tyl negrito and intermittent ice. [Hx: Percocet was discontinued secondary to concerns for a contributing to AMS]. 7. Bowel: Constipation resolved with bowel regimen which included Colace, Senna , Miralax and MOM Bowel meds changed to prn 12/11/16 2nd loose stools. 8. Alzheimers: Continued donepezil & Namenda. 9. Severe malnutrition: Started on Ensure. Prealbumin low but trending up. 10. Anemia: S/p 2U PRBCs 12/21/16 with appropriate rise but subsequent decline. S /p 2U 12/24/16. Continued Carafate ACHS and PPI bid. Continue iron. Outpatient f/ u with PCP and retail grocer. VITAL SIGNS: Temperature 97.1F, pulse 60, respiratory rate 18, blood pressure 150/70, 94% saturation RA. PHYSICAL EXAMINATION: GENERAL: Well nourished, well developed, sitting up in chair, no acute distress HEENT: Normocephalic, atraumatic. PERRL, EOMI CARDIOVASCULAR: S1, S2, irregular rate. No significant lower limb edema or calf tenderness, b/l. LUNGS: Decreased breath sounds throughout, no wheezing, rhonchi or rales. ABDOMEN: Soft, nontender, nondistended. Normoactive bowel sounds throughout. MUSCULOSKELETAL: MMT: 4/5 right shoulder abduction and forward flexion, 5/5 right elbow flexion, 5/5 right mortarman strength. 5/5 left upper limb in all major muscle groups. 5/5 right hip flexors, 5/5 right knee extension, 5/5 right knee flexion, dorsiflexion plantar flexion. 3/5 left hip flexors, 4-/5 left knee extension, 5/5 left knee flexion, 5/5 left dorsiflexion plantar flexion NEUROLOGICAL: A&O x 3. Able to follow commands. Answers questions appropriately SKIN: Left lateral hip surgical site healing well. LABORATORY DATA: 12/24/16: reviewed, see below 12/16/16: stool guaiac + Blood Cx x 2 12/09/16: no growth UCx 12/07/16: enterococcus fecalis 12/05/2016: hemoglobin 10.1, hematocrit 31.6, platelets 276. BUN 30, creatinine 1.04 IMAGING: CT head: 12/09/16: small vessel ischemic disease. non acute ALLERGIES: Latex MEDICATIONS: Protonix 40 mg PO bid Carafate 1gm ACHS Aspirin 81 mg by mouth daily Lisinopril 10 mg by mouth daily at bedtime Zocor 10 mg by mouth daily at bedtime Namenda 10mg PO bid Aricept 10mg qhs Bacid 1 tab bid Colace 100mg bid Senna 1 tab po qhs prn APAP 650mg q4h prn pain Vitamin D 2000 units by mouth daily Ferrous sulfate 325 mg by mouth bid Vitamin C 500mg bid Multivitamin 1 tab by mouth daily MiraLAX 1 packet by mouth daily prn Milk of magnesia 30 mL by mouth daily prn Nitrostat 0.4 mg every 5 minutes when necessary DISCHARGE DISPOSITION: 1. The patient discharge home with family and HHS 2. The patient discharged in stable condition 3. Discharged with HHS to include RN, PT, OT and bath aide. 4. Equipment: Tub Bench 5. Post discharge follow-up medical appointments: PCP, Stereo Equipment Installer, Orthopedist. / Vital Signs/I&O Vital Sign - Last 24 Hours 12/23/16 12/23/16 12/23/16 12/23/16 14:00 20:00 20:00 21:02 Temp 97.5 97.9 Pulse 61 60 Resp 18 18 B/P 149/65 152/70 152/70 Pulse Ox 95 96 O2 Delivery Room Air Room Air Room Air 12/24/16 12/24/16 12/24/16 06:08 08:00 11:45 Temp 97.1 97.7 Pulse 60 54 Resp 18 18 B/P 150/70 162/74 Pulse Ox 94 97 O2 Delivery Room Air Room Air Room Air I&O- Last 24 Hours up to 6 AM 12/24/16 06:00 Intake Total 1080 ml Balance 1080 ml Laboratory Data CBC/BMP Laboratory Tests 12/24/16 07:05 Calcium Level 8.3 L, Red Blood Count 2.96 L, Mean Corpuscular Volume 94.3, Mean Corpuscular Hemoglobin 29.3, Mean Corpuscular Hemoglobin Concent 31.1 L, Red Cell Distribution Width 15.3 H, Neutrophils (%) (Auto) 63.1, Lymphocytes (%) ( Auto) 24.0, Monocytes (%) (Auto) 6.4 H, Eosinophils (%) (Auto) 1.3, Basophils (% ) (Auto) 0.3, Neutrophils # (Auto) 4.4, Lymphocytes # (Auto) 1.7, Monocytes # ( Auto) 0.5, Eosinophils # (Auto) 0.1, Basophils # (Auto) 0.0 Labs 48H Laboratory Tests 12/24/16 07:05: Anion Gap 7L, White Blood Count 7.0, Red Blood Count 2.96L, Hemoglobin 8.7L, Hematocrit 27.9L, Mean Corpuscular Volume 94.3, Mean Corpuscular Hemoglobin 29.3 , Mean Corpuscular Hemoglobin Concent 31.1L, Red Cell Distribution Width 15.3H, Platelet Count 308, Neutrophils (%) (Auto) 63.1, Lymphocytes (%) (Auto) 24.0, Monocytes (%) (Auto) 6.4H, Eosinophils (%) (Auto) 1.3, Basophils (%) (Auto) 0.3 , Neutrophils # (Auto) 4.4, Lymphocytes # (Auto) 1.7, Monocytes # (Auto) 0.5, Eosinophils # (Auto) 0.1, Basophils # (Auto) 0.0, Blood Urea Nitrogen 29H, Creatinine 0.67L, Sodium Level 145, Potassium Level 3.7, Chloride Level 110H, Carbon Dioxide Level 28, Calcium Level 8.3L, Fasting Glucose 101, Glomerular Filtration Rate > 60.0, Large Unclassified Cells # 0.3, Large Unclassified Cells % 4.9H, Prothromb Time International Ratio 2.28, Prothrombin Time 25.2H Microbiology Microbiology 12/16/16 Stool Occult Blood (YOANDY) - Final, Complete Medications Medications Medications Acetaminophen (Tylenol) 650 mg Q4HP PRN Ascorbic Acid (Vitamin C) 500 mg BID Aspirin (Ecotrin) 81 mg DAILY Docusate Sodium (Colace) 100 mg BID Donepezil HCl (AriCEPT) 10 mg QHS Ferrous Sulfate (Ferrous Sulfate) 325 mg BID Lactobacillus Acidophilus 1 ea 1 ea BID PO Lisinopril (Prinivil) 10 mg QHS P Magnesium Hydroxide (Milk Of Magnesia) 30 ml DAILYPRN Memantine (Namenda) 10 mg BID Multivitamins (Theragram-M) 1 tab DAILY Nitroglycerin (Nitrostat (1/ 150)) 0.4 mg Q5MP PRN SL CHEST PAIN Pantoprazole Sodium (Protonix) 40 mg BID Polyethylene Glycol (Miralax) 1 pkt DAILY PRN Senna (Senokot) 1 tab QHSP PRN PO CONSTIPATION Simvastatin (Zocor) 10 mg QHS PO Sucralfate (Carafate) 1 gm ACHS PO Vitamin D (Vitamin D) 2,000 units DAILY / NOTE: Medications below were prior to admission to rehabilitation unit / Scheduled (Senna Plus 8.6-50 mg) 1 Tab Tab 1 TAB PO BID Ascorbic Acid (Vitamin C) 250 Mg Tab 250 MG PO DAILY (Reported) TAKES @ NOON Aspirin (Aspirin 81) 81 Mg Tab 81 MG PO DAILY (Reported) Cholecalciferol (Vitamin D-3) 2,000 Unit Tab 2,000 UNIT PO DAILY (Reported) Docusate Sodium (Stool Softener) 100 Mg Cap 200 MG PO QHS (Reported) Donepezil Hcl (Donepezil HCl) 10 Mg Tab 10 MG PO QHS (Reported) Ferrous Sulfate (Ferrous Sulfate) 325 Mg Tab 325 MG PO DAILY (Reported) TAKES @ NOON Lisinopril (Lisinopril) 10 Mg Tab 10 MG PO QHS (Reported) Memantine Hydrochloride (Memantine HCl) 10 Mg Tab 10 MG PO BID (Reported) Multivitamins *[facility] STOCKED* (Thera M Plus *[facility] STOCKED*) 1 Tab Tab 1 TAB PO DAILY (Reported) TAKES @ NOON Omeprazole (Omeprazole) 40 Mg Cap 40 MG PO DAILY (Reported) Simvastatin (Simvastatin) 10 Mg Tab 10 MG PO QHS (Reported) Warfarin Sod (Coumadin) 2.5 Mg Tab 2 TAB PO ASDIRECTED MDD = 6 tabs Scheduled PRN Nitroglycerin (Nitrostat) 0.4 Mg Subl 0.4 MG SL Q5MP PRN PRN CHEST PAIN ( Reported) Oxycodone/Acetaminophen (Percocet 5-325 mg) 1 Tab Tab 1-2 TAB PO Q4H PRN PRN PAIN MDD = 8 Allergies Coded Allergies: TAPE (Verified Allergy, Mild, 02/11/14) Latex (Unverified Allergy, Unknown, RASH, 12/02/16) DAVIDA PARK MD Dec 24, 2016 12:09
[2016-12-24 13:25] VITALS: BP 156/69
[2016-12-24 13:30] VITALS: BP 168/73
[2016-12-24] MEDS ORDERED: VITA1TAB23 PO (14:11)
[2016-12-24] MEDS ORDERED: FERR325T PO (14:11)
[2016-12-24] MEDS ORDERED: STOO100C PO (14:11)
[2016-12-24] MEDS ORDERED: SUCR1TA PO (14:11)
[2016-12-24] MEDS ORDERED: RISATAB3 PO (14:11)
[2016-12-24] MEDS ORDERED: PANT40TA2 PO (14:11)
== END 2016-12-24 16:05 | disposition home health service (06) | DRG 559 ==
LOC: M PM&R 17:11
PROVIDERS: ADMIT Physical Medicine & Rehabilitation; ATTEND Physical Medicine & Rehabilitation
PROC: 30233N1 Transfusion of Nonautologous Red Blood Cells into Peripheral Vein, Percutaneous Approach (ICD-10-PCS; principal; 2016-12-21)
PROC: 30233N1 Transfusion of Nonautologous Red Blood Cells into Peripheral Vein, Percutaneous Approach (ICD-10-PCS; 2016-12-24)
DX: S72.142D Displaced intertrochanteric fracture of left femur, subsequent encounter for closed fracture with routine healing (principal); E43 Unspecified severe protein-calorie malnutrition; G93.41 Metabolic encephalopathy; N39.0 Urinary tract infection, site not specified; D62 Acute posthemorrhagic anemia; I25.10 Atherosclerotic heart disease of native coronary artery without angina pectoris; G30.9 Alzheimer's disease, unspecified; F02.80 Dementia in other diseases classified elsewhere, unspecified severity, without behavioral disturbance, psychotic disturbance, mood disturbance, and anxiety; I10 Essential (primary) hypertension; E78.5 Hyperlipidemia, unspecified; B95.2 Enterococcus as the cause of diseases classified elsewhere; K59.00 Constipation, unspecified; E86.0 Dehydration; K64.9 Unspecified hemorrhoids; D72.829 Elevated white blood cell count, unspecified; D50.9 Iron deficiency anemia, unspecified; Z91.040 Latex allergy status; Z95.1 Presence of aortocoronary bypass graft; Z95.3 Presence of xenogenic heart valve; Z79.01 Long term (current) use of anticoagulants; Z79.82 Long term (current) use of aspirin; Z79.899 Other long term (current) drug therapy; Z87.891 Personal history of nicotine dependence; W18.30XD Fall on same level, unspecified, subsequent encounter; Z91.048 Other nonmedicinal substance allergy status; Y92.410 Unspecified street and highway as the place of occurrence of the external cause; Y93.89 Activity, other specified; Y99.9 Unspecified external cause status

== ENCOUNTER → 2017-01-02 | Outpatient (REF) ==
[~2017-01-02] MED LIST changes: +PANT40TA2 PO; +RISATAB3 PO; +SUCR1TA PO
[2017-01-02 14:21] LABS: MEAN CORPUSCULAR HEMOGLOBIN 30.1 pg (27.0-33.0); MEAN CORPUSCULAR HGB CONC 31.9 g/dl (32.0-36.5); MEAN CORPUSCULAR VOLUME 94.4 fl (80.0-96.0); RED CELL DISTRIBUTION WIDTH 14.4 % (11.5-14.5); WHITE BLOOD COUNT 8.7 K/mm3 (4.0-10.0)
[2017-01-02 14:28] LABS: ANION GAP 15 MEQ/L (8-16); BLOOD UREA NITROGEN 23 MG/DL (7-18); CALCIUM LEVEL 8.9 MG/DL (8.8-10.2); CARBON DIOXIDE LEVEL 25 MEQ/L (21-32); CHLORIDE LEVEL 105 MEQ/L (98-107); CREATININE FOR GFR 0.73 MG/DL (0.70-1.30); GLOMERULAR FILTRATION RATE > 60.0 (>35); GLUCOSE, FASTING 136 MG/DL (83-110); POTASSIUM SERUM 3.5 MEQ/L (3.5-5.1); SODIUM LEVEL 145 MEQ/L (136-145)
== END ==
PROVIDERS: ATTEND Internal Medicine
DX: D64.9 Anemia, unspecified (principal); I10 Essential (primary) hypertension

== ENCOUNTER → 2017-01-07 | Outpatient (REF) ==
[2017-01-07 12:09] LABS: MEAN CORPUSCULAR HEMOGLOBIN 30.6 pg (27.0-33.0); MEAN CORPUSCULAR HGB CONC 32.2 g/dl (32.0-36.5); MEAN CORPUSCULAR VOLUME 95.1 fl (80.0-96.0); RED CELL DISTRIBUTION WIDTH 14.4 % (11.5-14.5); WHITE BLOOD COUNT 7.1 K/mm3 (4.0-10.0)
[2017-01-07 12:29] LABS: ANION GAP 10 MEQ/L (8-16); BLOOD UREA NITROGEN 16 MG/DL (7-18); CALCIUM LEVEL 8.2 MG/DL (8.8-10.2); CARBON DIOXIDE LEVEL 31 MEQ/L (21-32); CHLORIDE LEVEL 106 MEQ/L (98-107); GLOMERULAR FILTRATION RATE > 60.0 (>35); GLUCOSE, FASTING 126 MG/DL (83-110); POTASSIUM SERUM 3.1 MEQ/L (3.5-5.1); SODIUM LEVEL 147 MEQ/L (136-145)
== END ==
PROVIDERS: ATTEND Internal Medicine
DX: I10 Essential (primary) hypertension (principal)

== ENCOUNTER 2017-01-10 11:52 | Emergency (ER) | payer MEDICARE, OTHER ==
[~2017-01-10] VITALS: Ht 177.8 cm; Wt 73.9 kg
[2017-01-10] MEDS ORDERED: SERT25TA PO (12:16)
[2017-01-10] MEDS ORDERED: RITA5TAB PO (12:18)
[2017-01-10] MEDS ORDERED: VITA20008 PO (12:21)
[2017-01-10] MEDS ORDERED: ACET500C PO ×2 (12:24→12:26)
[2017-01-10] MEDS ORDERED: ACET650S3 PO (12:26)
[2017-01-10] MEDS ORDERED: CLOPIDOGREL 300 MG TAB (PLAVIX) PO ONE (13:15)
[2017-01-10] MEDS ORDERED: HEPARIN SOD (PORCINE) 5000 UNITS/ML VIAL IV ONE (13:30)
[2017-01-10 13:48] LABS: BASO % 0.2 % (0.0-1.0); EOS % 0.4 % (0.0-3.0); LARGE UNSTAINED CELL # 0.2 K/mm3 (0.0-0.4); LARGE UNSTAINED CELL % 1.9 % (0.0-4.0); LYMPH # 1.7 K/mm3 (1.5-4.5); LYMPH % 13.7 % (24.0-44.0); MEAN CORPUSCULAR HEMOGLOBIN 30.6 pg (27.0-33.0); MEAN CORPUSCULAR HGB CONC 32.7 g/dl (32.0-36.5); MEAN CORPUSCULAR VOLUME 93.8 fl (80.0-96.0); MONO # 0.6 K/mm3 (0.0-0.8); MONO % 5.2 % (0.0-5.0); NEUTROPHILS # 8.4 K/mm3 (1.8-7.7); NEUTROPHILS % 78.6 % (36.0-66.0); PLATELET COUNT, AUTOMATED 375 k/mm3 (150-450); RED CELL DISTRIBUTION WIDTH 14.6 % (11.5-14.5); WHITE BLOOD COUNT 10.7 K/mm3 (4.0-10.0)
[2017-01-10] MEDS: HEPARIN DRIP 25,000 UNITS in APPROPRIATE DILUENT 1 EA IV SCH ×2 (13:56→14:02)
[2017-01-10 14:03] LABS: INR 1.18
[2017-01-10 14:06] VITALS: BP 190/82
[2017-01-10 14:17] LABS: ANION GAP 5 MEQ/L (8-16); BLOOD UREA NITROGEN 22 MG/DL (7-18); CALCIUM LEVEL 8.9 MG/DL (8.8-10.2); CARBON DIOXIDE LEVEL 35 MEQ/L (21-32); CHLORIDE LEVEL 106 MEQ/L (98-107); CREATININE FOR GFR 0.86 MG/DL (0.70-1.30); GLOMERULAR FILTRATION RATE > 60.0 (>35); GLUCOSE, FASTING 112 MG/DL (83-110); POTASSIUM SERUM 3.5 MEQ/L (3.5-5.1); SODIUM LEVEL 146 MEQ/L (136-145)
--- NOTE | 2017-01-10 14:19 | REP ---
PORTABLE CHEST: AP portable view of the chest is performed and compared to prior studies, most recent is 12/02/2016. There is mild bibasilar interstitial fibrosis without evidence of acute infiltrate or pulmonary edema. There is mild cardiomegaly. There is mild calcification of thoracic aorta. Multiple sternal wires and mediastinal clips are present. Mediastinal silhouette is unchanged. IMPRESSION: Mild cardiomegaly. No acute infiltrate. Signed by Baldomero Cross MD 01/10/2017 08:33 P
--- NOTE | 2017-01-10 20:29 | ECGEPIP ---
Stationary ECG Study [facility] Test Date: 2017-01-10 Pat Name: ELZA SAUNDERS Department: Room: - Gender: M Production Underwriter: ct : 1930 Requested By: Tyler Cisneros Order Number: [id number] Reading MD: Dangelo Wheeler Measurements Intervals [place] Rate: 61 P: -54 ND: 168 QRS: -24 QRSD: 138 T: 70 QT: 461 QTc: 465 Interpretive Statements SINUS RHYTHM INTRAVENTRICULAR CONDUCTION DELAY VOLTAGE CRITERIA FOR LVH POSSIBLE SEPTAL MYOCARDIAL INFARCTION, POSSIBLY ACUTE ACUTE [place] Electronically Signed On 01-10-2017 20:28:40 EST by Dangelo Wheeler
--- NOTE | 2017-01-11 12:22 | ECGEPIP ---
Stationary ECG Study [facility] - ED Test Date: 2017-01-10 Pat Name: ELZA SAUNDERS Department: Room: - Gender: M Bus Attendant: : 1930 Requested By: THIEN Rodriguez Order Number: [id number] Reading MD: Shelby Oviedo Measurements Intervals [place] Rate: 60 P: 1 IN: 194 QRS: -21 QRSD: 121 T: 70 QT: 457 QTc: 457 Interpretive Statements SINUS RHYTHM WITH SINUS ARRHYTHMIA LEFT VENTRICULAR HYPERTROPHY AND ST-T CHANGE VS ISCHEMIA POSSIBLE SEPTAL MYOCARDIAL INFARCTION, OF INDETERMINATE AGE SIMILAR 01/10/17 Electronically Signed On 01-11-2017 12:21:59 EST by Shelby Oviedo
== END 2017-01-10 14:18 | disposition short-term general hospital (02) ==
LOC: EDBD 11:52 → M ED 12:37
DX: I21.3 ST elevation (STEMI) myocardial infarction of unspecified site (principal); K92.2 Gastrointestinal hemorrhage, unspecified; I10 Essential (primary) hypertension; I25.10 Atherosclerotic heart disease of native coronary artery without angina pectoris; D64.9 Anemia, unspecified; K21.9 Gastro-esophageal reflux disease without esophagitis; Z95.1 Presence of aortocoronary bypass graft; Z87.891 Personal history of nicotine dependence; Z98.890 Other specified postprocedural states; Z91.040 Latex allergy status; Z91.048 Other nonmedicinal substance allergy status; Z79.899 Other long term (current) drug therapy; Z79.82 Long term (current) use of aspirin

== ENCOUNTER → 2017-01-14 | Outpatient (REF) ==
[~2017-01-14] MED LIST changes: +ACET500C PO; +ACET650S3 PO; +RITA5TAB PO; +SERT25TA PO; +VITA20008 PO
[2017-01-14 11:11] LABS: MEAN CORPUSCULAR HEMOGLOBIN 30.9 pg (27.0-33.0); MEAN CORPUSCULAR HGB CONC 31.7 g/dl (32.0-36.5); MEAN CORPUSCULAR VOLUME 97.2 fl (80.0-96.0); RED CELL DISTRIBUTION WIDTH 15.1 % (11.5-14.5); WHITE BLOOD COUNT 9.3 K/mm3 (4.0-10.0)
[2017-01-14 11:34] LABS: ANION GAP 11 MEQ/L (8-16); BLOOD UREA NITROGEN 23 MG/DL (7-18); CALCIUM LEVEL 8.5 MG/DL (8.8-10.2); CARBON DIOXIDE LEVEL 30 MEQ/L (21-32); CHLORIDE LEVEL 107 MEQ/L (98-107); CREATININE FOR GFR 0.81 MG/DL (0.70-1.30); GLOMERULAR FILTRATION RATE > 60.0 (>35); GLUCOSE, FASTING 119 MG/DL (83-110); POTASSIUM SERUM 3.7 MEQ/L (3.5-5.1); SODIUM LEVEL 148 MEQ/L (136-145)
== END ==
PROVIDERS: ATTEND Internal Medicine
DX: D64.9 Anemia, unspecified (principal); I10 Essential (primary) hypertension

== ENCOUNTER → 2017-01-15 | Outpatient (REF) ==
[2017-01-15 11:30] LABS: ANION GAP 8 MEQ/L (8-16); BLOOD UREA NITROGEN 21 MG/DL (7-18); CALCIUM LEVEL 8.2 MG/DL (8.8-10.2); CARBON DIOXIDE LEVEL 32 MEQ/L (21-32); CHLORIDE LEVEL 106 MEQ/L (98-107); CREATININE FOR GFR 0.77 MG/DL (0.70-1.30); GLOMERULAR FILTRATION RATE > 60.0 (>35); GLUCOSE, FASTING 103 MG/DL (83-110); POTASSIUM SERUM 3.7 MEQ/L (3.5-5.1); SODIUM LEVEL 146 MEQ/L (136-145)
== END ==
PROVIDERS: ATTEND Internal Medicine
DX: E86.0 Dehydration (principal)

== ENCOUNTER → 2017-01-21 | Outpatient (REF) ==
[2017-01-21 11:06] LABS: MEAN CORPUSCULAR HEMOGLOBIN 30.7 pg (27.0-33.0); MEAN CORPUSCULAR HGB CONC 32.1 g/dl (32.0-36.5); MEAN CORPUSCULAR VOLUME 95.9 fl (80.0-96.0); RED CELL DISTRIBUTION WIDTH 14.7 % (11.5-14.5); WHITE BLOOD COUNT 9.3 K/mm3 (4.0-10.0)
[2017-01-21 11:37] LABS: ANION GAP 11 MEQ/L (8-16); BLOOD UREA NITROGEN 19 MG/DL (7-18); CALCIUM LEVEL 8.3 MG/DL (8.8-10.2); CARBON DIOXIDE LEVEL 29 MEQ/L (21-32); CHLORIDE LEVEL 104 MEQ/L (98-107); CREATININE FOR GFR 0.78 MG/DL (0.70-1.30); GLOMERULAR FILTRATION RATE > 60.0 (>35); GLUCOSE, FASTING 145 MG/DL (83-110); POTASSIUM SERUM 3.9 MEQ/L (3.5-5.1); SODIUM LEVEL 144 MEQ/L (136-145)
== END ==
PROVIDERS: ATTEND Internal Medicine
DX: E86.0 Dehydration (principal)

== ENCOUNTER → 2017-01-28 | Outpatient (REF) ==
[2017-01-28 10:15] LABS: MEAN CORPUSCULAR VOLUME 96.7 fl (80.0-96.0); RED CELL DISTRIBUTION WIDTH 14.9 % (11.5-14.5); WHITE BLOOD COUNT 8.7 K/mm3 (4.0-10.0)
[2017-01-28 10:19] LABS: ANION GAP 9 MEQ/L (8-16); BLOOD UREA NITROGEN 15 MG/DL (7-18); CALCIUM LEVEL 8.1 MG/DL (8.8-10.2); CARBON DIOXIDE LEVEL 27 MEQ/L (21-32); CHLORIDE LEVEL 105 MEQ/L (98-107); CREATININE FOR GFR 0.78 MG/DL (0.70-1.30); GLOMERULAR FILTRATION RATE > 60.0 (>35); GLUCOSE, FASTING 122 MG/DL (83-110); POTASSIUM SERUM 4.4 MEQ/L (3.5-5.1); SODIUM LEVEL 141 MEQ/L (136-145)
== END ==
PROVIDERS: ATTEND Internal Medicine
DX: I10 Essential (primary) hypertension (principal)

== ENCOUNTER → 2017-02-10 | Outpatient (REF) ==
[2017-02-10 13:39] LABS: MEAN CORPUSCULAR HEMOGLOBIN 30.2 pg (27.0-33.0); MEAN CORPUSCULAR HGB CONC 30.2 g/dl (32.0-36.5); MEAN CORPUSCULAR VOLUME 100.1 fl (80.0-96.0); RED CELL DISTRIBUTION WIDTH 15.2 % (11.5-14.5); WHITE BLOOD COUNT 12.1 K/mm3 (4.0-10.0)
[2017-02-10 14:19] LABS: PERCENT SATURATION 13.2 % (19.7-37.4)
== END ==
PROVIDERS: ATTEND Internal Medicine
DX: D64.9 Anemia, unspecified (principal)

== ENCOUNTER 2017-03-10 15:01 | Inpatient (IN) | payer MEDICARE, OTHER ==
[~2017-03-10] VITALS: Ht 177.8 cm; Wt 73.0 kg
[~2017-03-10 15:01] MED LIST changes: -ACE65ERTAB PO; -ARTH5TAB PO; -FERR325T3 PO; -SENN8.6T54 PO; -VITA2000 PO
[2017-03-10] MEDS ORDERED: VITA2000 PO (15:21)
[2017-03-10] MEDS ORDERED: NS 500 ML IV ONE (15:45)
[2017-03-10 16:33] LABS: BASO % 0.2 % (0.0-1.0); EOS % 0.5 % (0.0-3.0); LARGE UNSTAINED CELL # 0.3 K/mm3 (0.0-0.4); LARGE UNSTAINED CELL % 2.8 % (0.0-4.0); LYMPH % 18.6 % (24.0-44.0); MEAN CORPUSCULAR HEMOGLOBIN 29.5 pg (27.0-33.0); MEAN CORPUSCULAR HGB CONC 30.3 g/dl (32.0-36.5); MEAN CORPUSCULAR VOLUME 97.5 fl (80.0-96.0); MONO # 0.6 K/mm3 (0.0-0.8); MONO % 6.8 % (0.0-5.0); NEUTROPHILS # 6.8 K/mm3 (1.8-7.7); NEUTROPHILS % 71.1 % (36.0-66.0); PLATELET COUNT, AUTOMATED 438 k/mm3 (150-450); RED CELL DISTRIBUTION WIDTH 14.7 % (11.5-14.5); WHITE BLOOD COUNT 9.5 K/mm3 (4.0-10.0)
[2017-03-10 16:35] LABS: INR 1.2
--- NOTE | 2017-03-10 16:44 | REP ---
PORTABLE CHEST: AP portable view of the chest is performed. COMPARISON: 01/10/2017 The heart is upper limits of normal in size. Chronic interstitial changes in each lung base are stable with no evidence of acute infiltrate. There is calcification of the thoracic aorta. Mediastinal silhouette is unchanged. Multiple sternal wires and mediastinal clips are present. There is mild elevation of the right hemidiaphragm, unchanged. IMPRESSION: Stable chronic findings. No acute infiltrate. Signed by Baldomero Cross MD 03/10/2017 05:46 P
[2017-03-10 16:53] LABS: ALBUMIN 2.3 GM/DL (3.2-5.2); ALBUMIN/GLOBULIN RATIO 0.59 (1.00-1.93); ALKALINE PHOSPHATASE 65 U/L (45-117); ALT/SGPT 13 U/L (12-78); ANION GAP 5 MEQ/L (8-16); AST/SGOT 14 U/L (15-37); BILIRUBIN,DIRECT 0.1 MG/DL (0.0-0.2); BILIRUBIN,TOTAL 0.2 MG/DL (0.2-1.0); BLOOD UREA NITROGEN 23 MG/DL (7-18); CALCIUM LEVEL 8.2 MG/DL (8.8-10.2); CARBON DIOXIDE LEVEL 29 MEQ/L (21-32); CHLORIDE LEVEL 108 MEQ/L (98-107); CREATININE FOR GFR 0.71 MG/DL (0.70-1.30); GLOMERULAR FILTRATION RATE > 60.0 (>35); GLUCOSE, FASTING 108 MG/DL (83-110); POTASSIUM SERUM 3.8 MEQ/L (3.5-5.1); SODIUM LEVEL 142 MEQ/L (136-145); TOTAL PROTEIN 6.2 GM/DL (6.4-8.2)
[2017-03-10] MEDS ORDERED: PANTOPRAZOLE SODIUM 40 MG in D5W MINI-BAG PLUS 50 ML IV SCH (18:15)
[2017-03-10] MEDS ORDERED: DOCUSATE SODIUM 100 MG CAP PO PRN (18:15)
[2017-03-10] MEDS ORDERED: ACETAMINOPHEN TAB 650MG DOSE (2X325MG) PO PRN (18:15)
[2017-03-10] MEDS ORDERED: ASPI81CH PO (18:29)
[2017-03-10] MEDS ORDERED: NITROGLYCERIN 0.4 MG SUBL TABLET SL PRN (18:30)
[2017-03-10] MEDS ORDERED: STOO100C PO (18:32)
[2017-03-10] MEDS ORDERED: FERR325T3 PO (18:32)
[2017-03-10] MEDS ORDERED: RISATAB3 PO (18:33)
[2017-03-10] MEDS ORDERED: SENN8.6T54 PO (18:33)
[2017-03-10] MEDS ORDERED: PANT40TA2 PO (18:33)
[2017-03-10] MEDS ORDERED: ACE65ERTAB PO (18:35)
[2017-03-10] MEDS ORDERED: ARTH5TAB PO (18:35)
--- NOTE | 2017-03-10 20:16 | HPE ---
DATE OF ADMISSION: 03/10/2017 PRIMARY CARE PROVIDER: Dr. Cortez CHIEF COMPLAINT: Abnormal lab results. HISTORY OF PRESENT ILLNESS: Mr. Shook is an 86-year-old male with some moderate dementia who presents to the emergency department after having a routine visit at his doctor's office. He was found to have abnormal labs with a low hemoglobin. The patient reports that he has been feeling weak with lack of energy. He has been home for about 1 week, previous to that he was at [facility] for rehabilitation status post a hip fracture that he sustained in November. He denies any chest pain, shortness of breath with exertion, lightheadedness, dizziness or palpitations. He denies seeing any blood in his stool or urine. No dark tarry stools. He reports that he has had history of anemia in the past for which he takes ferrous sulfate. Last colonoscopy and upper endoscopy was in April 2014. Endoscopy revealed hiatal hernia and colonoscopy revealed nonbleeding hemorrhoids with diverticulosis. The patient denies any nonsteroidal anti-inflammatory drug (NSAID) use or herbal [id number] supplements but does report baby aspirin use and several vitamins. The patient is currently hemodynamically stable. Blood pressure 146/64, heart rate 66. Dr. Spence was called in consult and will see the patient tomorrow. He denies any nausea, vomiting, diarrhea, constipation, abdominal pain, fevers, chills, night sweats, weight loss, syncope, headache. States that his vision has been deteriorating from old age. Denies any rashes or skin lesions. No bruising or excessive bleeding. Mentation appears to be at baseline per son. PAST MEDICAL HISTORY: 1. Hypertension. 2. Coronary artery disease. 3. Mood disorder. 4. Dyslipidemia. 5. Dementia. 6. 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 7. Shelton's esophagus in 2013. 8. 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 PAST SURGICAL HISTORY: 1. Coronary artery bypass graft. 2. Hernia repair. 3. Artificial heart valve (bovine valve). 4. Left hip fracture repair. ALLERGIES: No known drug allergies. Allergic to LATEX and TAPE. HOME MEDICATIONS: - aspirin 81 mg by mouth daily - vitamin D 2000 units by mouth daily - docusate sodium 100 mg by mouth twice daily - ferrous sulfate 325 mg by mouth twice daily - Protonix 40 mg by mouth twice daily - Senna one tablet by mouth twice daily - donepezil 10 mg by mouth at bedtime - memantine 10 mg by mouth twice daily - probiotic one tablet by mouth daily - lisinopril 10 mg at night - Ritalin 5 mg by mouth twice daily - nitroglycerin 0.4 mg sublingual every 5 minutes as needed - Zoloft 25 mg by mouth daily - Zocor 10 mg by mouth at night - Carafate 1 gram by mouth before meals SOCIAL HISTORY: The patient is retired. Lives with his . Former tobacco use, quit about 40 years ago. Social alcohol. No illicit drugs. No pets in the home. REVIEW OF SYSTEMS: GENERAL: No fevers, chills or night sweats. He does admit to fatigue and weakness and lack of energy. Per son, he has also lost some weight since being at [facility] for several months. HEENT: Denies any headache, lightheadedness or dizziness. He wears glasses for distance and reading. No acute changes in vision or hearing. No sore throat or hoarseness. HEART: Denies any chest pain, palpitations, shortness of breath with exertion. No paroxysmal nocturnal dyspnea or orthopnea. No chronic lower extremity edema. No claudication. PULMONARY: No cough or shortness of breath. No hemoptysis. GASTROINTESTINAL: No nausea, vomiting, diarrhea, constipation, abdominal pain, hematochezia or melena or dark tarry stools. GENITOURINARY: No change in urination, he goes frequently secondary to enlarged prostate. No dysuria or hematuria. MUSCULOSKELETAL: No unusual muscle or joint pains. HEMATOLOGIC: No known bleeding disorder. INTEGUMENT: No unusual rashes or skin lesions. NEUROLOGIC: The patient has moderate dementia. No syncope. No paresthesias. No history of stroke. PHYSICAL EXAMINATION: VITAL SIGNS: Temperature 97.9, pulse 66, respiratory rate 18, blood pressure 146/64, pulse oximetry 98% on room air. GENERAL: The patient is awake and alert. In no acute distress. HEENT: Normocephalic, atraumatic. Extraocular muscles are intact. Pupils are equally round and reactive to light. No scleral icterus. Moist mucosa. Pale conjunctivae. NECK: Supple. No cervical lymphadenopathy. No thyromegaly. No jugular venous distension appreciated. HEART: Normal S1, S2. Heart sounds irregular. Systolic ejection murmur heard along left sternal border, soft. LUNGS: Clear to auscultation bilaterally. No rales, rhonchi or wheezing. ABDOMEN: Soft, nontender, nondistended. Positive bowel sounds. No rebound, guarding or rigidity. EXTREMITIES: Trace edema. No cyanosis. Positive pedal pulses bilaterally. SKIN: Warm and dry. No rashes noted. NEUROLOGIC: The patient has dementia. No focal deficits. Moving all extremities. LABORATORY DATA: WBC 9.5, hemoglobin 6.4, hematocrit 21.2, platelet count 438, sodium 142, potassium 3.8, chloride 108, carbon dioxide 29, anion gap 5, BUN 23, creatinine 0.71, GFR greater than 60, fasting glucose 108, calcium 8.2, total bilirubin 0.2, direct bilirubin 0.1, AST 14, ALT 13, alkaline phosphatase 65, total creatinine kinase 34, CK-MB 3.1, troponin less than 0.02, total protein 6.2, albumin 2.3, PT 15.3, INR 1.2. IMAGING STUDIES: The patient had a chest x-ray performed which showed chronic stable findings of chronic interstitial changes in the lung base. No acute infiltrate. Calcification of the thoracic aorta. Mild elevation of the right hemidiaphragm which is unchanged. ASSESSMENT/PLAN: Mr. Shook is an 86-year-old male who presented to routine followup with his primary care provider, found to have decreased hemoglobin with a history of increasing fatigue and lack of energy. 1. Acute gastrointestinal (GI) bleed. The patient will be given 2 units of packed red blood cells. Monitor hemoglobin and hematocrit every [address] Spence has been consulted and will see the patient tomorrow. He will likely get scoped on Friday. Clear liquid diet for the time being. The patient will be placed on a Protonix drip. 2. Acute on chronic anemia. The patient will be transfused. He will receive endoscopy on Friday. Continue to monitor hemoglobin/hematocrit. 3. Hypertension. Blood pressure is currently stable. Continue with lisinopril with holding parameters. 4. Dyslipidemia. Continue with Zocor at night. 5. Coronary artery disease. Aspirin is currently on hold. Continue with nitroglycerin as needed. 6. History of dementia. The patient takes Aricept and Namenda at home. 7. History of Shelton's esophagus on pathology in 2013. 8. History of squamous cell carcinoma excised from the scalp. 9. Deep venous thrombosis (DVT) prophylaxis with thromboembolism deterrents (TEDs) and sequentials. 10. Code status. The patient is undecided about this. Per son, he does not make any decisions without his and his is not currently present. His healthcare proxy is his Pratibha Shook. 11. The patient will be admitted to progressive care unit (PCU). Expected to stay at least two midnights. . He to take over his care in the morning. My preceptor for this patient encounter was Dr. Chang Wheeler. The preceptor was physically present in the building during the encounter and was fully available. As needed, all aspects of the patient interview, examination, medical decision making process, and medical care plan development were reviewed and approved by the preceptor. The preceptor is aware and concurs with the plan as stated in the body of this note and will attest to such by his cosignature.
[2017-03-10] MEDS: METHYLPHENIDATE 5 MG TAB PO SCH (21:00)
[2017-03-10 22:55] VITALS: BP 180/62
[2017-03-10] MEDS: LISINOPRIL 10 MG TAB PO SCH (23:40)
[2017-03-10] MEDS: LACTOBACILLUS ACIDOPHILUS CAP (BACID) PO SCH (23:40)
[2017-03-10] MEDS: SIMVASTATIN 10 MG TAB PO SCH (23:40)
[2017-03-10] MEDS: SUCRALFATE 1 GM TAB PO SCH (23:40)
[2017-03-10] MEDS: SERTRALINE HCL 25 MG TABLET PO SCH (23:40)
[2017-03-10] MEDS: PANTOPRAZOLE SODIUM 40 MG in D5W MINI-BAG PLUS 50 ML IV SCH (23:53)
[2017-03-11] VITALS (9 sets, daily range): BP systolic 130–178; BP diastolic 62–100
[2017-03-11] MEDS: PANTOPRAZOLE SODIUM 40 MG in D5W MINI-BAG PLUS 50 ML IV SCH ×3 (04:11→09:01)
[2017-03-11 06:02] LABS: MEAN CORPUSCULAR HEMOGLOBIN 30.7 pg (27.0-33.0); MEAN CORPUSCULAR HGB CONC 31.9 g/dl (32.0-36.5); MEAN CORPUSCULAR VOLUME 96.1 fl (80.0-96.0); RED CELL DISTRIBUTION WIDTH 15.1 % (11.5-14.5); WHITE BLOOD COUNT 8.6 K/mm3 (4.0-10.0)
[2017-03-11 06:22] LABS: ANION GAP 9 MEQ/L (8-16); BLOOD UREA NITROGEN 18 MG/DL (7-18); CALCIUM LEVEL 7.7 MG/DL (8.8-10.2); CARBON DIOXIDE LEVEL 24 MEQ/L (21-32); CHLORIDE LEVEL 109 MEQ/L (98-107); CREATININE FOR GFR 0.51 MG/DL (0.70-1.30); GLOMERULAR FILTRATION RATE > 60.0 (>35); GLUCOSE, FASTING 93 MG/DL (83-110); POTASSIUM SERUM 3.9 MEQ/L (3.5-5.1); SODIUM LEVEL 142 MEQ/L (136-145)
--- NOTE | 2017-03-11 08:26 | ECGEPIP ---
Stationary ECG Study [facility] - ED Test Date: 2017-03-10 Pat Name: ELZA SAUNDERS Department: Room: - Gender: M Order To Delivery Supervisor: DEMETRA : 1930 Requested By: RUSS LONG Order Number: [id number] Reading MD: Shelby Oviedo Measurements Intervals [place] Rate: 59 P: -20 RI: 200 QRS: -17 QRSD: 120 T: 55 QT: 440 QTc: 437 Interpretive Statements SINUS BRADYCARDIA LEFT VENTRICULAR HYPERTROPHY AND ST-T CHANGE POSSIBLE SEPTAL MYOCARDIAL INFARCTION, OF INDETERMINATE AGE IVCD Electronically Signed On 03-11-2017 8:26:08 EDT by Shelby vOiedo
[2017-03-11] MEDS: SUCRALFATE 1 GM TAB PO SCH (09:00)
[2017-03-11] MEDS: LACTOBACILLUS ACIDOPHILUS CAP (BACID) PO SCH ×2 (09:00→20:13)
[2017-03-11] MEDS: METHYLPHENIDATE 5 MG TAB PO SCH ×2 (09:02→20:13)
--- NOTE | 2017-03-11 11:30 | IPN ---
DATE: 03/11/2017 Ciro is seen in PCU, patient of Dr. Cortez's admitted from office with severe anemia. His hemoglobin was 6.4. He is status post transfusion of 2 units of packed red blood cells. He feels better, less short of breath. says he looks better as well. He has seen Dr. Spence today and endoscopy is planned for tomorrow. He has a history of Shelton's esophagus in 2013. Other medical problems include hypertension, coronary artery disease, history of mood disorder, hyperlipidemia and there is apparently some depression and some dementia. PHYSICAL EXAMINATION: 160/72, pulse 52, respiratory rate 20, 96% oxygen saturation. GENERAL APPEARANCE: Resting comfortably in no distress. No JVD. LUNGS: Clear. HEART: Regular rhythm. ABDOMEN: Soft, nontender. Trace peripheral edema. LABORATORIES: Hemoglobin is 8.1, platelets are normal. Electrolytes unremarkable. IMPRESSION: 1. Severe anemia from chronic GI blood loss. He is status post 2 units of packed red blood cells. Hemoglobin is up to 8.1. I am going to give him 2 more units of packed red blood cells today. He is currently on a Protonix drip. Proton pump inhibitor (PPI) by drink does not really provide any benefit over intermittent dosing and he is not actually having an active GI bleed so he would get by just as well on p.o. PPI. I am also going to be stopping the Carafate as this could interfere with his upper endoscopy procedure. 2. Dementia. Continue his current medications. 3. Hyperlipidemia. Continue current dose of simvastatin. He will probably be discharged after his endoscopy tomorrow.
[2017-03-11] MEDS: PANTOPRAZOLE 40MG TAB (PROTONIX) PO SCH (12:50)
[2017-03-11] MEDS: MEMANTINE 5MG TABLET (NAMENDA) PO SCH ×2 (12:50→20:13)
[2017-03-11] MEDS ORDERED: GOLYTELY SOLN 4000 ML BTL PO ONE (16:00)
[2017-03-11] MEDS: SERTRALINE HCL 25 MG TABLET PO SCH (20:14)
[2017-03-11] MEDS: SIMVASTATIN 10 MG TAB PO SCH (20:14)
[2017-03-11] MEDS: DONEPEZIL 5 MG TAB PO SCH (20:14)
[2017-03-11] MEDS: LISINOPRIL 10 MG TAB PO SCH (20:14)
[2017-03-11 20:38] LABS: MEAN CORPUSCULAR HEMOGLOBIN 30.1 pg (27.0-33.0); MEAN CORPUSCULAR HGB CONC 33.1 g/dl (32.0-36.5); RED CELL DISTRIBUTION WIDTH 15.8 % (11.5-14.5); WHITE BLOOD COUNT 9.8 K/mm3 (4.0-10.0)
--- NOTE | 2017-03-11 20:54 | CR ---
DATE OF CONSULTATION: 03/11/2017 This is an 86-year white male who is previously known to me for upper and lower endoscopy procedures performed in 2013. At that time the endoscopy was indicative for anemia. Except for diverticulosis and some mild esophagitis, there was no evidence of any dominant lesion that might explain his anemia 3 years ago. He has now been [facility] to the [facility] for reevaluation of relapse of his anemia. There is no apparent history of hematemesis, melena, hematochezia, or bright red blood per rectum. When the patient was admitted, he was found have an admission hemoglobin of 6.4 and 21.2. He has been given 4 units of packed cells since admission. His most recent count is 8.7 and 26.7. His platelets of 438,000. White count was normal at 9500. INR is normal at 1.20. Chemistry was essentially normal. Normal liver functions. Albumin is 2.3, BUN and creatinine were stable and good at 18 and 0.51. The patient has no clinical evidence for any active bleeding at time of this dictation. PAST MEDICAL HISTORY: Positive for: 1. Hypertension. 2. Coronary artery disease. 3. Mood disorder. 4. Dyslipidemia. 5. Mild dementia. 6. History of tuberculosis with some Shelton's esophagus, which was diagnosed in 2013. PAST SURGICAL HISTORY: 1. The patient is status post coronary artery bypass graft. 2. Artificial heart valve. Bovine valve placed. 3. Hernia. 4. Left hip fracture. ALLERGIES: He has no known declared allergies to medications. CURRENT MEDICATIONS: Include: - baby aspirin - vitamin D - iron - stool softeners - Protonix 40 mg twice a day - senna - donepezil 10 mg by mouth daily - memantine 10 mg twice daily - probiotics - lisinopril - Ritalin - nitroglycerin - Zoloft - Zocor - Carafate SOCIAL HISTORY: Alcohol none. Patient has not smoked in the last 40 years. REVIEW OF SYSTEMS: Noncontributory to the above problem. PHYSICAL EXAMINATION: Well-developed, well-nourished white male, no obvious acute distress. Appears stated age. Chest was clear to auscultation and percussion. The patient had a systolic ejection murmur left lower sternal border. Lungs: Clear to auscultation. Abdomen: Soft, nontender. No masses, guarding, or rebound. Bowel sounds positive. Extremities: No cyanosis, clubbing, or edema. LABORATORY STUDIES: On admission his hemoglobin was 6.4. Hematocrit 21.2. The rest of the patient's chemistries were normal. Imaging studies of the chest were essentially normal. ANALYSIS: Anemia of unknown etiology. At the present time the plan will be to set the patient up for an upper endoscopy and lower endoscopy. The patient will need to be given blood prior to be a procedures. PLAN: 1. Esophagogastroduodenoscopy (EGD) and colonoscopy. 2. Bowel prep. 3. Blood transfusions prior to the procedures.
[2017-03-12] VITALS (9 sets, daily range): BP systolic 135–165; BP diastolic 62–90
[2017-03-12] MEDS ORDERED: GOLYTELY SOLN 4000 ML BTL PO ONE (06:00)
[2017-03-12 07:01] LABS: MEAN CORPUSCULAR HEMOGLOBIN 30.1 pg (27.0-33.0); MEAN CORPUSCULAR HGB CONC 33.3 g/dl (32.0-36.5); MEAN CORPUSCULAR VOLUME 90.5 fl (80.0-96.0); RED CELL DISTRIBUTION WIDTH 15.9 % (11.5-14.5); WHITE BLOOD COUNT 8.1 K/mm3 (4.0-10.0)
[2017-03-12 07:27] LABS: ANION GAP 9 MEQ/L (8-16); BLOOD UREA NITROGEN 13 MG/DL (7-18); CALCIUM LEVEL 8.6 MG/DL (8.8-10.2); CARBON DIOXIDE LEVEL 28 MEQ/L (21-32); CHLORIDE LEVEL 106 MEQ/L (98-107); CREATININE FOR GFR 0.65 MG/DL (0.70-1.30); GLOMERULAR FILTRATION RATE > 60.0 (>35); GLUCOSE, FASTING 83 MG/DL (83-110); POTASSIUM SERUM 3.4 MEQ/L (3.5-5.1); SODIUM LEVEL 143 MEQ/L (136-145)
[2017-03-12] MEDS: METHYLPHENIDATE 5 MG TAB PO SCH ×2 (08:23→20:01)
[2017-03-12] MEDS: LACTOBACILLUS ACIDOPHILUS CAP (BACID) PO SCH ×2 (08:23→20:01)
[2017-03-12] MEDS: MEMANTINE 5MG TABLET (NAMENDA) PO SCH ×2 (08:23→20:02)
[2017-03-12] MEDS: PANTOPRAZOLE 40MG TAB (PROTONIX) PO SCH (08:23)
[2017-03-12] MEDS ORDERED: LIDOCAINE 2% INJ 100 MG/5 ML SDV (FOR ANES.) As Ordered ONE (14:56)
[2017-03-12] MEDS ORDERED: PROPOFOL 200 MG/20 ML VIAL As Ordered ONE (14:56)
[2017-03-12] MEDS ORDERED: PHENYLephrine HCL 500 MCG/5 ML (100MCG/ML) SYRINGE (J2370) As Ordered ONE (15:09)
[2017-03-12] MEDS ORDERED: ePHEDrine SULFATE 25 MG/5 ML(5MG/ML) SYRINGE As Ordered ONE (15:09)
--- NOTE | 2017-03-12 15:12 | ROOR ---
Patient Name: Ciro Shook Procedure Date: 03/12/2017 2:49 PM Date of : 1930 Age: 86 Room: [facility] Gender: Male Note Status: Finalized Procedure: Upper GI endoscopy + Biopsies + SBB Indications: Iron deficiency anemia Providers: Chandler Spence MD Referring MD: DEEP LOU JR, MD Requesting Provider: Medicines: Monitored Anesthesia Care Complications: No immediate complications. Procedure: Pre-Anesthesia Assessment: - The heart rate, respiratory rate, oxygen saturations, blood pressure, adequacy of pulmonary ventilation, and response to care were monitored throughout the procedure. The Endoscope was introduced through the mouth, and advanced to the second part of duodenum. The upper GI endoscopy was accomplished without difficulty. The patient tolerated the procedure well. Findings: The Z-line was irregular and was found 30 cm from the incisors. A large hiatal hernia was present. One non-bleeding superficial gastric ulcer with no stigmata of bleeding was found in the gastric body. Biopsies were taken with a cold forceps for Helicobacter pylori testing. Diffuse moderate inflammation characterized by congestion (edema), erythema, granularity, linear erosions and shallow ulcerations was found in the gastric body. Biopsies were taken with a cold forceps for Helicobacter pylori testing. The exam was otherwise without abnormality. Impression: - Z-line irregular, 30 cm from the incisors. - Large hiatal hernia. - Non-bleeding gastric ulcer with no stigmata of bleeding. Biopsied. - Chronic gastritis. Biopsied. - The examination was otherwise normal. Recommendation: - Patient has a contact number available for emergencies. The signs and symptoms of potential delayed complications were discussed with the patient. Return to normal activities tomorrow. Written discharge instructions were provided to the patient. - Resume previous diet. - Continue present medications. - Return patient to [facility] for ongoing care. - Await pathology results. - Telephone GI clinic for pathology results in 1 week. - Return to referring physician. - The findings and recommendations were discussed with the patient's family. Chandler Spence MD Chandler Spence MD 03/12/2017 3:12:26 PM This report has been signed electronically. Number of Addenda: 0 Note Initiated On: 03/12/2017 2:49 PM Estimated Blood Loss: Estimated blood loss: none.
--- NOTE | 2017-03-12 15:27 | ROOR ---
Patient Name: Ciro Shook Procedure Date: 03/12/2017 2:50 PM Date of : 1930 Age: 86 Room: [facility] Gender: Male Note Status: Finalized Procedure: Colonoscopy to Cecum Indications: Iron deficiency anemia Providers: Chandler Spence MD Referring MD: DEEP LOU JR, MD Requesting Provider: Medicines: Monitored Anesthesia Care Complications: No immediate complications. Procedure: Pre-Anesthesia Assessment: - The heart rate, respiratory rate, oxygen saturations, blood pressure, adequacy of pulmonary ventilation, and response to care were monitored throughout the procedure. The Colonoscope was introduced through the anus and advanced to the cecum, identified by appendiceal orifice and ileocecal valve. The colonoscopy was performed without difficulty. The patient tolerated the procedure well. The quality of the bowel preparation was excellent. Findings: The perianal and digital rectal examinations were normal. Non-bleeding internal hemorrhoids were found during retroflexion. The hemorrhoids were small and Grade I (internal hemorrhoids that do not prolapse). Multiple small and large-mouthed diverticula were found in the recto-sigmoid colon, sigmoid colon and descending colon. The exam was otherwise without abnormality on direct and retroflexion views. Impression: - Non-bleeding internal hemorrhoids. - Diverticulosis in the recto-sigmoid colon, in the sigmoid colon and in the descending colon. - The examination was otherwise normal on direct and retroflexion views. - No specimens collected. - The exam was otherwise normal to the cecum. Recommendation: - Patient has a contact number available for emergencies. The signs and symptoms of potential delayed complications were discussed with the patient. Return to normal activities tomorrow. Written discharge instructions were provided to the patient. - High fiber diet. - Continue present medications. - Repeat colonoscopy for symptoms only. - Return to referring physician. - Return patient to [facility] for ongoing care. - The findings and recommendations were discussed with the patient's family. Chandler Spence MD Chandler Spence MD 03/12/2017 3:27:23 PM This report has been signed electronically. Number of Addenda: 0 Note Initiated On: 03/12/2017 2:50 PM Estimated Blood Loss: Estimated blood loss: none.
--- NOTE | 2017-03-12 17:33 | IPN ---
DATE: 03/12/2017 Ciro is seen in [address] [place] [address]. He has completed his endoscopy, large gastric ulcer was found. Biopsies are pending. His hemoglobin is stable after being transfused a total of four units. Denies abdominal pain. PHYSICAL EXAMINATION: Resting comfortably with his . Vital signs are stable. Lungs clear. Heart regular rhythm. Abdomen soft, nontender. LABORATORY DATA: Hemoglobin is stable from yesterday, it is around 11. IMPRESSION: Acute blood loss anemia secondary to gastrointestinal (GI) bleed, probably from gastric ulcer. PLAN: Continue proton pump inhibitor (PPI) therapy. Restart his Carafate. Recheck complete blood count (CBC) in the morning. Planned discharge tomorrow if stable.
[2017-03-12] MEDS: SUCRALFATE 1 GM TAB PO SCH ×2 (17:42→20:01)
[2017-03-12] MEDS: LISINOPRIL 10 MG TAB PO SCH (20:01)
[2017-03-12] MEDS: SERTRALINE HCL 25 MG TABLET PO SCH (20:02)
[2017-03-12] MEDS: SIMVASTATIN 10 MG TAB PO SCH (20:02)
[2017-03-12] MEDS: DONEPEZIL 5 MG TAB PO SCH (20:02)
[2017-03-13 02:00] VITALS: BP 159/85
[2017-03-13 05:59] LABS: MEAN CORPUSCULAR HGB CONC 32.4 g/dl (32.0-36.5); MEAN CORPUSCULAR VOLUME 92.6 fl (80.0-96.0); RED CELL DISTRIBUTION WIDTH 15.1 % (11.5-14.5); WHITE BLOOD COUNT 9.2 K/mm3 (4.0-10.0)
[2017-03-13 06:00] VITALS: BP 156/75
[2017-03-13 06:12] LABS: ANION GAP 8 MEQ/L (8-16); BLOOD UREA NITROGEN 13 MG/DL (7-18); CALCIUM LEVEL 7.9 MG/DL (8.8-10.2); CARBON DIOXIDE LEVEL 28 MEQ/L (21-32); CHLORIDE LEVEL 103 MEQ/L (98-107); CREATININE FOR GFR 0.62 MG/DL (0.70-1.30); GLOMERULAR FILTRATION RATE > 60.0 (>35); GLUCOSE, FASTING 92 MG/DL (83-110); POTASSIUM SERUM 3.2 MEQ/L (3.5-5.1); SODIUM LEVEL 139 MEQ/L (136-145)
[2017-03-13] MEDS ORDERED: POTASSIUM CHLORIDE 10 MEQ SR TABLET PO ONE (07:45)
[2017-03-13] MEDS ORDERED: SUCR1TA PO (07:48)
[2017-03-13] MEDS: LACTOBACILLUS ACIDOPHILUS CAP (BACID) PO SCH (08:14)
--- NOTE | 2017-03-13 08:14 | DSES ---
DATE OF ADMISSION: 03/10/2017 DATE OF DISCHARGE: PRINCIPAL DIAGNOSIS: Gastrointestinal bleeding with acute on chronic blood loss anemia secondary to gastric ulcer. SECONDARY DIAGNOSES: 1. Dementia. 2. Hyperlipidemia. 3. Coronary artery disease. 4. Hypertension. 5. Shelton's esophagus in 2013. PRIMARY CARE PROVIDER: Dr. Dany Cortez CONSULTANTS: Dr. Spence. PRINCIPAL PROCEDURE: Esophagogastroduodenoscopy (EGD), (nonbleeding superficial gastric ulcer, as well as acute gastritis seen clinically -- biopsies pending). Colonoscopy (essentially unremarkable). HISTORY: Ciro Shook was admitted from Dr. Cortez's office with anemia. Details are in the history and physical from admission. HOSPITAL COURSE: The patient was admitted to a medical bed. He was transfused a total of 4 units of packed red blood cells. Hemoglobin remained stable during the course of his hospitalization. He had no sign of bleeding. He underwent EGD and colonoscopy the day before discharge, findings are summarized above. Pathology reports are pending. His hemoglobin remained stable after the endoscopy and plans are to discharge today. SIGNIFICANT LABORATORIES: Admission hemoglobin 6.4, after 4 units was up to 11.4, it is 10.7 today. Potassium is 3.2 today. Otherwise, electrolytes unremarkable. INR was 1.2. Chest x-ray showed no active disease. DISPOSITION: The patient is discharged in improved and stable condition. PHYSICAL EXAMINATION: On examination today, he is alert, conversant, mildly demented. No jugular venous distention (JVD). LUNGS: Clear. HEART: Regular rhythm. ABDOMEN: Soft and nontender. There is no peripheral edema. DISPOSITION: Discharge home in improved and stable condition. Followup with Dr. Cortez in [address] Spence per his office. MEDICATIONS: On discharge: - Carafate 1 gram before food and nightly - Aricept 10 mg at bedtime - Protonix 40 mg daily - Namenda 10 mg twice a day - Lisinopril 10 mg at night - Ritalin 5 mg twice a day - Bacid one tablet twice a day - Zoloft 25 mg daily - simvastatin 10 mg at night - Tylenol as needed - Nitrostat as needed Activity as tolerated. No added salt and low fat and low cholesterol diet. Pending laboratories at the time of discharge are pathology reports from EGD biopsies.
[2017-03-13] MEDS: MEMANTINE 5MG TABLET (NAMENDA) PO SCH (08:15)
[2017-03-13] MEDS: METHYLPHENIDATE 5 MG TAB PO SCH (08:15)
[2017-03-13] MEDS: SUCRALFATE 1 GM TAB PO SCH ×2 (08:15→12:26)
[2017-03-13] MEDS: PANTOPRAZOLE 40MG TAB (PROTONIX) PO SCH (08:15)
[2017-03-13 10:00] VITALS: BP 148/82
== END 2017-03-13 13:18 | disposition home health service (06) | DRG 811 ==
LOC: M ED 16:36 → M ED INP 18:29 → M PCU 22:48 → M MSPAV 03-11 14:30
PROVIDERS: ADMIT Internal Medicine; ATTEND Family Medicine
PROC: 30233N1 Transfusion of Nonautologous Red Blood Cells into Peripheral Vein, Percutaneous Approach (ICD-10-PCS; 2017-03-10)
PROC: 0DJ08ZZ Inspection of Upper Intestinal Tract, Via Natural or Artificial Opening Endoscopic (ICD-10-PCS; 2017-03-12)
PROC: 0DB68ZX Excision of Stomach, Via Natural or Artificial Opening Endoscopic, Diagnostic (ICD-10-PCS; principal; 2017-03-12 14:45)
DX: D62 Acute posthemorrhagic anemia (principal); K25.4 Chronic or unspecified gastric ulcer with hemorrhage; F03.90 Unspecified dementia, unspecified severity, without behavioral disturbance, psychotic disturbance, mood disturbance, and anxiety; I10 Essential (primary) hypertension; I25.10 Atherosclerotic heart disease of native coronary artery without angina pectoris; E78.5 Hyperlipidemia, unspecified; Z91.040 Latex allergy status; Z79.82 Long term (current) use of aspirin; Z79.899 Other long term (current) drug therapy; Z87.891 Personal history of nicotine dependence; F39 Unspecified mood [affective] disorder; K64.0 First degree hemorrhoids; K57.30 Diverticulosis of large intestine without perforation or abscess without bleeding

== ENCOUNTER → 2017-03-10 | Outpatient (REF) | payer MEDICARE, OTHER ==
[~2017-03-10] MED LIST changes: +ACE65ERTAB PO; +ARTH5TAB PO; +FERR325T3 PO; +SENN8.6T54 PO; +VITA2000 PO
[2017-03-10 13:41] LABS: PERCENT SATURATION 11.1 % (19.7-37.4)
== END ==
LOC: M LAB REF 12:26
PROVIDERS: ATTEND Internal Medicine
DX: D64.9 Anemia, unspecified (principal)

== ENCOUNTER 2017-04-13 21:42 | Emergency (ER) | payer MEDICARE, OTHER ==
[~2017-04-13] VITALS: Ht 177.8 cm; Wt 61.2 kg
[~2017-04-13 21:42] MED LIST changes: +ACE65ERTAB PO; +ARTH5TAB PO; +FERR325T3 PO; +SENN8.6T54 PO; +VITA2000 PO
[2017-04-13 22:41] LABS: BASO % 0.2 % (0.0-1.0); EOS % 0.6 % (0.0-3.0); LARGE UNSTAINED CELL # 0.4 K/mm3 (0.0-0.4); LYMPH # 2.1 K/mm3 (1.5-4.5); LYMPH % 21.6 % (24.0-44.0); MEAN CORPUSCULAR HEMOGLOBIN 29.8 pg (27.0-33.0); MEAN CORPUSCULAR HGB CONC 31.5 g/dl (32.0-36.5); MEAN CORPUSCULAR VOLUME 94.4 fl (80.0-96.0); MONO # 0.7 K/mm3 (0.0-0.8); MONO % 8.8 % (0.0-5.0); NEUTROPHILS # 5.1 K/mm3 (1.8-7.7); NEUTROPHILS % 63.8 % (36.0-66.0); PLATELET COUNT, AUTOMATED 223 k/mm3 (150-450); RED CELL DISTRIBUTION WIDTH 15.5 % (11.5-14.5)
[2017-04-13 22:57] LABS: ANION GAP 3 MEQ/L (8-16); BLOOD UREA NITROGEN 16 MG/DL (7-18); CALCIUM LEVEL 8.7 MG/DL (8.8-10.2); CARBON DIOXIDE LEVEL 33 MEQ/L (21-32); CHLORIDE LEVEL 106 MEQ/L (98-107); CREATININE FOR GFR 0.66 MG/DL (0.70-1.30); GLOMERULAR FILTRATION RATE > 60.0 (>35); GLUCOSE, FASTING 100 MG/DL (83-110); POTASSIUM SERUM 3.7 MEQ/L (3.5-5.1); SODIUM LEVEL 142 MEQ/L (136-145)
[2017-04-13 23:45] VITALS: BP 124/72
--- NOTE | 2017-04-14 08:19 | REP ---
Chest x-ray: Two views. History: Fever. Comparison study March 10, 2017. Findings: The patient is status post median sternotomy and aortic valvular replacement. EKG electrodes are seen. Heart is not enlarged. Pulmonary vasculature is not increased. Interstitial markings are prominent in both bases consistent with some degree of interstitial fibrosis. No acute infiltrate is appreciated. No other significant bony abnormality. Impression: No focal infiltrate seen. Mild bibasilar interstitial fibrosis pattern. Prior aortic valve replacement. Signed by Rohan Hilton MD 04/14/2017 12:56 P
== END 2017-04-14 00:25 | disposition home or self-care (01) ==
LOC: EDBD 21:42 → M ED 22:51
DX: K08.89 Other specified disorders of teeth and supporting structures (principal); K21.9 Gastro-esophageal reflux disease without esophagitis; I25.10 Atherosclerotic heart disease of native coronary artery without angina pectoris; F03.90 Unspecified dementia, unspecified severity, without behavioral disturbance, psychotic disturbance, mood disturbance, and anxiety; E78.00 Pure hypercholesterolemia, unspecified; Z79.899 Other long term (current) drug therapy; Z91.040 Latex allergy status; Z91.048 Other nonmedicinal substance allergy status; Z95.5 Presence of coronary angioplasty implant and graft; Z87.891 Personal history of nicotine dependence

== ENCOUNTER 2017-04-19 00:21 | Inpatient (IN) | payer MEDICARE, OTHER ==
[~2017-04-19] VITALS: Ht 177.8 cm; Wt 64.7 kg
[2017-04-19] MEDS ORDERED: RITA5TAB PO (00:39)
[2017-04-19] MEDS ORDERED: ACETAMINOPHEN 650 MG SUPP PR ONE (01:00)
[2017-04-19] MEDS ORDERED: ACETAMINOPHEN 325 MG SUPP As Ordered ONE (01:03)
[2017-04-19 01:46] LABS: BASO # 0.2 K/mm3 (0.0-0.2); BASO % 0.8 % (0.0-1.0); LARGE UNSTAINED CELL # 0.2 K/mm3 (0.0-0.4); LARGE UNSTAINED CELL % 0.9 % (0.0-4.0); LYMPH # 0.8 K/mm3 (1.5-4.5); MEAN CORPUSCULAR HEMOGLOBIN 30.1 pg (27.0-33.0); MEAN CORPUSCULAR HGB CONC 31.4 g/dl (32.0-36.5); MEAN CORPUSCULAR VOLUME 95.9 fl (80.0-96.0); MONO # 0.4 K/mm3 (0.0-0.8); MONO % 1.9 % (0.0-5.0); NEUTROPHILS # 19.3 K/mm3 (1.8-7.7); NEUTROPHILS % 92.4 % (36.0-66.0); PLATELET COUNT, AUTOMATED 246 k/mm3 (150-450); RED CELL DISTRIBUTION WIDTH 16.4 % (11.5-14.5); WHITE BLOOD COUNT 20.9 K/mm3 (4.0-10.0)
[2017-04-19 01:56] LABS: ALBUMIN 2.3 GM/DL (3.2-5.2); ALBUMIN/GLOBULIN RATIO 0.66 (1.00-1.93); ALKALINE PHOSPHATASE 79 U/L (45-117); ALT/SGPT 14 U/L (12-78); ANION GAP 8 MEQ/L (8-16); AST/SGOT 18 U/L (15-37); BILIRUBIN,DIRECT 0.3 MG/DL (0.0-0.2); BILIRUBIN,TOTAL 0.7 MG/DL (0.2-1.0); BLOOD UREA NITROGEN 24 MG/DL (7-18); CALCIUM LEVEL 8.3 MG/DL (8.8-10.2); CARBON DIOXIDE LEVEL 29 MEQ/L (21-32); CHLORIDE LEVEL 103 MEQ/L (98-107); CREATININE FOR GFR 0.96 MG/DL (0.70-1.30); GLOMERULAR FILTRATION RATE > 60.0 (>35); GLUCOSE, FASTING 167 MG/DL (83-110); POTASSIUM SERUM 4.1 MEQ/L (3.5-5.1); SODIUM LEVEL 140 MEQ/L (136-145); TOTAL PROTEIN 5.8 GM/DL (6.4-8.2)
[2017-04-19] MEDS ORDERED: PIPERACILLIN/TAZOBACTAM SOD 3.375 GM in D5W MINI-BAG PLUS 50 ML IV ONE (02:15)
[2017-04-19] MEDS ORDERED: NS 500 ML IV ONE (02:15)
[2017-04-19] MEDS: PIPERACILLIN/TAZOBACTAM SOD 3.375 GM in D5W MINI-BAG PLUS 50 ML IV SCH ×3 (04:30→19:57)
[2017-04-19] MEDS ORDERED: CARA1TAB2 PO (04:36)
[2017-04-19] MEDS ORDERED: ACETAMINOPHEN 650 MG SUPP PR PRN (04:45)
--- NOTE | 2017-04-19 05:02 | HPEPDOC ---
General Date of Admission Other Providers UNKNOWN Attending Physician: CARLI FOX MD Chief Complaint The patient is a 86-year-old male admitted with a reason for visit of AMS. Source: Patient Exam Limitations: Dementia Timing/Duration: 24 hours Severity: Moderate Associated Symptoms: Unobtainable History of Present Illness 86 Y/O m H/O DEMENTIA P/W ams X 1DAY. Patient was apparently fine about 5-6 months back when he had a fall since then and his condition has been getting worse. He is having history of dementia, CAD status post CABG this morning, patient suddenly appeared confused at his home. Since then his mental condition has gotten worse and now percentages are not able to follow the commands. Patient is DNR, DNI, living at home with family Home Medications Scheduled (Stephanie-Bid Probiotic) 1 Tab Tab, 1 TAB PO BID, (Reported) Cholecalciferol (Vitamin D3) 2,000 Unit Cap, 2,000 UNIT PO DAILY, (Reported) Docusate Sod/Senna (Senna-Plus 8.6-50 mg) 1 Tab Tab, 1 TAB PO BID, (Reported) Docusate Sodium (Stool Softener) 100 Mg Cap, 100 MG PO BID, (Reported) Donepezil Hcl (Donepezil HCl) 10 Mg Tab, 10 MG PO QHS, (Reported) Ferrous Sulfate (Ferrous Sulfate) 325 Mg Tab, 325 MG PO BID, (Reported) Memantine Hydrochloride (Memantine HCl) 10 Mg Tab, 10 MG PO BID, (Reported) Methylphenidate HCl (Ritalin) 5 Mg Tab, 5 MG PO DAILY, (Reported) Pantoprazole Sodium (Pantoprazole Sodium) 40 Mg Tab, 40 MG PO BID, (Reported) Sertraline Hcl (Sertraline HCl) 25 Mg Tab, 25 MG PO QHS, (Reported) Simvastatin (Simvastatin) 10 Mg Tab, 10 MG PO QHS, (Reported) Sucralfate (Carafate) 1 Gm Tab, 1 GM PO ACHS, (Reported) Scheduled PRN Acetaminophen (Arthritis Pain) 650 Mg Tab, 650 MG PO Q4H PRN for PAIN, (Reported ) Nitroglycerin (Nitrostat) 0.4 Mg Subl, 0.4 MG SL Q5MP PRN for CHEST PAIN, ( Reported) Allergies Coded Allergies: TAPE (Verified Allergy, Mild, 04/19/17) Latex (Unverified Allergy, Unknown, RASH, 04/19/17) Past Medical History Medical History Dementia Surgical History Unable to obtain Family History Significant Family History: No pertinent family hx Social History * Smoker: non-smoker Alcohol: Denies Drugs: denies Recent Travel/Sick Contacts: Denies: Recent travel, Recent sick contacts Review of Symptoms Other systems Unable to obtain Physical Examination General Exam: Positive: Other (altered mental status not following commands. Mild distress) Eye Exam: Positive: PERRLA, Conjunctiva & lids normal, Negative: Sclera icteric ENT Exam: Positive: Atraumatic, Mucous membr. moist/pink Neck Exam: Positive: Supple, Negative: JVD, thyromegaly Chest Exam: Positive: Clear to auscultation, Normal air movement Heart Exam: Positive: Rate Normal, Regular Rhythm, Normal S1, Normal S2, Negative: Murmurs, Rubs Telemetry: Positive: No significant arrhythmia Abdomen Exam: Positive: Normal bowel sounds, Soft, Negative: Tenderness, Hepatospenomegaly Extremity Exam: Positive: Normal pulses, Negative: Clubbing, Cyanosis, Edema Skin Exam: Positive: Nl turgor and temperature, Negative: Breakdown, Lesion Neuro Exam: Positive: Normal Speech Psych Exam: Positive: Mood NL Vital Signs Vital Signs Date Time Temp Pulse Resp B/P (MAP) Pulse Ox O2 Delivery O2 Flow Rate FiO2 04/19/17 03:45 108/58 (75) 04/19/17 03:36 70 95 04/19/17 02:12 101.0 04/19/17 01:44 Nasal Cannula 2.0 04/19/17 00:25 20 Laboratory Data Labs 24H Laboratory Tests 2 04/19/17 01:15: White Blood Count 20.9H, Red Blood Count 3.41L, Hemoglobin 10.3L, Hematocrit 32.7L, Mean Corpuscular Volume 95.9, Mean Corpuscular Hemoglobin 30.1, Mean Corpuscular Hemoglobin Concent 31.4L, Red Cell Distribution Width 16.4H, Platelet Count 246, Neutrophils (%) (Auto) 92.4H, Lymphocytes (%) (Auto) 4.0L, Monocytes (%) (Auto) 1.9, Eosinophils (%) (Auto) 0.0, Basophils (%) (Auto) 0.8, Neutrophils # (Auto) 19.3H, Lymphocytes # (Auto) 0.8L, Monocytes # (Auto) 0.4, Eosinophils # (Auto) 0.0, Basophils # (Auto) 0.2, Large Unclassified Cells % 0.9 , Large Unclassified Cells # 0.2, Urine Appearance CLEAR, Urine Color YELLOW, Urine pH 5.0, Urine Specific [place] 1.018, Urine Protein NEGATIVE, Urine Glucose (UA) NEGATIVE, Urine Ketones 1+H, Urine Urobilinogen 0.2, Urine Bilirubin NEGATIVE, Urine Leukocyte Esterase NEGATIVE, Urine Blood NEGATIVE, Urine Nitrite NEGATIVE, Urine WBC (Auto) 1, Urine RBC (Auto) 1, Urine Hyaline Casts (Auto) 0, Urine Bacteria (Auto) NEGATIVE, Urine Squamous Epithelial Cells 0, Urine Mucus (Auto) SMALL, Urine Sperm (Auto) , Anion Gap 8, Glomerular Filtration Rate > 60.0, Lactic Acid Level 3.3*H, Calcium Level 8.3L, Aspartate Amino Transf (AST/SGOT) 18, Alanine Aminotransferase (ALT/SGPT) 14, Alkaline Phosphatase 79, Total Bilirubin 0.7, Direct Bilirubin 0.3H, Total Protein 5.8L, Albumin 2.3L, Albumin/Globulin Ratio 0.66L CBC/BMP Laboratory Tests 04/19/17 01:15 Red Blood Count 3.41 L, Mean Corpuscular Volume 95.9, Mean Corpuscular Hemoglobin 30.1, Mean Corpuscular Hemoglobin Concent 31.4 L, Red Cell Distribution Width 16.4 H, Neutrophils (%) (Auto) 92.4 H, Lymphocytes (%) (Auto ) 4.0 L, Monocytes (%) (Auto) 1.9, Eosinophils (%) (Auto) 0.0, Basophils (%) ( Auto) 0.8, Neutrophils # (Auto) 19.3 H, Lymphocytes # (Auto) 0.8 L, Monocytes # (Auto) 0.4, Eosinophils # (Auto) 0.0, Basophils # (Auto) 0.2 Microbiology Microbiology 04/19/17 Blood Culture, Received Pending 04/19/17 Urine Culture, Received Pending Assessment/Plan It is 86-year-old male, history of dementia presented with the sepsis with the leg a unknown source Problems (1) Altered mental status Problem Text: Get CT head on ammonia blood culture, urine culture, chest x-ray and UA was unremarkable. This started IV Zosyn and IV vancomycin (2) Sepsis Status: Acute Problem Text: Continue with IV Zosyn and vancomycin Plan / VTE VTE Prophylaxis Ordered?: Yes Plan IVF: Initiate Diet: Make NPO Medications: Replete Electrolytes PO Diagnostics: Repeat Labs in AM Anticipated Discharge: Home FEMI SHOEMAKER MD Apr 19, 2017 05:02
[2017-04-19] MEDS: NS 1,000 ML IV SCH ×2 (05:09→21:13)
--- NOTE | 2017-04-19 05:50 | REPUSA ---
CLINICAL HISTORY: Altered mental status. TECHNIQUE: Multiple axial CT images were obtained through the brain without IV contrast material. COMMENTS: There is normal configuration of sella turcica. There are no intra or extra-axial collections. There is no mass effect or midline shift. There is no evidence of hematoma formation. No hydrocephalus is p resent. The ventricles are symmetrical. No abnormal calcifications are present. There is diffuse age-appropriate cerebellar and cerebral atrophy with proportionally dilated ventricl es and cortical sulci. There are bilateral periventricular and subcortical white matter hypolucencies compatible with mild c hronic microvascular disease. Otherwise, no significant focal abnormalities are seen either in the posterior fossa or supratentoria l compartment. IMPRESSION: 1. Age-appropriate cerebellar and cerebral atrophy. 2. Mild chronic microvascular disease. 3. No evidence of acute intracranial pathology. Thank you for your kind referral of this patient.
[2017-04-19] MEDS ORDERED: VANCOMYCIN HCL 1,000 MG, VIAL MATE ADAPTER 1 EACH in D5W 250 ML IV ONE (06:30)
--- NOTE | 2017-04-19 06:34 | PHACANCOPD ---
PHARMACY VANCOMYCIN DOSING Pt Demographics Demographics Patient Age:86 , Weight:61.360 , Gender: male Adjusted Body Weight Date: 04/19/17, Adjusted Body Weight: [61] Kg Events Past 24 Hours Events Past 24 Hours: NO: Dialysis, Diuretic Therapy, Change in CrCl, Fever, Elevation in WBC, Pending Diagnostics, Pending Procedures, Other Vancomycin Vancomycin Target Ranges: 15-20 mcg/ml Vancomycin Load Y/N: No Load Dose Date Time Vancomycin Load Dose: Date: Time: Vancomycin Dose Date: 04/19/17. Current Vancomycin Dose: [1000MG Q12H] Intermittent Dosing?: No Labs Labs Item Value Date Time White Blood Count 20.9 K/mm3 H 04/19/17 011 Creatinine 0.96 MG/DL 04/19/17114 Blood Urea Nitrogen 24 MG/DL H 04/19/17 011 Vital Signs Label Value Date Time Patient Temperature 97.5 degrees F 04/19/17514 Temperature Source Temporal 04/19/17 0515 Micro Microbiology 04/19/17 Blood Culture, Received Pending 04/19/17 Urine Culture, Received Pending Creatinine Clearance Date:04/19/17. Creatinine Clearance: [57]. Pending Labs Trough 06-11 @1100 Assessment and Plan Maintaining Current Dose?: Yes Reason for dose change: No Dose Change Pharmacist Note Pharmacist Note Date: 04/19/17. Pharmacist note:1000mg given 0630 in ER with 1000mg q12h dosing ordered to start at 1200. Trough ordered for 06-11 @1100. Will continue to monitor and make adjustments as needed. JAIRO CALLE PHARMACY Apr 19, 2017 06:34
[2017-04-19] MEDS: HEPARIN SOD (PORCINE) 5000 UNITS/ML VIAL SC SCH ×3 (06:42→22:17)
--- NOTE | 2017-04-19 08:08 | REP ---
Portable chest, 04/19/2017, 01:23 a.m., single frontal view, patient sitting: Comparison is 04/13/2017. Lung cross are clear. Cardiac size is normal. There are sternotomy wires and cardiac valve replacement. There are no masses. The right hemidiaphragm is mildly elevated, unchanged. Impression: No acute cardiopulmonary findings. Signed by Baldomero Rajput MD 04/19/2017 08:00 A
[2017-04-19 08:10] VITALS: BP 139/67
--- NOTE | 2017-04-19 08:25 | REP ---
CT of the chest without IV contrast: Comparison is the portable plain film study performed earlier today. There are bibasilar lung parenchymal densities, nonspecific. This could represent dependent atelectasis with the patient supine on the scanning table or could represent bibasilar infiltrates in the posterior sulci of the lung cross bilaterally. There remainder of the lung cross are clear. There are no masses. There is no mediastinal adenopathy. The thoracic aorta is unremarkable except for calcified atheroma. Cardiac size is borderline enlarged. There is a cardiac valve prosthesis. The visualized upper abdominal contents are unremarkable. Impression: Bibasilar infiltrates versus dependent atelectasis. Cardiac valve replacement. Signed by Baldomero Rajput MD 04/19/2017 08:16 A
[2017-04-19 12:00] VITALS: BP 123/57
[2017-04-19] MEDS: VANCOMYCIN HCL 1,000 MG, VIAL MATE ADAPTER 1 EACH in D5W 250 ML IV SCH ×2 (12:11→23:39)
[2017-04-19 16:00] VITALS: BP 160/70
[2017-04-19] MEDS ORDERED: amLODIPine 5 MG TAB PO ONE (17:30)
[2017-04-19 18:59] LABS: MAGNESIUM LEVEL 1.9 MG/DL (1.8-2.4); PHOSPHORUS LEVEL 3.5 MG/DL (2.5-4.9)
[2017-04-19 20:00] VITALS: BP 159/62
[2017-04-19 20:55] VITALS: BP 140/65
[2017-04-19 23:40] VITALS: BP 149/71
[2017-04-20] VITALS (8 sets, daily range): BP systolic 137–164; BP diastolic 63–81; PULSE 104
[2017-04-20] MEDS: PIPERACILLIN/TAZOBACTAM SOD 3.375 GM in D5W MINI-BAG PLUS 50 ML IV SCH ×4 (03:04→21:47)
[2017-04-20] MEDS: HEPARIN SOD (PORCINE) 5000 UNITS/ML VIAL SC SCH (05:22)
[2017-04-20] MEDS: NS 1,000 ML IV SCH (05:38)
[2017-04-20 05:50] LABS: MEAN CORPUSCULAR HEMOGLOBIN 30.5 pg (27.0-33.0); MEAN CORPUSCULAR HGB CONC 32.1 g/dl (32.0-36.5); RED CELL DISTRIBUTION WIDTH 16.9 % (11.5-14.5); WHITE BLOOD COUNT 19.3 K/mm3 (4.0-10.0)
[2017-04-20 06:17] LABS: ALBUMIN 1.6 GM/DL (3.2-5.2); ALBUMIN/GLOBULIN RATIO 0.42 (1.00-1.93); ALKALINE PHOSPHATASE 65 U/L (45-117); ALT/SGPT 8 U/L (12-78); ANION GAP 7 MEQ/L (8-16); AST/SGOT 19 U/L (15-37); BILIRUBIN,TOTAL 0.4 MG/DL (0.2-1.0); CALCIUM LEVEL 8.2 MG/DL (8.8-10.2); CARBON DIOXIDE LEVEL 28 MEQ/L (21-32); CHLORIDE LEVEL 107 MEQ/L (98-107); GLOMERULAR FILTRATION RATE > 60.0 (>35); GLUCOSE, FASTING 100 MG/DL (83-110); POTASSIUM SERUM 3.8 MEQ/L (3.5-5.1); SODIUM LEVEL 142 MEQ/L (136-145); TOTAL PROTEIN 5.4 GM/DL (6.4-8.2)
--- NOTE | 2017-04-20 06:18 | ECGEPIP ---
Stationary ECG Study 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
[2017-04-20 06:19] LABS: BLOOD UREA NITROGEN 29 MG/DL (7-18)
--- NOTE | 2017-04-20 10:11 | IPNPDOC ---
Subjective Date Seen The patient was seen on 04/20/17. Subjective Chief Complaint/HPI The patient is a 86-year-old male admitted with a reason for visit of Sepsis. Events since last encounter patient awake this am following simple commands and answering simple questions with yes or no. complaining of abdominal pain . no fever or chills, No diarrhea. pateint is incontinent or urine. Objective Physical Examination General Exam: Positive: Cooperative, No Acute Distress, Other (awake but no oriented. ) Eye Exam: Positive: PERRLA, Conjunctiva & lids normal, Negative: Sclera icteric ENT Exam: Positive: Atraumatic Neck Exam: Positive: Supple, Negative: JVD, thyromegaly Chest Exam: Positive: Normal air movement, Rales (at the bases.) Heart Exam: Positive: Rate Normal, Regular Rhythm, Normal S1, Normal S2, Negative: Murmurs, Rubs Telemetry: Positive: No significant arrhythmia Abdomen Exam: Positive: BS Hypoactive, Soft, Tenderness, Negative: Hepatospenomegaly Extremity Exam: Positive: Normal pulses, Negative: Clubbing, Cyanosis, Edema Skin Exam: Positive: Nl turgor and temperature, Negative: Breakdown, Lesion Neuro Exam: Positive: Normal Speech Psych Exam: Positive: Mood NL Assessment /Plan Problems (1) Acute metabolic encephalopathy Status: Acute Problem Text: related to sepsis . improving a little. does also have baseline dementia. (2) Sepsis Status: Acute Problem Text: source yet undetermined. CT chest does show some infiltrates . However patient's abdomen is also tender so will get a CT abdomen / pelvis also. Continue with IV Zosyn and vancomycin (3) Dementia Status: Chronic Problem Text: will restart ritalin if becomes agitated. (4) HTN (hypertension) Status: Chronic Problem Text: will monitor Bps for now if it starts rising will start patient on amlodipine. 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 (8) Hx of CABG Status: Chronic Problem Text: in 1996 (9) CAD (coronary artery disease) Status: Chronic Plan/VTE VTE Prophylaxis Ordered?: Yes Plan IVF: Initiate Diet: Continue Current Medications: Replete Electrolytes PO Diagnostics: Repeat Labs in AM Anticipated Discharge: [facility] VS[facility]&O[facility] Vital Signs/I&O Vital Signs Date Time Temp Pulse Resp B/P (MAP) Pulse Ox O2 Delivery O2 Flow Rate FiO2 04/20/17 08:00 97.2 78 18 148/77 (100) 92 Room Air 04/20/17 05:20 1.0 I&O- Last 24 Hours up to 6 AM 04/20/17 06:00 Intake Total 2240 ml Output Total 250 ml Balance 1990 ml Laboratory Data 24H LABS Laboratory Tests 2 04/19/17 18:23: Potassium Level 4.0, Phosphorus Level 3.5, Total Creatine Kinase 58, Magnesium Level 1.9, Creatine Kinase MB 4.1H, Creatine Kinase MB Relative Index 7.06H, Troponin I 0.45H 04/19/17 23:36: Total Creatine Kinase 21L, Creatine Kinase MB 2.4, Creatine Kinase MB Relative Index 11.42H, Troponin I 0.47H 04/20/17 05:17: Potassium Level 3.8, Total Creatine Kinase 31L, Creatine Kinase MB 2.0, Creatine Kinase MB Relative Index 6.45H, Troponin I 0.33#H, Anion Gap 7L, Glomerular Filtration Rate > 60.0, Lactic Acid Level 1.4, Blood Urea Nitrogen 29H, Creatinine 0.70, Sodium Level 142, Chloride Level 107, Carbon Dioxide Level 28, Calcium Level 8.2L, Aspartate Amino Transf (AST/SGOT) 19, Alanine Aminotransferase (ALT/SGPT) 8L, Alkaline Phosphatase 65, Total Bilirubin 0.4, Total Protein 5.4L, Albumin 1.6#L, Albumin/Globulin Ratio 0.42L CBC/BMP Laboratory Tests 04/19/17 18:23 Phosphorus Level 3.5, Total Creatine Kinase 58 04/20/17 05:17 Total Creatine Kinase 31 L, Red Blood Count 2.70 L, Mean Corpuscular Volume 95.0 , Mean Corpuscular Hemoglobin 30.5, Mean Corpuscular Hemoglobin Concent 32.1, Red Cell Distribution Width 16.9 H, Calcium Level 8.2 L, Aspartate Amino Transf (AST/SGOT) 19, Alanine Aminotransferase (ALT/SGPT) 8 L, Alkaline Phosphatase 65 , Total Bilirubin 0.4, Total Protein 5.4 L, Albumin 1.6 #L Microbiology Microbiology 04/19/17 Blood Culture - Preliminary, Resulted 04/19/17 Urine Culture, Received Pending CARLI FOX MD Apr 20, 2017 10:11
[2017-04-20] MEDS ORDERED: ISOVUE-370 76% 100ML VIAL (Q9967) As Ordered ONE (10:48)
[2017-04-20] MEDS ORDERED: GASTROGRAFIN SOLUTION 30ML (Q9963) PO ONE (10:50)
[2017-04-20] MEDS ORDERED: GASTROGRAFIN SOLUTION 30ML PO ONE (11:20)
--- NOTE | 2017-04-20 12:34 | REP ---
CT of the abdomen and pelvis with IV contrast, without bowel contrast: Comparison is the CT of the chest dated 04/19/2017. There are bilateral lower lobe infiltrates. The infiltrate on the left is slightly larger than right. This is unchanged. I suspect there is also a small left pleural effusion. Study is performed with the patient's arms at sides and over the anterior wall of the abdomen, the patient unable to raise the. This results in significant beam-hardening artifact throughout the study. The hepatic parenchyma is homogeneous. The gallbladder is unremarkable. The pancreas is atrophic but otherwise unremarkable. There are multiple splenic calcified granulomas. The spleen is normal size. The adrenals are unremarkable. The kidneys are unremarkable. The abdominal aorta is unremarkable except for calcified atheroma. There is no bowel distension or obstruction. Pelvis: There is no ascites. The the patient states he has an appendectomy. The pelvic bowel loops are unremarkable. In the midline of the pelvis there is a large mass containing large volume of gas and other debris surrounded by a lot of bowel loops compatible with a large abscess measuring 10 x 5 cm. There are a few tiny bubbles of pneumoperitoneum in the intraperitoneal fat on the right. The bladder is incompletely distended. There are small densities posterior laterally in the bladder on the left, possibly small bladder calculi. There is internal fixation of the left hip. There are no sacral or pelvic fractures. There are no lumbar vertebral fractures. Impression: Bibasilar infiltrates in the lower lobes of the lungs, the left infiltrate is larger. The small left pleural effusion. Calcified granulomas in the spleen. No ascites, adenopathy or bowel distension. The patient has an appendectomy. Small bladder calculi. No hydronephrosis. Otherwise, essentially negative CT of the abdomen and pelvis. Signed by Baldomero Rajput MD 04/20/2017 12:26 P
[2017-04-20] MEDS: VANCOMYCIN HCL 1,000 MG, VIAL MATE ADAPTER 1 EACH in D5W 250 ML IV SCH (12:40)
[2017-04-20] MEDS: D5W/0.9% SODIUM CHLORIDE 1,000 ML IV SCH (12:40)
[2017-04-21] VITALS (8 sets, daily range): BP systolic 137–174; BP diastolic 64–77; PULSE 76–83
[2017-04-21] MEDS: VANCOMYCIN HCL 1,000 MG, VIAL MATE ADAPTER 1 EACH in D5W 250 ML IV SCH ×2 (01:00→13:15)
[2017-04-21] MEDS: D5W/0.9% SODIUM CHLORIDE 1,000 ML IV SCH ×2 (01:00→10:39)
[2017-04-21] MEDS: PIPERACILLIN/TAZOBACTAM SOD 3.375 GM in D5W MINI-BAG PLUS 50 ML IV SCH ×4 (02:45→21:32)
[2017-04-21] MEDS ORDERED: IPRATROPIUM 0.5MG/ALBUTEROL 2.5MG INH SOL UD 3ML (DUONEB)(J7620) NEB PRN (03:45)
[2017-04-21 05:37] LABS: MEAN CORPUSCULAR HGB CONC 32.9 g/dl (32.0-36.5); MEAN CORPUSCULAR VOLUME 94.3 fl (80.0-96.0); WHITE BLOOD COUNT 14.9 K/mm3 (4.0-10.0)
[2017-04-21 05:57] LABS: ALBUMIN 1.4 GM/DL (3.2-5.2); ALKALINE PHOSPHATASE 71 U/L (45-117); ALT/SGPT 7 U/L (12-78); ANION GAP 5 MEQ/L (8-16); AST/SGOT 15 U/L (15-37); BILIRUBIN,TOTAL 0.5 MG/DL (0.2-1.0); BLOOD UREA NITROGEN 22 MG/DL (7-18); CALCIUM LEVEL 8.3 MG/DL (8.8-10.2); CARBON DIOXIDE LEVEL 30 MEQ/L (21-32); CHLORIDE LEVEL 108 MEQ/L (98-107); CREATININE FOR GFR 0.61 MG/DL (0.70-1.30); GLOMERULAR FILTRATION RATE > 60.0 (>35); GLUCOSE, FASTING 110 MG/DL (83-110); SODIUM LEVEL 143 MEQ/L (136-145); TOTAL PROTEIN 4.9 GM/DL (6.4-8.2)
--- NOTE | 2017-04-21 08:56 | REP ---
PORTABLE CHEST: AP portable view of the chest is performed. Comparison 04/19/2017. There is mild elevation of the right hemidiaphragm. The right lung is clear. There is mild patchy atelectasis or infiltrate in the left lung base. There is calcified tortuous ectatic aorta. The mediastinal silhouette is unchanged. Multiple sternal wires and mediastinal clips are present. IMPRESSION: Cardiomegaly. Mild patchy atelectasis versus infiltrate left lung base. Signed by Baldomero Cross MD 04/21/2017 05:10 P
[2017-04-21] MEDS: KCL 10MEQ IN 100ML SWI (KRUN) 10 MEQ in APPROPRIATE DILUENT 1 EA IV SCH ×6 (09:40→11:54)
--- NOTE | 2017-04-21 10:31 | IPNPDOC ---
Subjective Date Seen The patient was seen on 04/21/17. Subjective Chief Complaint/HPI The patient is a 86-year-old male admitted with a reason for visit of Sepsis. Objective Physical Examination General Exam: Positive: Cooperative, No Acute Distress, Other (awake but no oriented. ) Eye Exam: Positive: PERRLA, Conjunctiva & lids normal, Negative: Sclera icteric ENT Exam: Positive: Atraumatic Neck Exam: Positive: Supple, Negative: JVD, thyromegaly Chest Exam: Positive: Normal air movement, Rales (at the bases.) Heart Exam: Positive: Rate Normal, Regular Rhythm, Normal S1, Normal S2, Negative: Murmurs, Rubs Telemetry: Positive: No significant arrhythmia Abdomen Exam: Positive: BS Hypoactive, Soft, Tenderness, Negative: Hepatospenomegaly Extremity Exam: Positive: Normal pulses, Negative: Clubbing, Cyanosis, Edema Skin Exam: Positive: Nl turgor and temperature, Negative: Breakdown, Lesion Neuro Exam: Positive: Normal Speech Psych Exam: Positive: Mood NL Assessment /Plan Problems (1) Acute metabolic encephalopathy Status: Acute Problem Text: related to sepsis does also have baseline dementia. (2) Sepsis Status: Acute Problem Text: Most probably from abdomen . CT abdomen shows mass related to possible distal ileum with perforation and abscess formation. Discussed with Dr Syed. consulted Dr Morgan. CT chest does show some infiltrates . blood culture gram positive rods. Continue with IV Zosyn and vancomycin continue NPO and maintenance IVF. (3) Dementia Status: Chronic Problem Text: will restart ritalin if becomes agitated. (4) HTN (hypertension) Status: Chronic Problem Text: will monitor Bps for now if it starts rising will start patient on amlodipine. (5) HLD (hyperlipidemia) Status: Chronic (6) Anemia Status: Chronic Problem Text: EGD and colonoscopy done in march 2017. EGD showed non bleeding gastric ulcer, chronic gastritis, hiatal hernia and colonoscopy showed hemorrhoids and diverticulosis. also had 40 lb weight loss over the past 6 months. (7) Aortic valve replaced Status: Chronic Problem Text: by endovascular route. (8) Hx of CABG Status: Chronic Problem Text: in 1996 (9) CAD (coronary artery disease) Status: Chronic Plan/VTE VTE Prophylaxis Ordered?: Yes Plan/Urinary Catheter Reason for insertion/continuin: Acute obstruct/retention Plan IVF: Initiate Diet: Continue Current Medications: Replete Electrolytes PO Diagnostics: Repeat Labs in AM Anticipated Discharge: Home VS, I&O, 24H, [facility] Vital Signs/I&O Vital Signs Date Time Temp Pulse Resp B/P (MAP) Pulse Ox O2 Delivery O2 Flow Rate FiO2 04/21/17 08:00 99.3 80 20 174/75 (108) 93 Room Air 04/20/17 05:20 1.0 I&O- Last 24 Hours up to 6 AM 04/21/17 06:00 Intake Total 1645 ml Output Total 800 ml Balance 845 ml Laboratory Data 24H LABS Laboratory Tests 2 04/20/17 10:52: Vancomycin Level Trough 17.1 04/21/17 05:07: Anion Gap 5L, Glomerular Filtration Rate > 60.0, Blood Urea Nitrogen 22H, Creatinine 0.61L, Sodium Level 143, Potassium Level 3.0#L, Chloride Level 108H, Carbon Dioxide Level 30, Calcium Level 8.3L, Aspartate Amino Transf (AST/SGOT) 15, Alanine Aminotransferase (ALT/SGPT) 7L, Alkaline Phosphatase 71, Total Bilirubin 0.5, Total Protein 4.9L, Albumin 1.4L, Albumin/Globulin Ratio 0.40L CBC/BMP Laboratory Tests 04/21/17 05:07 Red Blood Count 2.56 L, Mean Corpuscular Volume 94.3, Mean Corpuscular Hemoglobin 31.0, Mean Corpuscular Hemoglobin Concent 32.9, Red Cell Distribution Width 17.0 H, Calcium Level 8.3 L, Aspartate Amino Transf (AST/SGOT ) 15, Alanine Aminotransferase (ALT/SGPT) 7 L, Alkaline Phosphatase 71, Total Bilirubin 0.5, Total Protein 4.9 L, Albumin 1.4 L Microbiology Microbiology 04/19/17 Blood Culture - Preliminary, Resulted 04/20/17 Stool Occult Blood (YOANDY) - Final, Complete 04/19/17 Urine Culture - Final, Complete CARLI FOX MD Apr 21, 2017 10:31
--- NOTE | 2017-04-21 19:46 | CR ---
DATE OF CONSULTATION: 04/21/2017 Reason for consultation is abdominal abscess. HISTORY OF PRESENT ILLNESS: The patient is an 86-year-old man who was admitted at [facility] on 04/19/2017. The patient was brought to the emergency department just after midnight in the senior project manager engineering of 04/19/2017. The patient apparently lives at home with family members. He does have a history of some dementia. He was brought in because of an altered mental status. His also apparently reported that he had a temperature at home. This is per the emergency department record. The patient does have a DO NOT RESUSCITATE, DO NOT INTUBATE Medical Orders for Life-Sustaining Treatment (MOLST) form in place with his primary physician who is Dr. Cortez. On presentation at the emergency department, he was found to have a temperature of 102.1 degrees. At the time of presentation, he was described as being lethargic. He was rousable to some light pain but was apparently not verbalizing any responses. He underwent evaluation with some blood work that revealed a marked elevation of his white blood cell count to 21,000 with a differential showing 92% neutrophils and 4% lymphocytes. Chemistries revealed normal electrolytes with a BUN of 24, creatinine of 1. Protein 5.8 with an albumin of 2.3. He was evaluated with a chest x-ray and a head CT and a chest CT, all looking for the cause of his altered mental status and the source of his infection. The CT of the chest showed some bibasilar infiltrates versus atelectasis. He subsequently underwent a CT scan of the abdomen and pelvis, and this was done on 04/20/2017. This CT showed an abscess low in the midline of the pelvis. There were a few tiny air bubbles free in the peritoneum. He has been continued on antibiotics with Zosyn and vancomycin. I have now been requested to evaluate the patient regarding his abdominal process. ALLERGIES: Allergies are listed to LATEX and to TAPE. His current medications include: - D5 normal saline at 60 mL an hour - DuoNebs every 4 hours as needed - vancomycin 1 gram IV every 12 hours - Zosyn 3.375 grams IV every 6 hours - Tylenol 650 mg suppositories every 4 hours as needed His home medication list is included in the medical record. The patient's medical history is significant for coronary artery disease. He has had an aortic valve replacement. He has a history of dementia. He has a history of hypertension. He has had anemia and as recently as March 2017 underwent an esophagogastroduodenoscopy (EGD) and colonoscopy to evaluate the cause. He was found to have some gastritis and a superficial gastric ulcer. SURGICAL HISTORY: Medical records indicate the patient has had previous bilateral cataract surgery. He had a coronary artery bypass grafting in about 1998. He had a transcatheter aortic valve replacement. In November of 2016, he suffered a fall with a left intertrochanteric hip fracture and underwent a repair. There are notes that suggest he has had a prior inguinal hernia and perhaps an appendectomy. SOCIAL HISTORY: The patient apparently lives at home with his who is his health care proxy. There is a son involved in his care as well. He has care aides at home. Review of systems is not really obtainable from the patient at this time. PHYSICAL EXAMINATION: Reveals a slightly pale, thin elderly man lying quietly in the hospital bed. He is responsive. He answers appropriately but is not able to give significant medical information about his past. Sclerae are anicteric. The skin is warm and dry. Mucous membranes are moist. Neck is supple without mass. Heart exam shows a regular rhythm. The lungs show bilateral breath sounds. The abdomen is flat. He has a loud vascular bruit in the upper abdomen. He does have some bowel sounds present. He is nondistended. He does have some apparent tenderness in his lower mid abdomen and into the suprapubic area. This appears to be primarily near the midline. There is no definite rebound. He has palpable dorsalis pedis and radial pulses bilaterally. There is no peripheral edema. His laboratory studies from today show a white count of 14.9 with a hemoglobin of 8, hematocrit of 24 and a platelet count of 185,000. Differential count was not done today. Chemistry profile showed a sodium of 143, potassium 3.0, chloride 108, CO2 of 30, BUN of 22, creatinine 0.6 and a glucose of 110. Total protein is 4.9 with an albumin of 1.4. Urinalysis from 04/19/2017 showed a specific gravity of 1.018 with a pH of 5.0 and was not suggestive of a urinary tract infection. He had a vancomycin trough level on 04/20/2017 that was 17.1. His abdominal CT scan revealed some bilateral lower lobe infiltrates. There were a few small bubbles of air identified in the right side of the peritoneum. There was a large inflammatory mass identified containing gas low in the abdomen just above the right side of the bladder. This is not adjacent to colon so though he has some known diverticulosis of the colon, this would seem to be an unlikely source for this problem. There appears to be some distal ileum overlying this area of abscess. It may be that this represents the source for his problem. IMPRESSION: 1. Large lower abdominal/pelvic abscess of unclear etiology. 2. Dementia. 3. Atherosclerotic coronary artery disease, status post bypass. 4. Status post aortic valve replacement. 5. Malnutrition. 6. History of hypertension. RECOMMENDATIONS: The patient currently has an order in place for DO NOT RESUSCITATE and DO NOT INTUBATE. Given his degree of dementia and frailty, this is probably not an unreasonable approach. As to treatment of his abscess, I suspect that simple treatment with antibiotics will fail. The presence of a few tiny air bubbles within the abdomen outside of the area of the abscess suggests that the source for his abscess is an intestinal perforation. This is unlikely, I think, to heal given the degree of infection identified by CT scan. Percutaneous drainage may well be possible, and this might help to control the infection and allow the abscess to consolidate and may allow for effective treatment with antibiotics. This should be a relatively low risk procedure if the interventional radiologist feels that it is possible to drain this. Surgical intervention would certainly be technically possible but one's enthusiasm for surgery would be tempered by the patient's mental state as well as his marked malnutrition and frailty suggesting a very high risk of complications and poor healing requiring prolonged hospitalization. These are all options that the patient's family would need to consider. MARIA ISABEL
[2017-04-22] VITALS (7 sets, daily range): BP systolic 178–188; BP diastolic 80–87; PULSE 77–87
[2017-04-22] MEDS: D5W/0.9% SODIUM CHLORIDE 1,000 ML IV SCH (00:53)
[2017-04-22] MEDS: VANCOMYCIN HCL 1,000 MG, VIAL MATE ADAPTER 1 EACH in D5W 250 ML IV SCH ×3 (00:53→23:53)
[2017-04-22] MEDS: PIPERACILLIN/TAZOBACTAM SOD 3.375 GM in D5W MINI-BAG PLUS 50 ML IV SCH ×4 (00:53→20:30)
[2017-04-22 03:44] LABS: MEAN CORPUSCULAR HEMOGLOBIN 31.2 pg (27.0-33.0); MEAN CORPUSCULAR HGB CONC 33.2 g/dl (32.0-36.5); RED CELL DISTRIBUTION WIDTH 16.9 % (11.5-14.5); WHITE BLOOD COUNT 11.8 K/mm3 (4.0-10.0)
[2017-04-22 04:18] LABS: ALBUMIN 1.4 GM/DL (3.2-5.2); ALBUMIN/GLOBULIN RATIO 0.39 (1.00-1.93); ALKALINE PHOSPHATASE 77 U/L (45-117); ALT/SGPT 9 U/L (12-78); ANION GAP 6 MEQ/L (8-16); AST/SGOT 19 U/L (15-37); BILIRUBIN,TOTAL 0.5 MG/DL (0.2-1.0); BLOOD UREA NITROGEN 17 MG/DL (7-18); CALCIUM LEVEL 8.1 MG/DL (8.8-10.2); CARBON DIOXIDE LEVEL 29 MEQ/L (21-32); CHLORIDE LEVEL 105 MEQ/L (98-107); CREATININE FOR GFR 0.51 MG/DL (0.70-1.30); GLOMERULAR FILTRATION RATE > 60.0 (>35); GLUCOSE, FASTING 127 MG/DL (83-110); POTASSIUM SERUM 3.1 MEQ/L (3.5-5.1); SODIUM LEVEL 140 MEQ/L (136-145)
[2017-04-22] MEDS ORDERED: GASTROGRAFIN SOLUTION 30ML (Q9963) PO ONE ×2 (10:30→14:30)
[2017-04-22] MEDS: KCL 10MEQ IN 100ML SWI (KRUN) 10 MEQ in APPROPRIATE DILUENT 1 EA IV SCH ×4 (11:01→13:27)
[2017-04-22] MEDS: KCL 40MEQ IN D5/NS 1000ML 1,000 ML IV SCH (11:09)
--- NOTE | 2017-04-22 12:24 | PHACANCOPD ---
PHARMACY VANCOMYCIN DOSING Pt Demographics Demographics Patient Age:86 , Weight:65.100 , Gender: male Adjusted Body Weight Date: 04/19/17, Adjusted Body Weight: [61] Kg Events Past 24 Hours Events Past 24 Hours: NO: Dialysis, Diuretic Therapy, Change in CrCl, Fever, Elevation in WBC, Pending Diagnostics, Pending Procedures, Other Vancomycin Vancomycin Target Ranges: 15-20 mcg/ml Vancomycin Load Y/N: No Load Dose Date Time Vancomycin Load Dose: Date: Time: Vancomycin Dose Date: 04/19/17. Current Vancomycin Dose: [1000MG Q12H] Intermittent Dosing?: No Labs Labs Vital Signs Label Value Date Time Patient Temperature 98.4 degrees F 04/22/17 0730 Temperature Source Tympanic 04/22/17 0730 Patient Temperature 99.0 degrees F 04/22/17 0400 Temperature Source Temporal 04/22/17 0400 Patient Temperature 99.0 degrees F 04/21/17 2359 Temperature Source Temporal 04/21/17 2359 Item Value Date Time White Blood Count 19.3 K/mm3 H 04/20/17 0517 White Blood Count 14.9 K/mm3 H 04/21/17 0507 White Blood Count 11.8 K/mm3 H 04/22/17 0331 Creatinine 0.70 MG/DL 04/20/17 0517 Creatinine 0.61 MG/DL L 04/21/17 0507 Creatinine 0.51 MG/DL L 04/22/17 0331 Vancomycin Level Trough 17.1 UG/ML 04/20/17 1052 Vancomycin Level Trough 15.2 UG/ML 04/22/17 1107 Micro Microbiology 04/19/17 Blood Culture - Preliminary, Resulted 04/20/17 Stool Occult Blood (YOANDY) - Final, Complete 04/19/17 Urine Culture - Final, Complete Creatinine Clearance Date:04/19/17. Creatinine Clearance: [57]. Pending Labs Trough 04-20 @1100 Assessment and Plan Maintaining Current Dose?: Yes Reason for dose change: No Dose Change Pharmacist Note Pharmacist Note 04/22/17: Scr improved. Trough today came back 15.2 with in range. We will continue Vanco 1G IV q12h@12. We will continue to monitor and adjust dose as needed. Date: 04/19/17. Pharmacist note:1000mg given 0630 in ER with 1000mg q12h dosing ordered to start at 1200. Trough ordered for 04-20 @1100. Will continue to monitor and make adjustments as needed. GEMA NELSON PHARMACY Apr 22, 2017 12:24
[2017-04-22] MEDS ORDERED: GASTROGRAFIN SOLUTION 30ML PO ONE (14:00)
--- NOTE | 2017-04-22 14:56 | IPNPDOC ---
Subjective Date Seen The patient was seen on 04/22/17. Subjective Chief Complaint/HPI The patient is a 86-year-old male admitted with a reason for visit of Sepsis. Events since last encounter No new issues overnight . no fever or chills, chiang will dirty urine, continues to have abdominal pain , awake and answering yes or no. no chest pain or sob , no cough or phlegm. remains npo. Objective Physical Examination General Exam: Positive: Cooperative, No Acute Distress, Other (awake but no oriented. ) Eye Exam: Positive: PERRLA, Conjunctiva & lids normal, Negative: Sclera icteric ENT Exam: Positive: Atraumatic Neck Exam: Positive: Supple, Negative: JVD, thyromegaly Chest Exam: Positive: Normal air movement, Rales (at the bases.) Heart Exam: Positive: Rate Normal, Regular Rhythm, Normal S1, Normal S2, Negative: Murmurs, Rubs Telemetry: Positive: No significant arrhythmia Abdomen Exam: Positive: BS Hypoactive, Soft, Tenderness, Negative: Hepatospenomegaly Extremity Exam: Positive: Normal pulses, Negative: Clubbing, Cyanosis, Edema Skin Exam: Positive: Nl turgor and temperature, Negative: Breakdown, Lesion Neuro Exam: Positive: Normal Speech Psych Exam: Positive: Mood NL Assessment /Plan Problems (1) Acute metabolic encephalopathy Status: Acute Problem Text: related to sepsis does also have baseline dementia. (2) Sepsis Status: Acute Problem Text: Most probably from abdomen . CT abdomen shows mass related to possible distal ileum with perforation and abscess formation. Discussed with Dr Syed. consulted Dr Morgan. Not a good candidate for extensive surgery due to poor nutritional status, dementia and frailty . Have consulted Dr Barrios for possible IR guided abscess drainage. we will get a repeat CT abdomen and pelvis with IV and oral contrast and possible drainage tomorrow. CT chest does show some infiltrates . blood culture gram positive rods. Continue with IV Zosyn and vancomycin continue NPO and maintenance IVF. repeat blood culture. (3) Dementia Status: Chronic Problem Text: will restart ritalin if becomes agitated. (4) HTN (hypertension) Status: Chronic Problem Text: Bp rising will start amlodipine. (5) HLD (hyperlipidemia) Status: Chronic (6) Anemia Status: Chronic Problem Text: EGD and colonoscopy done in march 2017. EGD showed non bleeding gastric ulcer, chronic gastritis, hiatal hernia and colonoscopy showed hemorrhoids and diverticulosis. also had 40 lb weight loss over the past 6 months. (7) Aortic valve replaced Status: Chronic Problem Text: by endovascular route. (8) Hx of CABG Status: Chronic Problem Text: in 1996 (9) CAD (coronary artery disease) Status: Chronic Plan/VTE VTE Prophylaxis Ordered?: Yes Plan/Urinary Catheter Reason for insertion/continuin: Acute obstruct/retention Plan IVF: Initiate Diet: Continue Current Medications: Replete Electrolytes PO Diagnostics: Repeat Labs in AM Anticipated Discharge: Home VS, I&O, 24H, [facility] Vital Signs/I&O Vital Signs Date Time Temp Pulse Resp B/P (MAP) Pulse Ox O2 Delivery O2 Flow Rate FiO2 04/22/17 14:23 Room Air 04/22/17 12:20 99.4 71 22 182/84 (116) 94 04/20/17 05:20 1.0 I&O- Last 24 Hours up to 6 AM 04/22/17 06:00 Intake Total 1980 ml Output Total 775 ml Balance 1205 ml Laboratory Data 24H LABS Laboratory Tests 2 04/22/17 03:31: Anion Gap 6L, Glomerular Filtration Rate > 60.0, Blood Urea Nitrogen 17, Creatinine 0.51L, Sodium Level 140, Potassium Level 3.1L, Chloride Level 105, Carbon Dioxide Level 29, Calcium Level 8.1L, Aspartate Amino Transf (AST/SGOT) 19, Alanine Aminotransferase (ALT/SGPT) 9L, Alkaline Phosphatase 77, Total Bilirubin 0.5, Total Protein 5.0L, Albumin 1.4L, Albumin/Globulin Ratio 0.39L 04/22/17 11:07: Vancomycin Level Trough 15.2 CBC/BMP Laboratory Tests 04/22/17 03:31 Red Blood Count 2.64 L, Mean Corpuscular Volume 94.0, Mean Corpuscular Hemoglobin 31.2, Mean Corpuscular Hemoglobin Concent 33.2, Red Cell Distribution Width 16.9 H, Calcium Level 8.1 L, Aspartate Amino Transf (AST/SGOT ) 19, Alanine Aminotransferase (ALT/SGPT) 9 L, Alkaline Phosphatase 77, Total Bilirubin 0.5, Total Protein 5.0 L, Albumin 1.4 L Microbiology Microbiology 04/19/17 Blood Culture - Preliminary, Resulted 04/20/17 Stool Occult Blood (YOANDY) - Final, Complete 04/19/17 Urine Culture - Final, Complete CARLI FOX MD Apr 22, 2017 14:56
[2017-04-22] MEDS ORDERED: ISOVUE-370 76% 100ML VIAL (Q9967) As Ordered ONE (16:38)
--- NOTE | 2017-04-22 18:04 | REP ---
CT abdomen pelvis with IV and oral contrast: 04/22/2017. Comparison 04/20/2017. Clinical history abdominal abscess with bowel perforation. Technique oral gastrographin mixture 10 ml centimeter 90 and was flavored water given for bowel contrast bolus of two doses per protocol. Thereafter 100 ml as Isovue 370 given and scanning through the abdomen pelvis. Coronal and sagittal reconstructions were then performed. Findings: CT abdomen lung bases show bilateral effusions left greater than right. There is fibrotic and dependent atelectatic change bilaterally. Patchy infiltrates or consolidations abuts the fibrotic changes and atelectasis also suspected. No change in her cardiac size with cardiomegaly, left atrial ventricular enlargement and aortic valve replacement noted. Elevation of the right diaphragm with the liver, spleen and degree of the adrenal glands unremarkable. Upper abdomen adjacent to the aorta is a mass or dominant 2.5 cm in AP diameter, partially effacing the IVC another mass larger 4.4 by 3 cm. These suggest tomasa masses are below an separate from the pancreatic head and the uncinate portion of that is visualized pancreas shows some atrophy without mass or ductal dilatation or abnormal calcifications or peripancreatic edema sinus regions. There are small periaortic nodes anterior to the left adrenal gland compared to the large nodes anterior to the right. 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 Cannot see nodes in the gastrohepatic ligament calcifications in the spleen without enlargement. Focal hepatic or splenic mass. Small bowel loops in the upper abdomen contrast or fluid-filled but not abnormally dilated without signs of obstruction. Colon shows scattered contrast air without colitis, diverticulitis, stricture or mass. Kidneys show function without obstruction or discrete mass. Bone windows were unchanged. CT pelvis and pelvis is a complex irregular thick-walled mass air and contrast within the wade. Irregular lobulated measures of 10.8 x 6.6 10.8 cm. It abuts the bladder. Perez catheter seen extending adjacent to it. There is a perforated diverticular abscess or other mass. Air fluid levels with contrast is seen within this mass. Bladder has irregular wade and abuts the lesion. Some air in the bladder suggesting there is a communication to the bladder from this lesion as well although no contrast is in the bladder with Gastrografin mixture. Oral contrast does reach the rectosigmoid of the distal left colon. No inguinal adenopathy or hernia or mass. No ventral hernia. The pelvic bone windows show prior left hip ORIF with threaded femoral nail as before. Impression: 1. 10.8 x 10.8 by 6.6 cm lobulated thick-walled that abscess presumably diverticular arise off the anterior aspect of the lower sigmoid. 2. The mass abuts the bladder. There is some apparent communication to the bladder with air in the bladder possibly fistulous connection although there is no oral contrast. Three. There are two masses in the aortocaval region superiorly in the abdomen, one measuring 4.4 x 3 cm in short axis of the 2.5 cm. This may reflect a large nodes or other mass in this region do not see other areas of pathologic sized adenopathy. Sign Signed by Darrian Juares MD 04/22/2017 05:55 P
[2017-04-22] MEDS: amLODIPine 5 MG TAB PO SCH (20:31)
[2017-04-23] VITALS (7 sets, daily range): BP systolic 166–188; BP diastolic 75–84
[2017-04-23] MEDS: PIPERACILLIN/TAZOBACTAM SOD 3.375 GM in D5W MINI-BAG PLUS 50 ML IV SCH ×4 (03:30→20:58)
[2017-04-23] MEDS ORDERED: SODIUM CHLORIDE 0.9% INJ 10 ML SYR IV PRN (05:00)
[2017-04-23] MEDS: SODIUM CHLORIDE 0.9% INJ 10 ML SYR IV SCH ×2 (05:07→15:48)
[2017-04-23 05:29] LABS: MEAN CORPUSCULAR HEMOGLOBIN 30.1 pg (27.0-33.0); MEAN CORPUSCULAR HGB CONC 31.8 g/dl (32.0-36.5); MEAN CORPUSCULAR VOLUME 94.7 fl (80.0-96.0); RED CELL DISTRIBUTION WIDTH 16.9 % (11.5-14.5); WHITE BLOOD COUNT 10.4 K/mm3 (4.0-10.0)
[2017-04-23 06:08] LABS: ALBUMIN 1.4 GM/DL (3.2-5.2); ALBUMIN/GLOBULIN RATIO 0.48 (1.00-1.93); ALKALINE PHOSPHATASE 93 U/L (45-117); ALT/SGPT 12 U/L (12-78); ANION GAP 6 MEQ/L (8-16); AST/SGOT 25 U/L (15-37); BILIRUBIN,TOTAL 0.6 MG/DL (0.2-1.0); BLOOD UREA NITROGEN 10 MG/DL (7-18); CALCIUM LEVEL 7.9 MG/DL (8.8-10.2); CARBON DIOXIDE LEVEL 30 MEQ/L (21-32); CHLORIDE LEVEL 105 MEQ/L (98-107); CREATININE FOR GFR 0.51 MG/DL (0.70-1.30); GLOMERULAR FILTRATION RATE > 60.0 (>35); GLUCOSE, FASTING 118 MG/DL (83-110); MAGNESIUM LEVEL 1.9 MG/DL (1.8-2.4); POTASSIUM SERUM 3.3 MEQ/L (3.5-5.1); SODIUM LEVEL 141 MEQ/L (136-145); TOTAL PROTEIN 4.3 GM/DL (6.4-8.2)
[2017-04-23] MEDS: amLODIPine 5 MG TAB PO SCH ×2 (09:59→20:58)
[2017-04-23] MEDS: VANCOMYCIN HCL 1,000 MG, VIAL MATE ADAPTER 1 EACH in D5W 250 ML IV SCH ×2 (11:20→23:52)
[2017-04-23] MEDS: KCL 40MEQ IN D5/NS 1000ML 1,000 ML IV SCH (11:20)
--- NOTE | 2017-04-23 13:51 | IPNPDOC ---
Subjective Date Seen The patient was seen on 04/23/17. Subjective Chief Complaint/HPI The patient is a 86-year-old male admitted with a reason for visit of Sepsis. Events since last encounter patient remains same as yesterday. Had new CT scan done with IV and oral contrast yesterday looks like he may have a malignant mass related to external aspect of transverse colon along with the abscess and perforation . Plan is to try and biopsy the mass. If it comes back as malignancy patient would be a candidate for [facility] and hospice care. Objective Physical Examination General Exam: Positive: Cooperative, No Acute Distress, Other (awake but no oriented. ) Eye Exam: Positive: PERRLA, Conjunctiva & lids normal, Negative: Sclera icteric ENT Exam: Positive: Atraumatic Neck Exam: Positive: Supple, Negative: JVD, thyromegaly Chest Exam: Positive: Normal air movement, Rales (at the bases.) Heart Exam: Positive: Rate Normal, Regular Rhythm, Normal S1, Normal S2, Negative: Murmurs, Rubs Telemetry: Positive: No significant arrhythmia Abdomen Exam: Positive: BS Hyperactive, Soft, Tenderness, Negative: Hepatospenomegaly Extremity Exam: Positive: Normal pulses, Negative: Clubbing, Cyanosis, Edema Skin Exam: Positive: Nl turgor and temperature, Negative: Breakdown, Lesion Neuro Exam: Positive: Normal Speech Psych Exam: Positive: Mood NL Assessment /Plan Problems (1) Abdominal mass, left upper quadrant Status: Acute Problem Text: May be malignant could be related to transverse colon or lymphnode. will try for US guided biopsy today. (2) Abscess of abdominal cavity Status: Acute Problem Text: in the pelvis close to the bladder may have fistulous communication with bladder as per CT . will continue with antibiotics for now. Appreciate Dr Barrios's care of the patient. (3) Sepsis Status: Acute Problem Text: from abdomen . CT abdomen shows mass related to possible distal ileum/ transverse colon with bowel perforation and abscess formation. Discussed with Dr Syed. consulted Dr Morgan. Not a good candidate for extensive surgery due to poor nutritional status, dementia and frailty . New CT abdomen pelvis with IV and oral contrast shows possible malignant mass related to outside of transverse colon which needs to be biopsied. Patient will go down for US guided biopy of the mass in the left upper quadrant. CT chest does show some infiltrates . blood culture gram positive rods. Continue with IV Zosyn and vancomycin continue NPO and maintenance IVF. repeat blood culture. (4) Acute metabolic encephalopathy Status: Acute Problem Text: related to sepsis does also have baseline dementia. (5) Dementia Status: Chronic Problem Text: will restart ritalin if becomes agitated. (6) HTN (hypertension) Status: Chronic Problem Text: Bp rising will start amlodipine. (7) HLD (hyperlipidemia) Status: Chronic (8) Anemia Status: Chronic Problem Text: EGD and colonoscopy done in march 2017. EGD showed non bleeding gastric ulcer, chronic gastritis, hiatal hernia and colonoscopy showed hemorrhoids and diverticulosis. also had 40 lb weight loss over the past 6 months. (9) Aortic valve replaced Status: Chronic Problem Text: by endovascular route. 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 (11) CAD (coronary artery disease) Status: Chronic Plan/VTE VTE Prophylaxis Ordered?: Yes Plan/Urinary Catheter Reason for insertion/continuin: Acute obstruct/retention Plan IVF: Initiate Diet: Continue Current Medications: Replete Electrolytes PO Diagnostics: Repeat Labs in AM Anticipated Discharge: Home VS, I&O, 24H, [facility] Vital Signs/I&O Vital Signs Date Time Temp Pulse Resp B/P (MAP) Pulse Ox O2 Delivery O2 Flow Rate FiO2 04/23/17 08:07 Room Air 04/23/17 07:30 98.5 71 22 188/84 (118) 100 04/20/17 05:20 1.0 I&O- Last 24 Hours up to 6 AM 04/23/17 05:59 Intake Total 1480 ml Output Total 1575 ml Balance -95 ml Laboratory Data 24H LABS Laboratory Tests 2 04/23/17 05:17: Anion Gap 6L, Glomerular Filtration Rate > 60.0, Blood Urea Nitrogen 10, Creatinine 0.51L, Sodium Level 141, Potassium Level 3.3L, Chloride Level 105, Carbon Dioxide Level 30, Calcium Level 7.9L, Aspartate Amino Transf (AST/SGOT) 25, Alanine Aminotransferase (ALT/SGPT) 12, Alkaline Phosphatase 93, Total Bilirubin 0.6, Total Protein 4.3L, Albumin 1.4L, Magnesium Level 1.9, Albumin/ Globulin Ratio 0.48L CBC/BMP Laboratory Tests 04/23/17 05:17 Red Blood Count 2.52 L, Mean Corpuscular Volume 94.7, Mean Corpuscular Hemoglobin 30.1, Mean Corpuscular Hemoglobin Concent 31.8 L, Red Cell Distribution Width 16.9 H, Calcium Level 7.9 L, Aspartate Amino Transf (AST/SGOT ) 25, Alanine Aminotransferase (ALT/SGPT) 12, Alkaline Phosphatase 93, Total Bilirubin 0.6, Total Protein 4.3 L, Albumin 1.4 L Microbiology Microbiology 04/19/17 Blood Culture - Preliminary, Resulted 04/20/17 Stool Occult Blood (YOANDY) - Final, Complete 04/19/17 Urine Culture - Final, Complete CARLI FOX MD Apr 23, 2017 13:50
[2017-04-23] MEDS ORDERED: LIDOCAINE 1% MDV 20ML VIAL As Ordered ONE (14:18)
--- NOTE | 2017-04-23 16:58 | REP ---
ULTRASOUND GUIDED LEFT UPPER ABDOMEN MASS BIOPSY: The procedure was performed under the direct supervision of Dr. Cross. The risks and benefits of the procedure were explained and informed consent was obtained by the healthcare proxy. The left upper abdomen mass was localized using ultrasound guidance. The skin was prepped and draped in a sterile fashion. 1% Xylocaine was used as a local anesthetic. Using ultrasound guidance a 19-20-gauge coaxial needle biopsy system was inserted and advanced into the mass. Eight core biopsy samples were obtained and sent to the lab. The patient tolerated the procedure well and there were no immediate complications. Reviewed by SANTIAGO Taylor 04/23/2017 04:58 PEdited and Signed by Baldomero Cross MD 04/23/2017 07:53 P
--- NOTE | 2017-04-23 20:08 | REP ---
Procedure: PICC line insertion with Ivonne-Carlee The procedure was performed under the direct supervision of Dr. Cross. The risks and benefits of the procedure were explained and informed consent was obtained by the health care proxy. The right basilic vein was localized using ultrasound guidance. The skin was prepped and draped in a sterile fashion. 2% lidocaine was used as a local anesthetic. Using ultrasound guidance the basilic vein was cannulated and a 0.018 guidewire was inserted and advanced to the SVC using fluoroscopic guidance. The needle was removed and a 5.5 Divehi dilator and peel-away sheath was inserted over the guide wire. A 5.5 Divehi dual lumen catheter was cut to length of 43 in cm. The dilator was removed and the catheter was inserted over the guide wire with the tip ending in the SVC. The peel-away sheath was removed and the catheter was flushed with heparinized saline as per Hospital protocol. The catheter was affixed to the skin and a sterile dressing was applied. The the patient tolerated the procedure well and there were no immediate complications. 0.3 minutes of fluoro time was utilized for this procedure. Reviewed by SANTIAGO Taylor 04/22/2017 04:26 PSigned by Baldomero Cross MD 04/23/2017 07:51 P
[2017-04-24] MEDS: PIPERACILLIN/TAZOBACTAM SOD 3.375 GM in D5W MINI-BAG PLUS 50 ML IV SCH ×4 (03:29→20:59)
[2017-04-24 04:45] VITALS: BP 164/77
[2017-04-24] MEDS: SODIUM CHLORIDE 0.9% INJ 10 ML SYR IV SCH ×2 (05:43→14:33)
[2017-04-24 05:52] LABS: MEAN CORPUSCULAR HEMOGLOBIN 29.7 pg (27.0-33.0); MEAN CORPUSCULAR HGB CONC 31.4 g/dl (32.0-36.5); MEAN CORPUSCULAR VOLUME 94.6 fl (80.0-96.0); RED CELL DISTRIBUTION WIDTH 16.7 % (11.5-14.5); WHITE BLOOD COUNT 10.2 K/mm3 (4.0-10.0)
[2017-04-24 06:15] LABS: ALBUMIN 1.5 GM/DL (3.2-5.2); ALBUMIN/GLOBULIN RATIO 0.48 (1.00-1.93); ALKALINE PHOSPHATASE 93 U/L (45-117); ALT/SGPT 10 U/L (12-78); ANION GAP 5 MEQ/L (8-16); AST/SGOT 18 U/L (15-37); BILIRUBIN,TOTAL 0.6 MG/DL (0.2-1.0); BLOOD UREA NITROGEN 8 MG/DL (7-18); CALCIUM LEVEL 7.4 MG/DL (8.8-10.2); CARBON DIOXIDE LEVEL 30 MEQ/L (21-32); CHLORIDE LEVEL 105 MEQ/L (98-107); CREATININE FOR GFR 0.51 MG/DL (0.70-1.30); GLOMERULAR FILTRATION RATE > 60.0 (>35); GLUCOSE, FASTING 111 MG/DL (83-110); POTASSIUM SERUM 3.4 MEQ/L (3.5-5.1); SODIUM LEVEL 140 MEQ/L (136-145); TOTAL PROTEIN 4.6 GM/DL (6.4-8.2)
[2017-04-24 07:30] VITALS: BP 167/74
[2017-04-24] MEDS: amLODIPine 5 MG TAB PO SCH ×2 (08:47→20:59)
--- NOTE | 2017-04-24 10:57 | IPNPDOC ---
Subjective Date Seen The patient was seen on 04/24/17. Subjective Chief Complaint/HPI The patient is a 86-year-old male admitted with a reason for visit of Sepsis. Events since last encounter no acute overnight events, had biopsy of left upper abdominal mass done yesterday. no fever or chills. Objective Physical Examination General Exam: Positive: Cooperative, No Acute Distress, Other (somnolent. ) Eye Exam: Positive: PERRLA, Conjunctiva & lids normal, Negative: Sclera icteric ENT Exam: Positive: Atraumatic Neck Exam: Positive: Supple, Negative: JVD, thyromegaly Chest Exam: Positive: Normal air movement, Rales (at the bases.) Heart Exam: Positive: Rate Normal, Regular Rhythm, Normal S1, Normal S2, Negative: Murmurs, Rubs Telemetry: Positive: No significant arrhythmia Abdomen Exam: Positive: BS Hyperactive, Soft, Tenderness, Negative: Hepatospenomegaly Extremity Exam: Positive: Normal pulses, Negative: Clubbing, Cyanosis, Edema Skin Exam: Positive: Nl turgor and temperature, Negative: Breakdown, Lesion Assessment /Plan Problems (1) Abdominal mass, left upper quadrant Status: Acute Problem Text: May be malignant could be related to transverse colon or lymphnode. Had US guided biopsy today on 04/23/17 awaiting pathology results. (2) Abscess of abdominal cavity Status: Acute Problem Text: in the pelvis close to the bladder may have fistulous communication with bladder as per CT . will continue with antibiotics for now. Appreciate Dr Barrios's care of the patient. (3) Sepsis Status: Acute Problem Text: from abdomen . CT abdomen shows mass related to possible distal ileum/ transverse colon with bowel perforation and abscess formation. Discussed with Dr Syed. consulted Dr Morgan. Not a good candidate for extensive surgery due to poor nutritional status, dementia and frailty . New CT abdomen pelvis with IV and oral contrast shows possible malignant mass related to outside of transverse colon which needs to be biopsied. Patient will go down for US guided biopy of the mass in the left upper quadrant. CT chest does show some infiltrates . blood culture gram positive rods. Continue with IV Zosyn and vancomycin continue NPO and maintenance IVF. repeat blood culture. (4) Acute metabolic encephalopathy Status: Acute Problem Text: related to sepsis does also have baseline dementia. (5) Dementia Status: Chronic Problem Text: will restart ritalin if becomes agitated. (6) HTN (hypertension) Status: Chronic Problem Text: Bp rising will start amlodipine. (7) HLD (hyperlipidemia) Status: Chronic (8) Anemia Status: Chronic Problem Text: EGD and colonoscopy done in march 2017. EGD showed non bleeding gastric ulcer, chronic gastritis, hiatal hernia and colonoscopy showed hemorrhoids and diverticulosis. also had 40 lb weight loss over the past 6 months. (9) Aortic valve replaced Status: Chronic Problem Text: by endovascular route. 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 (11) CAD (coronary artery disease) Status: Chronic Plan/VTE VTE Prophylaxis Ordered?: Yes Plan/Urinary Catheter Reason for insertion/continuin: Acute obstruct/retention Plan IVF: Initiate Diet: Continue Current Medications: Replete Electrolytes PO Diagnostics: Repeat Labs in AM Anticipated Discharge: Home VS, I&O, 24H, Fishbone Vital Signs/I&O Vital Signs Date Time Temp Pulse Resp B/P (MAP) Pulse Ox O2 Delivery O2 Flow Rate FiO2 04/24/17 08:47 77 167/78 04/24/17 08:00 Room Air 04/24/17 07:30 99.5 20 94 04/20/17 05:20 1.0 I&O- Last 24 Hours up to 6 AM 04/24/17 06:00 Intake Total 1490 ml Output Total 1325 ml Balance 165 ml Laboratory Data 24H LABS Laboratory Tests 2 04/24/17 05:41: Anion Gap 5L, Glomerular Filtration Rate > 60.0, Blood Urea Nitrogen 8, Creatinine 0.51L, Sodium Level 140, Potassium Level 3.4L, Chloride Level 105, Carbon Dioxide Level 30, Calcium Level 7.4L, Aspartate Amino Transf (AST/SGOT) 18, Alanine Aminotransferase (ALT/SGPT) 10L, Alkaline Phosphatase 93, Total Bilirubin 0.6, Total Protein 4.6L, Albumin 1.5L, Albumin/Globulin Ratio 0.48L CBC/BMP Laboratory Tests 04/24/17 05:41 Red Blood Count 2.67 L, Mean Corpuscular Volume 94.6, Mean Corpuscular Hemoglobin 29.7, Mean Corpuscular Hemoglobin Concent 31.4 L, Red Cell Distribution Width 16.7 H, Calcium Level 7.4 L, Aspartate Amino Transf (AST/SGOT ) 18, Alanine Aminotransferase (ALT/SGPT) 10 L, Alkaline Phosphatase 93, Total Bilirubin 0.6, Total Protein 4.6 L, Albumin 1.5 L Microbiology Microbiology 04/19/17 Blood Culture - Final, Complete Actinomyces Israelii 04/20/17 Stool Occult Blood (YOANDY) - Final, Complete 04/19/17 Urine Culture - Final, Complete CARLI FOX MD Apr 24, 2017 10:57
[2017-04-24] MEDS: KCL 40MEQ IN D5/NS 1000ML 1,000 ML IV SCH ×2 (11:42→11:48)
[2017-04-24] MEDS: VANCOMYCIN HCL 1,000 MG, VIAL MATE ADAPTER 1 EACH in D5W 250 ML IV SCH (11:42)
[2017-04-24 12:00] VITALS: BP 177/81
[2017-04-24] MEDS: ENOXAPARIN 30 MG/0.3 ML SYR (J1650) SC SCH (14:32)
[2017-04-24 15:46] VITALS: BP 154/71
[2017-04-24 20:00] VITALS: BP 131/79
[2017-04-24 23:58] VITALS: BP 155/72
[2017-04-25] VITALS (8 sets, daily range): BP systolic 132–182; BP diastolic 67–81
[2017-04-25] MEDS: VANCOMYCIN HCL 1,000 MG, VIAL MATE ADAPTER 1 EACH in D5W 250 ML IV SCH ×2 (00:08→12:10)
[2017-04-25] MEDS: PIPERACILLIN/TAZOBACTAM SOD 3.375 GM in D5W MINI-BAG PLUS 50 ML IV SCH ×4 (02:04→20:19)
[2017-04-25 05:18] LABS: MEAN CORPUSCULAR HEMOGLOBIN 29.3 pg (27.0-33.0); MEAN CORPUSCULAR HGB CONC 31.4 g/dl (32.0-36.5); MEAN CORPUSCULAR VOLUME 93.3 fl (80.0-96.0); RED CELL DISTRIBUTION WIDTH 16.7 % (11.5-14.5); WHITE BLOOD COUNT 9.7 K/mm3 (4.0-10.0)
[2017-04-25 06:17] LABS: ALBUMIN 1.6 GM/DL (3.2-5.2); ALKALINE PHOSPHATASE 96 U/L (45-117); ALT/SGPT 10 U/L (12-78); ANION GAP 7 MEQ/L (8-16); AST/SGOT 18 U/L (15-37); BILIRUBIN,TOTAL 0.6 MG/DL (0.2-1.0); BLOOD UREA NITROGEN 8 MG/DL (7-18); CALCIUM LEVEL 7.9 MG/DL (8.8-10.2); CARBON DIOXIDE LEVEL 27 MEQ/L (21-32); CHLORIDE LEVEL 105 MEQ/L (98-107); CREATININE FOR GFR 0.61 MG/DL (0.70-1.30); GLOMERULAR FILTRATION RATE > 60.0 (>35); GLUCOSE, FASTING 108 MG/DL (83-110); POTASSIUM SERUM 3.5 MEQ/L (3.5-5.1); SODIUM LEVEL 139 MEQ/L (136-145); TOTAL PROTEIN 4.8 GM/DL (6.4-8.2)
[2017-04-25] MEDS: SODIUM CHLORIDE 0.9% INJ 10 ML SYR IV SCH ×2 (06:22→17:57)
[2017-04-25] MEDS: amLODIPine 5 MG TAB PO SCH ×2 (09:00→20:20)
[2017-04-25] MEDS: ENOXAPARIN 30 MG/0.3 ML SYR (J1650) SC SCH (09:29)
--- NOTE | 2017-04-25 11:46 | IPNPDOC ---
Subjective Date Seen The patient was seen on 04/25/17. Subjective Chief Complaint/HPI The patient is a 86-year-old male admitted with a reason for visit of Sepsis. Events since last encounter No new issues, patient does not complain of any pain. did drink some clear liquids yesterday. Biopsy shows malignant lymphoma. no fever or chills, no vomiting or diarrhea. Objective Physical Examination General Exam: Positive: Cooperative, No Acute Distress, Other (somnolent. ) Eye Exam: Positive: PERRLA, Conjunctiva & lids normal, Negative: Sclera icteric ENT Exam: Positive: Atraumatic Neck Exam: Positive: Supple, Negative: JVD, thyromegaly Chest Exam: Positive: Normal air movement, Rales (at the bases.) Heart Exam: Positive: Rate Normal, Regular Rhythm, Normal S1, Normal S2, Negative: Murmurs, Rubs Telemetry: Positive: No significant arrhythmia Abdomen Exam: Positive: BS Hyperactive, Soft, Tenderness, Negative: Hepatospenomegaly Extremity Exam: Positive: Normal pulses, Negative: Clubbing, Cyanosis, Edema Skin Exam: Positive: Nl turgor and temperature, Negative: Breakdown, Lesion Assessment /Plan Problems (1) Abdominal mass, left upper quadrant Status: Acute Problem Text: May be malignant could be related to transverse colon or lymphnode. Had US guided biopsy today on 04/23/17 Pathology shows Malignant lymphoma patient not a candidate for surgery or for chemotherapy due to him medical commorbidities. will discuss hospice with family. (2) Abscess of abdominal cavity Status: Acute Problem Text: in the pelvis close to the bladder may have fistulous communication with bladder as per CT . This is thought to be due to localized infarction of the bowel with perforation and abscess formation. will continue with antibiotics for now. Appreciate Dr Barrios's care of the patient. (3) Sepsis Status: Acute Problem Text: from abdomen . CT abdomen shows mass related to possible distal ileum/ transverse colon with bowel perforation and abscess formation. Discussed with Dr Syed. consulted Dr Morgan. Not a good candidate for extensive surgery due to poor nutritional status, dementia and frailty . New CT abdomen pelvis with IV and oral contrast shows possible malignant mass related to outside of transverse colon which needs to be biopsied. Patient will go down for US guided biopy of the mass in the left upper quadrant. CT chest does show some infiltrates . blood culture gram positive rods. Continue with IV Zosyn and vancomycin continue NPO and maintenance IVF. repeat blood culture. (4) Acute metabolic encephalopathy Status: Acute Problem Text: related to sepsis does also have baseline dementia. (5) Dementia Status: Chronic Problem Text: will restart ritalin if becomes agitated. (6) HTN (hypertension) Status: Chronic Problem Text: Bp rising will start amlodipine. (7) HLD (hyperlipidemia) Status: Chronic (8) Anemia Status: Chronic Problem Text: EGD and colonoscopy done in march 2017. EGD showed non bleeding gastric ulcer, chronic gastritis, hiatal hernia and colonoscopy showed hemorrhoids and diverticulosis. also had 40 lb weight loss over the past 6 months. (9) Aortic valve replaced Status: Chronic Problem Text: by endovascular route. 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 (11) CAD (coronary artery disease) Status: Chronic (12) Bowel perforation Status: Acute Problem Text: Its probably due to localized infarction of the bowel with abscess formation and may have sealed off now. no signs of bowel obstruction As patient is going to hospice will allow diet as tolerated. Plan/VTE VTE Prophylaxis Ordered?: Yes Plan/Urinary Catheter Reason for insertion/continuin: Acute obstruct/retention Plan IVF: Initiate Diet: Continue Current Medications: Replete Electrolytes PO Diagnostics: Repeat Labs in AM Anticipated Discharge: Home VS, I&O, 24H, [facility] Vital Signs/I&O Vital Signs Date Time Temp Pulse Resp B/P (MAP) Pulse Ox O2 Delivery O2 Flow Rate FiO2 04/25/17 09:28 79 132/78 (96) 04/25/17 08:00 Room Air 04/25/17 07:25 97.7 20 96 04/20/17 05:20 1.0 I&O- Last 24 Hours up to 6 AM 04/25/17 06:00 Intake Total 530 ml Output Total 1425 ml Balance -895 ml Laboratory Data 24H LABS Laboratory Tests 2 04/25/17 05:08: Anion Gap 7L, Glomerular Filtration Rate > 60.0, Blood Urea Nitrogen 8, Creatinine 0.61L, Sodium Level 139, Potassium Level 3.5, Chloride Level 105, Carbon Dioxide Level 27, Calcium Level 7.9L, Aspartate Amino Transf (AST/SGOT) 18, Alanine Aminotransferase (ALT/SGPT) 10L, Alkaline Phosphatase 96, Total Bilirubin 0.6, Total Protein 4.8L, Albumin 1.6L, Albumin/Globulin Ratio 0.50L CBC/BMP Laboratory Tests 04/25/17 05:08 Red Blood Count 2.71 L, Mean Corpuscular Volume 93.3, Mean Corpuscular Hemoglobin 29.3, Mean Corpuscular Hemoglobin Concent 31.4 L, Red Cell Distribution Width 16.7 H, Calcium Level 7.9 L, Aspartate Amino Transf (AST/SGOT ) 18, Alanine Aminotransferase (ALT/SGPT) 10 L, Alkaline Phosphatase 96, Total Bilirubin 0.6, Total Protein 4.8 L, Albumin 1.6 L Microbiology Microbiology 04/19/17 Blood Culture - Final, Complete Actinomyces Israelii 04/20/17 Stool Occult Blood (YOANDY) - Final, Complete 04/19/17 Urine Culture - Final, Complete CARLI FOX MD Apr 25, 2017 11:46
[2017-04-25] MEDS ORDERED: LORazepam 2 MG/ML VIAL (J2060) IV PRN (13:45)
[2017-04-25] MEDS ORDERED: ATROPINE SULFATE 1% OP SOLN 2 ML BTL SL PRN (13:45)
[2017-04-25] MEDS: KCL 40MEQ IN D5/NS 1000ML 1,000 ML IV SCH ×2 (16:50→21:41)
[2017-04-26] MEDS: PIPERACILLIN/TAZOBACTAM SOD 3.375 GM in D5W MINI-BAG PLUS 50 ML IV SCH ×2 (01:10→08:00)
[2017-04-26] MEDS: SODIUM CHLORIDE 0.9% INJ 10 ML SYR IV SCH ×2 (06:12→16:09)
--- NOTE | 2017-04-26 08:59 | IPNPDOC ---
Subjective Date Seen The patient was seen on 04/26/17. Subjective Chief Complaint/HPI The patient is a 86-year-old male admitted with a reason for visit of Sepsis. Events since last encounter No change in status , Hospice consulted . family wants home hospice. Objective Physical Examination General Exam: Positive: No Acute Distress, Other (somnolent. ) Eye Exam: Positive: PERRLA, Conjunctiva & lids normal, Negative: Sclera icteric ENT Exam: Positive: Atraumatic Neck Exam: Positive: Supple, Negative: JVD, thyromegaly Chest Exam: Positive: Normal air movement, Rales (at the bases.) Heart Exam: Positive: Rate Normal, Regular Rhythm, Normal S1, Normal S2, Negative: Murmurs, Rubs Abdomen Exam: Positive: BS Hyperactive, Soft, Tenderness, Negative: Hepatospenomegaly Extremity Exam: Positive: Normal pulses, Negative: Clubbing, Cyanosis, Edema Skin Exam: Positive: Nl turgor and temperature, Negative: Breakdown, Lesion Assessment /Plan Problems (1) Abdominal mass, left upper quadrant Status: Acute Problem Text: Malignant lymphoma. Had US guided biopsy today on 04/23/17 Pathology shows Malignant lymphoma patient not a candidate for surgery or for chemotherapy due to him medical commorbidities. will discuss hospice with family. (2) Abscess of abdominal cavity Status: Acute Problem Text: in the pelvis close to the bladder may have fistulous communication with bladder as per CT . This is thought to be due to localized infarction of the bowel with perforation and abscess formation. finished 7 days of antibiotics. Appreciate Dr Barrios's care of the patient. 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 (3) Sepsis Status: Acute Problem Text: from abdomen . has intraabdominal abscess with perforation. consulted Dr Morgan. Not a good candidate for extensive surgery due to poor nutritional status, dementia and frailty and underlying malignancy. US guided biopsy of the mass in the left upper quadrant showed malignant lymphoma. CT chest pneumonia. blood culture actinomyces. (4) Acute metabolic encephalopathy Status: Acute Problem Text: related to sepsis , cancer does also have baseline dementia. (5) Dementia Status: Chronic Problem Text: will restart ritalin if becomes agitated. (6) HTN (hypertension) Status: Chronic Problem Text: Bp rising will start amlodipine. (7) HLD (hyperlipidemia) Status: Chronic (8) Anemia Status: Chronic Problem Text: EGD and colonoscopy done in march 2017. EGD showed non bleeding gastric ulcer, chronic gastritis, hiatal hernia and colonoscopy showed hemorrhoids and diverticulosis. also had 40 lb weight loss over the past 6 months. (9) Aortic valve replaced Status: Chronic Problem Text: by endovascular route. 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 (11) CAD (coronary artery disease) Status: Chronic (12) Bowel perforation Status: Acute Problem Text: Its probably due to localized infarction of the bowel with abscess formation and may have sealed off now. no signs of bowel obstruction As patient is going to hospice will allow diet as tolerated. Plan/VTE VTE Prophylaxis Ordered?: Yes Plan/Urinary Catheter Reason for insertion/continuin: Acute obstruct/retention Plan IVF: Initiate Diet: Continue Current Medications: Replete Electrolytes PO Diagnostics: Repeat Labs in AM Anticipated Discharge: Home VS, I&O, 24H, Fishbone Vital Signs/I&O Vital Signs Date Time Temp Pulse Resp B/P (MAP) Pulse Ox O2 Delivery O2 Flow Rate FiO2 04/25/17 20:20 76 182/81 04/25/17 20:00 Room Air 04/25/17 13:49 20 94 04/25/17 07:25 97.7 04/20/17 05:20 1.0 I&O- Last 24 Hours up to 6 AM 04/26/17 06:00 Intake Total 1210 ml Output Total 1300 ml Balance -90 ml Laboratory Data Microbiology Microbiology 04/19/17 Blood Culture - Final, Complete Actinomyces Israelii 04/20/17 Stool Occult Blood (YOANDY) - Final, Complete 04/19/17 Urine Culture - Final, Complete CARLI FOX MD Apr 26, 2017 08:59
[2017-04-26] MEDS: MORPHINE 2 MG/ML 1ML SYRINGE IV PRN (16:10)
[2017-04-26] MEDS: NS 1,000 ML IV SCH (17:46)
[2017-04-27] MEDS: SODIUM CHLORIDE 0.9% INJ 10 ML SYR IV SCH ×2 (05:14→08:11)
[2017-04-27 06:22] LABS: MEAN CORPUSCULAR HEMOGLOBIN 30.3 pg (27.0-33.0); MEAN CORPUSCULAR HGB CONC 31.1 g/dl (32.0-36.5); MEAN CORPUSCULAR VOLUME 97.6 fl (80.0-96.0); RED CELL DISTRIBUTION WIDTH 16.6 % (11.5-14.5); WHITE BLOOD COUNT 10.1 K/mm3 (4.0-10.0)
[2017-04-27] MEDS: MORPHINE 2 MG/ML 1ML SYRINGE IV PRN (08:11)
--- NOTE | 2017-04-27 12:32 | IPNPDOC ---
Subjective Date Seen The patient was seen on 04/27/17. Subjective Chief Complaint/HPI The patient is a 86-year-old male admitted with a reason for visit of Sepsis. Events since last encounter patient comfortable, no pain , awake responding a little to family. Eating a little by mouth. Objective Physical Examination General Exam: Positive: No Acute Distress, Other (somnolent. ) Eye Exam: Positive: PERRLA, Conjunctiva & lids normal, Negative: Sclera icteric ENT Exam: Positive: Atraumatic Neck Exam: Positive: Supple, Negative: JVD, thyromegaly Chest Exam: Positive: Normal air movement, Rales (at the bases.) Heart Exam: Positive: Rate Normal, Regular Rhythm, Normal S1, Normal S2, Negative: Murmurs, Rubs Abdomen Exam: Positive: BS Hyperactive, Soft, Tenderness, Negative: Hepatospenomegaly Extremity Exam: Positive: Normal pulses, Negative: Clubbing, Cyanosis, Edema Skin Exam: Positive: Nl turgor and temperature, Negative: Breakdown, Lesion Assessment /Plan Problems (1) Abdominal mass, left upper quadrant Status: Acute Problem Text: Malignant lymphoma. Had US guided biopsy today on 04/23/17 Pathology shows Malignant lymphoma patient not a candidate for surgery or for chemotherapy due to him medical commorbidities. will discuss hospice with family. (2) Abscess of abdominal cavity Status: Acute Problem Text: in the pelvis close to the bladder may have fistulous communication with bladder as per CT . This is thought to be due to localized infarction of the bowel with perforation and abscess formation. finished 7 days of antibiotics. Appreciate Dr Barrios's care of the patient. 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 (3) Sepsis Status: Acute Problem Text: from abdomen . has intraabdominal abscess with perforation. consulted Dr Morgan. Not a good candidate for extensive surgery due to poor nutritional status, dementia and frailty and underlying malignancy. US guided biopsy of the mass in the left upper quadrant showed malignant lymphoma. CT chest pneumonia. blood culture actinomyces. (4) Acute metabolic encephalopathy Status: Acute Problem Text: related to sepsis , cancer does also have baseline dementia. (5) Dementia Status: Chronic Problem Text: will restart ritalin if becomes agitated. (6) HTN (hypertension) Status: Chronic Problem Text: Bp rising will start amlodipine. (7) HLD (hyperlipidemia) Status: Chronic (8) Anemia Status: Chronic Problem Text: EGD and colonoscopy done in march 2017. EGD showed non bleeding gastric ulcer, chronic gastritis, hiatal hernia and colonoscopy showed hemorrhoids and diverticulosis. also had 40 lb weight loss over the past 6 months. (9) Aortic valve replaced Status: Chronic Problem Text: by endovascular route. 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 (11) CAD (coronary artery disease) Status: Chronic (12) Bowel perforation Status: Acute Problem Text: Its probably due to localized infarction of the bowel with abscess formation and may have sealed off now. no signs of bowel obstruction As patient is going to hospice will allow diet as tolerated. Plan/VTE VTE Prophylaxis Ordered?: Yes Plan/Urinary Catheter Reason for insertion/continuin: Acute obstruct/retention Plan IVF: Initiate Diet: Continue Current Medications: Replete Electrolytes PO Diagnostics: Repeat Labs in AM Anticipated Discharge: Home VS, I&O, 24H, Fishbone Vital Signs/I&O Vital Signs Date Time Temp Pulse Resp B/P (MAP) Pulse Ox O2 Delivery O2 Flow Rate FiO2 04/27/17 08:33 Room Air 04/27/17 08:22 16 04/25/17 20:20 76 182/81 04/25/17 13:49 94 04/25/17 07:25 97.7 I&O- Last 24 Hours up to 6 AM 04/27/17 06:00 Intake Total 900 ml Output Total 500 ml Balance 400 ml Laboratory Data CBC/BMP Laboratory Tests 04/27/17 05:36 Red Blood Count 2.97 L, Mean Corpuscular Volume 97.6 H, Mean Corpuscular Hemoglobin 30.3, Mean Corpuscular Hemoglobin Concent 31.1 L, Red Cell Distribution Width 16.6 H Microbiology Microbiology 04/19/17 Blood Culture - Final, Complete Actinomyces Israelii 04/20/17 Stool Occult Blood (YOANDY) - Final, Complete 04/19/17 Urine Culture - Final, Complete CARLI FOX MD Apr 27, 2017 12:32
[2017-04-27] MEDS: NS 1,000 ML IV SCH (13:45)
[2017-04-28] MEDS: SODIUM CHLORIDE 0.9% INJ 10 ML SYR IV SCH ×2 (06:02→10:16)
[2017-04-28] MEDS ORDERED: LORA1TAB12 PO (10:14)
[2017-04-28] MEDS ORDERED: MORP1SOL PO (10:14)
[2017-04-28] MEDS ORDERED: ATRO1OPD PO (10:14)
[2017-04-28] MEDS: MORPHINE 2 MG/ML 1ML SYRINGE IV PRN (10:20)
--- NOTE | 2017-04-30 16:23 | DSES ---
DATE OF ADMISSION: 04/19/2017 DATE OF DISCHARGE: 04/28/2017 DISCHARGE DIAGNOSES: 1. 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 2. Abdominal abscess and perforation of bowel due to localized bowel infarction from mass. 3. Sepsis. 4. Acute metabolic encephalopathy. 5. Dementia. 6. History of hypertension. 7. Hyperlipidemia. 8. Chronic anemia. 9. Aortic valve replacement in the past. 10. Coronary artery disease with history of coronary artery bypass graft (CABG). 11. Pneumonia DISCHARGE MEDICATIONS: - atropine sulfate 1% solution 1-2 drops by mouth every 2 hours as needed for terminal secretions - lorazepam 0.5 mg tablet by mouth every 4 hours as needed for anxiety or agitation - morphine sulfate 10 mg/0.5 mL concentrate 0.25 to 1 mL by mouth every 2 hours as needed for pain or dyspnea - Senna Plus one tablet by mouth twice a day - Ritalin 5 mg by mouth daily HOSPITAL COURSE: This is an 86-year-old male who presented to the hospital for excessive somnolence and difficulty to wake him up and altered mental status. Patient has been gradually becoming sicker over the past 5-6 months and this time he was very confused and then somnolent and so was brought to the hospital. In the hospital, patient had a CT scan of the chest which showed some pneumonia and later, on day #2 of admission, because of abdominal pain, patient had CT of the abdomen and pelvis done which showed an intraabdominal abscess with bowel perforation. Repeat CT scan with contrast, IV and oral, showed presence of right upper quadrant mass. Patient underwent biopsy of the mass which came back to be diffuse large B-cell lymphoma. Patient finished a course of antibiotics in the hospital. In view of the diagnosis of advanced malignancy, family did not want to pursue any further tests or treatment and opted for home hospice and comfort measures. Hospice saw the patient and subsequently patient was discharged to home hospice on 04/28/2017. DISPOSITION: Home with hospice. DISCHARGE INSTRUCTIONS: Patient to followup with hospice nurses at home. MARIA ISABEL
== END 2017-04-28 16:35 | disposition hospice, home (50) | DRG 853 ==
LOC: EDSEX 00:21 → EDBD 00:21 → M ED 01:17 → M ED INP 05:08 → M ICU 08:10 → M PCU 20:48 → M MSPAV 04-25 14:09
PROVIDERS: ADMIT Internal Medicine; ATTEND Internal Medicine Nephrology
PROC: 02HV33Z Insertion of Infusion Device into Superior Vena Cava, Percutaneous Approach (ICD-10-PCS; 2017-04-22)
PROC: 0WBF3ZX Excision of Abdominal Wall, Percutaneous Approach, Diagnostic (ICD-10-PCS; principal; 2017-04-23)
DX: A41.9 Sepsis, unspecified organism (principal); G93.41 Metabolic encephalopathy; K65.1 Peritoneal abscess; J18.9 Pneumonia, unspecified organism; K55.069 Acute infarction of intestine, part and extent unspecified; C85.93 Non-Hodgkin lymphoma, unspecified, intra-abdominal lymph nodes; E46 Unspecified protein-calorie malnutrition; E78.5 Hyperlipidemia, unspecified; Z66 Do not resuscitate; I10 Essential (primary) hypertension; I25.10 Atherosclerotic heart disease of native coronary artery without angina pectoris; F03.90 Unspecified dementia, unspecified severity, without behavioral disturbance, psychotic disturbance, mood disturbance, and anxiety; Z79.899 Other long term (current) drug therapy; Z91.040 Latex allergy status; D64.9 Anemia, unspecified